=== PATIENT | male | born 1935 | race Caucasian/White ===

== ENCOUNTER → 2016-08-02 | Outpatient (CLI) | payer MEDICARE, OTHER | END | disposition home or self-care (01) | LOC: LABWHC1 06:41 | PROVIDERS: ATTEND Urology | DX: C61 Malignant neoplasm of prostate (principal) | CPT/HCPCS: 36415; 84153 ==

== ENCOUNTER 2017-04-29 09:00 | Inpatient (IN) | payer MEDICARE, OTHER ==
[2017-04-29] MEDS ORDERED: ASPIRIN 81 MG PO STA (09:03)
[2017-04-29 09:42] LABS: Basophils % (A) 0 %; Eosinophils % (A) 0 %; HCT 29.1 % (39.0-53.0); HGB 9.8 gm/dL (13.0-17.5); Lymphocytes # (A) 0.8 k/uL (1.0-4.8); Lymphocytes % (A) 7 %; MCH 30.4 pg (25.0-35.0); MCHC 33.8 g/dL (31.0-37.0); MCV 89.9 fL (80.0-100.0); Mean Platelet Volume 7.7; Monocytes # (A) 0.7 k/uL (0-1.0); Monocytes % (A) 6 %; Neutrophils # (A) 9.3 k/uL (1.3-7.7); Neutrophils % (A) 85 %; Platelet Count 274 k/uL (150-450); Poikilocytosis Slight; RBC 3.24 m/uL (4.30-5.90); RDW 14.9 % (11.5-15.5); WBC 10.9 k/uL (3.8-10.6)
[2017-04-29 09:49] LABS: INR 1.3 (<1.2); Partial Thromboplastin Time 28.2 sec (22.0-30.0)
[2017-04-29 10:01] LABS: Albumin 2.6 g/dL (3.5-5.0); Calcium 9.7 mg/dL (8.4-10.2); Magnesium 1.9 mg/dL (1.6-2.3); Potassium 3.5 mmol/L (3.5-5.1); Total Bilirubin 0.6 mg/dL (0.2-1.3); Total Protein 5.7 g/dL (6.3-8.2)
--- NOTE | 2017-04-29 10:01 | XR ---
EXAMINATION TYPE: XR chest 2V DATE OF EXAM: 04/29/2017 COMPARISON: 05/07/2010 HISTORY: 82-year-old male with chest pain TECHNIQUE: AP and lateral views FINDINGS: The extreme left base is excluded from view. Heart normal size. Median sternotomy wires with post-CAB G clips in the mediastinum. Hyperinflation with flattening of hemidiaphragms. There is new small righ t pleural effusion. Some interstitial densities peripheral right base. IMPRESSION: COPD. Small pleural effusions with adjacent atelectasis and/or consolidation. Correlate to exclude mi ld CHF.
[2017-04-29] MEDS ORDERED: ONDANSETRON 4 MG/2 ML VIAL IVP PRN (11:14)
[2017-04-29] MEDS ORDERED: NALOXONE 0.4 MG/ML 1 ML VIAL IV PRN (11:14)
--- NOTE | 2017-04-29 11:14 | ED ---
SOB HPI - General Chief Complaint: Shortness of Breath Stated Complaint: Diff Breathing Time Seen by Provider: 04/29/17 09:03 Source: patient, EMS Mode of arrival: EMS Limitations: no limitations - History of Present Illness Initial Comments: Patient complains of shortness of breath. It has been getting worse for many hours. Nothing makes it better or worse. He has taken no medications. He has no pain or swelling in the arms, but does complain of edema in the legs. He has no chest pain or tightness. He has no lightheadedness or dizziness. He has no nausea or vomiting. He denies any sick contacts. He has not traveled anywhere. He did not take any specific medication for the shortness of breath. He was not doing anything when this began. - Related Data Home Medications Medication Instructions Recorded Confirmed Aspirin EC [Ecotrin Low Dose] 162 mg PO DAILY 04/29/17 04/29/17 Atenolol [Tenormin] 50 mg PO DAILY 04/29/17 04/29/17 Atorvastatin [Lipitor] 40 mg PO HS 04/29/17 04/29/17 Docusate [Colace] 100 mg PO DAILY 04/29/17 04/29/17 Ezetimibe [Zetia] 10 mg PO HS 04/29/17 04/29/17 Fexofenadine HCl [Crystal Allergy] 180 mg PO DAILY 04/29/17 04/29/17 Furosemide [Lasix] 40 mg PO DAILY 04/29/17 04/29/17 Ibuprofen [Motrin] 800 mg PO TID PRN 04/29/17 04/29/17 Lisinopril [Prinivil] 10 mg PO BID 04/29/17 04/29/17 Multivitamins, Thera [Multivitamin 1 tab PO DAILY 04/29/17 04/29/17 (formulary)] Omeprazole Magnesium [PriLOSEC OTC] 20 mg PO DAILY 04/29/17 04/29/17 traMADol HCL [Ultram] 50 - 100 mg PO Q6H PRN 04/29/17 04/29/17 Allergies Allergy/AdvReac Type Severity Reaction Status Date / Time acetaminophen [From Tylenol] Allergy Rash/Hives Verified 04/29/17 09:36 bicalutamide [From Casodex] Allergy Rash/Hives Verified 04/29/17 09:36 meloxicam [From Mobic] Allergy Unknown Verified 04/29/17 09:36 Sulfa (Sulfonamide Allergy Itching Verified 04/29/17 09:36 Antibiotics) morphine AdvReac Nausea & Verified 04/29/17 09:36 Vomiting Review of Systems ROS Statement: Those systems with pertinent positive or pertinent negative responses have been documented in the HPI. ROS Other: All systems not noted in ROS Statement are negative. Past Medical History Past Medical History: Atrial Fibrillation, Hyperlipidemia, Hypertension, Myocardial Infarction ([place]), Prostate Disorder Additional Past Medical History / Comment(s): prostate ca History of Any Multi-Drug Resistant Organisms: None Reported Past Surgical History: Appendectomy, Coronary Bypass/CABG, Tonsillectomy Past Psychological History: No Psychological Hx Reported Smoking Status: Former smoker Past Alcohol Use History: Occasional Past Drug Use History: None Reported General Exam Limitations: no limitations General appearance: alert, in no apparent distress Head exam: Present: atraumatic, normocephalic, normal inspection Eye exam: Present: normal appearance, PERRL, EOMI. Absent: scleral icterus, conjunctival injection, periorbital swelling ENT exam: Present: normal exam, mucous membranes moist Neck exam: Present: normal inspection. Absent: tenderness, meningismus, lymphadenopathy Respiratory exam: Present: rales, rhonchi. Absent: respiratory distress, wheezes, stridor Cardiovascular Exam: Present: regular rate, normal rhythm, normal heart sounds. Absent: systolic murmur, diastolic murmur, rubs, gallop, clicks GI/Abdominal exam: Present: soft, normal bowel sounds. Absent: distended, tenderness, guarding, rebound, rigid Extremities exam: Present: normal inspection, full ROM, normal capillary refill , pedal edema. Absent: tenderness, joint swelling, calf tenderness Back exam: Present: normal inspection Neurological exam: Present: alert, oriented X3, CN II-XII intact Psychiatric exam: Present: normal affect, normal mood Skin exam: Present: warm, dry, intact, normal color. Absent: rash Course Vital Signs 04/29/17 04/29/17 04/29/17 09:06 09:18 09:39 Temperature 97.6 F Pulse Rate 83 Pulse Rate [ Analytical Statistician ] Respiratory 22 20 Rate Blood Pressure 140/58 O2 Sat by Pulse 89 L 95 Oximetry 04/29/17 04/29/17 04/29/17 09:40 10:16 11:06 Temperature Pulse Rate 83 85 Pulse Rate [ 84 Analytical Statistician ] Respiratory 20 18 Rate Blood Pressure 140/58 134/65 O2 Sat by Pulse 97 97 Oximetry Medical Decision Making - Medical Decision Making Patient presents with shortness of breath. He has rales and rhonchi bilaterally. Chest x-rays consistent with heart failure. Troponin is slightly elevated, and he has a very elevated BNP. Patient will be admitted to the hospital. I will place a consultation to cardiology. - Lab Data Result diagrams: 04/29/17 09:20 04/29/17 09:20 Lab Results 04/29/17 04/29/17 04/29/17 Range/Units 09:20 09:20 09:20 WBC 10.9 H (3.8-10.6) k/uL RBC 3.24 L (4.30-5.90) m/uL Hgb 9.8 L (13.0-17.5) gm/dL Hct 29.1 L (39.0-53.0) % MCV 89.9 (80.0-100.0) fL MCH 30.4 (25.0-35.0) pg MCHC 33.8 (31.0-37.0) g/dL RDW 14.9 (11.5-15.5) % Plt Count 274 (150-450) k/uL Neutrophils % 85 % Lymphocytes % 7 % Monocytes % 6 % Eosinophils % 0 % Basophils % 0 % Neutrophils # 9.3 H (1.3-7.7) k/uL Lymphocytes # 0.8 L (1.0-4.8) k/uL Monocytes # 0.7 (0-1.0) k/uL Eosinophils # 0.0 (0-0.7) k/uL Basophils # 0.0 (0-0.2) k/uL Poikilocytosis Slight PT (9.0-12.0) sec INR (<1.2) APTT (22.0-30.0) sec Sodium 137 (137-145) mmol/L Potassium 3.5 (3.5-5.1) mmol/L Chloride 106 (98-107) mmol/L Carbon Dioxide 21 L (22-30) mmol/L Anion Gap 10 mmol/L BUN 65 H (9-20) mg/dL Creatinine 1.50 H (0.66-1.25) mg/dL Est GFR (CKD-EPI)AfAm 50 (>60 ml/min/1.73 sqM) Est GFR (CKD-EPI)NonAf 43 (>60 ml/min/1.73 sqM) Glucose 124 H (74-99) mg/dL Calcium 9.7 (8.4-10.2) mg/dL Magnesium 1.9 (1.6-2.3) mg/dL Total Bilirubin 0.6 (0.2-1.3) mg/dL AST 15 L (17-59) U/L ALT 27 (21-72) U/L Alkaline Phosphatase 132 H (38-126) U/L Troponin I (0.000-0.034) ng/mL NT-Pro-B Natriuret Pep 2590 pg/mL Total Protein 5.7 L (6.3-8.2) g/dL Albumin 2.6 L (3.5-5.0) g/dL Lipase 63 (23-300) U/L 04/29/17 04/29/17 Range/Units 09:20 09:20 WBC (3.8-10.6) k/uL RBC (4.30-5.90) m/uL Hgb (13.0-17.5) gm/dL Hct (39.0-53.0) % MCV (80.0-100.0) fL MCH (25.0-35.0) pg MCHC (31.0-37.0) g/dL RDW (11.5-15.5) % Plt Count (150-450) k/uL Neutrophils % % Lymphocytes % % Monocytes % % Eosinophils % % Basophils % % Neutrophils # (1.3-7.7) k/uL Lymphocytes # (1.0-4.8) k/uL Monocytes # (0-1.0) k/uL Eosinophils # (0-0.7) k/uL Basophils # (0-0.2) k/uL Poikilocytosis PT 12.0 (9.0-12.0) sec INR 1.3 H (<1.2) APTT 28.2 (22.0-30.0) sec Sodium (137-145) mmol/L Potassium (3.5-5.1) mmol/L Chloride (98-107) mmol/L Carbon Dioxide (22-30) mmol/L Anion Gap mmol/L BUN (9-20) mg/dL Creatinine (0.66-1.25) mg/dL Est GFR (CKD-EPI)AfAm (>60 ml/min/1.73 sqM) Est GFR (CKD-EPI)NonAf (>60 ml/min/1.73 sqM) Glucose (74-99) mg/dL Calcium (8.4-10.2) mg/dL Magnesium (1.6-2.3) mg/dL Total Bilirubin (0.2-1.3) mg/dL AST (17-59) U/L ALT (21-72) U/L Alkaline Phosphatase (38-126) U/L Troponin I 0.099 H* (0.000-0.034) ng/mL NT-Pro-B Natriuret Pep pg/mL Total Protein (6.3-8.2) g/dL Albumin (3.5-5.0) g/dL Lipase (23-300) U/L 04/29/17 11:13 Twelve-lead EKG interpreted by me as showing ventricular rate 84 bpm, normal HI interval, QRS complexes demonstrate intraventricular block, no ST elevation or depression, interpreted by me as a sinus rhythm. Disposition Clinical Impression: Congestive heart failure Disposition: ADMITTED IP TO THIS HOSP Condition: Fair Referrals: Harshal Lane MD [Primary Care Provider] - 1-2 days Time of Disposition: 11:14
[2017-04-29] MEDS ORDERED: FUROSEMIDE 40 MG TAB PO SCH (11:30)
[2017-04-29] MEDS: traMADol 50 MG TAB PO PRN ×2 (12:55→20:56)
[2017-04-29] MEDS: ATENOLOL 50 MG TAB PO SCH (13:05)
[2017-04-29] MEDS: FAMOTIDINE 20 MG TAB PO SCH ×2 (13:05→20:47)
[2017-04-29] MEDS: ATORVASTATIN 40 MG TAB PO SCH (13:06)
[2017-04-29] MEDS: EZETIMIBE 10 MG TAB PO SCH ×2 (13:06→20:47)
[2017-04-29] MEDS: LISINOPRIL 10 MG TAB PO SCH ×2 (13:06→20:47)
[2017-04-29] MEDS ORDERED: ATENOLOL 25 MG TAB PO STA (18:35)
[2017-04-29] MEDS: HEPARIN SODIUM,PORCINE 5,000 UNIT/ML 1 ML VIAL SQ SCH (20:47)
[2017-04-29] MEDS: POTASSIUM CHLORIDE ER 20 MEQ TAB.ER PO SCH (20:48)
[2017-04-30] MEDS: POTASSIUM CHLORIDE ER 20 MEQ TAB.ER PO SCH (00:08)
[2017-04-30 06:58] LABS: HCT 27.1 % (39.0-53.0); MCHC 33.2 g/dL (31.0-37.0); MCV 90.2 fL (80.0-100.0); Mean Platelet Volume 8.2; Platelet Count 232 k/uL (150-450); Poikilocytosis Slight; RBC 3.01 m/uL (4.30-5.90); WBC 8.4 k/uL (3.8-10.6)
[2017-04-30 07:07] LABS: Calcium 10.1 mg/dL (8.4-10.2); Potassium 3.7 mmol/L (3.5-5.1)
[2017-04-30] MEDS ORDERED: SODIUM CHLORIDE 0.9% 1,000 ML IV SCH (08:15)
[2017-04-30] MEDS: ASPIRIN 81 MG PO SCH (08:57)
[2017-04-30] MEDS: HEPARIN SODIUM,PORCINE 5,000 UNIT/ML 1 ML VIAL SQ SCH ×2 (08:58→20:05)
[2017-04-30] MEDS: FAMOTIDINE 20 MG TAB PO SCH (08:58)
[2017-04-30] MEDS: ATENOLOL 50 MG TAB PO SCH (08:58)
[2017-04-30] MEDS: PANTOPRAZOLE 40 MG/10 ML VIAL IVP SCH (08:58)
[2017-04-30] MEDS: DOCUSATE 100 MG CAP PO SCH (08:58)
--- NOTE | 2017-04-30 10:54 | P.CRDCN ---
History of Present Illness History of present illness: Indication and examined. He complains of shortness of breath and recurrent weakness but denies any loss of consciousness presyncope or palpitations. At not Lane's office and even in the hospital supraventricular tachycardia with a balance he was noted with a stable cycle length of 360 ms, underlying right bundle branch block pattern. Currently on atenolol. Anemia noted that patient denies any black stools Impression Recurrent weakness and shortness of breath Supraventricular tachycardia with RVR cycle length 360 ms Right bundle branch block pattern on twelve-lead ECG SVT with a right bundle branch block pattern Anemia Suggest Continue atenolol 50 g by mouth daily and watch for recurrence of arrhythmia and if so then consider increasing to 75 mg by mouth daily If he continues to have these episodes and EP study will be recommended Anemia workup hemoglobin 9.0 per PCP TSH Past Medical History Past Medical History: Atrial Fibrillation, Coronary Artery Disease (CAD), Cancer , Chest Pain / Angina, GERD/Reflux, Hyperlipidemia, Hypertension, Myocardial Infarction ([place]), Osteoarthritis (OA), Prostate Disorder Additional Past Medical History / Comment(s): Prostate ca with hormone treatment , skin cancer with removals, back pain, arthritis bilateral knees and wrists, occasional numbness bilateral legs. Last Myocardial Infarction Date:: 1997 History of Any Multi-Drug Resistant Organisms: None Reported Past Surgical History: Appendectomy, Coronary Bypass/CABG, Heart Catheterization , Heart Catheterization With Stent, Tonsillectomy Additional Past Surgical History / Comment(s): 1997 CABG 3 vessel, PCI with stent 2010, colonoscopy, R wrist tendon surgery, R hand lipoma removed, sclerosing hemangioma excised from chest, skin cancer removals. Past Anesthesia/Blood Transfusion Reactions: No Reported Reaction Date of Last Stent Placement:: 2010 Smoking Status: Former smoker - Past Family History Father Family Medical History: No Reported History Additional Family Medical History / Comment(s): Father was healthy Mother Family Medical History: Coronary Artery Disease (CAD), Hyperlipidemia, Hypertension Medications and Allergies Home Medications Medication Instructions Recorded Confirmed Type Aspirin EC [Ecotrin Low Dose] 162 mg PO DAILY 04/29/17 04/29/17 History Atenolol [Tenormin] 50 mg PO DAILY 04/29/17 04/29/17 History Atorvastatin [Lipitor] 40 mg PO HS 04/29/17 04/29/17 History Docusate [Colace] 100 mg PO DAILY 04/29/17 04/29/17 History Ezetimibe [Zetia] 10 mg PO HS 04/29/17 04/29/17 History Fexofenadine HCl [Crystal Allergy] 180 mg PO DAILY 04/29/17 04/29/17 History Furosemide [Lasix] 40 mg PO DAILY 04/29/17 04/29/17 History Ibuprofen [Motrin] 800 mg PO TID PRN 04/29/17 04/29/17 History Lisinopril [Prinivil] 10 mg PO BID 04/29/17 04/29/17 History Multivitamins, Thera [Multivitamin 1 tab PO DAILY 04/29/17 04/29/17 History (formulary)] Omeprazole Magnesium [PriLOSEC OTC] 20 mg PO DAILY 04/29/17 04/29/17 History traMADol HCL [Ultram] 50 - 100 mg PO Q6H PRN 04/29/17 04/29/17 History Allergies Allergy/AdvReac Type Severity Reaction Status Date / Time acetaminophen [From Tylenol] Allergy Rash/Hives Verified 04/29/17 09:36 bicalutamide [From Casodex] Allergy Rash/Hives Verified 04/29/17 09:36 meloxicam [From Mobic] Allergy Unknown Verified 04/29/17 09:36 Sulfa (Sulfonamide Allergy Itching Verified 04/29/17 09:36 Antibiotics) morphine AdvReac Nausea & Verified 04/29/17 09:36 Vomiting Physical Exam Vitals: Vital Signs Temp Pulse Pulse Pulse Resp BP BP 04/30/17 04:00 84 67 16 110/62 04/30/17 00:00 84 67 16 113/56 04/29/17 20:00 84 80 18 110/59 04/29/17 16:00 97.4 F L 75 19 124/63 04/29/17 15:17 97.8 F 04/29/17 15:00 71 18 132/63 04/29/17 11:57 55 L 18 134/65 04/29/17 11:06 85 18 134/65 Pulse Ox 04/30/17 04:00 95 04/30/17 00:00 98 04/29/17 20:00 97 04/29/17 16:00 96 04/29/17 15:17 04/29/17 15:00 97 04/29/17 11:57 97 04/29/17 11:06 97 Intake and Output 04/29/17 04/30/17 04/30/17 22:59 06:59 14:59 Intake Total 180 Output Total 900 Balance -900 180 Intake: Oral 180 Output: Urine 900 Other: # Voids 1 # Bowel Movements 1 Weight 100.3 kg 103.5 kg Results 04/30/17 06:40 04/30/17 06:40 Cardiac Enzymes 04/29/17 04/29/17 Range/Units 15:03 20:43 Troponin I 0.102 H* 0.090 H* (0.000-0.034) ng/mL CBC 04/30/17 Range/Units 06:40 WBC 8.4 (3.8-10.6) k/uL RBC 3.01 L (4.30-5.90) m/uL Hgb 9.0 L (13.0-17.5) gm/dL Hct 27.1 L (39.0-53.0) % Plt Count 232 (150-450) k/uL Comprehensive Metabolic Panel 04/30/17 Range/Units 06:40 Sodium 138 (137-145) mmol/L Potassium 3.7 (3.5-5.1) mmol/L Chloride 106 (98-107) mmol/L Carbon Dioxide 22 (22-30) mmol/L BUN 70 H (9-20) mg/dL Creatinine 1.79 H (0.66-1.25) mg/dL Glucose 117 H (74-99) mg/dL Calcium 10.1 (8.4-10.2) mg/dL Current Medications Generic Name Dose Route Start Last Admin Trade Name Freq PRN Reason Stop Dose Admin Aspirin 162 mg 04/30/17 09:00 04/30/17 08:57 Aspirin PO 162 mg DAILY LARRY Administration Atenolol 50 mg 04/29/17 11:30 04/30/17 08:58 Tenormin PO 50 mg DAILY LARRY Administration Atorvastatin Calcium 40 mg 04/29/17 21:00 04/29/17 13:06 Lipitor PO 40 mg HS LARRY Administration Docusate Sodium 100 mg 04/30/17 09:00 04/30/17 08:58 Colace PO 100 mg DAILY LARRY Administration Ezetimibe 10 mg 04/29/17 21:00 04/29/17 20:47 Zetia PO 10 mg HS LARRY Administration Famotidine 20 mg 04/29/17 11:15 04/30/17 08:58 Pepcid PO 20 mg BID LARRY Administration Heparin Sodium (Porcine) 5,000 unit 04/29/17 21:00 04/30/17 08:58 Heparin SQ 5,000 unit Q12HR LARRY Administration Sodium Chloride 1,000 mls @ 50 mls/hr 04/30/17 08:15 04/30/17 08:45 Saline 0.9% IV 50 mls/hr .Q20H LARRY Administration Naloxone HCl 0.2 mg 04/29/17 11:14 Narcan IV Q2M PRN Opioid Reversal Ondansetron HCl 4 mg 04/29/17 11:14 Zofran IVP Q8HR PRN Nausea And Vomiting Pantoprazole Sodium 40 mg 04/30/17 09:00 04/30/17 08:58 Protonix IVP 40 mg DAILY LARRY Administration Tramadol HCl 50 mg 04/29/17 11:14 04/29/17 20:56 Ultram PO 50 mg Q6H PRN Administration Moderate Pain Intake and Output 04/29/17 04/30/17 04/30/17 22:59 06:59 14:59 Intake Total 180 Output Total 900 Balance -900 180 Intake: Oral 180 Output: Urine 900 Other: # Voids 1 # Bowel Movements 1 Weight 100.3 kg 103.5 kg 04/30/17 06:40 04/30/17 06:40
[2017-04-30] MEDS: traMADol 50 MG TAB PO PRN (12:42)
--- NOTE | 2017-04-30 14:33 | P.CRDCN ---
History of Present Illness Consult date: 04/30/17 Requesting physician: Harshal Lane Consult reason: shortness of breath Chief complaint: Shortness of breath History of present illness: This is an 82-year-old gentleman with history of atrial fibrillation, hypertension, hyperlipidemia, GERD, who presents to the hospital with symptoms of shortness of breath, patient also complains of intermittent chest burning and burning across his shoulder area. Upon review of his rhythm strips, patient was noted to have episodes of supraventricular tachycardia, underlying right bundle branch block pattern. He is currently on atenolol. It was also noted on review the patient's labs that his hemoglobin is down. Patient denies having any black stools. His blood pressure is 110/60 with a heart rate in the 60s, respirations 16, temperature 97.1, he's 95% on 3 L of oxygen. Chest x-ray shows COPD with small pleural effusions and adjacent atelectasis. Correlate to exclude mild congestive heart failure. Laboratory data, white blood cell count 10.9, hemoglobin 9.8, platelet count 274. Reticular count 3.0, sodium 138, potassium 3.7, BUN 70, creatinine 1.7. Patient had been given IV Lasix in the emergency room. Creatinine on admission 1.5. Magnesium level I.9. BNP 2590, troponins 0.09, 0.10, 0.09. TSH 1.69. Past Medical History Past Medical History: Atrial Fibrillation, Coronary Artery Disease (CAD), Cancer , Chest Pain / Angina, GERD/Reflux, Hyperlipidemia, Hypertension, Myocardial Infarction ([place]), Osteoarthritis (OA), Prostate Disorder Additional Past Medical History / Comment(s): Prostate ca with hormone treatment , skin cancer with removals, back pain, arthritis bilateral knees and wrists, occasional numbness bilateral legs. Last Myocardial Infarction Date:: 1997 History of Any Multi-Drug Resistant Organisms: None Reported Past Surgical History: Appendectomy, Coronary Bypass/CABG, Heart Catheterization , Heart Catheterization With Stent, Tonsillectomy Additional Past Surgical History / Comment(s): 1997 CABG 3 vessel, PCI with stent 2010, colonoscopy, R wrist tendon surgery, R hand lipoma removed, sclerosing hemangioma excised from chest, skin cancer removals. Past Anesthesia/Blood Transfusion Reactions: No Reported Reaction Date of Last Stent Placement:: 2010 Smoking Status: Former smoker - Past Family History Father Family Medical History: No Reported History Additional Family Medical History / Comment(s): Father was healthy Mother Family Medical History: Coronary Artery Disease (CAD), Hyperlipidemia, Hypertension Medications and Allergies Home Medications Medication Instructions Recorded Confirmed Type Aspirin EC [Ecotrin Low Dose] 162 mg PO DAILY 04/29/17 04/29/17 History Atenolol [Tenormin] 50 mg PO DAILY 04/29/17 04/29/17 History Atorvastatin [Lipitor] 40 mg PO HS 04/29/17 04/29/17 History Docusate [Colace] 100 mg PO DAILY 04/29/17 04/29/17 History Ezetimibe [Zetia] 10 mg PO HS 04/29/17 04/29/17 History Fexofenadine HCl [Crystal Allergy] 180 mg PO DAILY 04/29/17 04/29/17 History Furosemide [Lasix] 40 mg PO DAILY 04/29/17 04/29/17 History Ibuprofen [Motrin] 800 mg PO TID PRN 04/29/17 04/29/17 History Lisinopril [Prinivil] 10 mg PO BID 04/29/17 04/29/17 History Multivitamins, Thera [Multivitamin 1 tab PO DAILY 04/29/17 04/29/17 History (formulary)] Omeprazole Magnesium [PriLOSEC OTC] 20 mg PO DAILY 04/29/17 04/29/17 History traMADol HCL [Ultram] 50 - 100 mg PO Q6H PRN 04/29/17 04/29/17 History Allergies Allergy/AdvReac Type Severity Reaction Status Date / Time acetaminophen [From Tylenol] Allergy Rash/Hives Verified 04/29/17 09:36 bicalutamide [From Casodex] Allergy Rash/Hives Verified 04/29/17 09:36 meloxicam [From Mobic] Allergy Unknown Verified 04/29/17 09:36 Sulfa (Sulfonamide Allergy Itching Verified 04/29/17 09:36 Antibiotics) morphine AdvReac Nausea & Verified 04/29/17 09:36 Vomiting Physical Exam Vitals: Vital Signs Temp Pulse Pulse Pulse Resp BP BP 04/30/17 08:00 97.1 F L 79 20 186/87 04/30/17 04:00 84 67 16 110/62 03/07/18 00:00 84 67 16 113/56 04/29/17 20:00 84 80 18 110/59 04/29/17 16:00 97.4 F L 75 19 124/63 04/29/17 15:17 97.8 F 04/29/17 15:00 71 18 132/63 Pulse Ox 04/30/17 08:00 90 L 04/30/17 04:00 95 04/30/17 00:00 98 04/29/17 20:00 97 04/29/17 16:00 96 04/29/17 15:17 04/29/17 15:00 97 Intake and Output 04/29/17 04/30/17 04/30/17 22:59 06:59 14:59 Intake Total 380 Output Total 900 Balance -900 380 Intake: Oral 380 Output: Urine 900 Other: # Voids 1 # Bowel Movements 1 Weight 100.3 kg 103.5 kg PHYSICAL EXAMINATION: HEENT: Head is atraumatic, normocephalic. Pupils equal, round. Neck is supple. There is no elevated jugular venous pressure. HEART EXAMINATION: Heart S1 and S2 with systolic murmur is heard. CHEST EXAMINATION: His reveal fine crackles to bilateral bases ABDOMEN: Soft, nontender. Bowel sounds are heard. No organomegaly noted. EXTREMITIES: 2+ peripheral pulses with evidence of peripheral edema and no calf tenderness noted. NEUROLOGIC patient is awake, alert and oriented -3. . Results 04/30/17 06:40 04/30/17 06:40 Cardiac Enzymes 04/29/17 04/29/17 Range/Units 15:03 20:43 Troponin I 0.102 H* 0.090 H* (0.000-0.034) ng/mL CBC 04/30/17 Range/Units 06:40 WBC 8.4 (3.8-10.6) k/uL RBC 3.01 L (4.30-5.90) m/uL Hgb 9.0 L (13.0-17.5) gm/dL Hct 27.1 L (39.0-53.0) % Plt Count 232 (150-450) k/uL Comprehensive Metabolic Panel 04/30/17 Range/Units 06:40 Sodium 138 (137-145) mmol/L Potassium 3.7 (3.5-5.1) mmol/L Chloride 106 (98-107) mmol/L Carbon Dioxide 22 (22-30) mmol/L BUN 70 H (9-20) mg/dL Creatinine 1.79 H (0.66-1.25) mg/dL Glucose 117 H (74-99) mg/dL Calcium 10.1 (8.4-10.2) mg/dL Current Medications Generic Name Dose Route Start Last Admin Trade Name Freq PRN Reason Stop Dose Admin Aspirin 162 mg 04/30/17 09:00 04/30/17 08:57 Aspirin PO 162 mg DAILY LARRY Administration Atenolol 50 mg 04/29/17 11:30 04/30/17 08:58 Tenormin PO 50 mg DAILY LARRY Administration Atorvastatin Calcium 40 mg 04/29/17 21:00 04/29/17 13:06 Lipitor PO 40 mg HS LARRY Administration Docusate Sodium 100 mg 04/30/17 09:00 04/30/17 08:58 Colace PO 100 mg DAILY LARRY Administration Ezetimibe 10 mg 04/29/17 21:00 04/29/17 20:47 Zetia PO 10 mg HS LARRY Administration Famotidine 20 mg 04/29/17 11:15 04/30/17 08:58 Pepcid PO 20 mg BID LARRY Administration Heparin Sodium (Porcine) 5,000 unit 04/29/17 21:00 04/30/17 08:58 Heparin SQ 5,000 unit Q12HR LARRY Administration Sodium Chloride 1,000 mls @ 50 mls/hr 04/30/17 08:15 04/30/17 08:45 Saline 0.9% IV 50 mls/hr .Q20H LARRY Administration Naloxone HCl 0.2 mg 04/29/17 11:14 Narcan IV Q2M PRN Opioid Reversal Ondansetron HCl 4 mg 04/29/17 11:14 Zofran IVP Q8HR PRN Nausea And Vomiting Pantoprazole Sodium 40 mg 04/30/17 09:00 04/30/17 08:58 Protonix IVP 40 mg DAILY LARRY Administration Tramadol HCl 50 mg 04/29/17 11:14 04/30/17 12:42 Ultram PO 50 mg Q6H PRN Administration Moderate Pain Intake and Output 04/29/17 04/30/17 04/30/17 22:59 06:59 14:59 Intake Total 380 Output Total 900 Balance -900 380 Intake: Oral 380 Output: Urine 900 Other: # Voids 1 # Bowel Movements 1 Weight 100.3 kg 103.5 kg 04/30/17 06:40 04/30/17 06:40 EKG Interpretations (text) EKG shows a normal sinus rhythm with a right bundle branch block pattern. Assessment and Plan Plan: Assessment and plan #1 symptoms of progressively worsening shortness of breath, evidence of mild congestive heart failure. Patient was diuresed in the emergency room, Lasix currently on hold. Chest x-ray showed mild congestive heart failure, mild elevation in BNP. #2 anemia, which could be contributing as well to the patient's difficulty in breathing. He denies any black stools. #3 supraventricular tachycardia, patient has been experiencing intermittent symptoms of chest burning with associated shortness of breath which could be attributed to episodes of supraventricular tachycardia. Continue atenolol. #4 paroxysmal atrial fibrillation Number 5 hyperlipidemia #6 GERD #7 coronary artery disease with prior bypass surgery and stent placement Plan We will obtain an echocardiogram with Doppler study. We will also continue atenolol and watch for recurrent arrhythmias, if patient has recurrent arrhythmic we will consider increasing atenolol to 75 mg daily. Also consider EP study if patient has further episodes. Workup for anemia. Check TSH level. DNP note has been reviewed, I agree with a documented findings and plan of care. Patient was seen and examined.
--- NOTE | 2017-04-30 16:34 | ECHOF ---
Referral Reason:sob MEASUREMENTS -------- HEIGHT: 182.9 cm WEIGHT: 103.4 kg BP: 110/62 RVIDd: 3.8 cm (< 3.3) IVSd: 1.5 cm (0.6 - 1.1) LVIDd: 4.6 cm (3.9 - 5.3) LVPWd: 1.6 cm (0.6 - 1.1) IVSs: 2.0 cm LVIDs: 3.2 cm LVPWs: 1.7 cm LA Diam: 4.6 cm (2.7 - 3.8) Ao Diam: 3.3 cm (2.0 - 3.7) AV Cusp: 2.4 cm (1.5 - 2.6) MV EXCURSION: 17.701 mm (> 18.000) MV EF SLOPE: 62 mm/s (70 - 150) EPSS: 0.5 cm MV E West: 0.43 m/s MV DecT: 370 ms MV A West: 0.75 m/s MV E/A Ratio: 0.57 RAP: 5.00 mmHg RVSP: 33.43 mmHg FINDINGS -------- Sinus rhythm. This was a technically adequate study. The left ventricular size is normal. There is moderate concentric left ventricular hypertrophy. O verall left ventricular systolic function is low-normal with, an EF between 50 - 55 %. Basal inferi or LV wall motion is hypokinetic. The right ventricle is mild to moderately enlarged. The left atrium is mildly dilated. The right atrium is normal in size. There is mild aortic valve sclerosis. Mild mitral annular calcification present. Mild tricuspid regurgitation present. Right ventricular systolic pressure is normal at < 35 mmHg. Trace/mild (physiologic) pulmonic regurgitation. The aortic root size is normal. IVC Not well visulized. There is no pericardial effusion. CONCLUSIONS -------- 1. Sinus rhythm. 2. This was a technically adequate study. 3. The left ventricular size is normal. 4. There is moderate concentric left ventricular hypertrophy. 5. Overall left ventricular systolic function is low-normal with, an EF between 50 - 55 %. 6. Basal inferior LV wall motion is hypokinetic. 7. The right ventricle is mild to moderately enlarged. 8. The left atrium is mildly dilated. 9. The right atrium is normal in size. 10. There is mild aortic valve sclerosis. 11. Mild mitral annular calcification present. 12. Mild tricuspid regurgitation present. 13. Right ventricular systolic pressure is normal at < 35 mmHg. 14. Trace/mild (physiologic) pulmonic regurgitation. 15. The aortic root size is normal. 16. IVC Not well visulized. 17. There is no pericardial effusion. [employer] TECHNICIAN: Emilee De La Torre RDCS
[2017-04-30 16:44] LABS: Iron Saturation 10.47 (15.00-50.00)
[2017-04-30] MEDS: ATORVASTATIN 40 MG TAB PO SCH (20:05)
[2017-04-30] MEDS: EZETIMIBE 10 MG TAB PO SCH (20:05)
--- NOTE | 2017-04-30 22:55 | HP ---
HISTORY AND PHYSICAL CHIEF COMPLAINT: Shortness of breath and weakness. HISTORY OF PRESENT ILLNESS: This is an 82-year-old gentleman who was admitted to the hospital after presenting to the emergency room with inability to care for himself because he is generally weak and short of breath. The patient said his symptoms have been for about a month now; he has been progressively getting worse. He denied any anginal symptoms. He did have some atypical chest pain which he says starts from the left shoulder to the right upper abdominal area. It is like pain across the chest. The pain is off and on. No associated palpitations, dyspnea. The patient has no bleeding at any site. The patient denied any other symptoms of fever or chills but said in the beginning he had some flu-like symptoms. He also has had a cough with minimal sputum production. The patient said he presented to the emergency room because he thought he may have a hemothorax or pneumothorax. He had seen a lot of those type of patients in the war and thought he had similar symptoms. The patient denies any other associated symptoms of nausea, vomiting. He has decreased appetite. No diarrhea. No hematochezia or melena. symptoms denied. Denies pain or edema in the extremities. CONSTITUTIONAL: No fever or chills. PAST MEDICAL HISTORY: 1. History of spinal stenosis of the lumbar region at multiple levels. 2. Hypertension. 3. Coronary artery disease with a previous anteroinferior wall myocardial infarction. 4. Carcinoma of the prostate with no evidence of recurrence. 5. History of hyperlipidemia. SOCIAL HISTORY: Patient is single, lives alone. No children. Takes care of himself. He did exercise regularly until his sickness for the past month. The patient was never a smoker. Alcohol none. FAMILY MEDICAL HISTORY: Father at the age of 79 with a history of CVA, hypertension, coronary artery disease. Mother at the age of 91 with the same: CVA, hypertension, coronary artery disease. PAST SURGICAL HISTORY: 1. Tonsillectomy. 2. Adenoidectomy. 3. Appendectomy. 4. CABG. 5. Right wrist ganglion cyst surgery. REVIEW OF SYSTEMS: NEURO: Denies any headaches, dizziness. No double vision or blurred vision. No symptoms of TIA or syncope or seizures. Present complaint of weakness. PSYCH: No anxiety, depression. CARDIAC: No angina, palpitations. Does occasionally have this sharp pain. Complains of shortness of breath, even with minimal exertion. RESPIRATORY: Some cough. No hemoptysis. No pleuritic chest pain. GI: No nausea, vomiting. Appetite decreased. No abdominal pain, diarrhea. Some constipation. : No symptoms of dysuria, hematuria. EXTREMITIES: Denies pain. Does have generalized weakness. CONSTITUTIONAL: No fever, chills. SKIN: No rash. ALLERGIES: 1. CASODEX. 2. TYLENOL. 3. MORPHINE. 4. SULFA. MEDICATIONS: 1. Tramadol p.r.n. 2. Aspirin 81 mg daily. 3. Atorvastatin 40 mg daily. 4. Zetia 10 mg daily. 5. Uroxatral 10 mg daily. 6. Lisinopril 10 mg daily. 7. Atenolol 50 mg daily. 8. Zyrtec 10 mg daily. 9. Prilosec 20 mg daily. 10.Lasix 40 mg daily. 11.Potassium 20 mEq daily. PHYSICAL EXAMINATION: Pleasant gentleman who does appear sick and weak; looks like he has lost some weight since the last time I saw him. VITAL SIGNS: Temperature 97.6, pulse 83, respirations 22, blood pressure 140/58, pulse ox of 89% on room air. HEENT: Normocephalic. NECK: One plus JVD. Pupils are reactive. Nostrils clear. Oral cavity is dry. Ears reveal no drainage. Neck reveals no thyromegaly. No supraclavicular lymphadenopathy. CHEST EXAMINATION: Clear to percussion. A few dry crackles in the bases. CARDIAC: Normal S1, S2 with no gallops. Systolic murmur 2/6, left sternal border. ABDOMEN: Soft. No palpable masses. Bowel sounds normal. No organomegaly. No abdominal bruits. Extremities reveal trace edema at the ankles. Neurologically awake, alert, oriented with well-coordinated movements, both upper and lower extremities. Muscle generalized weakness. LABORATORY ASSESSMENT: CBC revealed hemoglobin 9.8, white count 10.9, platelets 276. INR 1.3, potassium 3.5, CO2 content 121, BUN 65, creatinine 1.5, glucose 124, alkaline phosphatase 132, troponin 0.099. BNP 2590. Albumin 2.6. ASSESSMENT: 1. Generalized weakness, malaise and shortness of breath, suspect related to anemia. 2. Acute on chronic renal failure with prerenal azotemia. 3. Decreased nutritional status. 4. Coronary artery disease, stable. 5. Troponin elevated, probably not related to acute coronary syndrome. 6. Remote history of carcinoma of the prostate. 7. Debility. PLAN: We will evaluate the patient to capture any continued bleeding. Check stools for occult blood. Check iron, TIBC, and ferritin levels. The patient will have echocardiogram done. Consult Cardiology. Will hydrate the patient cautiously. The patient's general condition was discussed with the patient. Prognosis remains guarded. BNP and troponins are probably more elevated because of the anemia, with no true clinical evidence of CHF. The patient's prognosis remains guarded. MMODL / IJN: [id number] /
--- NOTE | 2017-04-30 23:04 | PN ---
PROGRESS NOTE CHIEF COMPLAINT: Re-evaluation. HISTORY OF PRESENT ILLNESS: This 82-year-old gentleman was admitted to the hospital because of shortness of breath and weakness. The patient has underlying history of coronary artery disease. The patient following admission has been doing well. He did have a run of SVT without much symptoms. The patient has no evidence of myocardial infarction. The patient has no orthopnea. The patient has had no bowel movement. His hemoglobin today is 9.0. BUN is high at 78. REVIEW OF SYSTEMS: NEURO: Denies any headaches, dizziness. PSYCH: No anxiety. CARDIAC: No chest pain, angina, palpitation. RESPIRATORY: Some shortness of breath. Mild cough. No hemoptysis. GI: No nausea, vomiting, abdominal pain, diarrhea. No bowel movement. : No symptoms of dysuria, hematuria, urgency, frequency. EXTREMITIES: No edema. Does complain of weakness. CONSTITUTIONAL: No fever, chills. PHYSICAL EXAMINATION: Pleasant gentleman in no distress. VITAL SIGNS: Temperature 97.1, pulse 79, respirations 20, blood pressure 186/87, pulse ox 90% on 3 L. HEENT: Normocephalic. NECK: No JVD. CHEST: Clear to auscultation. CARDIAC: Normal S1, S2 with no gallop. Systolic murmur 2/6, left sternal border. ABDOMEN: Protuberant, soft. Bowel sounds active. Extremities reveal no edema. Neurologically awake, alert, oriented with well-coordinated movements. LABORATORY ASSESSMENT: White count 8.4, hemoglobin 9, platelets 232. Retic count is high at 3.0. Electrolytes normal. BUN 70, creatinine 1.79, magnesium 2.1. Thyroid functions normal. ASSESSMENT: 1. Generalized weakness. 2. Anemia. 3. Acute renal failure. PLAN: Continue present medical regimen. Rule out GI bleeding. Hydrate the patient. The patient is on Protonix. He has had a recent colonoscopy. Cardiology to see the patient. Patient's prognosis remains guarded. MMODL / IJN: [id number] /
[2017-05-01] MEDS ORDERED: FUROSEMIDE 10 MG/ML 4 ML VIAL IV STA (02:19)
--- NOTE | 2017-05-01 02:44 | XR ---
EXAMINATION TYPE: XR chest 1V portable DATE OF EXAM: 05/01/2017 COMPARISON: 04/29/2017 HISTORY: Difficulty breathing TECHNIQUE: Single frontal view of the chest is obtained. FINDINGS: Portable single view of the chest show some blunting of costophrenic angles. There is no g ross heart failure. There are chest leads. Heart size appears normal. Thoracic aorta is atheromatous. IMPRESSION: There is pleural fluid or pleural diaphragmatic reaction at the lung bases similar to la st exam. No gross heart failure.
[2017-05-01 03:17] LABS: Appearance,Urine Cloudy (Clear); Bacteria,Urine Occasional /hpf; Bilirubin,Urine Negative (Negative); Blood,Urine Moderate (Negative); Color,Urine Yellow; Glucose,Urine (UA) Negative (Negative); Ketones,Urine Negative (Negative); Leukocyte Esterase,Urine Large (Negative); Nitrite,Urine Negative (Negative); PH, Urine 5.5 (5.0-8.0); Protein,Urine 1+ (Negative); Specific Gravity,Urine 1.012 (1.001-1.035); Urobilinogen,Urine <2.0 mg/dL (<2.0); WBC,Urine 151 /hpf (0-5)
[2017-05-01 07:04] LABS: HCT 27.7 % (39.0-53.0); HGB 9.1 gm/dL (13.0-17.5); MCH 29.7 pg (25.0-35.0); MCHC 32.7 g/dL (31.0-37.0); MCV 90.7 fL (80.0-100.0); Mean Platelet Volume 7.6; Platelet Count 230 k/uL (150-450); Poikilocytosis Slight; RBC 3.05 m/uL (4.30-5.90); RDW 15.1 % (11.5-15.5); WBC 7.6 k/uL (3.8-10.6)
[2017-05-01 07:23] LABS: Calcium 9.5 mg/dL (8.4-10.2)
[2017-05-01] MEDS: HEPARIN SODIUM,PORCINE 5,000 UNIT/ML 1 ML VIAL SQ SCH ×2 (08:41→19:50)
[2017-05-01] MEDS: DOCUSATE 100 MG CAP PO SCH (08:41)
[2017-05-01] MEDS: ASPIRIN 81 MG PO SCH (08:41)
[2017-05-01] MEDS: IBUPROFEN 400 MG TAB PO SCH ×3 (08:41→19:54)
[2017-05-01] MEDS: ATENOLOL 50 MG TAB PO SCH (08:41)
[2017-05-01] MEDS: FAMOTIDINE 20 MG TAB PO SCH (08:41)
[2017-05-01] MEDS: PANTOPRAZOLE 40 MG/10 ML VIAL IVP SCH (08:42)
[2017-05-01] MEDS ORDERED: LEVOFLOXACIN 500MG-D5W PMX 500 MG in DEXTROSE/WATER 1 100ML.BAG IVPB SCH (09:00)
[2017-05-01] MEDS: traMADol 50 MG TAB PO PRN ×2 (14:26→21:37)
[2017-05-01] MEDS: ATORVASTATIN 40 MG TAB PO SCH (19:49)
[2017-05-01] MEDS: EZETIMIBE 10 MG TAB PO SCH (19:50)
--- NOTE | 2017-05-01 21:50 | PN ---
PROGRESS NOTE CHIEF COMPLAINT: Re-evaluation. The patient last night had increased shortness of breath and this morning has a significant temperature. The patient is somewhat lethargic and weak. Apparently a Kenny catheter was placed in the night by the nurses. The patient denies any dysuria. There is no hematuria. REVIEW OF SYSTEMS: NEURO: Denies any headaches, dizziness. PSYCH: Weak and lethargic. CARDIAC: Denies chest pain. RESPIRATORY: Denies shortness of breath with oxygen. Has minimal cough. GI: No nausea, vomiting. Decreased appetite. No abdominal pain or diarrhea. : No symptoms of dysuria, hematuria. Has a Kenny catheter. EXTREMITIES: Denies pain. No rash. CONSTITUTIONAL: Fever. No chills. PHYSICAL EXAMINATION: Pleasant gentleman. Temperature 101.5 oral, pulse 65, respirations 20, blood pressure 119/58, pulse ox 95% on 6 L. HEENT: Normocephalic. NECK: No JVD. CHEST: Clear to auscultation with mild decreased air flow at the right base. Few crackles. CARDIAC: Distant heart sounds S1, S2 with no gallop. Systolic murmur 2/6, left sternal border. ABDOMEN: Soft. Bowel sounds present. EXTREMITIES: Trace edema. NEUROLOGIC: Awake but lethargic. Moves both upper and lower extremities adequately with help. Does complain of generalized aches and pains. LABORATORY ASSESSMENT: White count was normal at 7.6, hemoglobin 9.1, platelets 230. Electrolytes are normal with a CO2 content of 19. BUN to 61 and creatinine 1.58. Glucose 164. Urinalysis had negative nitrite, 151 WBCs. ASSESSMENT: 1. Fever; etiology probably urinary tract infection. 2. Dyspnea. 3. Anemia. 4. History of cancer of the prostate. 5. Stable coronary artery disease. 6. Episode of supraventricular tachycardia. PLAN: The patient is stable; however, the patient has a new problem of fever. We will check patient for influenza. Can start the patient on Levaquin pending urine cultures. Prognosis remains guarded. MMODL / IJN: [id number] /
[2017-05-02] MEDS: traMADol 50 MG TAB PO PRN ×3 (04:46→18:57)
[2017-05-02 05:52] LABS: Calcium 9.6 mg/dL (8.4-10.2); Potassium 3.6 mmol/L (3.5-5.1)
[2017-05-02 06:00] LABS: HCT 23.1 % (39.0-53.0); MCHC 32.8 g/dL (31.0-37.0); MCV 91.3 fL (80.0-100.0); Mean Platelet Volume 7.7; Platelet Count 191 k/uL (150-450); Poikilocytosis Slight; RBC 2.53 m/uL (4.30-5.90); WBC 4.5 k/uL (3.8-10.6)
[2017-05-02 06:05] LABS: HGB 7.6 gm/dL (13.0-17.5)
[2017-05-02] MEDS: ATENOLOL 50 MG TAB PO SCH (08:46)
[2017-05-02] MEDS: DOCUSATE 100 MG CAP PO SCH (08:46)
[2017-05-02] MEDS: ASPIRIN 81 MG PO SCH (08:46)
[2017-05-02] MEDS: PANTOPRAZOLE 40 MG/10 ML VIAL IVP SCH (08:47)
[2017-05-02] MEDS: HEPARIN SODIUM,PORCINE 5,000 UNIT/ML 1 ML VIAL SQ SCH ×2 (08:47→18:58)
[2017-05-02] MEDS: FAMOTIDINE 20 MG TAB PO SCH (08:47)
[2017-05-02] MEDS: IBUPROFEN 400 MG TAB PO SCH ×3 (08:49→20:27)
[2017-05-02] MEDS ORDERED: LEVOFLOXACIN 250MG-D5W PMX 250 MG in DEXTROSE/WATER 1 50ML.BAG IVPB SCH (09:00)
--- NOTE | 2017-05-02 09:07 | P.PN ---
Subjective On atenolol 50 mg await the patient has not had any episodes of SVT. He still complains of dizziness. He is lying comfortably in bed. Vitals are stable. Afebrile 97.4F pulse rate in the 70s blood pressure 128/63 mmHg Heart sounds are normal Breath sounds are clear Abdomen soft Impression SVT Suppressed with atenolol 50 m by mouth daily No breakthrough episodes over the last 48 hours Normal TSH From a cardiac standpoint he should continue these medications and follow-up with Dr. VAISHNAVI Luis Objective - Vital Signs Vital signs: Vital Signs Temp 97.4 F L 05/02/17 04:00 Pulse 79 05/02/17 04:00 Resp 18 05/02/17 04:00 BP 128/63 05/02/17 04:00 Pulse Ox 94 L 05/02/17 04:00 Intake & Output 05/01/17 05/02/17 05/02/17 18:59 06:59 18:59 Intake Total 840 50 Output Total 1800 Balance 840 -1750 Weight 103 kg Intake: Intake, IV Titration 50 Amount Levofloxacin 250Mg-D5w 50 Pmx 250 mg In Dextrose/ Water 1 50ml.bag @ 50 mls /hr IVPB Q24HR LARRY Rx#: [id number] Oral 840 Output: Urine 1800 Uretheral (Kenny) 650 Other: Voiding Method Indwelling Catheter # Bowel Movements 1 - Labs CBC & Chem 7: 05/02/17 05:24 05/02/17 05:24 Labs: Abnormal Lab Results - Last 24 Hours (Table) 05/02/17 05/02/17 Range/Units 05:24 05:24 RBC 2.53 L (4.30-5.90) m/uL Hgb 7.6 L D (13.0-17.5) gm/dL Hct 23.1 L (39.0-53.0) % Chloride 112 H (98-107) mmol/L BUN 60 H (9-20) mg/dL Creatinine 1.50 H (0.66-1.25) mg/dL Glucose 117 H (74-99) mg/dL Microbiology - Last 24 Hours (Table) 05/01/17 10:45 Nasal Culture - Preliminary Nasal Swab 05/01/17 02:20 Urine Culture - Preliminary Urine,Catheterized
[2017-05-02] MEDS: SODIUM FERRIC GLUCONAT-SUCROSE 125 MG in SODIUM CHLORIDE 0.9% 100 ML IVPB SCH (10:15)
--- NOTE | 2017-05-02 12:44 | CDI ---
Last Revision, January 2017 Documentation Clarification Form Date: 05/02/2017 From: Joseline Perez Admit Date: 04/29/2017 11:14:00 AM Patient Name: Bjorn Christian Visit Number: [id number] Discharge Date: ATTENTION: The Clinical Documentation Specialists (CDI) and [facility] Coding Staff appreciate your assistance in clarifying documentation. Please respond to the clarification below the line at the bottom and electronically sign. The CDI & [facility] Coding staff will review the response and follow-up if needed. Please note: Queries are made part of the Legal Health Record. If you have any questions, please contact the author of this message via ITS. Dr. Harshal Lane: A diagnosis of anemia lacks specificity to accurately reflect your patients severity of condition and clarification is needed. History/Risk Factors: Hypertension, CAD w/previous [place], CA of prostate w/no recurrence, Hyperlipidemia. Clinical indicators: Presented with SOB & weakness, some atypical chest pain, cough, decreased appetite. Hemoglobin: 9.8, 9.0, 9.1, 7.6 Hematocrit: 29.1, 27.1, 27.7, 23.1 Treatment: Daily CBC, IV Zofran, Heparin sq, IV fluid rate 50, IV Protonix, IV Lasix, IV Levaquin started 05/02. In order to capture the severity of condition, please clarify the type of anemia and etiology if known: Acute blood loss anemia Acute on chronic blood loss anemia Chronic blood loss anemia Iron deficiency anemia Hemolytic anemia Drug induced anemia Nutritional anemia Anemia of chronic kidney disease Unable to determine Other, please specify Please continue to document in your progress notes and discharge summary in order to capture severity of illness and risk of mortality. Include clinical findings that support your diagnosis. MTDD
--- NOTE | 2017-05-02 12:53 | CDI ---
Last Revision, January 2017 Documentation Clarification Form Date: 05/02/2017 12:51 PM From: Joseline Perez Admit Date: 04/29/2017 11:14:00 AM Patient Name: Bjorn Christian Visit Number: [id number] Discharge Date: ATTENTION: The Clinical Documentation Specialists (CDI) and [facility] Coding Staff appreciate your assistance in clarifying documentation. Please respond to the clarification below the line at the bottom and electronically sign. The CDI & [facility] Coding staff will review the response and follow-up if needed. Please note: Queries are made part of the Legal Health Record. If you have any questions, please contact the author of this message via ITS. Dr. Harshal Lane: History/Risk Factors: CAD w/history of [place], History of Prostate CA w/no recurrence, Hypertension, Hyperlipidemia. Clinical Indicators: Presented with SOB & weakness. Current BUN/CR/GFR: 60 / 1.50 / 43 Patients Admitting BUN/CR/GFR: 65 / 1.50 / 43 Baseline BUN/CR/GFR unknown or not documented. Home meds: Ultram, Prinivil, Lasix, Zetia, Colace, Lipitor, Tenormin Treatment: IV Zofran, IV Narcan, Heparin sq, IV fluid rate 50, Telemetry. IV antibiotics started 05/01 for UTI. In order to capture the severity of condition, please clarify if the condition signifies: CKD Stage 1 (GFR > 90) CKD Stage 2 (GFR 60-89) CKD Stage 3 (GFR 30-59) CKD Stage 4 (GFR 15-29) CKD Stage 5 (GFR <15) ESRD Other, please specify Unable to determine Please continue to document in your progress notes and discharge summary in order to capture severity of illness and risk of mortality. Include clinical findings that support your diagnosis. MTDD
[2017-05-02] MEDS: EZETIMIBE 10 MG TAB PO SCH (18:58)
[2017-05-02] MEDS: ATORVASTATIN 40 MG TAB PO SCH (18:59)
--- NOTE | 2017-05-02 22:48 | PN ---
PROGRESS NOTE ATTENDING PHYSICIAN: Dr. Mi Lane. CHIEF COMPLAINT: Re-evaluation. HISTORY OF PRESENT ILLNESS: This is an 82-year-old gentleman admitted to the hospital with shortness of breath. The patient was noted to be anemic. His hemoglobin was stable; however, today has dropped down to 7.6 with no evidence of bleeding. His rectal examination reveals stool is grayish in color. No black stool. Denies any abdominal pain. REVIEW OF SYSTEMS: NEURO: No headaches dizziness. PSYCH: No anxiety. CARDIAC: No chest pain, angina, palpitations. RESPIRATORY: Shortness of breath with activity. GI: No nausea, vomiting, abdominal pain, diarrhea, constipation. The patient has had no bowel movement. : No symptoms of dysuria, hematuria. EXTREMITIES: No pain. CONSTITUTIONAL: No fever, chills, generalized weakness. PHYSICAL EXAMINATION: Pleasant gentleman in no distress, much more alert today. VITAL SIGNS: Temperature 97.9, pulse 75, respirations 18, blood pressure 118/49, pulse ox 96% on 5L. HEENT: Normocephalic. NECK: No JVD. CHEST: Clear to auscultation. The patient with some decreased air flow at the right base. CARDIAC: Distant heart sounds. S1, S2 with no gallop. Systolic murmur 2/6 left sternal border. ABDOMEN: Soft. Bowel sounds present. RECTAL: Normal sphincteric tone. Firm stool in the rectum, grayish brownish in color. Extremities reveal no edema. NEUROLOGICAL: Awake, alert, oriented with well-coordinated movements, though has generalized weakness. LABORATORY ASSESSMENT: CBC which revealed a hemoglobin of 7.6. Electrolytes are normal. BUN 60, creatinine 1.5. ASSESSMENT: 1. Anemia, suspected secondary to iron deficiency, possible recent blood loss. 2. Shortness of breath associated with anemia. 3. Known coronary artery disease. 4. Episode of supraventricular tachycardia, resolved. 5. Acute on chronic renal failure. 6. History of carcinoma of the prostate. 7. Fever, probably suspect urinary tract infection. PLAN: Continue present medical regimen. Patient's condition discussed with the patient. Prognosis guarded. Continue present regimen. Will recheck CBC tomorrow. The patient may require transfusion if his hemoglobin drops below 7 or if he develops hypotensive tachycardia. MMODL / IJN: [id number] /
[2017-05-03 07:05] LABS: HCT 22.2 % (39.0-53.0); HGB 7.1 gm/dL (13.0-17.5); Hypochromasia Slight; MCH 29.9 pg (25.0-35.0); MCV 93.2 fL (80.0-100.0); Mean Platelet Volume 7.7; Platelet Count 198 k/uL (150-450); Poikilocytosis Slight; RBC 2.39 m/uL (4.30-5.90); RDW 14.9 % (11.5-15.5); WBC 3.7 k/uL (3.8-10.6)
[2017-05-03] MEDS: DOCUSATE 100 MG CAP PO SCH (08:45)
[2017-05-03] MEDS: PANTOPRAZOLE 40 MG/10 ML VIAL IVP SCH (08:45)
[2017-05-03] MEDS: FAMOTIDINE 20 MG TAB PO SCH (08:45)
[2017-05-03] MEDS: IBUPROFEN 400 MG TAB PO SCH ×3 (08:45→20:44)
[2017-05-03] MEDS: ASPIRIN 81 MG PO SCH (08:45)
[2017-05-03] MEDS: ATENOLOL 50 MG TAB PO SCH (08:45)
[2017-05-03] MEDS: HEPARIN SODIUM,PORCINE 5,000 UNIT/ML 1 ML VIAL SQ SCH ×2 (08:45→20:40)
[2017-05-03] MEDS: LEVOFLOXACIN 250 MG TAB PO SCH (08:46)
[2017-05-03] MEDS: traMADol 50 MG TAB PO PRN ×3 (08:47→20:44)
[2017-05-03] MEDS: SODIUM FERRIC GLUCONAT-SUCROSE 125 MG in SODIUM CHLORIDE 0.9% 100 ML IVPB SCH (09:19)
[2017-05-03] MEDS ORDERED: MAGNESIUM HYDROXIDE 2,400 MG/10 ML CUP PO PRN (09:55)
--- NOTE | 2017-05-03 10:19 | PN ---
PROGRESS NOTE CHIEF COMPLAINT: Re-evaluation. HISTORY OF PRESENT ILLNESS: This 82-year-old gentleman was admitted to the hospital with shortness of breath. The patient appeared anemic. No evidence of bleeding is noted so far. Yesterday stool was grayish in color. He has not had a bowel movement yet. The patient is feeling better today, though his hemoglobin has even further dropped down to 7.1. REVIEW OF SYSTEMS: NEURO: Denies any headaches, dizziness. PSYCH: No anxiety. CARDIAC: Denies chest pain, angina, palpitation. RESPIRATORY: Denies shortness of breath, cough. GI: No nausea, vomiting, abdominal pain, diarrhea. : No symptoms of dysuria or hematuria. EXTREMITIES: No pain, edema. Does have weakness. CONSTITUTIONAL: No fever or chills. PHYSICAL EXAMINATION: Pleasant gentleman in no distress. VITAL SIGNS: Temperature 97.2, pulse 78, respirations 20, blood pressure 150/72, pulse ox 94% on 5 L. HEENT: Normocephalic. NECK: Supple. No JVD. CHEST EXAMINATION: Decreased air flow at the bases. CARDIAC: Normal S1, S2 with no gallops. ABDOMEN: Soft. Bowel sounds present. Extremities reveal no edema. NEUROLOGIC: Awake, alert, oriented, in a very good mood today. . LABORATORY ASSESSMENT: CBC reveals hemoglobin 7.1, white count 3.7, platelets 198. ASSESSMENT: 1. Anemia; suspect gastrointestinal blood loss, possibly upper GI. Still awaiting stool occult blood. 2. Generalized weakness with hypoxia. 3. History of carcinoma of the prostate. 4. Hypertension. 5. Possible urinary tract infection. Patient seems to have Staph aureus in his urine. The patient, however, has been afebrile with the Levaquin. Will continue same antibiotic. Discontinue Kenny catheter. PLAN: Continue present medical regimen. Patient's condition discussed with the patient. Kenny catheter to be discontinued. Transfuse one unit of packed red cells. Milk of magnesia today. MMODL / IJN: [id number] /
[2017-05-03] MEDS: ATORVASTATIN 40 MG TAB PO SCH (20:40)
[2017-05-03] MEDS: EZETIMIBE 10 MG TAB PO SCH (20:40)
[2017-05-04 06:34] LABS: Anisocytosis Slight; HCT 24.3 % (39.0-53.0); HGB 7.9 gm/dL (13.0-17.5); Hypochromasia Slight; MCH 29.4 pg (25.0-35.0); MCHC 32.7 g/dL (31.0-37.0); Mean Platelet Volume 7.9; Platelet Count 209 k/uL (150-450); Poikilocytosis Slight; RDW 16.4 % (11.5-15.5); WBC 4.2 k/uL (3.8-10.6)
[2017-05-04 07:13] LABS: Calcium 9.9 mg/dL (8.4-10.2); Potassium 4.3 mmol/L (3.5-5.1)
[2017-05-04] MEDS: HEPARIN SODIUM,PORCINE 5,000 UNIT/ML 1 ML VIAL SQ SCH ×2 (08:50→20:31)
[2017-05-04] MEDS: PANTOPRAZOLE 40 MG/10 ML VIAL IVP SCH (08:50)
[2017-05-04] MEDS: traMADol 50 MG TAB PO PRN ×3 (08:50→20:30)
[2017-05-04] MEDS: DOCUSATE 100 MG CAP PO SCH (08:51)
[2017-05-04] MEDS: ASPIRIN 81 MG PO SCH (08:51)
[2017-05-04] MEDS: IBUPROFEN 400 MG TAB PO SCH ×3 (08:51→20:30)
[2017-05-04] MEDS: ATENOLOL 50 MG TAB PO SCH (08:51)
[2017-05-04] MEDS: FAMOTIDINE 20 MG TAB PO SCH (08:51)
[2017-05-04] MEDS: LEVOFLOXACIN 250 MG TAB PO SCH (08:51)
[2017-05-04] MEDS: SODIUM FERRIC GLUCONAT-SUCROSE 125 MG in SODIUM CHLORIDE 0.9% 100 ML IVPB SCH (08:53)
--- NOTE | 2017-05-04 12:10 | P.PN ---
Subjective Progress Note Date: 05/04/17 Chief complaint: Reevaluation. History present illness: This 82-year-old presents for shortness of breath and generalized weakness in the emergency room. The patient was admitted to the hospital noted to be anemic also had an episode of SVT. The patient however continues to exhibit some weakness he did develop a fever. The urine cultures showed staph aureus sensitive to Levaquin. His been on Levaquin and has responded well in view of this is not being changed. The patient's renal function has improved had acute renal failure. He probably had worsening of his renal failure due to both a urinary tract infection and possibility of obstruction not ruled out. He has had a history of carcinoma of the prostate. Patient is feeling much better today. He did get 1 unit of blood loss yesterday for hemoglobin of 7.1. There is no clear evidence of any blood loss. He is receiving iron as well. Stool for occult blood is still pending. REVIEW OF SYSTEMS: Neuro: Denies any headaches dizziness. Psych: Denies anxiety depression feels oriented. Cardiac: Denies chest pain and angina palpitations. Respiratory: Denies shortness of breath cough. GI: Denies nausea vomiting or abdominal pain. No diarrhea or constipation, no bowel movement yet. : Denies dysuria hematuria. Extremities: Denies pain. No edema. Skin: Intact. Constitutional: No fever, chills. Objective - Vital Signs Vital signs: Vital Signs Temp 98.4 F 05/04/17 00:00 Pulse 82 05/04/17 08:51 Resp 18 05/04/17 08:51 BP 118/58 05/04/17 08:51 Pulse Ox 91 L 05/04/17 08:51 Intake & Output 05/03/17 05/04/17 05/04/17 17:59 06:59 18:59 Intake Total Output Total Balance Weight Intake: Intake, IV Titration Amount Sodium Ferric Gluconat- Sucrose 125 mg In Sodium Chloride 0.9% 100 ml @ 100 mls/hr IVPB DAILY [facility] Rx#:[id number] Oral Blood Product Rc As-1 Unit [id number] Output: Urine Uretheral (Kenny) Other: Voiding Method Toilet # Voids # Bowel Movements PHYSICAL EXAMINATION: Cooperative, at present in no acute distress. HEENT: Neck supple. No JVD. Chest: Clear to auscultation percussion. Cardiac: Normal S1-S2 no gallops no murmur . Abdomen: Soft bowel sounds present. Extremities: No edema no tenderness Neurologically: Awake, alert, oriented with well-coordinated movements.] - Labs CBC & Chem 7: 05/04/17 06:03 05/04/17 06:03 Labs: Abnormal Lab Results - Last 24 Hours (Table) 05/03/17 05/04/17 05/04/17 Range/Units 10:27 06:03 06:03 RBC 2.70 L (4.30-5.90) m/uL Hgb 7.9 L (13.0-17.5) gm/dL Hct 24.3 L (39.0-53.0) % RDW 16.4 H (11.5-15.5) % Chloride 114 H (98-107) mmol/L BUN 33 H (9-20) mg/dL Crossmatch See Detail Microbiology - Last 24 Hours (Table) 05/01/17 09:23 Blood Culture - Preliminary Blood No Growth after 72 hours 05/01/17 09:15 Blood Culture - Preliminary Blood No Growth after 72 hours 05/01/17 02:20 Urine Culture - Final Urine,Catheterized Staphylococcus aureus 05/01/17 10:45 Nasal Culture - Final Nasal Swab Staphylococcus aureus Assessment and Plan Assessment: ASSESSMENT: 1. Anemia secondary to chronic blood loss. 2. [Dyspnea on exertion due to anemia 3. Iron deficiency anemia secondary to chronic blood loss. 4. SVT resolved. 5. Urinary tract infection with sepsis. 6. Acute renal failure. 7. Carcinoma of the prostate. 8. Coronary artery disease. PLAN: Continue present medical regimen. Patient's hemoglobin 7.9 today BUN creatinine markedly improved. The patient is feeling better. Have discussed with patient for possible consideration of going into rehab since he lives by himself. We will have pulmonary physical therapist mobilizing.
[2017-05-04] MEDS: ATORVASTATIN 40 MG TAB PO SCH (20:31)
[2017-05-04] MEDS: EZETIMIBE 10 MG TAB PO SCH (20:31)
[2017-05-05] MEDS: traMADol 50 MG TAB PO PRN ×3 (05:58→19:20)
[2017-05-05 06:18] LABS: Anisocytosis Slight; HCT 25.8 % (39.0-53.0); HGB 8.4 gm/dL (13.0-17.5); Hypochromasia Slight; MCH 29.5 pg (25.0-35.0); MCHC 32.5 g/dL (31.0-37.0); MCV 90.8 fL (80.0-100.0); Mean Platelet Volume 7.5; Platelet Count 218 k/uL (150-450); Poikilocytosis Slight; RBC 2.85 m/uL (4.30-5.90); RDW 16.2 % (11.5-15.5); WBC 4.5 k/uL (3.8-10.6)
[2017-05-05] MEDS: ASPIRIN 81 MG PO SCH (09:02)
[2017-05-05] MEDS: FAMOTIDINE 20 MG TAB PO SCH (09:02)
[2017-05-05] MEDS: HEPARIN SODIUM,PORCINE 5,000 UNIT/ML 1 ML VIAL SQ SCH ×2 (09:02→20:37)
[2017-05-05] MEDS: DOCUSATE 100 MG CAP PO SCH (09:02)
[2017-05-05] MEDS: ATENOLOL 50 MG TAB PO SCH (09:03)
[2017-05-05] MEDS: PANTOPRAZOLE 40 MG/10 ML VIAL IVP SCH (09:03)
[2017-05-05] MEDS: LEVOFLOXACIN 250 MG TAB PO SCH (09:03)
[2017-05-05] MEDS: IBUPROFEN 400 MG TAB PO SCH ×3 (09:05→22:15)
[2017-05-05] MEDS: SODIUM FERRIC GLUCONAT-SUCROSE 125 MG in SODIUM CHLORIDE 0.9% 100 ML IVPB SCH (09:05)
--- NOTE | 2017-05-05 10:11 | CDI ---
Last Revision, January 2017 Documentation Clarification Form Date: 05/05/2017 From: Joseline Perez Admit Date: 04/29/2017 11:14:00 AM Patient Name: Bjorn Christian Visit Number: [id number] Discharge Date: ATTENTION: The Clinical Documentation Specialists (CDI) and [facility] Coding Staff appreciate your assistance in clarifying documentation. Please respond to the clarification below the line at the bottom and electronically sign. The CDI & [facility] Coding staff will review the response and follow-up if needed. Please note: Queries are made part of the Legal Health Record. If you have any questions, please contact the author of this message via ITS. Dr. Harshal Lane: History/Risk Factors: CAD w/history of NE, History of Prostate CA w/no recurrence, Hypertension, Hyperlipidemia. Clinical Indicators: Presented with SOB & weakness. Current BUN/CR/GFR: 60 / 1.50 / 43 Patients Admitting BUN/CR/GFR: 65 / 1.50 / 43 Baseline BUN/CR/GFR unknown or not documented. Home meds: Ultram, Prinivil, Lasix, Zetia, Colace, Lipitor, Tenormin Treatment: IV Zofran, IV Narcan, Heparin sq, IV fluid rate 50, Telemetry. IV antibiotics started 05/01 for UTI. In order to capture the severity of condition, please clarify if the condition signifies: CKD Stage 1 (GFR > 90) CKD Stage 2 (GFR 60-89) CKD Stage 3 (GFR 30-59) CKD Stage 4 (GFR 15-29) CKD Stage 5 (GFR <15) Other, please specify Unable to determine Ruled out Please continue to document in your progress notes and discharge summary in order to capture severity of illness and risk of mortality. Include clinical findings that support your diagnosis. MTDD
[2017-05-05] MEDS: EZETIMIBE 10 MG TAB PO SCH (20:37)
[2017-05-05] MEDS: ATORVASTATIN 40 MG TAB PO SCH (20:37)
--- NOTE | 2017-05-05 22:00 | PN ---
PROGRESS NOTE CHIEF COMPLAINT: Re-evaluation. HISTORY OF PRESENT ILLNESS: This 82-year-old gentleman was admitted to the hospital because of generalized weakness, shortness of breath. The patient was noted to have evidence of progressively dropping hemoglobin with elevated reticulocyte count, suggesting anemia secondary to blood loss. Stool specimen for occult blood has been ordered, without any results. The patient on rectal examination 3 days ago had grayish colored stool. REVIEW OF SYSTEMS: NEURO: Denies any headaches, dizziness. PSYCH: No anxiety. CARDIAC: Denies chest pain, angina, palpitations. RESPIRATORY: Denies shortness of breath, cough. GI: No nausea, vomiting, abdominal pain, diarrhea. : No symptoms of dysuria, hematuria. EXTREMITIES: No pain. CONSTITUTIONAL: No fever or chills. PHYSICAL EXAMINATION: Pleasant gentleman in no distress. Vital signs reveal temperature 97.7, pulse 91, respirations 18, blood pressure 132/61, pulse ox 96% on 5 L. HEENT: Normocephalic. NECK: Supple. No JVD. CHEST: Clear to auscultation. CARDIAC: Normal S1, S2 with no gallops, murmurs. ABDOMEN: Soft. Bowel sounds present. Extremities reveal trace edema. Neurologically awake, alert, oriented with well-coordinated movements. LABORATORY ASSESSMENT: Hemoglobin is up to 8.4. BUN and creatinine are improved with BUN at 33, creatinine of 1.0. ASSESSMENT: 1. Anemia secondary to chronic blood loss. 2. Possible recent gastrointestinal bleed. 3. Urinary tract infection with sepsis. 4. Coronary artery disease, stable. 5. Carcinoma of prostate with no evidence of recurrence. PLAN: Continue present medical regimen. Patient's condition was discussed with the patient. Prognosis is guarded. Potential discharge home tomorrow if the patient's condition is stable and he can ambulate at least 20 feet. Prognosis remains guarded. MMODL / IJN: [id number] /
[2017-05-06 08:27] LABS: Anisocytosis Slight; HGB 8.4 gm/dL (13.0-17.5); Hypochromasia Slight; MCH 29.2 pg (25.0-35.0); MCHC 32.1 g/dL (31.0-37.0); MCV 90.8 fL (80.0-100.0); Mean Platelet Volume 8.3; Platelet Count 232 k/uL (150-450); RBC 2.87 m/uL (4.30-5.90); RDW 16.4 % (11.5-15.5); WBC 5.8 k/uL (3.8-10.6)
[2017-05-06 08:50] VITALS: BMI 27.8
[2017-05-06 08:50] LABS: Anion Gap 5 mmol/L; Blood Urea Nitrogen 19 mg/dL (9-20); Calcium 10.3 mg/dL (8.4-10.2); Carbon Dioxide 25 mmol/L (22-30); Chloride 111 mmol/L (98-107); Glucose 99 mg/dL (74-99); Potassium 4.3 mmol/L (3.5-5.1); Sodium 141 mmol/L (137-145)
[2017-05-06] MEDS: LEVOFLOXACIN 500 MG TAB PO SCH (09:34)
[2017-05-06] MEDS: DOCUSATE 100 MG CAP PO SCH (09:35)
[2017-05-06] MEDS: HEPARIN SODIUM,PORCINE 5,000 UNIT/ML 1 ML VIAL SQ SCH ×2 (09:35→21:00)
[2017-05-06] MEDS: FAMOTIDINE 20 MG TAB PO SCH (09:35)
[2017-05-06] MEDS: PANTOPRAZOLE 40 MG/10 ML VIAL IVP SCH (09:35)
[2017-05-06] MEDS: ASPIRIN 81 MG PO SCH (09:35)
[2017-05-06] MEDS: ATENOLOL 50 MG TAB PO SCH (09:35)
[2017-05-06] MEDS: SODIUM FERRIC GLUCONAT-SUCROSE 125 MG in SODIUM CHLORIDE 0.9% 100 ML IVPB SCH (10:42)
[2017-05-06] MEDS: traMADol 50 MG TAB PO PRN ×3 (10:42→22:08)
--- NOTE | 2017-05-06 10:52 | P.CONS ---
History of Present Illness - Reason for Consult Consult date: 05/06/17 anemia positive hemoccult Requesting physician: Harshal Lane - History of Present Illness 82-year-old male admitted with generalized weakness shortness of breath staphylococcus UTI. Past medical history of prostate carcinoma, congestive heart failure, atrial fibrillation, CAD/CABG/PCI stent, hyperlipidemia, hypertension, IL, and GERD. Consult requested for anemia positive Hemoccult. Presently denies severe abdominal pain except very mild midepigastric discomfort , denies hematemesis hematochezia melena however nursing staff reported black- colored bowel movement yesterday evening. No history of GI bleed or peptic ulcer disease. No history of EGD. Patient states he had a colonoscopy [address] Land and to his memory was normal with a few polyps removed. Admission hemoglobin 9.8. MCV 93. Platelet 198. Current hemoglobin is 8.4 but as low as 7.1 3 days ago. Stool occult positive. BUN 33. Creatinine 1.0. Upon review of medical records hemoglobin hemoglobin was 12.8 in September 2013. Home medications include Prilosec as well as 2 tablets a baby aspirin daily and 100 mg of Motrin as needed. Earlier this morning patient had decreased oxygen saturation around 78% when ambulating to bathroom; placed on nasal cannula with improvement of oxygen saturation to 94%. Review of Systems Constitutional: Denies fever, chills, sweats, weight gain, or loss. HEENT: Negative for migraines, blurred vision or loss, earaches, drainage, tinnitus, oral mucosal lesions, dysphagia, or odynophagia. Cardiac: CAD. IL. CABG. PCI stent. Hypertension. Hyperlipidemia. Respiratory: Negative for shortness of breath, hemoptysis, cough, or sputum production. Gastrointestinal: See HPI for pertinent findings. Genitourinary: History of prostate carcinoma. Negative for hematuria, urgency, frequency, polyuria, dysuria, or penile discharge. Musculoskeletal: Negative for muscle aches, swelling, arthritis, and arthralgias. Neurologic: Negative for stroke or TIA. Endocrine: Negative for thyroid problems. Skin: Negative for rash or itching. Psychiatric: Negative history for depression and anxiety Past Medical History Past Medical History: Atrial Fibrillation, Coronary Artery Disease (CAD), Cancer , Chest Pain / Angina, GERD/Reflux, Hyperlipidemia, Hypertension, Myocardial Infarction (IL), Osteoarthritis (OA), Prostate Disorder Additional Past Medical History / Comment(s): Prostate ca with hormone treatment , skin cancer with removals, back pain, arthritis bilateral knees and wrists, occasional numbness bilateral legs. Last Myocardial Infarction Date:: 1997 History of Any Multi-Drug Resistant Organisms: None Reported Past Surgical History: Appendectomy, Coronary Bypass/CABG, Heart Catheterization , Heart Catheterization With Stent, Tonsillectomy Additional Past Surgical History / Comment(s): 1997 CABG 3 vessel, PCI with stent 2010, colonoscopy, R wrist tendon surgery, R hand lipoma removed, sclerosing hemangioma excised from chest, skin cancer removals. Past Anesthesia/Blood Transfusion Reactions: No Reported Reaction Date of Last Stent Placement:: 2010 Smoking Status: Former smoker - Past Family History Father Family Medical History: No Reported History Additional Family Medical History / Comment(s): Father was healthy Mother Family Medical History: Coronary Artery Disease (CAD), Hyperlipidemia, Hypertension Medications and Allergies Home Medications Medication Instructions Recorded Confirmed Type Aspirin EC [Ecotrin Low Dose] 162 mg PO DAILY 04/29/17 04/29/17 History Atenolol [Tenormin] 50 mg PO DAILY 04/29/17 04/29/17 History Atorvastatin [Lipitor] 40 mg PO HS 04/29/17 04/29/17 History Docusate [Colace] 100 mg PO DAILY 04/29/17 04/29/17 History Ezetimibe [Zetia] 10 mg PO HS 04/29/17 04/29/17 History Fexofenadine HCl [Crystal Allergy] 180 mg PO DAILY 04/29/17 04/29/17 History Furosemide [Lasix] 40 mg PO DAILY 04/29/17 04/29/17 History Ibuprofen [Motrin] 800 mg PO TID PRN 04/29/17 04/29/17 History Lisinopril [Prinivil] 10 mg PO BID 04/29/17 04/29/17 History Multivitamins, Thera [Multivitamin 1 tab PO DAILY 04/29/17 04/29/17 History (formulary)] Omeprazole Magnesium [PriLOSEC OTC] 20 mg PO DAILY 04/29/17 04/29/17 History traMADol HCL [Ultram] 50 - 100 mg PO Q6H PRN 04/29/17 04/29/17 History Allergies Allergy/AdvReac Type Severity Reaction Status Date / Time acetaminophen [From Tylenol] Allergy Rash/Hives Verified 04/29/17 09:36 bicalutamide [From Casodex] Allergy Rash/Hives Verified 04/29/17 09:36 meloxicam [From Mobic] Allergy Unknown Verified 04/29/17 09:36 Sulfa (Sulfonamide Allergy Itching Verified 04/29/17 09:36 Antibiotics) morphine AdvReac Nausea & Verified 04/29/17 09:36 Vomiting Physical Exam Vitals: Vital Signs Temp Pulse Pulse Pulse Pulse Resp BP 05/06/17 08:37 05/06/17 08:24 05/06/17 07:00 98 F 87 18 144/63 05/06/17 00:00 16 05/05/17 22:56 97.9 F 80 16 154/74 05/05/17 16:24 98.6 F 71 18 157/69 05/05/17 13:52 97 80 84 05/05/17 12:00 98.1 F 87 18 135/72 Pulse Ox Pulse Ox Pulse Ox Pulse Ox 05/06/17 08:37 93 L 05/06/17 08:24 92 L 05/06/17 07:00 92 L 05/06/17 00:00 05/05/17 22:56 91 L 05/05/17 16:24 96 05/05/17 13:52 91 L 90 L 93 L 05/05/17 12:00 91 L Intake and Output 05/05/17 05/06/17 05/06/17 22:59 06:59 14:59 Intake Total 200 450 Balance 200 450 Intake: Oral 200 450 Other: Voiding Method Toilet Toilet # Voids 2 4 Weight 93 kg 93 kg Patient Weight 05/07/17 06:59 Weight 93 kg General appearance: The patient is alert, oriented, in no acute distress. HET: Head is normocephalic and atraumatic. Pupils are equal and reactive. Oropharynx is clear without lesions. Neck: Supple without lymphadenopathy. Trachea midline. Heart: S1 S2. Regular rate and rhythm. Lungs: No crackles or wheezes are heard. Abdomen: Soft, nontender, nondistended with bowel sounds. No peritoneal signs. No palpable organomegaly or masses. Extremities: Normal skin color and turgor. No cyanosis, rash, ulceration, clubbing, or edema. Radial and pedal pulses are 2/4 bilaterally. Neurological: No focal deficits. Strength and sensation are grossly intact. Results CBC & Chem 7: 05/06/17 08:05 05/06/17 08:05 Labs: Abnormal Lab Results - Last 24 Hours (Table) 05/06/17 05/06/17 Range/Units 08:05 08:05 RBC 2.87 L (4.30-5.90) m/uL Hgb 8.4 L (13.0-17.5) gm/dL Hct 26.0 L (39.0-53.0) % RDW 16.4 H (11.5-15.5) % Chloride 111 H (98-107) mmol/L Calcium 10.3 H (8.4-10.2) mg/dL Microbiology - Last 24 Hours (Table) 05/01/17 09:23 Blood Culture - Preliminary Blood No Growth after 96 hours 05/01/17 09:15 Blood Culture - Preliminary Blood No Growth after 96 hours Assessment and Plan (1) GI bleed Narrative/Plan: 82-year-old male admitted with shortness of breath symptomatic acute blood loss anemia UTI with reports of melena and positive stool Hemoccult. Possible peptic ulcer disease possible small bowel pathology. Colonoscopy 6 months ago reported unremarkable. Current Visit: Yes Status: Acute Code(s): K92.2 - GASTROINTESTINAL HEMORRHAGE, UNSPECIFIED SNOMED Code(s): 63260610 (2) Stool guaiac positive Current Visit: Yes Status: Acute Code(s): R19.5 - OTHER FECAL ABNORMALITIES SNOMED Code(s): 58027694 (3) Melena Current Visit: Yes Status: Acute Code(s): K92.1 - MELENA SNOMED Code(s): 8361966 (4) UTI (urinary tract infection) Current Visit: Yes Status: Acute Code(s): N39.0 - URINARY TRACT INFECTION, SITE NOT SPECIFIED SNOMED Code(s): 83117447 (5) History of prostate cancer Current Visit: Yes Status: Chronic Code(s): Z85.46 - PERSONAL HISTORY OF MALIGNANT NEOPLASM OF PROSTATE SNOMED Code(s): 159392812 Plan: 1. Continue with Protonix 40 mg daily. 2. CBC monitoring. 3. EGD evaluation. 4. Clear liquids. Nothing by mouth after midnight. The hose sprayer has discussed the risks, benefits and alternative therapies for the above-mentioned procedure and for both sedation/analgesia as well as necessary blood product administration, if indicated, as they pertain to this patient. The patient has indicated understanding and acceptance of the risks and procedures discussed. Thank you for this kind referral and the opportunity to participate in the care of your patient. This consultation was discussed with Dr. Law. The impression and plan of care have been directed as dictated.
[2017-05-06] MEDS ORDERED: FUROSEMIDE 10 MG/ML 2 ML VIAL IV ONE (12:03)
--- NOTE | 2017-05-06 12:48 | XR ---
EXAMINATION TYPE: XR chest 2V DATE OF EXAM: 05/06/2017 COMPARISON: 05/13/2017 INDICATION: Declining respiratory status right-sided chest pain short of breath TECHNIQUE: Frontal and lateral views of the chest are obtained. FINDINGS: The heart size is normal. The pulmonary vasculature is normal. Some minimal infiltrate and/or effusion is present at the right costophrenic angle. There is elevatio n of the lateral right diaphragm. Some minimal infiltrate is at the left costophrenic angle. Findings are worsened from the comparison.. The posterior pleural effusion is better visualized on the later al projection is tracking along the posterior lung field. IMPRESSION: 1. Mild costophrenic angle infiltrates and small right pleural effusion. Follow-up exams are recommen ded.
--- NOTE | 2017-05-06 14:30 | US ---
EXAMINATION TYPE: US kidneys/renal and bladder DATE OF EXAM: 05/06/2017 COMPARISON: NONE CLINICAL HISTORY: right flank pain. EXAM MEASUREMENTS: Right Kidney: 10.2 x 5.5 x 5.0 cm Left Kidney: 11.4 x 4.9 x 4.8 cm Patient of large body habitus, unable to hold his breat with SOB, technically difficult study. Right Kidney: 2 probable cysts noted, largest measuring 1.8 x 1.4 x 2.1cm. This appears complex. Left Kidney: No hydronephrosis or masses seen Bladder: There appears to be a mass within the bladder, it is vascular and measures 4.6 x 4.8 x 3.5cm IMPRESSION: 1. 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 Additional workup is recommended . A Yellow level critical message alert has been initiated for Harshal Lane via the [employer] tical Results System on 05/06/2017 2:27 PM. This message alert has been sent to Harshal Lane via the pr eferences provided by the clinician for the receipt of Radiology Critical Findings. Message ID [id number].
--- NOTE | 2017-05-06 18:31 | P.PN ---
Subjective Progress Note Date: 05/06/17 Principal diagnosis: Anemia History present illness: This 82-year-old gentleman was doing fairly well yesterday however this morning he does not feel too well. No specific cause. He does have some right flank pain and mild shortness of breath. Patient's been noted to be anemic with hemoglobin stable at 8.4. His reticulocyte count was elevated. Refer to GI for possible EGD. Subsequent studies have been ordered including an ultrasound of the kidneys and a chest x-ray. Patient has no urinary tract infection symptoms. He is on antibiotic for a staph aureus methicillin sensitive urinary tract infection. The patient has been afebrile white count is normal. Hemoglobin stable at 8.4. Patient was reevaluated this evening. He is feeling some better but complains of weakness. Reviewed the findings of the ultrasound with abnormal vascular mass in the urinary bladder. He will have a PSA checked and a urology evaluation done. He does have a history of prostate cancer for which he is receiving treatment in the past we will consult urology REVIEW OF SYSTEMS: Neuro: Denies any headaches dizziness. Psych: Denies anxiety depression feels oriented. Cardiac: Denies chest pain and angina palpitations. Respiratory: Denies shortness of breath cough. GI: Denies nausea vomiting or abdominal pain. No diarrhea or constipation, no bowel movement yet. Right flank pain : Denies dysuria hematuria. Extremities: Denies pain. No edema. Skin: Intact. Constitutional: No fever, chills. Complains of weakness and malaise Objective - Vital Signs Vital signs: Vital Signs Temp 97.9 F 05/06/17 15:00 Pulse 70 05/06/17 15:00 Resp 18 05/06/17 15:00 BP 142/65 05/06/17 15:00 Pulse Ox 92 L 05/06/17 15:00 Intake & Output 05/05/17 05/06/17 05/06/17 18:59 06:59 18:59 Intake Total 480 650 Balance 480 650 Weight 93 kg 93 kg Intake: Oral 480 650 Other: Voiding Method Toilet Toilet Toilet # Voids 2 4 7 PHYSICAL EXAMINATION: Cooperative, at present in no acute distress. HEENT: Neck supple. No JVD. Chest: Clear to auscultation percussion. Cardiac: Normal S1-S2 no gallops systolic murmur 2/6 at apex . Abdomen: Soft bowel sounds present. Pinpoint tenderness Extremities: Trace edema no tenderness Neurologically: Awake, alert, oriented with well-coordinated movements. - Labs CBC & Chem 7: 05/06/17 08:05 05/06/17 08:05 Labs: Abnormal Lab Results - Last 24 Hours (Table) 05/06/17 05/06/17 Range/Units 08:05 08:05 RBC 2.87 L (4.30-5.90) m/uL Hgb 8.4 L (13.0-17.5) gm/dL Hct 26.0 L (39.0-53.0) % RDW 16.4 H (11.5-15.5) % Chloride 111 H (98-107) mmol/L Calcium 10.3 H (8.4-10.2) mg/dL Microbiology - Last 24 Hours (Table) 05/01/17 09:23 Blood Culture - Preliminary Blood No Growth after 120 hours 05/01/17 09:15 Blood Culture - Preliminary Blood No Growth after 120 hours Assessment and Plan Assessment: ASSESSMENT: 1. Anemia secondary to chronic blood loss. 2. [Dyspnea on exertion due to anemia 3. Iron deficiency anemia secondary to chronic blood loss. 4. SVT resolved. 5. Urinary tract infection with sepsis. 6. Acute renal failure resolved 7. Carcinoma of the prostate. 8. Coronary artery disease. 9. Vascular mass in the urinary bladder PLAN: Continue present medical regimen. Patient's hemoglobin 8.4 today BUN creatinine markedly improved to normal. Wonder if patient had some degree of urinary outlet obstruction along with a prerenal azotemia from dehydration Have discussed with patient for possible consideration of going into rehab since he lives by himself. We will have acute care physical therapist mobilizing. Urology evaluation recommended for abnormal urinary bladder findings
[2017-05-06] MEDS: ATORVASTATIN 40 MG TAB PO SCH (21:00)
[2017-05-06] MEDS: EZETIMIBE 10 MG TAB PO SCH (21:00)
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
--- NOTE | 2017-05-07 08:59 | CDI ---
Documentation Clarification Form Date: 05/07/2017 CDS: Joseline Perez, CCS, CCDS Admit Date: 04/29/2017 Patient Name: Bjorn Christian ATTENTION: The Clinical Documentation Specialists (CDI) and [facility] Coding Staff appreciate your assistance in clarifying documentation. Please respond to the clarification below the line at the bottom and electronically sign. The CDI & [facility] Coding staff will review the response and follow-up if needed. Please note: Queries are made part of the Legal Health Record. If you have any questions, please contact the author of this message via ITS. Dr. Lane: Per the History & Physical: "...does appear sick and weak; looks like has lost some weight...." Admit with generalized weakness, malaise & SOB, suspect related to anemia. Acute on chronic renal failure. 05/01 Progress Note: Increased SOB & significant temperature, lethargic & weak, Kenny placed. Fever; jim probably UTI (culture MRSA). History: Prostate CA, Hypertension Clinical Indicators: VS: T 97.6 - 97.1* - 101.5^; BP 124/63 - 186/8 - 93/47 LAB: WBC 10.9^, Neut 9.3^ Treatment: ASA, IV Narcan, IV Zofran, IV fl 50, IV Lasix (05/01), IV Levaquin (05/01 ). For each diagnosis, documentation must be lear to determine if the condition was present at the time of the patient's inpatient admission or developed during the hospital stay. Please clarify in your progress notes & discharge summary as to whether Sepsis ( cause & organism) was: Y = Yes, the condition was present at the time of the order for inpatient admission. N = No, the condition was not present at the time of the order for inpatient admission. W = Clinically undetermined if the condition was present at the time of the order for inpatient admission. Please continue to document in your progress notes and discharge summary in order to capture severity of illness and risk of mortality. Include clinical findings that support your diagnosis. MTDD
[2017-05-07] MEDS: traMADol 50 MG TAB PO PRN ×2 (09:09→16:38)
[2017-05-07 09:25] LABS: Anisocytosis Slight; Basophils % (A) 0 %; Eosinophils # (A) 0.1 k/uL (0-0.7); Eosinophils % (A) 2 %; HCT 26.8 % (39.0-53.0); HGB 8.2 gm/dL (13.0-17.5); Hypochromasia Slight; Lymphocytes # (A) 0.7 k/uL (1.0-4.8); Lymphocytes % (A) 13 %; MCH 27.9 pg (25.0-35.0); MCHC 30.6 g/dL (31.0-37.0); MCV 91.2 fL (80.0-100.0); Mean Platelet Volume 8.3; Monocytes # (A) 0.3 k/uL (0-1.0); Monocytes % (A) 6 %; Neutrophils # (A) 4.4 k/uL (1.3-7.7); Neutrophils % (A) 77 %; Platelet Count 230 k/uL (150-450); RBC 2.94 m/uL (4.30-5.90); RDW 16.4 % (11.5-15.5); WBC 5.7 k/uL (3.8-10.6)
[2017-05-07 09:41] LABS: INR 1.2 (<1.2); Prothrombin Time 11.4 sec (9.0-12.0)
[2017-05-07 09:44] LABS: Albumin 2.2 g/dL (3.5-5.0); Calcium 10.3 mg/dL (8.4-10.2); Total Bilirubin 0.3 mg/dL (0.2-1.3)
[2017-05-07 10:12] LABS: PSA Annual Screen 27.3 ng/mL (0.00-4.00)
[2017-05-07] MEDS: ATENOLOL 50 MG TAB PO SCH (10:36)
[2017-05-07] MEDS ORDERED: PROPOFOL 10 MG/ML 20 ML VIAL IV ONE (11:10)
--- NOTE | 2017-05-07 11:26 | P.PCN ---
Date of Procedure: 05/07/17 Procedure(s) Performed: BRIEF HISTORY: Patient is a 82-year-old, pleasant, white male, scheduled for an upper endoscopy as a part of evaluation of anemia with hemoglobin of 7.5 g/dL requiring 1 unit of blood transfusion. He denies any abdominal pain. Denies rectal bleeding or melena. He was noted to have elevated BUN and because of the clinical suspicion for upper GI source of bleeding is scheduled for an upper endoscopy to evaluate further. PROCEDURE PERFORMED: Esophagogastroduodenoscopy with biopsy. PREOPERATIVE DIAGNOSIS: Anemia rule out upper GI source of bleeding. IV sedation per anesthesia. PROCEDURE: After informed consent was obtained, the patient was brought into the endoscopy unit. IV sedation was administered by Anesthesia under continuous monitoring. Initially the Olympus GIF-140 video endoscope was inserted into the mouth. Esophagus intubated without any difficulty. It was gradually advanced into the stomach and duodenum and carefully examined. In the bulb of the duodenum there were 2 ulcerations measuring 2-3 cm in size with a clean base and no active bleeding. The scope at this time was withdrawn to the stomach, adequately insufflated with air, and upon careful examination, mucosa of the antrum, had mild gastritis and biopsies were done from this area. The body, cardia and the fundus appeared normal. The scope was then withdrawn into the esophagus. Small sliding Hiatal hernia noted. The GE junction was located at 42 cm from the incisors. There was long 7 or Jolly's esophagus extending 3 cm proximal to the GE junction and multiple biopsies were done from this area. The rest of theesophagus appeared normal. There were no erosions or ulcerations seen and the patient tolerated the procedure well. IMPRESSION: 1. 2 large duodenal bulbar ulcers age measuring 2-3 cm in size with a clean base but no active bleeding. 2. Long segment Jolly's esophagus. 3. Small hiatal hernia RECOMMENDATIONS: The findings of this examination were discussed with the patient and he was advised to follow with the biopsy results. He will be continued on Protonix 40 mg daily and was advised to avoid NSAIDs.
[2017-05-07] MEDS ORDERED: SODIUM CHLORIDE 0.9% 1,000 ML IV ONE (11:32)
[2017-05-07] MEDS: ASPIRIN 81 MG PO SCH (13:18)
[2017-05-07] MEDS: DOCUSATE 100 MG CAP PO SCH (13:19)
[2017-05-07] MEDS: PANTOPRAZOLE 40 MG/10 ML VIAL IVP SCH (13:19)
[2017-05-07] MEDS: LEVOFLOXACIN 500 MG TAB PO SCH (13:19)
[2017-05-07] MEDS: HEPARIN SODIUM,PORCINE 5,000 UNIT/ML 1 ML VIAL SQ SCH ×2 (13:19→23:01)
[2017-05-07] MEDS ORDERED: RX INFO: IV CONTRAST WAS GIVEN 1 EACH MISC MISCELLANE PRN (18:07)
--- NOTE | 2017-05-07 20:56 | CT ---
EXAMINATION TYPE: CT chest angio for PE DATE OF EXAM: 05/07/2017 COMPARISON: NONE HISTORY: Hypoxia. CT DLP: 532.10 mGycm Automated exposure control for dose reduction was used. CONTRAST: CT Chest for pulmonary embolism performed with with IV Contrast, patient injected with 86 mL of Omnip aque 350. FINDINGS: There is diffuse pulmonary emphysema. Thoracic aorta is atheromatous. There is coarse interstitial de nsity in both lungs with groundglass density. There is right pleural effusion. Heart appears enlarged. There is no pericardial effusion. I see no filling defects in the pulmonary arteries. Thoracic aorta is atheromatous. There is no evide nce of aneurysm or dissection. There is patchy infiltrate and atelectasis at the lung bases. There ar e a few mediastinal and bronchial lymph nodes that measure up to 1 cm. IMPRESSION: No evidence of pulmonary embolism. Emphysema and pulmonary fibrosis. There are changes consistent wit h congestive heart failure and right pleural effusion. Bilateral lower lobe pulmonary infiltrates and atelectasis.
--- NOTE | 2017-05-07 21:08 | PN ---
PROGRESS NOTE ATTENDING PHYSICIAN: Dr. Mi Lane. CHIEF COMPLAINT: Re-evaluation. HISTORY OF PRESENT ILLNESS: This 82-year-old was admitted to the hospital because of shortness of breath. Patient noted to have evidence of GI bleeding. He did have an endoscopy done today and reveals ulcers with no active bleeding at present. Suspect patient is having intermittent bleeding from that. The patient otherwise feels some better today compared to yesterday. He still complains of significant weakness. REVIEW OF SYSTEMS: NEURO: Denies any headaches, dizziness. PSYCH: No anxiety, depression. CARDIAC: No chest pain, angina, palpitations. RESPIRATORY: Some shortness of breath. No cough. No hemoptysis. GI: No nausea, vomiting, abdominal pain, diarrhea. : No symptoms of dysuria, hematuria. EXTREMITIES: No pain. CONSTITUTIONAL: No fever, chills. PHYSICAL EXAMINATION: Pleasant gentleman in no distress. Vital signs reveal temperature 98.9, pulse 74, respirations 18, blood pressure 166/71, pulse ox 93% on 2L. HEENT: Normocephalic. NECK: Supple. No JVD. CHEST: Clear to auscultation. CARDIAC: Normal S1, S2 with no gallops. Abdomen is soft. No palpable masses. Bowel sounds normal. No organomegaly. No abdominal bruits. Extremities reveal no edema. Good pulses, both upper and lower extremities. Neurologically, awake, alert, oriented with well-coordinated movements. SKIN: Pale. LABORATORY ASSESSMENT: Hemoglobin 8.2. Electrolytes normal. BUN 16, creatinine 1.0. ASSESSMENT: 1. Anemia with probable upper gastrointestinal recent bleed. 2. Dyspnea. 3. Acute renal failure, resolved. 4. Debility. 5. Urinary tract infection. 6. Possible mass in the bladder. 7. History of cancer of the prostate. PLAN: Continue present medical regimen. Patient's condition discussed with the patient. Prognosis guarded. The patient's nonsteroidals will be discontinued and the patient will be continued on proton pump inhibitors. I ordered a CT scan of the chest to further evaluate continued dyspnea. MMODL / IJN: [id number] /
[2017-05-07] MEDS: ATORVASTATIN 40 MG TAB PO SCH (23:01)
[2017-05-07] MEDS: EZETIMIBE 10 MG TAB PO SCH (23:01)
[2017-05-08] MEDS: LACTATED RINGERS 1,000 ML IV SCH ×3 (01:11→22:15)
[2017-05-08] MEDS ORDERED: IPRATROPIUM-ALBUTEROL 3 ML NEB INHALATION PRN (02:51)
[2017-05-08] MEDS: FUROSEMIDE 10 MG/ML 4 ML VIAL IV SCH ×2 (07:23→18:04)
[2017-05-08] MEDS: IPRATROPIUM-ALBUTEROL 3 ML NEB INHALATION SCH ×4 (07:24→19:18)
[2017-05-08] MEDS: traMADol 50 MG TAB PO PRN ×3 (07:56→20:11)
[2017-05-08] MEDS: ASPIRIN 81 MG PO SCH (08:00)
[2017-05-08] MEDS: HEPARIN SODIUM,PORCINE 5,000 UNIT/ML 1 ML VIAL SQ SCH ×2 (08:01→20:07)
[2017-05-08] MEDS: ATENOLOL 50 MG TAB PO SCH (08:01)
[2017-05-08] MEDS: PANTOPRAZOLE 40 MG/10 ML VIAL IVP SCH (08:01)
[2017-05-08] MEDS: DOCUSATE 100 MG CAP PO SCH (08:01)
[2017-05-08] MEDS: LEVOFLOXACIN 500 MG TAB PO SCH (08:01)
[2017-05-08 08:21] LABS: Potassium 4.4 mmol/L (3.5-5.1)
--- NOTE | 2017-05-08 09:14 | CDI ---
Last Revision, January 2017 Documentation Clarification Form Date: 05/08/2017 From: Joseline Perez Admit Date: 04/29/2017 11:14:00 AM Patient Name: Bjorn Christian Visit Number: [id number] Discharge Date: ATTENTION: The Clinical Documentation Specialists (CDI) and [facility] Coding Staff appreciate your assistance in clarifying documentation. Please respond to the clarification below the line at the bottom and electronically sign. The CDI & [facility] Coding staff will review the response and follow-up if needed. Please note: Queries are made part of the Legal Health Record. If you have any questions, please contact the author of this message via ITS. Dr. Harshal Lane: Per the History & Physical: "... does appear sick and weak; looks like he has lost some weight since the last time I saw him." Admit with generalized weakness, malaise and SOB, suspect related to anemia. Acute on chronic renal failure. 05/01 Progress note: Increased SOB & signifcant temperature, lethargic & weak. Kenny placed. Fever; jim probably UTI. (culture MRSA). History/Risk Factors: Prostate CA, Hypertension. Clinical Indicators: VS: T 97.6 - 97.1* - 101.5^. BP 124/63 - 186/87 - 93/47 LAB: WBC 10.9^, Neut 9.3^ Treatment: ASA, IV Narcan, IV Zofran, IV fl 50, IV Lasix (05/01), IV Levaquin (05/01 ). For each diagnosis, documentation must be clear to determine if the condition was present at the time of the patients inpatient admission or developed during the hospital stay. Please clarify in progress notes and discharge summary as to whether Sepsis ( cause & organism if known) was: Y = Yes, the condition was present at the time of the order for inpatient admission. N = No, the condition was not present at the time of the order for inpatient admission. W = Clinically undetermined if the condition was present at the time of the order for inpatient admission. Please continue to document in your progress notes and discharge summary in order to capture severity of illness and risk of mortality. Include clinical findings that support your diagnosis. MTDD
--- NOTE | 2017-05-08 09:18 | CDI ---
Last Revision, January 2017 Documentation Clarification Form Date: 05/08/2017 From: Joseline Perez Admit Date: 04/29/2017 11:14:00 AM Patient Name: Bjorn Christian Visit Number: [id number] Discharge Date: ATTENTION: The Clinical Documentation Specialists (CDI) and [facility] Coding Staff appreciate your assistance in clarifying documentation. Please respond to the clarification below the line at the bottom and electronically sign. The CDI & [facility] Coding staff will review the response and follow-up if needed. Please note: Queries are made part of the Legal Health Record. If you have any questions, please contact the author of this message via ITS. Dr. Harshal Lane: History/Risk Factors: CAD w/history of [place], History of Prostate CA w/no recurrence, Hypertension, Hyperlipidemia. Clinical Indicators: Presented with SOB & weakness. Current BUN/CR/GFR: 60 / 1.50 / 43 Patients Admitting BUN/CR/GFR: 65 / 1.50 / 43 Baseline BUN/CR/GFR unknown or not documented. Home meds: Ultram, Prinivil, Lasix, Zetia, Colace, Lipitor, Tenormin Treatment: IV Zofran, IV Narcan, Heparin sq, IV fluid rate 50, Telemetry. IV antibiotics started 05/01 for UTI. In order to capture the severity of condition, please clarify if the condition signifies: CKD Stage 1 (GFR > 90) CKD Stage 2 (GFR 60-89) CKD Stage 3 (GFR 30-59) CKD Stage 4 (GFR 15-29) CKD Stage 5 (GFR <15) ESRD Other, please specify Unable to determine Please continue to document in your progress notes and discharge summary in order to capture severity of illness and risk of mortality. Include clinical findings that support your diagnosis. MTDD
--- NOTE | 2017-05-08 13:51 | P.PN ---
Subjective Progress Note Date: 05/08/17 Principal diagnosis: anemia GIB s/p EGD findings of 2 large duodenal bulb ulcers 2-3 cm with long segment of Barretts. Denies hematochezia hematemesis or melena. Tolerating diet. Objective - Vital Signs Vital signs: Vital Signs Temp 97.9 F 05/08/17 07:00 Pulse 82 05/08/17 11:19 Resp 20 05/08/17 07:00 BP 107/67 05/08/17 07:00 Pulse Ox 92 L 05/08/17 07:26 Intake & Output 05/07/17 05/08/17 05/08/17 18:59 06:59 18:59 Intake Total 100 1340 Balance 100 1340 Weight 91 kg Intake: IV 100 Oral 1340 Other: Voiding Method Toilet Toilet Toilet # Voids 3 5 - Constitutional General appearance: Present: average body habitus - EENT Eyes: Present: normal appearance - Neck Neck: Present: normal ROM - Respiratory Respiratory: bilateral: CTA - Cardiovascular Rhythm: regular - Gastrointestinal General gastrointestinal: Present: soft - Neurologic Neurologic: Present: CNII-XII intact - Psychiatric Psychiatric: Present: A&O x's 3 - Labs CBC & Chem 7: 05/07/17 08:58 05/08/17 07:36 Labs: Abnormal Lab Results - Last 24 Hours (Table) 05/07/17 05/07/17 05/08/17 Range/Units 08:58 08:58 07:36 Chloride 108 H (98-107) mmol/L Total PSA 33.3 H (0.1 - 4.0) ng/mL Total Testosterone 16.00 L (86.98-780.10) ng/dL Microbiology - Last 24 Hours (Table) 05/01/17 09:23 Blood Culture - Final Blood No Growth after 144 hours 05/01/17 09:15 Blood Culture - Final Blood No Growth after 144 hours Assessment and Plan (1) GI bleed Narrative/Plan: 82-year-old male admitted with shortness of breath symptomatic acute blood loss anemia UTI with reports of melena and positive stool Hemoccult. Status post EGD with findings of 2 large nonbleeding duodenal bulb ulcers and segment of Barretts. Current Visit: Yes Status: Acute Code(s): K92.2 - GASTROINTESTINAL HEMORRHAGE, UNSPECIFIED SNOMED Code(s): 83582717 (2) Stool guaiac positive Current Visit: Yes Status: Acute Code(s): R19.5 - OTHER FECAL ABNORMALITIES SNOMED Code(s): 02963285 (3) Melena Current Visit: Yes Status: Acute Code(s): K92.1 - MELENA SNOMED Code(s): 7635033 (4) UTI (urinary tract infection) Current Visit: Yes Status: Acute Code(s): N39.0 - URINARY TRACT INFECTION, SITE NOT SPECIFIED SNOMED Code(s): 50316980 (5) History of prostate cancer Current Visit: Yes Status: Chronic Code(s): Z85.46 - PERSONAL HISTORY OF MALIGNANT NEOPLASM OF PROSTATE SNOMED Code(s): 270568629 (6) Lamb's esophagus determined by endoscopy Current Visit: Yes Status: Acute Code(s): K22.70 - LAMB'S ESOPHAGUS WITHOUT DYSPLASIA SNOMED Code(s): 730204237 (7) Duodenal bulb ulcer Current Visit: Yes Status: Acute Code(s): K26.9 - DUODENAL ULCER, UNSP ACUTE OR CHRONIC, W/O HEMOR OR PERF SNOMED Code(s): 66794309 Plan: 1. CBC monitoring. 2. Protonix 40 mg daily. 3. Diet as tolerated. Assessment and plan of care discussed with Dr. Law
[2017-05-08] MEDS: EZETIMIBE 10 MG TAB PO SCH (20:07)
[2017-05-08] MEDS: ATORVASTATIN 40 MG TAB PO SCH (20:07)
--- NOTE | 2017-05-08 23:33 | PN ---
PROGRESS NOTE DATE OF SERVICE: 05/08/2017. ATTENDING PHYSICIAN: Dr. Mi Lane. CHIEF COMPLAINT: Re-evaluation. HISTORY OF PRESENT ILLNESS: This 82-year-old gentleman was admitted to the hospital with a fever, weakness and SVT. The patient subsequently developed a fever and evidence of urinary tract infection with Staph aureus, methicillin sensitive. The patient has been on medical treatment for the same. The patient has exhibited anemia. He did have stool positive for occult blood. He had an EGD done, which did reveal evidence of ulcers. The patient otherwise also noted to have a bladder tumor. He has been seen by Urology and has been seen by GI. The patient is actually doing better today. REVIEW OF SYSTEMS: NEURO: Denies any headaches or dizziness. PSYCH: No anxiety. CARDIAC: No chest pain or angina or palpitations. RESPIRATORY: Does have shortness of breath. A CT scan of the chest did not reveal any pulmonary embolism. Does show emphysema and pulmonary fibrosis. GI: No nausea, vomiting, abdominal pain, diarrhea. : No symptoms of dysuria or hematuria. Does have frequency. EXTREMITIES: Denies pain. CONSTITUTIONAL: No fevers or chills. PHYSICAL EXAMINATION: Pleasant gentleman in no distress. Vital signs reveal temperature 97.9, pulse 93, respirations 20, blood pressure is 107/67, earlier was 154/89. HEENT: Normocephalic. NECK: No JVD. CHEST: Clear to auscultation. Some generalized mild decreased air flow. CARDIAC: Distant heart sounds. S1, S2 with no gallop. Systolic murmur 2/6 left sternal border. ABDOMEN: Soft. Bowel sounds present. EXTREMITIES: Reveal trace edema. NEUROLOGIC: Awake, alert, oriented x3 with well-coordinated movements. LABORATORY ASSESSMENT: CT scan of the chest as mentioned above, suggestive of COPD, pulmonary fibrosis, and CHF changes. The patient's hemoglobin is stable at 8.2. Electrolytes are normal. BUN and creatinine normal. Calcium is 10.0. ASSESSMENT: 1. Dyspnea, multifactorial, including pulmonary fibrosis, anemia, and congestive cardiac failure. 2. Anemia secondary to recent blood loss. 3. Peptic ulcer disease as noted on EGD yesterday. 4. History of cancer of the prostate. 5. Bladder mass. 6. Urinary tract infection. 7. Debility. PLAN: Continue present medical regimen. Again, I have recommended to the patient that he is better off going to an EFC until he gets his strength back. The patient's potential risk of inability to take care of himself is high as he lives alone. The patient is in agreement to this and will have the systems requirements planner have further discussion with him. MIO / JOSH: [id number] /
[2017-05-09] MEDS: traMADol 50 MG TAB PO PRN ×3 (02:24→15:26)
[2017-05-09] MEDS: IPRATROPIUM-ALBUTEROL 3 ML NEB INHALATION SCH ×3 (08:19→16:29)
[2017-05-09 08:22] VITALS: BP 123/69; TEMP 98
[2017-05-09] MEDS: ASPIRIN 81 MG PO SCH (08:53)
[2017-05-09] MEDS: LEVOFLOXACIN 500 MG TAB PO SCH (08:54)
[2017-05-09] MEDS: DOCUSATE 100 MG CAP PO SCH (08:54)
[2017-05-09] MEDS: ATENOLOL 50 MG TAB PO SCH (08:54)
[2017-05-09] MEDS: PANTOPRAZOLE 40 MG/10 ML VIAL IVP SCH (08:54)
[2017-05-09] MEDS: HEPARIN SODIUM,PORCINE 5,000 UNIT/ML 1 ML VIAL SQ SCH (08:54)
--- NOTE | 2017-05-09 09:04 | CDI ---
Last Revision, January 2017 Documentation Clarification Form Date: 05/09/2017 From: Joseline Perez Admit Date: 04/29/2017 11:14:00 AM Patient Name: Bjorn Christian Visit Number: [id number] Discharge Date: ATTENTION: The Clinical Documentation Specialists (CDI) and [facility] Coding Staff appreciate your assistance in clarifying documentation. Please respond to the clarification below the line at the bottom and electronically sign. The CDI & [facility] Coding staff will review the response and follow-up if needed. Please note: Queries are made part of the Legal Health Record. If you have any questions, please contact the author of this message via ITS. Dr. Harshal Lane: Per the History & Physical: "... does appear sick and weak; looks like he has lost some weight since the last time I saw him." Admit with generalized weakness, malaise and SOB, suspect related to anemia. Acute on chronic renal failure. 05/01 Progress note: Increased SOB & signifcant temperature, lethargic & weak. Kenny placed. Fever; jim probably UTI. (culture MRSA). History/Risk Factors: Prostate CA, Hypertension. Clinical Indicators: VS: T 97.6 - 97.1* - 101.5^. BP 124/63 - 186/87 - 93/47 LAB: WBC 10.9^, Neut 9.3^ Treatment: ASA, IV Narcan, IV Zofran, IV fl 50, IV Lasix (05/01), IV Levaquin (05/01 ). Definition of Present on Admission (POA): A diagnosis present at the time the order for admission to inpatient status was written. For each diagnosis, documentation must be clear to determine if the condition was present at the time of the patients inpatient admission or developed during the hospital stay. Please clarify in progress notes and discharge summary as to whether Sepsis ( cause & organism if known) was: Y = Yes, the condition was present at the time of the order for inpatient admission. N = No, the condition was not present at the time of the order for inpatient admission. W = Clinically undetermined if the condition was present at the time of the order for inpatient admission. Please continue to document in your progress notes and discharge summary in order to capture severity of illness and risk of mortality. Include clinical findings that support your diagnosis. MTDD
--- NOTE | 2017-05-09 16:10 | P.DS ---
Providers Date of admission: 04/29/17 11:14 Expected date of discharge: 05/09/17 Attending physician: Harshal Lane Consults: 04/29/17 11:15 Consult Physician Routine Consulting Provider: Ifeoma Luis Consult Reason/Comments: heart failure Do you want consulting provider notified?: Yes 05/06/17 16:03 Consult Physician Urgent Consulting Provider: Guanako Yang Consult Reason/Comments: bladder mass Do you want consulting provider notified?: Yes Primary care physician: Harshal Lane Hospital Course: this 82-year-old gentlemanwas sent into the emergency room wi of weakness and shortness of breath. Patient on clinical examination had clear lungs mildly hypoxic and noted to have an elevated BNP Patient was admitted to the hospital with a preliminary by the ER physician. However he shouldn't noted to have also anemia which progressively worsened. He had associated acuterenal failure. The patient had no bowel movement he declinedhaving had any melanotic stool. I on rectal examination the stool was grayish in color. It was 2 days before a stool occult obtained and unfortunately. The patient was doing well the first couple days then he had a fever and increased sob.. He was noted to have evidence of a urinary tract infection. The urine culture grew methicillin sensitive staph aureus. Patient had been in prior comple. The bacteria were sensitive to and since he had responded to that treatment it was not changed.chest x-rays reveal small pleural effusion. An echocardiogram revealed adequate left ventricular funwith mild inferior wall hypokinesia however not significant pulmonary hypertension. The patientwas transfused 1 unit of packed red cells as the patient was short of breath. He is also given IV infusions of iron. His reticulocyte count was elevated suggesting adequate bone marrow response.atient's stool finally was collected and revealed guaiac posit Patient in view of this underwent an EGD which revealed 2 duodenal ulcers. H. pylori status pending. Patient as been on Motrin which was discontinued. Patient on PIP. Patient is off aspirin 2. He does have a history of coronary artery disease with no angina.. He was given Lasix with little help. 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 Urology did see the patientand they are going to follow that up as an outpatient. Patient does have a history of carcinoma of prostate. His PSA was up to 24. Patient is fairly weak. Chronic hypoxia requiring oxygen. He will continue and oxygen 3 L of nasal cannula. Appearance is needed 4 times a day. Final diagnosis to include 1. Dyspnea, multifactorial due to anemia, pulmonary fibrosis, COPD,congestive cardiac failure 2. Anemia secondary to GI blood loss 3. Peptic ulcer disease 4. Bladder tumor 5. Carcinoma prostate 6. Urinary tract infection with sepsis 7. Coronary artery disease stable 8. acute on chronicCongestive cardiac failure probably secondary to diastolic dysfunctionand anemia 9. Debility 10. Decreased nutritional status Patient Condition at Discharge: Fair Plan - Discharge Summary Discharge Rx Participant: No New Discharge Prescriptions: New Ipratropium-Albuterol Nebulize [Duoneb 0.5 mg-3 mg/3 ml Soln] 3 ml INHALATION RT-QID ampul.neb Levofloxacin [Levaquin] 500 mg PO DAILY tab traMADol HCl [Ultram] 100 mg PO Q6H PRN tab PRN Reason: Moderate Pain Continue traMADol HCL [Ultram] 50 - 100 mg PO Q6H PRN PRN Reason: Pain No Action Multivitamins, Thera [Multivitamin (formulary)] 1 tab PO DAILY Ibuprofen [Motrin] 800 mg PO TID PRN PRN Reason: Pain Docusate [Colace] 100 mg PO DAILY Omeprazole Magnesium [PriLOSEC OTC] 20 mg PO DAILY Fexofenadine HCl [Crystal Allergy] 180 mg PO DAILY Aspirin EC [Ecotrin Low Dose] 162 mg PO DAILY Lisinopril [Prinivil] 10 mg PO BID Ezetimibe [Zetia] 10 mg PO HS Atorvastatin [Lipitor] 40 mg PO HS Atenolol [Tenormin] 50 mg PO DAILY Furosemide [Lasix] 40 mg PO DAILY Discharge Medication List Aspirin EC [Ecotrin Low Dose] 162 mg PO DAILY 04/29/17 [History] Atenolol [Tenormin] 50 mg PO DAILY 04/29/17 [History] Atorvastatin [Lipitor] 40 mg PO HS 04/29/17 [History] Docusate [Colace] 100 mg PO DAILY 04/29/17 [History] Ezetimibe [Zetia] 10 mg PO HS 04/29/17 [History] Fexofenadine HCl [Crystal Allergy] 180 mg PO DAILY 04/29/17 [History] Furosemide [Lasix] 40 mg PO DAILY 04/29/17 [History] Ibuprofen [Motrin] 800 mg PO TID PRN 04/29/17 [History] Lisinopril [Prinivil] 10 mg PO BID 04/29/17 [History] Multivitamins, Thera [Multivitamin (formulary)] 1 tab PO DAILY 04/29/17 [History ] Omeprazole Magnesium [PriLOSEC OTC] 20 mg PO DAILY 04/29/17 [History] traMADol HCL [Ultram] 50 - 100 mg PO Q6H PRN 04/29/17 [History] Ipratropium-Albuterol Nebulize [Duoneb 0.5 mg-3 mg/3 ml Soln] 3 ml INHALATION RT -QID ampul.neb 05/09/17 [Rx] Levofloxacin [Levaquin] 500 mg PO DAILY tab 05/09/17 [Rx] traMADol HCl [Ultram] 100 mg PO Q6H PRN tab 05/09/17 [Rx] Follow up Appointment(s)/Referral(s): Harshal Lane MD [Primary Care Provider] - 1-2 days Sarah Law MD [STAFF PHYSICIAN] - 3 Weeks [facility], [NON-STAFF] - 1 Week Guanako Yang MD [STAFF PHYSICIAN] - 2 Weeks Activity/Diet/Wound Care/Special Instructions: Patient to see Dr. Yang in 2 weeks for office cystoscopy.
[2017-05-09 16:58] VITALS: RESP 18
[2017-05-09 17:02] VITALS: PULSE 106
[2017-05-10] MEDS ORDERED: PANTOPRAZOLE 40 MG TABLET PO SCH (07:30)
== END 2017-05-09 18:00 | DRG 377 ==
LOC: EC 09:00 → 6SEL 11:14 → 5MS5E 05-05 15:23
PROVIDERS: ADMIT Internal Medicine; ATTEND Internal Medicine
PROC: 30233N1 Transfusion of Nonautologous Red Blood Cells into Peripheral Vein, Percutaneous Approach (ICD-10-PCS; 2017-05-03)
PROC: 0DB68ZX Excision of Stomach, Via Natural or Artificial Opening Endoscopic, Diagnostic (ICD-10-PCS; principal; 2017-05-07 13:30)
DX: K26.4 Chronic or unspecified duodenal ulcer with hemorrhage (principal); I50.33 Acute on chronic diastolic (congestive) heart failure; A41.01 Sepsis due to Methicillin susceptible Staphylococcus aureus; N17.9 Acute kidney failure, unspecified; I48.0 Paroxysmal atrial fibrillation; I47.1 Supraventricular tachycardia; Z99.81 Dependence on supplemental oxygen; B95.61 Methicillin susceptible Staphylococcus aureus infection as the cause of diseases classified elsewhere; D49.4 Neoplasm of unspecified behavior of bladder; D62 Acute posthemorrhagic anemia; I13.0 Hypertensive heart and chronic kidney disease with heart failure and stage 1 through stage 4 chronic kidney disease, or unspecified chronic kidney disease; N39.0 Urinary tract infection, site not specified; K29.71 Gastritis, unspecified, with bleeding; I25.10 Atherosclerotic heart disease of native coronary artery without angina pectoris; I45.10 Unspecified right bundle-branch block; E78.5 Hyperlipidemia, unspecified; R53.81 Other malaise; K44.9 Diaphragmatic hernia without obstruction or gangrene; K22.70 Barrett's esophagus without dysplasia; M17.0 Bilateral primary osteoarthritis of knee; M54.9 Dorsalgia, unspecified; R20.0 Anesthesia of skin; K21.9 Gastro-esophageal reflux disease without esophagitis; R09.02 Hypoxemia; I25.2 Old myocardial infarction; Z98.890 Other specified postprocedural states; Z95.1 Presence of aortocoronary bypass graft; Z82.49 Family history of ischemic heart disease and other diseases of the circulatory system; Z88.6 Allergy status to analgesic agent; Z88.5 Allergy status to narcotic agent; Z88.2 Allergy status to sulfonamides; Z88.8 Allergy status to other drugs, medicaments and biological substances; Z95.5 Presence of coronary angioplasty implant and graft; Z87.891 Personal history of nicotine dependence; Z79.82 Long term (current) use of aspirin; Z79.899 Other long term (current) drug therapy; Z85.828 Personal history of other malignant neoplasm of skin; Z82.3 Family history of stroke; Z85.46 Personal history of malignant neoplasm of prostate
CPT/HCPCS: 36415; 43239; 71045; 71046; 71275; 76770; 80048; 80053; 81001; 82272; 82728; 83540; 83550; 83690; 83735; 83880; 84153; 84403; 84443; 84484; 85025; 85027; 85045; 85610; 85730; 86850; 86900; 86901; 86920; 87040; 87070; 87077; 87086; 87186; 87502; 88305; 93005; 93306; 94640; 94760; 99285

== ENCOUNTER 2017-05-25 12:16 | Observation (INO) | payer MEDICARE, OTHER ==
[2017-05-25] MEDS ORDERED: FUROSEMIDE 10 MG/ML 4 ML VIAL IV STA (12:42)
[2017-05-25] MEDS ORDERED: ALBUTEROL NEBULIZED 2.5 MG/3 ML INHALATION STA (12:52)
[2017-05-25] MEDS ORDERED: methylPREDNISolone SOD SUCCI 125 MG/2 ML VIAL IV STA (12:52)
[2017-05-25 12:59] LABS: Anisocytosis Slight; Basophils % (A) 0 %; Eosinophils % (A) 0 %; HCT 28.9 % (39.0-53.0); HGB 9.1 gm/dL (13.0-17.5); Hypochromasia Slight; Lymphocytes % (A) 5 %; MCH 29.2 pg (25.0-35.0); MCHC 31.5 g/dL (31.0-37.0); MCV 92.6 fL (80.0-100.0); Monocytes % (A) 5 %; Neutrophils % (A) 88 %; Platelet Count 200 k/uL (150-450); RBC 3.12 m/uL (4.30-5.90); RDW 16.5 % (11.5-15.5); WBC 6.8 k/uL (3.8-10.6)
[2017-05-25 13:00] LABS: Lymphocytes # (A) 0.4 k/uL (1.0-4.8); Monocytes # (A) 0.4 k/uL (0-1.0); Neutrophils # (A) 6.1 k/uL (1.3-7.7)
[2017-05-25 13:06] LABS: INR 1.1 (<1.2); Partial Thromboplastin Time 23.5 sec (22.0-30.0); Prothrombin Time 10.7 sec (9.0-12.0)
[2017-05-25 13:07] LABS: Calcium 10.4 mg/dL (8.4-10.2); Total Bilirubin 0.7 mg/dL (0.2-1.3); Total Protein 5.9 g/dL (6.3-8.2); VBG PH 7.5 (7.31-7.41)
--- NOTE | 2017-05-25 13:18 | XR ---
EXAMINATION TYPE: XR chest 1V portable DATE OF EXAM: 05/25/2017 HISTORY: difficulty breathing. REFERENCE: Previous study dated 05/06/2017. FINDINGS: Lung volumes are prominent. Heart size is upper limits of normal. There is bibasilar infilt rates. I suspect small, bilateral effusions. There has been a previous midline sternotomy. IMPRESSION: 1. COPD. 2. BIBASILAR INFILTRATES. 3. SMALL, BILATERAL EFFUSIONS.
[2017-05-25] MEDS ORDERED: PIPERACILLIN-TAZOBACTAM 3.375 GM in DEXTROSE/WATER 1 50ML.BAG IVPB STA (13:24)
[2017-05-25 13:29] LABS: Creatine Kinase MB 0.6 ng/mL (0.0-2.4); Troponin I 0.026 ng/mL (0.000-0.034)
[2017-05-25] MEDS: SODIUM CHLORIDE 0.9% 1,000 ML IV SCH (13:39)
--- NOTE | 2017-05-25 13:49 | ED ---
Weakness HPI - General Chief complaint: Weakness Stated complaint: SOB, GENERALIZED WEAKNESS Time Seen by Provider: 05/25/17 12:18 Source: patient, EMS Mode of arrival: EMS Limitations: no limitations - History of Present Illness Initial comments: 83 years old gentleman with a history of anemia pulmonary fibrosis COPD congestive heart failure and GI bleed he slid down and he was unable to get up he feels quite weak he said he is complaining about shortness of breath and mild chest discomfort have a history of heart disease status post CABG and denies any pleuritic chest pain and it does not hurt when he takes a deep breath he denies any fever and chills but has been coughing up a lot of phlegm he also has a history of COPD review of system is unremarkable otherwise - Related Data Home Medications Medication Instructions Recorded Confirmed Aspirin EC [Ecotrin Low Dose] 162 mg PO DAILY 04/29/17 05/25/17 Atenolol [Tenormin] 50 mg PO DAILY 04/29/17 05/25/17 Atorvastatin [Lipitor] 40 mg PO HS 04/29/17 05/25/17 Docusate [Colace] 100 mg PO DAILY 04/29/17 05/25/17 Ezetimibe [Zetia] 10 mg PO HS 04/29/17 05/25/17 Fexofenadine HCl [Crystal Allergy] 180 mg PO DAILY 04/29/17 05/25/17 Furosemide [Lasix] 40 mg PO DAILY 04/29/17 05/25/17 Ibuprofen [Motrin] 800 mg PO TID PRN 04/29/17 05/25/17 Lisinopril [Prinivil] 10 mg PO BID 04/29/17 05/25/17 Multivitamins, Thera [Multivitamin 1 tab PO DAILY 04/29/17 05/25/17 (formulary)] Omeprazole Magnesium [PriLOSEC OTC] 20 mg PO DAILY 04/29/17 05/25/17 Previous Rx's Medication Instructions Recorded Ipratropium-Albuterol Nebulize 3 ml INHALATION RT-QID ampul.neb 05/09/17 [Duoneb 0.5 mg-3 mg/3 ml Soln] traMADol HCL [Ultram] 100 mg PO Q6H PRN #60 tablet 05/09/17 Allergies Allergy/AdvReac Type Severity Reaction Status Date / Time acetaminophen [From Tylenol] Allergy Rash/Hives Verified 05/25/17 13:16 bicalutamide [From Casodex] Allergy Rash/Hives Verified 05/25/17 13:16 meloxicam [From Mobic] Allergy Unknown Verified 05/25/17 13:16 Sulfa (Sulfonamide Allergy Itching Verified 05/25/17 13:16 Antibiotics) morphine AdvReac Nausea & Verified 05/25/17 13:16 Vomiting Review of Systems ROS Statement: Those systems with pertinent positive or pertinent negative responses have been documented in the HPI. ROS Other: All systems not noted in ROS Statement are negative. Past Medical History Past Medical History: Atrial Fibrillation, Coronary Artery Disease (CAD), Cancer , Chest Pain / Angina, GERD/Reflux, Hyperlipidemia, Hypertension, Myocardial Infarction (CT), Osteoarthritis (OA), Prostate Disorder Additional Past Medical History / Comment(s): Prostate ca with hormone treatment , skin cancer with removals, back pain, arthritis bilateral knees and wrists, occasional numbness bilateral legs. Last Myocardial Infarction Date:: 1997 History of Any Multi-Drug Resistant Organisms: None Reported Past Surgical History: Appendectomy, Coronary Bypass/CABG, Heart Catheterization , Heart Catheterization With Stent, Tonsillectomy Additional Past Surgical History / Comment(s): 1997 CABG 3 vessel, PCI with stent 2010, colonoscopy, R wrist tendon surgery, R hand lipoma removed, sclerosing hemangioma excised from chest, skin cancer removals. Past Anesthesia/Blood Transfusion Reactions: No Reported Reaction Date of Last Stent Placement:: 2010 Past Psychological History: No Psychological Hx Reported Smoking Status: Former smoker - Past Family History Father Family Medical History: No Reported History Additional Family Medical History / Comment(s): Father was healthy Mother Family Medical History: Coronary Artery Disease (CAD), Hyperlipidemia, Hypertension General Exam - General Exam Comments Initial Comments: General: The patient is awake,, he looks pale and weak and tired, GCS is 15 Skin: Skin is warm and dry and no rashes or lesions are noted. Eye: Pupils are equal, round and reactive to light, extra-ocular movements are intact; there is normal conjunctiva bilaterally. Ears, nose, mouth and throat: There are moist mucous membranes and no oral lesions. Neck: The neck is supple, there is no tenderness , no signs of any meningitis. Cardiovascular: There is a regular rate and rhythm. No murmur, rub or gallop is appreciated. Respiratory: To auscultation bilateral, exam is consistent with the severe COPD he noticed loss of crackles at the bases bilateral Gastrointestinal: Soft, non-distended, non-tender abdomen without masses or organomegaly noted. There is no rebound or guarding present. Bowel sounds are unremarkable. Back: There is no tenderness to palpation in the midline. There is no obvious deformity. Musculoskeletal: Normal ROM, no tenderness, There is no pedal edema. There is no calf tenderness or swelling. No cords were appreciated. Neurological: CN II-XII intact, Cranial nerves III through XII are intact. There are no obvious motor or sensory deficits. Coordination appears grossly intact. Speech is normal. Psychiatric: Cooperative, appropriate mood & affect, normal judgment. Limitations: no limitations Course Vital Signs 05/25/17 05/25/17 05/25/17 12:23 12:50 13:21 Temperature 97.0 F L Pulse Rate 80 75 78 Respiratory 16 16 16 Rate Blood Pressure 97/62 94/50 89/49 O2 Sat by Pulse 90 L 91 L 91 L Oximetry 05/25/17 05/25/17 13:35 13:48 Temperature Pulse Rate 71 77 Respiratory 24 Rate Blood Pressure O2 Sat by Pulse Oximetry Reassessment noticed some blood pressure was low, CBC is unremarkable hemoglobin hasn't dropped significantly PT and INR is normal venous blood gases are unremarkable creatinine has gone up from mom 0.9 to almost 2 troponin is negative EKG and no STEMI lactate is 2.2) 753 home noticed chest x-ray has some bilateral infiltrates with some pleural effusion which Goes along with history of CHF and no new findings or infiltrate EKG Findings - EKG Comments: EKG Findings:: EKG is normal sinus rhythm ventricular rate is 54 MO interval is 182 QRS duration is 160 QT/QTc is 450/528 review of this EKG reveals right bundle branch block no ST elevation or ST depression noticed in today's EKG was compared with EKG done on April 29 Medical Decision Making - Lab Data Result diagrams: 05/25/17 12:40 05/25/17 12:40 Lab Results 05/25/17 05/25/17 05/25/17 Range/Units 12:40 12:40 12:40 WBC 6.8 (3.8-10.6) k/uL RBC 3.12 L (4.30-5.90) m/uL Hgb 9.1 L (13.0-17.5) gm/dL Hct 28.9 L (39.0-53.0) % MCV 92.6 (80.0-100.0) fL MCH 29.2 (25.0-35.0) pg MCHC 31.5 (31.0-37.0) g/dL RDW 16.5 H (11.5-15.5) % Plt Count 200 (150-450) k/uL Neutrophils % 88 % Lymphocytes % 5 % Monocytes % 5 % Eosinophils % 0 % Basophils % 0 % Neutrophils # 6.1 (1.3-7.7) k/uL Lymphocytes # 0.4 L (1.0-4.8) k/uL Monocytes # 0.4 (0-1.0) k/uL Eosinophils # 0.0 (0-0.7) k/uL Basophils # 0.0 (0-0.2) k/uL Hypochromasia Slight Anisocytosis Slight PT (9.0-12.0) sec INR (<1.2) APTT (22.0-30.0) sec VBG pH 7.50 H (7.31-7.41) VBG pCO2 32 L (37-51) mmHg VBG HCO3 25 (24-28) mmol/L Sodium (137-145) mmol/L Potassium (3.5-5.1) mmol/L Chloride (98-107) mmol/L Carbon Dioxide (22-30) mmol/L Anion Gap mmol/L BUN (9-20) mg/dL Creatinine (0.66-1.25) mg/dL Est GFR (CKD-EPI)AfAm (>60 ml/min/1.73 sqM) Est GFR (CKD-EPI)NonAf (>60 ml/min/1.73 sqM) Glucose (74-99) mg/dL Plasma Lactic Acid Ottoniel (0.7-2.0) mmol/L Calcium (8.4-10.2) mg/dL Total Bilirubin (0.2-1.3) mg/dL AST (17-59) U/L ALT (21-72) U/L Alkaline Phosphatase (38-126) U/L Total Creatine Kinase 122 (55-170) U/L CK-MB (CK-2) 0.6 (0.0-2.4) ng/mL CK-MB (CK-2) Rel Index 0.5 Troponin I 0.026 (0.000-0.034) ng/mL NT-Pro-B Natriuret Pep pg/mL Total Protein (6.3-8.2) g/dL Albumin (3.5-5.0) g/dL 05/25/17 05/25/17 05/25/17 Range/Units 12:40 12:40 12:40 WBC (3.8-10.6) k/uL RBC (4.30-5.90) m/uL Hgb (13.0-17.5) gm/dL Hct (39.0-53.0) % MCV (80.0-100.0) fL MCH (25.0-35.0) pg MCHC (31.0-37.0) g/dL RDW (11.5-15.5) % Plt Count (150-450) k/uL Neutrophils % % Lymphocytes % % Monocytes % % Eosinophils % % Basophils % % Neutrophils # (1.3-7.7) k/uL Lymphocytes # (1.0-4.8) k/uL Monocytes # (0-1.0) k/uL Eosinophils # (0-0.7) k/uL Basophils # (0-0.2) k/uL Hypochromasia Anisocytosis PT 10.7 (9.0-12.0) sec INR 1.1 (<1.2) APTT 23.5 (22.0-30.0) sec VBG pH (7.31-7.41) VBG pCO2 (37-51) mmHg VBG HCO3 (24-28) mmol/L Sodium 138 (137-145) mmol/L Potassium 4.0 (3.5-5.1) mmol/L Chloride 100 (98-107) mmol/L Carbon Dioxide 26 (22-30) mmol/L Anion Gap 12 mmol/L BUN 32 H (9-20) mg/dL Creatinine 1.92 H (0.66-1.25) mg/dL Est GFR (CKD-EPI)AfAm 37 (>60 ml/min/1.73 sqM) Est GFR (CKD-EPI)NonAf 32 (>60 ml/min/1.73 sqM) Glucose 101 H (74-99) mg/dL Plasma Lactic Acid Ottoniel (0.7-2.0) mmol/L Calcium 10.4 H (8.4-10.2) mg/dL Total Bilirubin 0.7 (0.2-1.3) mg/dL AST 21 (17-59) U/L ALT 20 L (21-72) U/L Alkaline Phosphatase 97 (38-126) U/L Total Creatine Kinase (55-170) U/L CK-MB (CK-2) (0.0-2.4) ng/mL CK-MB (CK-2) Rel Index Troponin I (0.000-0.034) ng/mL NT-Pro-B Natriuret Pep 753 pg/mL Total Protein 5.9 L (6.3-8.2) g/dL Albumin 3.0 L (3.5-5.0) g/dL 05/25/17 Range/Units 12:40 WBC (3.8-10.6) k/uL RBC (4.30-5.90) m/uL Hgb (13.0-17.5) gm/dL Hct (39.0-53.0) % MCV (80.0-100.0) fL MCH (25.0-35.0) pg MCHC (31.0-37.0) g/dL RDW (11.5-15.5) % Plt Count (150-450) k/uL Neutrophils % % Lymphocytes % % Monocytes % % Eosinophils % % Basophils % % Neutrophils # (1.3-7.7) k/uL Lymphocytes # (1.0-4.8) k/uL Monocytes # (0-1.0) k/uL Eosinophils # (0-0.7) k/uL Basophils # (0-0.2) k/uL Hypochromasia Anisocytosis PT (9.0-12.0) sec INR (<1.2) APTT (22.0-30.0) sec VBG pH (7.31-7.41) VBG pCO2 (37-51) mmHg VBG HCO3 (24-28) mmol/L Sodium (137-145) mmol/L Potassium (3.5-5.1) mmol/L Chloride (98-107) mmol/L Carbon Dioxide (22-30) mmol/L Anion Gap mmol/L BUN (9-20) mg/dL Creatinine (0.66-1.25) mg/dL Est GFR (CKD-EPI)AfAm (>60 ml/min/1.73 sqM) Est GFR (CKD-EPI)NonAf (>60 ml/min/1.73 sqM) Glucose (74-99) mg/dL Plasma Lactic Acid Ottoniel 2.2 H* (0.7-2.0) mmol/L Calcium (8.4-10.2) mg/dL Total Bilirubin (0.2-1.3) mg/dL AST (17-59) U/L ALT (21-72) U/L Alkaline Phosphatase (38-126) U/L Total Creatine Kinase (55-170) U/L CK-MB (CK-2) (0.0-2.4) ng/mL CK-MB (CK-2) Rel Index Troponin I (0.000-0.034) ng/mL NT-Pro-B Natriuret Pep pg/mL Total Protein (6.3-8.2) g/dL Albumin (3.5-5.0) g/dL Critical Care Time Total Critical Care Time: 30 Critical Care Time: Considering his low blood pressure 89/49 and infiltrated bilateral although is afebrile and white count is normal which is not uncommon in the elderly population my differential diagnosis would be early sepsis along with a pneumonia patient was given Zosyn and I'm reluctant to give her large amount of fluids since he has a history of congestive heart failure and history of ischemic heart disease status post CABG HIM a small bolus along with the antibiotics and he also has a history of COPD bronchodilators nebs were done in the ER along with Solu-Medrol and now will speak with the Dr. Lane he would need admission Disposition Clinical Impression: Weakness, Hypotension, Pneumonia, Dehydration Disposition: ADMITTED IP TO THIS HOSP Condition: Good Referrals: Harshal Lane MD [Primary Care Provider] - 1-2 days
[2017-05-25 14:21] LABS: Appearance,Urine Cloudy (Clear); Bacteria,Urine Rare /hpf; Bilirubin,Urine Negative (Negative); Blood,Urine Large (Negative); Budding Yeast,Urine Few /hpf; Color,Urine Yellow; Glucose,Urine (UA) Negative (Negative); Ketones,Urine Negative (Negative); Leukocyte Esterase,Urine Negative (Negative); Mucus,Urine Rare /hpf; Nitrite,Urine Negative (Negative); Protein,Urine 1+ (Negative); RBC,Urine 35 /hpf (0-5); Specific Gravity,Urine 1.014 (1.001-1.035); Urobilinogen,Urine <2.0 mg/dL (<2.0)
[2017-05-25 14:30] LABS: Amphetamine Screen,Urine Not Detected (NotDetected); Barbiturate Screen,Urine Not Detected (NotDetected); Benzodiazepines Screen,Urine Not Detected (NotDetected); Cocaine Screen,Urine Not Detected (NotDetected); Methadone Screen, Urine Not Detected (NotDetected); Opiate Screen,Urine Not Detected (NotDetected); Oxycodone Screen, Urine Not Detected (NotDetected); Phencyclidine Screen,Urine Not Detected (NotDetected); Tricyclic Antidepressant,Urine Not Detected (NotDetected); Urn Cannabinoid Scrn Not Detected (NotDetected)
--- NOTE | 2017-05-25 14:43 | CT ---
EXAMINATION TYPE: CT brain wo con DATE OF EXAM: 05/25/2017 COMPARISON: NONE HISTORY: 82-year-old male SOB, Dizziness and weakness TECHNIQUE: Examination was done in axial plane without intravenous contrast. Coronal and sagittal r econstructions performed. CT DLP: 1053.7 mGycm Automated exposure control for dose reduction was used. FINDINGS: There is no evidence of acute intracranial hemorrhage, acute ischemic changes, mass, mass-effect, or extra-axial fluid collection. There is no effacement of cerebral sulci or basal subarachnoid cister ns. There is no hydrocephalus. There is no midline shift. Caripo-white matter distinction is preserv ed. Mild generalized supratentorial volume loss. Mild to moderate patchy subcortical and deep white matte r hypodensities. Moderate mucosal thickening ethmoid air cells. Some frothy opacification is present posteriorly in th e ethmoid air cells. Mastoid air cells are well pneumatized. Orbits and globes appear intact. IMPRESSION: 1. No acute intracranial abnormality seen. Mild generalized atrophy and changes of chronic small vess el ischemic disease. 2. Correlate for acute on chronic ethmoid sinusitis.
[2017-05-25] MEDS ORDERED: NALOXONE 0.4 MG/ML 1 ML VIAL IV PRN (15:48)
[2017-05-25] MEDS ORDERED: IBUPROFEN 800 MG TAB PO PRN (15:51)
[2017-05-25] MEDS: traMADol 50 MG TAB PO PRN ×2 (16:51→23:10)
[2017-05-25] MEDS: LISINOPRIL 10 MG TAB PO SCH (20:55)
[2017-05-25] MEDS ORDERED: EZETIMIBE 10 MG TAB PO SCH (21:00)
[2017-05-25] MEDS ORDERED: ATORVASTATIN 40 MG TAB PO SCH (21:00)
[2017-05-25] MEDS: IPRATROPIUM-ALBUTEROL 3 ML NEB INHALATION SCH (21:01)
--- NOTE | 2017-05-25 22:30 | HP ---
HISTORY AND PHYSICAL ATTENDING PHYSICIAN: Dr. Sae Lane. CHIEF COMPLAINT: Fall at home. HISTORY OF PRESENT ILLNESS: This 82-year-old gentleman was discharged from a nursing facility after recent hospitalization and rehabilitation at the nursing facility. The patient was doing very well. I had seen the patient on Friday. The patient was discharged on Friday back home. The patient at home has been able to manage by himself. However, today as he got out of the bathroom and he turned around and he was about to sit when his dog got tangled in his feet and he fell back against the wall. He his back in the wall and hit his head and then he slid to the floor. The patient did not pass out. Just as this happened, the visiting nurse happened to reach there. She looked through the window and found the patient on the floor, waving his arms. Did manage to get in. However, the patient had medications spilled over the floor and the nurse saw the patient was confused. Then they called EMS and the patient was taken to the emergency room. The patient lives alone. The patient says some neighbor helps him out. The nurse reported the patient had no running water in the bathroom. The patient, however, explained to me that since his toilet tank was leaking, he had turned the faucet off and he takes water from the bucket and pours it in to flush the toilet. The patient after my evaluation in the emergency room after the initial ER evaluation was perfectly appropriate, alert, oriented, and his usual self. The patient did sit up from the gurney and did stand up. He did feel somewhat dizzy. The patient's blood pressure was low in the emergency room. The patient when discharged from the nursing facility was supposed to be on updrafts at home. Apparently, he did not get the nebulizer. The patient also was missing some medication. It appears that the patient is going to need further assistance in setting up things before getting back home. The patient has no fever. He has some chronic cough, chronic obstructive pulmonary disease. A chest x- ray done by the ER physician labeled him as pneumonia. However, the patient is looking at back at his previous x-rays from 2 weeks ago his x-ray looks somewhat better. He has some chronic findings. He has no leukocytosis, no fever. The patient does not appear healed sick. The patient has some weakness and as mentioned above the blood pressure was low. The patient has been on Lasix and lisinopril. He does have history of hypertension, history of coronary artery disease. The patient also has a history of CA of the prostate with possibility of bladder tumor. The patient's plan for evaluation the same. The patient recently had a GI bleeding secondary to gastric ulcers. The patient has had no melena. PAST MEDICAL HISTORY: 1. Essential hypertension. 2. Coronary artery disease with previous inferior wall myocardial infarction. 3. 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 4. Hyperlipidemia. 5. History of spinal stenosis of lumbar region, multiple levels. 6. Peptic ulcer disease. 7. Chronic kidney disease, stage III. 8. Chronic obstructive pulmonary disease. 9. Recent urinary tract infection. PAST SURGICAL HISTORY: Significant for tonsillectomy and adenectomy, appendectomy, CABG, right wrist ganglion cyst surgery. SOCIAL HISTORY: Patient is single, lives alone. The patient was nonsmoker. Alcohol none. FAMILY MEDICAL HISTORY: Father at the age of 79, history of CVI, hypertension, coronary artery disease. Mother at age of 91, has history of CVI, hypertension, coronary artery disease. No siblings. REVIEW OF SYMPTOMS: Neuro: Denies any headaches, dizziness. No double vision, blurred vision. Feels mildly dizzy when he stands up. Psych: no anxiety or depression. Cardiac: Denies chest pain, angina or palpitations. Respiratory: Has chronic shortness of breath. Chronic cough. No hemoptysis. GI: No nausea, vomiting, abdominal pain, diarrhea. No melena. no symptoms of dysuria, hematuria, urgency, frequency. Extremities: Denies pain, edema. Constitutional: No fever chills. PHYSICAL EXAMINATION: Pleasant gentleman in no distress. Vital signs reveals blood pressure 90/70. Earlier in the ER, the patient was reported to have blood pressure as low as 84/52. The patient has been not tachycardic. HEENT: Normocephalic. NECK: Supple. Pupils reactive. Nostrils clear. Oral cavity is moist. Ears reveal no drainage. Neck was no JVD, carotid bruits, no thyromegaly. Chest examination: Scattered rhonchi especially at the bases. Cardiac examination: Normal S1, S2 with no gallop. Systolic murmur, left sternal border. Abdomen protuberant, soft. Bowel sounds active. Extremities: Reveal no edema. No tenderness. Neurological: Awake, alert, oriented x3 with well-coordinated movements. LABORATORY DATA: Otherwise, CBC which revealed a hemoglobin of 9.1, platelet count normal 200. PT/ PTT is normal. PH 7.50, pCO2 of 32, PO2 of 25 on venous. Electrolytes normal. BUN 32, creatinine 1.92. Lactic acid 2.2. Troponin 0.026. BNP 753. Urinalysis had 35 RBCs. No evidence of infection. Drug screen negative and CT scan of the brain did not reveal any significant changes and acute on chronic ethmoid sinusitis. ASSESSMENT AND PLAN: 1. Fall at home. 2. Chronic obstructive pulmonary disease. 3. Chronic anemia. 4. Chronic kidney disease stage 3. 5. Coronary artery disease. 6. Carcinoma of the prostate. 7. Possible bladder cancer. PLAN: The patient is admitted to the hospital. Will be hydrated. Blood pressure medicines will be held back. Diuretics will be held back. Hopefully the social work professor can sort things out regarding patient's needs at home. Potential discharge home by tomorrow. MMODL / IJN: [id number] /
[2017-05-26] MEDS: SODIUM CHLORIDE 0.9% 1,000 ML IV SCH ×2 (02:55→08:15)
[2017-05-26] MEDS ORDERED: PANTOPRAZOLE 40 MG TABLET PO SCH (07:30)
[2017-05-26] MEDS: IPRATROPIUM-ALBUTEROL 3 ML NEB INHALATION SCH ×3 (08:10→16:17)
[2017-05-26] MEDS: LISINOPRIL 10 MG TAB PO SCH (08:15)
[2017-05-26] MEDS: traMADol 50 MG TAB PO PRN ×2 (08:19→14:31)
[2017-05-26] MEDS ORDERED: ASPIRIN 81 MG PO SCH (09:00)
[2017-05-26] MEDS ORDERED: DOCUSATE 100 MG CAP PO SCH (09:00)
[2017-05-26] MEDS ORDERED: LORATADINE 10 MG TAB PO SCH (09:00)
[2017-05-26] MEDS ORDERED: FUROSEMIDE 40 MG TAB PO SCH (09:00)
[2017-05-26] MEDS ORDERED: ATENOLOL 50 MG TAB PO SCH (09:00)
[2017-05-26 11:40] VITALS: TEMP 97.2
[2017-05-26] MEDS ORDERED: MULTIVITAMINS, THERA 1 EACH TAB PO SCH (12:00)
[2017-05-26 14:16] VITALS: BMI 29.6
[2017-05-26 18:35] VITALS: BP 122/61; PULSE 66; RESP 16
--- NOTE | 2017-05-26 23:31 | DS ---
DISCHARGE SUMMARY PRINCIPAL DIAGNOSES: 1. Chronic obstructive pulmonary disease. 2. Coronary artery disease. 3. Carcinoma of the prostate. 4. Possible bladder tumor. 5. Hypertension. 6. Anemia. 7. History of peptic ulcer disease. 8. Chronic kidney disease, stage III. 9. Dehydration. HISTORY OF PRESENT ILLNESS: This 82-year-old gentleman was admitted to the hospital after being brought into the emergency room, referred by the home care nurse. The patient had slipped and fallen at home. His feet tangled with his dog. No injuries. The patient's nurse thought the patient was confused and referred him to the emergency room, as she said the patient had no running water in his toilet. The patient, however, disagrees with all that stuff. He had intentionally shut off the water because the tank was leaking. The patient slid against the wall and fell as he was tangled up with his dog. The patient says his pills fell off his hands and that is why they were on the floor; and not that he had taken any. His drug screen also did not reveal any narcotics on board. The patient has underlying COPD. He also has underlying history of hypertension and coronary artery disease. He is feeling much better. His blood pressure is on the lower side. Vital signs revealed blood pressure 122/61 prior to discharge home. The patient will resume his medications, which include: 1. Lisinopril 10 mg daily. 2. Multivitamin daily. 3. Colace 100 mg daily. 4. Omeprazole 20 mg daily. 5. Crystal 180 mg daily. 6. Zetia 10 mg daily. 7. Atorvastatin 40 mg daily. 8. Atenolol 50 mg daily. 9. Lasix 40 mg daily. 10.DuoNeb updrafts q.i.d. 11.Tramadol 100 mg p.r.n. q.6. Diet regular. Activity as tolerated. The patient will be followed by home care nurse. Repeat labs in one week. MMODL / IJN: [id number] /
== END 2017-05-26 18:42 | disposition home health service (06) ==
LOC: EC 12:16 → 6SEL 15:48
PROVIDERS: ADMIT Internal Medicine; ATTEND Internal Medicine
DX: J44.9 Chronic obstructive pulmonary disease, unspecified (principal); I25.10 Atherosclerotic heart disease of native coronary artery without angina pectoris; C61 Malignant neoplasm of prostate; D64.9 Anemia, unspecified; Z87.11 Personal history of peptic ulcer disease; I13.0 Hypertensive heart and chronic kidney disease with heart failure and stage 1 through stage 4 chronic kidney disease, or unspecified chronic kidney disease; N18.3 Chronic kidney disease, stage 3 (moderate); I50.9 Heart failure, unspecified; I25.2 Old myocardial infarction; E86.0 Dehydration; J84.10 Pulmonary fibrosis, unspecified; I48.91 Unspecified atrial fibrillation; M19.032 Primary osteoarthritis, left wrist; M19.031 Primary osteoarthritis, right wrist; M17.0 Bilateral primary osteoarthritis of knee; I95.9 Hypotension, unspecified; Z95.1 Presence of aortocoronary bypass graft; E78.5 Hyperlipidemia, unspecified; M48.061 Spinal stenosis, lumbar region without neurogenic claudication; N39.0 Urinary tract infection, site not specified; Z79.82 Long term (current) use of aspirin; Z79.899 Other long term (current) drug therapy; Z88.6 Allergy status to analgesic agent; Z88.5 Allergy status to narcotic agent; Z88.2 Allergy status to sulfonamides; Z88.8 Allergy status to other drugs, medicaments and biological substances; Z85.828 Personal history of other malignant neoplasm of skin; Z87.891 Personal history of nicotine dependence; Y92.002 Bathroom of unspecified non-institutional (private) residence as the place of occurrence of the external cause; Z82.3 Family history of stroke; W01.0XXA Fall on same level from slipping, tripping and stumbling without subsequent striking against object, initial encounter
CPT/HCPCS: 99291; 96375; 96365; 96366 ×2; 36415; 94640 ×4; 93005; 83880; 80053; 82550; 82553; 82803; 83605; 84484; 85025; 85610; 85730; 81001; 87040 ×2; 80306; 87086; 71045; 70450; G0378 ×2; J2930; J2543

== ENCOUNTER → 2017-06-10 | Outpatient (CLI) | payer MEDICARE, OTHER ==
--- NOTE | 2017-06-10 15:42 | NM ---
EXAMINATION TYPE: NM bone scan whole body DATE OF EXAM: 06/10/2017 COMPARISON: CT chest May 07, 2017. HISTORY: Prostate cancer. Delayed whole-body scanning was performed following the injection of 26.6 mCi Tc 99m MDP. Images acq uired 3.5 hours post injection. Whole body images as well as additional spot images of the thorax abd omen and pelvis are acquired. FINDINGS: There is oblique increased radiotracer uptake involving anterolateral right fourth through eighth rib s correlates with healing fractures on recent CT. There is additional area of increased radiotracer u ptake left anterior first rib appears to correspond to healing fracture near the sternoclavicular nathaniel ction seen best coronal image 89. There is no suspicious radiotracer uptake to suggest metastatic disease to the bone. Focus of increas ed uptake posterior lumbosacral junction is of uncertain etiology as is rounded in appearance. Some d egenerative change is seen throughout shoulders and bilateral knees. Underlying scoliosis is present. IMPRESSION: No convincing scintigraphic evidence of metastatic disease to bone.
== END | disposition home or self-care (01) ==
LOC: RADNMMAIN 10:31
PROVIDERS: ATTEND Urology
DX: C61 Malignant neoplasm of prostate (principal)
CPT/HCPCS: 78306; A9503

== ENCOUNTER 2017-10-15 14:12 | Emergency (ER) | payer MEDICARE, OTHER ==
[2017-10-15 14:15] VITALS: TEMP 98.6
--- NOTE | 2017-10-15 15:17 | ED ---
General Adult HPI - General Chief complaint: Urogenital Stated complaint: UTI Time Seen by Provider: 10/15/17 14:22 Source: patient, RN notes reviewed, old records reviewed Mode of arrival: wheelchair Limitations: no limitations - History of Present Illness Initial comments: An 82-year-old male to the ER for evaluation. This patient does say for evaluation regarding abdominal pain, suprapubic abdominal pain severe. Patient states he feels like he may have urinary tract infection. Difficulty with urination. Patient has medical history consistent for significant COPD. Patient also complaining of just feeling weak in general. Denies fever no nausea no vomiting no rectal pain. No problems with bowel movements. - Related Data Home Medications Medication Instructions Recorded Confirmed Aspirin EC [Ecotrin Low Dose] 162 mg PO DAILY 04/29/17 10/15/17 Atenolol [Tenormin] 50 mg PO DAILY 04/29/17 10/15/17 Atorvastatin [Lipitor] 40 mg PO HS 04/29/17 10/15/17 Docusate [Colace] 100 mg PO DAILY PRN 04/29/17 10/15/17 Ezetimibe [Zetia] 10 mg PO HS 04/29/17 10/15/17 Furosemide [Lasix] 40 mg PO DAILY 04/29/17 10/15/17 Multivitamins, Thera [Multivitamin 1 tab PO DAILY 04/29/17 10/15/17 (formulary)] Omeprazole Magnesium [PriLOSEC OTC] 20 mg PO DAILY 04/29/17 10/15/17 Albuterol Inhaler [Ventolin Hfa 1 - 2 puff INHALATION RT-Q6H PRN 10/15/17 Inhaler] Alfuzosin HCl [Uroxatral ER] 10 mg PO DAILY 10/15/17 10/15/17 Cetirizine HCl [Zyrtec] 10 mg PO DAILY 10/15/17 10/15/17 Flutamide 375 mg PO BID 10/15/17 10/15/17 Fluticasone/Salmeterol [Advair 1 puff INHALATION RT-BID 10/15/17 10/15/17 250-50 Diskus] predniSONE See Taper PO DAILY 10/15/17 10/15/17 traMADol HCL [Ultram] 50 - 100 mg PO Q6H PRN 10/15/17 10/15/17 Previous Rx's Medication Instructions Recorded Ipratropium-Albuterol Nebulize 3 ml INHALATION RT-QID ampul.neb 05/09/17 [Duoneb 0.5 mg-3 mg/3 ml Soln] Lisinopril [Zestril] 10 mg PO DAILY #30 tab 05/26/17 Ciprofloxacin HCl [Cipro] 500 mg PO Q12HR #20 tablet 10/15/17 Allergies Allergy/AdvReac Type Severity Reaction Status Date / Time acetaminophen [From Tylenol] Allergy Rash/Hives Verified 10/15/17 14:31 bicalutamide [From Casodex] Allergy Rash/Hives Verified 10/15/17 14:31 meloxicam [From Mobic] Allergy Unknown Verified 10/15/17 14:31 Sulfa (Sulfonamide Allergy Itching Verified 10/15/17 14:31 Antibiotics) morphine AdvReac Nausea & Verified 10/15/17 14:31 Vomiting Review of Systems ROS Statement: Those systems with pertinent positive or pertinent negative responses have been documented in the HPI. ROS Other: All systems not noted in ROS Statement are negative. Past Medical History Past Medical History: Atrial Fibrillation, Coronary Artery Disease (CAD), Cancer , Chest Pain / Angina, GERD/Reflux, Hyperlipidemia, Hypertension, Myocardial Infarction (HI), Osteoarthritis (OA), Prostate Disorder Additional Past Medical History / Comment(s): Prostate ca with hormone treatment , skin cancer with removals, back pain, arthritis bilateral knees and wrists, occasional numbness bilateral legs. Last Myocardial Infarction Date:: 1997 History of Any Multi-Drug Resistant Organisms: None Reported Past Surgical History: Appendectomy, Coronary Bypass/CABG, Heart Catheterization , Heart Catheterization With Stent, Tonsillectomy Additional Past Surgical History / Comment(s): 1997 CABG 3 vessel, PCI with stent 2010, colonoscopy, R wrist tendon surgery, R hand lipoma removed, sclerosing hemangioma excised from chest, skin cancer removals. Past Anesthesia/Blood Transfusion Reactions: No Reported Reaction Date of Last Stent Placement:: 2010 Past Psychological History: No Psychological Hx Reported Smoking Status: Former smoker Past Alcohol Use History: Occasional Past Drug Use History: None Reported - Past Family History Father Family Medical History: No Reported History Additional Family Medical History / Comment(s): Father was healthy Mother Family Medical History: Coronary Artery Disease (CAD), Hyperlipidemia, Hypertension General Exam Limitations: no limitations General appearance: alert, in no apparent distress Head exam: Present: atraumatic, normocephalic, normal inspection Eye exam: Present: normal appearance, PERRL, EOMI. Absent: scleral icterus, conjunctival injection, periorbital swelling ENT exam: Present: normal exam, mucous membranes moist Neck exam: Present: normal inspection. Absent: tenderness, meningismus, lymphadenopathy Respiratory exam: Present: normal lung sounds bilaterally. Absent: respiratory distress, wheezes, rales, rhonchi, stridor Cardiovascular Exam: Present: regular rate, normal rhythm, normal heart sounds. Absent: systolic murmur, diastolic murmur, rubs, gallop, clicks GI/Abdominal exam: Present: soft, normal bowel sounds. Absent: distended, tenderness, guarding, rebound, rigid Extremities exam: Present: normal inspection, full ROM, normal capillary refill. Absent: tenderness, pedal edema, joint swelling, calf tenderness Back exam: Present: normal inspection Neurological exam: Present: alert, oriented X3, CN II-XII intact Psychiatric exam: Present: normal affect, normal mood Skin exam: Present: warm, dry, intact, normal color. Absent: rash Course Vital Signs 10/15/17 10/15/17 14:13 15:40 Temperature 98.6 F Pulse Rate 70 75 Respiratory 20 20 Rate Blood Pressure 131/78 98/53 O2 Sat by Pulse 96 95 Oximetry - Reevaluation(s) Reevaluation #1: 10/15/17 15:17 The patient had bladder scan and Kenny placement showing greater than thousand milliliters output Reevaluation #2: 10/15/17 16:01 Patient is without distress Medical Decision Making - Medical Decision Making 82 male the ER for evaluation. Patient presents today for evaluation regarding abdominal pain. Patient is urinary retention with UTI. Patient be treated with antibiotics, patient can be discharged home with leg bag - Lab Data Lab Results 10/15/17 Range/Units 15:45 Urine Color Yellow Urine Appearance Clear (Clear) Urine pH 5.5 (5.0-8.0) Ur Specific [place] 1.010 (1.001-1.035) Urine Protein Trace H (Negative) Urine Glucose (UA) Negative (Negative) Urine Ketones Negative (Negative) Urine Blood Moderate H (Negative) Urine Nitrite Negative (Negative) Urine Bilirubin Negative (Negative) Urine Urobilinogen <2.0 (<2.0) mg/dL Ur Leukocyte Esterase Small H (Negative) Urine RBC 25 H (0-5) /hpf Urine WBC 7 H (0-5) /hpf Urine Bacteria Rare H (None) /hpf Disposition Clinical Impression: Urinary retention, UTI (urinary tract infection) Disposition: HOME SELF-CARE Condition: Good Instructions: Urinary Tract Infection in Men (ED), Urinary Retention in Men (ED ) Prescriptions: Ciprofloxacin HCl [Cipro] 500 mg PO Q12HR #20 tablet Is patient prescribed a controlled substance at d/c from ED?: No Referrals: Harshal Lane MD [Primary Care Provider] - 1-2 days Tomasz Mcguire MD [STAFF PHYSICIAN] - 1-2 days
[2017-10-15 15:56] LABS: Appearance,Urine Clear (Clear); Bacteria,Urine Rare /hpf; Bilirubin,Urine Negative (Negative); Blood,Urine Moderate (Negative); Color,Urine Yellow; Glucose,Urine (UA) Negative (Negative); Ketones,Urine Negative (Negative); Leukocyte Esterase,Urine Small (Negative); Nitrite,Urine Negative (Negative); PH, Urine 5.5 (5.0-8.0); Protein,Urine Trace (Negative); RBC,Urine 25 /hpf (0-5); Urobilinogen,Urine <2.0 mg/dL (<2.0); WBC,Urine 7 /hpf (0-5)
[2017-10-15] MEDS ORDERED: CIPROFLOXACIN HCL 500 MG TAB PO STA (15:59)
[2017-10-15 16:22] VITALS: BP 111/55; PULSE 76; RESP 18
[2017-10-15] MEDS ORDERED: ALBUTEROL INHALER 60 PUFF/8 GM INHALER INHALATION STA (16:26)
[2017-10-15] MEDS ORDERED: ALBUTEROL NEBULIZED 2.5 MG/3 ML INHALATION STA (16:32)
== END 2017-10-15 17:03 | disposition home or self-care (01) ==
LOC: EC 14:12
DX: N39.0 Urinary tract infection, site not specified (principal); R33.9 Retention of urine, unspecified; I48.91 Unspecified atrial fibrillation; I25.10 Atherosclerotic heart disease of native coronary artery without angina pectoris; K21.9 Gastro-esophageal reflux disease without esophagitis; I10 Essential (primary) hypertension; I25.2 Old myocardial infarction; M19.90 Unspecified osteoarthritis, unspecified site; N42.9 Disorder of prostate, unspecified; Z85.46 Personal history of malignant neoplasm of prostate; Z85.828 Personal history of other malignant neoplasm of skin; Z87.891 Personal history of nicotine dependence; Z79.82 Long term (current) use of aspirin; Z79.51 Long term (current) use of inhaled steroids; Z79.52 Long term (current) use of systemic steroids; Z79.899 Other long term (current) drug therapy; Z88.2 Allergy status to sulfonamides; Z88.5 Allergy status to narcotic agent; Z88.6 Allergy status to analgesic agent; Z88.8 Allergy status to other drugs, medicaments and biological substances; Z95.5 Presence of coronary angioplasty implant and graft; Z95.1 Presence of aortocoronary bypass graft; Z53.29 Procedure and treatment not carried out because of patient's decision for other reasons
CPT/HCPCS: 51702; 51798; 81001; 87086; 99284

== ENCOUNTER 2017-10-18 08:49 | Inpatient (IN) | payer MEDICARE, OTHER ==
[2017-10-18] MEDS ORDERED: IPRATROPIUM-ALBUTEROL 3 ML NEB INHALATION STA (09:06)
[2017-10-18] MEDS ORDERED: SODIUM CHLORIDE 0.9% 1,000 ML IV STA (09:07)
[2017-10-18] MEDS ORDERED: methylPREDNISolone SOD SUCCI 125 MG/2 ML VIAL IV STA (09:07)
--- NOTE | 2017-10-18 09:09 | ED ---
General Adult HPI - General Chief complaint: Shortness of Breath Stated complaint: Sob Time Seen by Provider: 10/18/17 09:04 Source: patient, RN notes reviewed Mode of arrival: wheelchair Limitations: no limitations - History of Present Illness Initial comments: Patient is a pleasant 82-year-old male presenting to the emergency department with dyspnea. Patient has chronic dyspnea, worse over the past few days. Symptoms are similar to previous COPD. Patient does have cough that is been nonproductive. No fevers. Patient and family states he'll appearance is normal for him. No leg pain or leg swelling. No chest pain - Related Data Home Medications Medication Instructions Recorded Confirmed Aspirin EC [Ecotrin Low Dose] 162 mg PO DAILY 04/29/17 10/15/17 Atenolol [Tenormin] 50 mg PO DAILY 04/29/17 10/15/17 Atorvastatin [Lipitor] 40 mg PO HS 04/29/17 10/15/17 Docusate [Colace] 100 mg PO DAILY PRN 04/29/17 10/15/17 Ezetimibe [Zetia] 10 mg PO HS 04/29/17 10/15/17 Furosemide [Lasix] 40 mg PO DAILY 04/29/17 10/15/17 Multivitamins, Thera [Multivitamin 1 tab PO DAILY 04/29/17 10/15/17 (formulary)] Omeprazole Magnesium [PriLOSEC OTC] 20 mg PO DAILY 04/29/17 10/15/17 Albuterol Inhaler [Ventolin Hfa 1 - 2 puff INHALATION RT-Q6H PRN 10/15/17 Inhaler] Alfuzosin HCl [Uroxatral ER] 10 mg PO DAILY 10/15/17 10/15/17 Cetirizine HCl [Zyrtec] 10 mg PO DAILY 10/15/17 10/15/17 Flutamide 375 mg PO BID 10/15/17 10/15/17 Fluticasone/Salmeterol [Advair 1 puff INHALATION RT-BID 10/15/17 10/15/17 250-50 Diskus] predniSONE See Taper PO DAILY 10/15/17 10/15/17 traMADol HCL [Ultram] 50 - 100 mg PO Q6H PRN 10/15/17 10/15/17 Previous Rx's Medication Instructions Recorded Ipratropium-Albuterol Nebulize 3 ml INHALATION RT-QID ampul.neb 05/09/17 [Duoneb 0.5 mg-3 mg/3 ml Soln] Lisinopril [Zestril] 10 mg PO DAILY #30 tab 05/26/17 Ciprofloxacin HCl [Cipro] 500 mg PO Q12HR #20 tablet 10/15/17 Allergies Allergy/AdvReac Type Severity Reaction Status Date / Time acetaminophen [From Tylenol] Allergy Rash/Hives Verified 10/18/17 08:53 bicalutamide [From Casodex] Allergy Rash/Hives Verified 10/18/17 08:53 meloxicam [From Mobic] Allergy Unknown Verified 10/18/17 08:53 Sulfa (Sulfonamide Allergy Itching Verified 10/18/17 08:53 Antibiotics) morphine AdvReac Nausea & Verified 10/18/17 08:53 Vomiting Review of Systems ROS Statement: Those systems with pertinent positive or pertinent negative responses have been documented in the HPI. ROS Other: All systems not noted in ROS Statement are negative. Constitutional: Denies: fever Eyes: Denies: eye pain ENT: Denies: ear pain Respiratory: Reports: cough, dyspnea Cardiovascular: Denies: chest pain Endocrine: Reports: fatigue Gastrointestinal: Denies: abdominal pain Genitourinary: Denies: dysuria Musculoskeletal: Denies: back pain Skin: Denies: rash Neurological: Denies: headache Past Medical History Past Medical History: Atrial Fibrillation, Coronary Artery Disease (CAD), Cancer , Chest Pain / Angina, GERD/Reflux, Hyperlipidemia, Hypertension, Myocardial Infarction (RI), Osteoarthritis (OA), Prostate Disorder Additional Past Medical History / Comment(s): Prostate ca with hormone treatment , skin cancer with removals, back pain, arthritis bilateral knees and wrists, occasional numbness bilateral legs. Last Myocardial Infarction Date:: 1997 History of Any Multi-Drug Resistant Organisms: None Reported Past Surgical History: Appendectomy, Coronary Bypass/CABG, Heart Catheterization , Heart Catheterization With Stent, Tonsillectomy Additional Past Surgical History / Comment(s): 1997 CABG 3 vessel, PCI with stent 2010, colonoscopy, R wrist tendon surgery, R hand lipoma removed, sclerosing hemangioma excised from chest, skin cancer removals. Past Anesthesia/Blood Transfusion Reactions: No Reported Reaction Date of Last Stent Placement:: 2010 Past Psychological History: No Psychological Hx Reported Smoking Status: Former smoker Past Alcohol Use History: Occasional Past Drug Use History: None Reported - Past Family History Father Family Medical History: No Reported History Additional Family Medical History / Comment(s): Father was healthy Mother Family Medical History: Coronary Artery Disease (CAD), Hyperlipidemia, Hypertension General Exam Limitations: no limitations General appearance: alert Head exam: Present: atraumatic Eye exam: Present: normal appearance, PERRL ENT exam: Present: normal oropharynx Neck exam: Present: normal inspection Respiratory exam: Present: respiratory distress, wheezes, decreased breath sounds Cardiovascular Exam: Present: tachycardia, irregular rhythm GI/Abdominal exam: Present: soft. Absent: tenderness Extremities exam: Present: normal inspection Neurological exam: Present: alert Psychiatric exam: Present: normal affect, normal mood Skin exam: Present: pallor Course Vital Signs 10/18/17 10/18/17 10/18/17 08:49 09:08 09:17 Temperature 98.2 F Pulse Rate 93 143 H 148 H Respiratory 28 H Rate Blood Pressure 102/35 O2 Sat by Pulse 87 L Oximetry 10/18/17 10/18/17 09:45 10:00 Temperature Pulse Rate 137 H 131 H Respiratory 20 20 Rate Blood Pressure 160/99 O2 Sat by Pulse 88 L 90 L Oximetry - Reevaluation(s) Reevaluation #1: 10/18/17 11:08 Patient does meet sepsis criteria diagnosed at 11:08 AM. Chest x-ray suspicious for pneumonia. Blood culture and lactic acid have been added. IV antibiotics will be added. EKG Findings - EKG Comments: EKG Findings:: A. fib with RVR, rate 152. QRS 148. QT 340. QTc 540. Normal axis. Right bundle branch block. Inferior Q waves. Lateral T wave inversion. Medical Decision Making - Medical Decision Making Patient reevaluated and somewhat improved. Patient and family updated on results and plan. Case was discussed with Dr. Lane, who will admit his patient. - Lab Data Result diagrams: 10/18/17 09:10 10/18/17 09:10 Lab Results 10/18/17 10/18/17 10/18/17 Range/Units 09:10 09:10 09:10 WBC 11.4 H (3.8-10.6) k/uL RBC 3.94 L (4.30-5.90) m/uL Hgb 12.3 L (13.0-17.5) gm/dL Hct 38.6 L (39.0-53.0) % MCV 98.0 (80.0-100.0) fL MCH 31.3 (25.0-35.0) pg MCHC 32.0 (31.0-37.0) g/dL RDW 12.8 (11.5-15.5) % Plt Count 187 (150-450) k/uL Neutrophils % 87 % Lymphocytes % 5 % Monocytes % 7 % Eosinophils % 0 % Basophils % 0 % Neutrophils # 9.9 H (1.3-7.7) k/uL Lymphocytes # 0.5 L (1.0-4.8) k/uL Monocytes # 0.8 (0-1.0) k/uL Eosinophils # 0.0 (0-0.7) k/uL Basophils # 0.0 (0-0.2) k/uL PT (9.0-12.0) sec INR (<1.2) APTT (22.0-30.0) sec Sample Site ABG pH (7.35-7.45) ABG pCO2 (35-45) mmHg ABG pO2 (83-108) mmHg ABG HCO3 (21-25) mmol/L ABG Total CO2 (19-24) mmol/L ABG O2 Saturation (94-97) % ABG Base Excess mmol/L Adeel Test FiO2 % Sodium 139 (137-145) mmol/L Potassium 4.4 (3.5-5.1) mmol/L Chloride 101 (98-107) mmol/L Carbon Dioxide 28 (22-30) mmol/L Anion Gap 10 mmol/L BUN 54 H (9-20) mg/dL Creatinine 1.98 H (0.66-1.25) mg/dL Est GFR (CKD-EPI)AfAm 35 (>60 ml/min/1.73 sqM) Est GFR (CKD-EPI)NonAf 31 (>60 ml/min/1.73 sqM) Glucose 161 H (74-99) mg/dL Calcium 12.6 H (8.4-10.2) mg/dL Total Bilirubin 0.6 (0.2-1.3) mg/dL AST 17 (17-59) U/L ALT 28 (21-72) U/L Alkaline Phosphatase 103 (38-126) U/L Total Creatine Kinase 25 L (55-170) U/L CK-MB (CK-2) 1.0 (0.0-2.4) ng/mL CK-MB (CK-2) Rel Index 4.0 Troponin I 0.021 (0.000-0.034) ng/mL NT-Pro-B Natriuret Pep pg/mL Total Protein 6.6 (6.3-8.2) g/dL Albumin 3.6 (3.5-5.0) g/dL 10/18/17 10/18/17 10/18/17 Range/Units 09:10 09:10 09:57 WBC (3.8-10.6) k/uL RBC (4.30-5.90) m/uL Hgb (13.0-17.5) gm/dL Hct (39.0-53.0) % MCV (80.0-100.0) fL MCH (25.0-35.0) pg MCHC (31.0-37.0) g/dL RDW (11.5-15.5) % Plt Count (150-450) k/uL Neutrophils % % Lymphocytes % % Monocytes % % Eosinophils % % Basophils % % Neutrophils # (1.3-7.7) k/uL Lymphocytes # (1.0-4.8) k/uL Monocytes # (0-1.0) k/uL Eosinophils # (0-0.7) k/uL Basophils # (0-0.2) k/uL PT 11.1 (9.0-12.0) sec INR 1.2 H (<1.2) APTT 20.7 L (22.0-30.0) sec Sample Site LRAD ABG pH 7.46 H (7.35-7.45) ABG pCO2 41 (35-45) mmHg ABG pO2 61 L (83-108) mmHg ABG HCO3 29 H (21-25) mmol/L ABG Total CO2 30 H (19-24) mmol/L ABG O2 Saturation 92.7 L (94-97) % ABG Base Excess 5.4 mmol/L Adeel Test Yes FiO2 36 % Sodium (137-145) mmol/L Potassium (3.5-5.1) mmol/L Chloride (98-107) mmol/L Carbon Dioxide (22-30) mmol/L Anion Gap mmol/L BUN (9-20) mg/dL Creatinine (0.66-1.25) mg/dL Est GFR (CKD-EPI)AfAm (>60 ml/min/1.73 sqM) Est GFR (CKD-EPI)NonAf (>60 ml/min/1.73 sqM) Glucose (74-99) mg/dL Calcium (8.4-10.2) mg/dL Total Bilirubin (0.2-1.3) mg/dL AST (17-59) U/L ALT (21-72) U/L Alkaline Phosphatase (38-126) U/L Total Creatine Kinase (55-170) U/L CK-MB (CK-2) (0.0-2.4) ng/mL CK-MB (CK-2) Rel Index Troponin I (0.000-0.034) ng/mL NT-Pro-B Natriuret Pep 338 pg/mL Total Protein (6.3-8.2) g/dL Albumin (3.5-5.0) g/dL - Radiology Data Radiology results: image reviewed (Chest x-ray shows left lower lobe infiltrate) Critical Care Time Critical Care Time: Yes Total Critical Care Time: 32 Disposition Clinical Impression: Atrial fibrillation with RVR, Acute exacerbation of chronic obstructive airways disease, Pneumonia Disposition: ADMITTED IP TO THIS [facility] Condition: Serious Referrals: Harshal Lane MD [Primary Care Provider] - 1-2 days Decision Time: 11:09
[2017-10-18] MEDS ORDERED: DILTIAZEM DRIP BOLUS FROM BAG 1 MG SOLN IV ONE (09:17)
[2017-10-18 09:23] LABS: Basophils % (A) 0 %; Eosinophils % (A) 0 %; HCT 38.6 % (39.0-53.0); HGB 12.3 gm/dL (13.0-17.5); Lymphocytes # (A) 0.5 k/uL (1.0-4.8); Lymphocytes % (A) 5 %; MCH 31.3 pg (25.0-35.0); Mean Platelet Volume 8.6; Monocytes # (A) 0.8 k/uL (0-1.0); Monocytes % (A) 7 %; Neutrophils # (A) 9.9 k/uL (1.3-7.7); Neutrophils % (A) 87 %; Platelet Count 187 k/uL (150-450); RBC 3.94 m/uL (4.30-5.90); RDW 12.8 % (11.5-15.5); WBC 11.4 k/uL (3.8-10.6)
[2017-10-18] MEDS ORDERED: DILTIAZEM 50 MG in SODIUM CHLORIDE 0.9% 40 ML IV SCH (09:30)
[2017-10-18 09:33] LABS: Albumin 3.6 g/dL (3.5-5.0); Potassium 4.4 mmol/L (3.5-5.1); Total Bilirubin 0.6 mg/dL (0.2-1.3); Total Protein 6.6 g/dL (6.3-8.2)
--- NOTE | 2017-10-18 09:43 | XR ---
EXAMINATION TYPE: XR chest 2V DATE OF EXAM: 10/18/2017 HISTORY: difficulty breathing. REFERENCE: Previous study dated 05/25/2017. FINDINGS: There has been a midline sternotomy. The lungs are overinflated. There is some chronic interstitial change. There is a left basilar infilt rate. The right lung is clear. No definite pleural fluid is seen. IMPRESSION: 1. COPD. 2. LEFT BASILAR INFILTRATE.
[2017-10-18 09:45] LABS: INR 1.2 (<1.2); Partial Thromboplastin Time 20.7 sec (22.0-30.0); Prothrombin Time 11.1 sec (9.0-12.0)
[2017-10-18 09:49] LABS: Calcium 12.6 mg/dL (8.4-10.2)
[2017-10-18 10:01] LABS: Troponin I 0.021 ng/mL (0.000-0.034)
[2017-10-18 10:07] LABS: ABG Base Excess 5.4 mmol/L; ABG HCO3 29 mmol/L (21-25); ABG Oxygen Saturation 92.7 % (94-97); ABG PCO2 41 mmHg (35-45); ABG PH 7.46 (7.35-7.45); ABG PO2 61 mmHg (83-108); ABG TCO2 30 mmol/L (19-24)
[2017-10-18] MEDS ORDERED: PNEUMONIA PROTOCOL UTILIZED 1 EACH MISC PO PRN (11:09)
[2017-10-18] MEDS ORDERED: cefTRIAXone IN SWFI 1,000 MG/10 ML SYRINGE IVP STA (11:12)
[2017-10-18] MEDS ORDERED: AZITHROMYCIN 500 MG in SODIUM CHLORIDE 0.9% 250 ML IVPB STA (11:12)
[2017-10-18] MEDS ORDERED: DOCUSATE 100 MG CAP PO PRN (11:38)
[2017-10-18] MEDS ORDERED: IPRATROPIUM-ALBUTEROL 3 ML NEB INHALATION SCH (12:00)
--- NOTE | 2017-10-18 12:33 | HP ---
HISTORY AND PHYSICAL DATE OF ADMISSION: 10/18/2017. CHIEF COMPLAINT: Weakness and shortness of breath. HISTORY OF PRESENT ILLNESS: This is an 82-year-old gentleman who was admitted to the hospital after presenting to emergency room with complaints of being weak and short of breath. The patient has no fever or chills. The patient does have a history of COPD and chronic respiratory failure on oxygen. Two days ago, the patient called and was somewhat short of breath with this changing weather. A week ago, I had seen the patient because of a routine followup. The patient, at that time, appeared pale, but his hemoglobin was stable and there was no evidence of CHF. The patient does have COPD and seems to be doing well except the complaint with the humidity, he does have some difficulty breathing as he does not have any air conditioning, etc. The patient again I had talked to him 3 days ago and he was feeling somewhat short of breath, so he was given a tapering steroids to be taken at 40 3 times a day, 30 mg 3 times a day, 20 mg 3 times a day, 10 mg 3 times a day and 5 mg 3 times a day. Yesterday, I talked to him to check on how he was doing and he said he was feeling much better and had no shortness of breath yesterday. His appetite was still down. He has not eaten much for the past 3-4 days. He has not drank much. A friend of his, Julio Cesar, who helps take care of him, says his house is so filthy, his toilet and shower, it is impossible to even walk on. He has feces all over, etc. The patient's house is very poorly kept. The patient presents to the hospital with shortness of breath. He does have some inspiratory stridor type sound, though he is not a true stridor. The patient denies much cough. The main thing he has not been eating much. He has had no fever, chills. The patient does have a history of paroxysmal atrial tachycardias in the past and coronary artery disease. He also has prostatic CA recurrence. The patient was seen in the ER 3 days ago with urinary retention and had a Kenny catheter placed. His urine output has been somewhat decreased according to his friend. PAST MEDICAL HISTORY: Significant for hypertension, coronary artery disease with previous inferior wall myocardial infarction, carcinoma of the prostate with evidence of recurrence. History of spinal stenosis of lumbar region. Peptic ulcer disease in the past. Chronic kidney disease stage 3. COPD. Urinary retention recently. History of hyperlipidemia. Chronic respiratory failure. PAST SURGICAL HISTORY: Significant T&A, appendectomy, CABG, right wrist ganglion removal, cyst surgery. SOCIAL HISTORY: Patient is single, lives alone. Nonsmoker at present. Alcohol none. FAMILY MEDICAL HISTORY: Father at age of 79, history of CVA, hypertension, coronary artery disease. Mother at the age of 91, history of CVA, hypertension, coronary artery disease. The patient had no siblings. No children. REVIEW OF SYSTEMS: Neuro: Denies any headaches, some dizziness. No double vision or blurred vision. No symptoms of TIA, syncope or seizures. Psych: No anxiety, depression. Cardiac: Denies chest pain, angina, palpitations. Respiratory: Complains of shortness of breath. Minimal cough. No hemoptysis. GI no nausea, vomiting, abdominal pain, no appetite, no diarrhea, no constipation. no symptoms of dysuria, hematuria. Has an IDC, was not able to void 2 days ago and had a Kenny catheter. EXTREMITIES: Denies pain. Does have some generalized weakness. Constitutional: No fever or chills. Hematological chronic anemia. No bleeding disorder. SKIN: No rashes. Musculoskeletal: Generalized weakness and mild arthritic pain. PHYSICAL EXAMINATION: Pleasant gentleman at present in no distress with the oxygen on. Vital signs revealed a heart rate of 148 when he came to the ER. Blood pressure 160/99, respirations 20, pulse ox of 88 on 4 L. Subsequently, patient has had a pulse rate down to 130 range. HEENT: Normocephalic. NECK: Supple. Pupils reactive. Nostrils clear. Oral cavity is dry and nostrils are clear. Ears reveal no drainage. Neck reveals no JVD or carotid bruits. Chest examination generalized significant decreased air flow. Mild inspiratory stridor. The bowel sounds were not true stridor. The patient lung gallego are clear to auscultation. No crackles, wheezing, or rhonchi is appreciated. CARDIAC: Distant heart sounds S1, S2 with no gallops. Irregular rhythm and tachycardic. ABDOMEN: Soft. Bowel sounds normal. No organomegaly. No abdominal bruits. Extremities reveal no edema. Good pulses both upper extremities and decreased pedal pulses. The patient is awake, alert, oriented. Moves both upper and lower extremities adequately, though weak. The patient's skin: No open sores, but very poor hygiene in the feet. He has got some dry feces on his feet. Neurologically: Otherwise alert, oriented. Upon discussion, the patient has had not taken any legal steps to have any POA power of finance attorney signed. Discussed with the patient the importance of it. His friend, Julio Cesar, who was at the bedside, the patient does indicate that he would want him to be the POA. We will ask the social work msw to work on this Friday. Meanwhile, continue present regimen. He says he would not like to be kept on ventilators. He would want to be on a ventilator if things were going to improve. Will clarify this with him in the next few days if his condition improves. Meanwhile, continue present regimen with IV hydration, IV antibiotics. LABORATORY DATA: White count 11.4, hemoglobin 12.3, INR to 1.2. Blood gases revealed pH 7.46, PO2 of 61, O2 saturation 92.7 on 36% FiO2. Electrolytes are normal. BUN 54, creatinine 1.98. Lactic acid was 3.2. CPK 25. Troponin 0.021. ASSESSMENT: 1. Acute respiratory failure. 2. Underlying possibility of left lower lobe pneumonia. 3. Dehydration. 4. Anemia, chronic. 5. History of cancer of the prostate. 6. Urinary retention. 7. Debility. 8. Poor hygienic environment. 9. Depression. PLAN: The patient will be hydrated. Antibiotics have been started. Cardizem drip to control the heart rate. The patient's medications to be resumed. Home medications include tramadol p.r.n. q.6, Prilosec 20 mg daily, multivitamin daily, Zestril 10 mg daily, updrafts DuoNeb q.i.d., Lasix 40 mg daily. Flutamide 375 mg b.i.d., Zetia 10 mg daily, Colace 100 mg daily, Zyrtec 10 mg daily, Lipitor 40 mg daily, atenolol 50 mg daily, aspirin 162 daily, Uroxatral 10 mg daily. Medications will be resumed. Patient's condition guarded. MMODL / IJN: [id number] /
[2017-10-18] MEDS: IPRATROPIUM-ALBUTEROL 3 ML NEB INHALATION SCH ×3 (12:47→21:10)
[2017-10-18] MEDS: SODIUM CHLORIDE 0.9% 1,000 ML IV SCH (14:28)
[2017-10-18] MEDS: ATENOLOL 50 MG TAB PO SCH (14:29)
[2017-10-18] MEDS: methylPREDNISolone SOD SUCCI 125 MG/2 ML VIAL IV SCH ×2 (14:29→18:17)
[2017-10-18] MEDS: traMADol 50 MG TAB PO PRN ×2 (14:30→21:11)
[2017-10-18] MEDS: FLUTAMIDE PO SCH (21:11)
[2017-10-18] MEDS: ATORVASTATIN 40 MG TAB PO SCH (21:11)
[2017-10-19] MEDS: methylPREDNISolone SOD SUCCI 125 MG/2 ML VIAL IV SCH ×4 (00:13→17:28)
[2017-10-19] MEDS: SODIUM CHLORIDE 0.9% 1,000 ML IV SCH ×3 (00:14→17:27)
[2017-10-19] MEDS: traMADol 50 MG TAB PO PRN (02:40)
[2017-10-19] MEDS: IPRATROPIUM-ALBUTEROL 3 ML NEB INHALATION PRN (05:02)
[2017-10-19 06:13] LABS: Glucose,Whole Blood 167 mg/dL (75-99)
--- NOTE | 2017-10-19 07:28 | XR ---
EXAMINATION TYPE: XR chest 1V portable DATE OF EXAM: 10/19/2017 HISTORY: shortness of breath. REFERENCE: Previous study dated 10/18/2017. FINDINGS: There has been a midline sternotomy. Lung lines are prominent. There is a left basilar infiltrate. There is a small left-sided effusion wh ich has increased slightly from previous. Heart size upper limits of normal. IMPRESSION: 1. COPD. 2. LEFT BASILAR INFILTRATE. 3. DEVELOPING LEFT-SIDED EFFUSION.
[2017-10-19] MEDS ORDERED: PANTOPRAZOLE 40 MG TABLET PO SCH (07:30)
[2017-10-19] MEDS: IPRATROPIUM-ALBUTEROL 3 ML NEB INHALATION SCH ×4 (08:00→19:03)
--- NOTE | 2017-10-19 08:53 | P.PN ---
Subjective Progress Note Date: 10/19/17 Principal diagnosis: Acute on chronic respiratory failure This 82-year-old gentleman was admitted to the hospital with increased shortness of breath, patient does have a history of COPD, coronary artery disease, chronic anemia. Patient chest x-ray suggests possible left lower lobe infiltrate. Very minimal with no associated symptoms of fever chills chest pain or significant cough. The patient main complaint is short of breath. Patient's been on oxygen at 3 L at home. The patient admitted to the hospital started on updrafts and oxygen steroids and antibiotics which include Rocephin and Zithromax. The patient still fairly short of breath this morning. He is on a Ventimask with oxygenation about 93% saturation. We will obtain a VQ scan since he does have azotemia. We'll place him on full dose Lovenox for now. Awaiting this morning's lab evaluation. Will have pulmonary to see the patient. Patient was in atrial fibrillation rapid rate yesterday, is in sinus rhythm today. We'll a geriatric social worker see the patient since he is in unhygienic home environment. Obtain a chest x-ray today. REVIEW OF SYSTEMS: Neuro: Denies any headaches dizziness. Psych: Denies anxiety depression feels oriented. Cardiac: Denies chest pain and angina palpitations. Respiratory: Shortness of breath, minimal cough. GI: Denies nausea vomiting or abdominal pain. No diarrhea or constipation, no bowel movement yet. Appetite still poor : Has a Kenny catheter Extremities: Denies pain. No edema. Skin: Intact. Constitutional: No fever, chills. Objective - Vital Signs Vital signs: Vital Signs Temp 98.2 F 10/19/17 04:10 Pulse 90 10/19/17 08:15 Resp 24 10/19/17 04:10 BP 139/65 10/19/17 04:10 Pulse Ox 93 L 10/19/17 08:00 Intake & Output 10/18/17 10/19/17 10/19/17 18:59 06:59 18:59 Intake Total 90 1140 Output Total 100 Balance -10 1140 Weight 89.5 kg 88.5 kg Intake: Intake, IV Titration 900 Amount Sodium Chloride 0.9% 1, 900 000 ml @ 100 mls/hr IV . Q10H [facility] Rx#:[id number] Oral 90 240 Output: Urine 100 Other: Voiding Method Indwelling Catheter Indwelling Catheter PHYSICAL EXAMINATION: Cooperative, at present in mild respiratory distress. HEENT: Neck supple. No JVD. Chest: [Right lung clear to auscultation with decreased airflow. Left lung some tubular breathing lower half. No rhonchi or wheezing are appreciated Cardiac: Normal S1-S2 no gallops systolic murmur 2/6 left sternal border. Abdomen: Soft bowel sounds present. Extremities: No edema no tenderness Neurologically: Awake, alert, oriented with well-coordinated movements. - Labs CBC & Chem 7: 10/18/17 09:10 10/18/17 09:10 Labs: Abnormal Lab Results - Last 24 Hours (Table) 10/18/17 10/18/17 10/18/17 Range/Units 09:10 09:10 09:10 WBC 11.4 H (3.8-10.6) k/uL RBC 3.94 L (4.30-5.90) m/uL Hgb 12.3 L (13.0-17.5) gm/dL Hct 38.6 L (39.0-53.0) % Neutrophils # 9.9 H (1.3-7.7) k/uL Lymphocytes # 0.5 L (1.0-4.8) k/uL INR (<1.2) APTT (22.0-30.0) sec ABG pH (7.35-7.45) ABG pO2 (83-108) mmHg ABG HCO3 (21-25) mmol/L ABG Total CO2 (19-24) mmol/L ABG O2 Saturation (94-97) % BUN 54 H (9-20) mg/dL Creatinine 1.98 H (0.66-1.25) mg/dL Glucose 161 H (74-99) mg/dL POC Glucose (mg/dL) (75-99) mg/dL Plasma Lactic Acid Ottoniel (0.7-2.0) mmol/L Calcium 12.6 H (8.4-10.2) mg/dL Total Creatine Kinase 25 L (55-170) U/L 10/18/17 10/18/17 10/18/17 Range/Units 09:10 09:10 09:57 WBC (3.8-10.6) k/uL RBC (4.30-5.90) m/uL Hgb (13.0-17.5) gm/dL Hct (39.0-53.0) % Neutrophils # (1.3-7.7) k/uL Lymphocytes # (1.0-4.8) k/uL INR 1.2 H (<1.2) APTT 20.7 L (22.0-30.0) sec ABG pH 7.46 H (7.35-7.45) ABG pO2 61 L (83-108) mmHg ABG HCO3 29 H (21-25) mmol/L ABG Total CO2 30 H (19-24) mmol/L ABG O2 Saturation 92.7 L (94-97) % BUN (9-20) mg/dL Creatinine (0.66-1.25) mg/dL Glucose (74-99) mg/dL POC Glucose (mg/dL) (75-99) mg/dL Plasma Lactic Acid Ottoniel 3.2 H* (0.7-2.0) mmol/L Calcium (8.4-10.2) mg/dL Total Creatine Kinase (55-170) U/L 10/19/17 Range/Units 06:12 WBC (3.8-10.6) k/uL RBC (4.30-5.90) m/uL Hgb (13.0-17.5) gm/dL Hct (39.0-53.0) % Neutrophils # (1.3-7.7) k/uL Lymphocytes # (1.0-4.8) k/uL INR (<1.2) APTT (22.0-30.0) sec ABG pH (7.35-7.45) ABG pO2 (83-108) mmHg ABG HCO3 (21-25) mmol/L ABG Total CO2 (19-24) mmol/L ABG O2 Saturation (94-97) % BUN (9-20) mg/dL Creatinine (0.66-1.25) mg/dL Glucose (74-99) mg/dL POC Glucose (mg/dL) 167 H (75-99) mg/dL Plasma Lactic Acid Ottoniel (0.7-2.0) mmol/L Calcium (8.4-10.2) mg/dL Total Creatine Kinase (55-170) U/L Assessment and Plan Assessment: ASSESSMENT: 1. Acute respiratory failure. 2. Chronic respiratory failure. 3. Exacerbation COPD. 4. Rule out left lower lobe pneumonia. 5. Paroxysmal atrial fibrillation. 6. Stable coronary artery disease. 7. Compensated chronic congestive cardiac failure secondary to systolic dysfunction. 8. Anemia of chronic disease and chronic blood loss 9. Carcinoma of the prostate with recurrence 10. Acute Urinary retention. 11. Acute on chronic renal failure 12. Dehydration PLAN: Continue present medical regimen. Plan as mentioned above in the HPI. Pulmonary consult VQ scan and a chest x-ray.. Continue present antibiotics updrafts and steroids and hydration
[2017-10-19] MEDS ORDERED: ENOXAPARIN 80 MG/0.8 ML SYRINGE SQ SCH (09:00)
[2017-10-19] MEDS ORDERED: AZITHROMYCIN 500 MG TAB PO SCH (09:00)
[2017-10-19 10:01] LABS: Calcium 11.7 mg/dL (8.4-10.2); Potassium 4.8 mmol/L (3.5-5.1)
[2017-10-19] MEDS ORDERED: HEPARIN SOD,PORK IN 0.45% NACL 25,000 UNIT in 0.45% NACL 1 500ML.BAG IV SCH (10:15)
[2017-10-19 10:23] LABS: Glucose,Whole Blood 149 mg/dL (75-99)
--- NOTE | 2017-10-19 10:56 | P.CNPUL ---
History of Present Illness Consult date: 10/19/17 Reason for consult: dyspnea, COPD History of present illness: 82-year-old male patient with previous history of advanced COPD, along with history of coronary artery disease and previous bypass surgery and previous history of prostate cancer, presented to the hospital because of worsening shortness of breath. I was asked even with this patient as the patient's oxygenation was getting worse. At a time of my arrival, the patient was a 50% Ventimask. He was having some questionable stridorous inspiratory efforts, his cough was weak and his speech was also altered. He was unable to bring up much of sputum. He denied having any angina or chest pain. He also had a run of atrial fibrillation yesterday and currently his rhythm is sinus. I reviewed the chest x-ray and there is concern tolerance lower lobe infiltrates/ atelectasis. The patient is already on a combination of Rocephin and Zithromax. He was also noted to have hypercalcemia and acute kidney injury with a creatinine of 1.9. The exact nature of the hypercalcemia is not clear. As mentioned, he has prostate cancer. A recent bone scan from a recent bone scan from May 2017 showed no evidence of any skeletal involvement. Review of Systems Constitutional: Reports fatigue, Reports weakness Eyes: denies blurred vision, denies bulging eye, denies decreased vision Ears: deny: decreased hearing, ear discharge, earache, tinnitus Ears, nose, mouth and throat: Reports dysphagia, Reports hoarseness, Reports sore throat, Reports voice changes Cardiovascular: Reports decreased exercise tolerance, Reports dyspnea on exertion, Reports shortness of breath Respiratory: Reports dyspnea, Reports wheezing Gastrointestinal: Denies abdominal pain, Denies diarrhea, Denies nausea, Denies vomiting Genitourinary: Reports as per HPI Musculoskeletal: Reports as per HPI Musculoskeletal: absent: ankle pain, ankle stiffness, ankle swelling Integumentary: Denies pruritus, Denies rash Neurological: Reports as per HPI Psychiatric: Reports as per HPI Endocrine: Reports as per HPI Hematologic/Lymphatic: Reports as per HPI Allergic/Immunologic: Reports as per HPI Past Medical History Past Medical History: Atrial Fibrillation, Coronary Artery Disease (CAD), Cancer , Chest Pain / Angina, GERD/Reflux, Hyperlipidemia, Hypertension, Myocardial Infarction (CT), Osteoarthritis (OA), Prostate Disorder Additional Past Medical History / Comment(s): Prostate ca with hormone treatment , skin cancer with removals, back pain, arthritis bilateral knees and wrists, occasional numbness bilateral legs. Last Myocardial Infarction Date:: 1997 History of Any Multi-Drug Resistant Organisms: None Reported Past Surgical History: Appendectomy, Coronary Bypass/CABG, Heart Catheterization , Heart Catheterization With Stent, Tonsillectomy Additional Past Surgical History / Comment(s): 1997 CABG 3 vessel, PCI with stent 2010, colonoscopy, R wrist tendon surgery, R hand lipoma removed, sclerosing hemangioma excised from chest, skin cancer removals. left cataract removed friday10/13/2017 Past Anesthesia/Blood Transfusion Reactions: No Reported Reaction Date of Last Stent Placement:: 2010 Smoking Status: Former smoker - Past Family History Father Family Medical History: No Reported History Additional Family Medical History / Comment(s): Father was healthy Mother Family Medical History: Coronary Artery Disease (CAD), Hyperlipidemia, Hypertension Medications and Allergies Home Medications Medication Instructions Recorded Confirmed Type Aspirin EC [Ecotrin Low Dose] 162 mg PO DAILY 04/29/17 10/18/17 History Atenolol [Tenormin] 50 mg PO DAILY 04/29/17 10/18/17 History Atorvastatin [Lipitor] 40 mg PO HS 04/29/17 10/18/17 History Docusate [Colace] 100 mg PO DAILY PRN 04/29/17 10/18/17 History Ezetimibe [Zetia] 10 mg PO HS 04/29/17 10/18/17 History Furosemide [Lasix] 40 mg PO DAILY 04/29/17 10/18/17 History Multivitamins, Thera [Multivitamin 1 tab PO DAILY 04/29/17 10/18/17 History (formulary)] Omeprazole Magnesium [PriLOSEC OTC] 20 mg PO DAILY 04/29/17 10/18/17 History Ipratropium-Albuterol Nebulize 3 ml INHALATION RT-QID ampul.neb 05/09/17 Rx [Duoneb 0.5 mg-3 mg/3 ml Soln] Lisinopril [Zestril] 10 mg PO DAILY #30 tab 05/26/17 10/18/17 Rx Alfuzosin HCl [Uroxatral ER] 10 mg PO DAILY 10/15/17 10/18/17 History Cetirizine HCl [Zyrtec] 10 mg PO DAILY 10/15/17 10/18/17 History Flutamide 375 mg PO BID 10/15/17 10/18/17 History traMADol HCL [Ultram] 50 - 100 mg PO Q6H PRN 10/15/17 10/18/17 History Allergies Allergy/AdvReac Type Severity Reaction Status Date / Time acetaminophen [From Tylenol] Allergy Rash/Hives Verified 10/18/17 11:17 bicalutamide [From Casodex] Allergy Rash/Hives Verified 10/18/17 11:17 meloxicam [From Mobic] Allergy Unknown Verified 10/18/17 11:17 Sulfa (Sulfonamide Allergy Itching Verified 10/18/17 11:17 Antibiotics) morphine AdvReac Nausea & Verified 10/18/17 11:17 Vomiting Physical Exam Vitals: Vital Signs Temp Pulse Pulse Pulse Resp BP BP 10/19/17 08:15 90 10/19/17 08:00 98.5 F 90 90 22 154/91 10/19/17 05:12 83 10/19/17 05:01 83 10/19/17 04:10 98.2 F 80 22 139/65 10/19/17 00:15 98.4 F 79 24 116/59 10/18/17 21:23 80 10/18/17 21:10 72 10/18/17 20:10 99.3 F 81 81 24 136/62 10/18/17 16:42 75 10/18/17 16:27 73 10/18/17 16:00 98.1 F 24 115/59 10/18/17 13:01 143 H 10/18/17 12:48 147 H 10/18/17 12:30 98.1 F 133 H 24 10/18/17 11:50 97.5 F L 147 H 20 128/56 10/18/17 11:00 151 H 20 148/82 Pulse Ox 10/19/17 08:15 10/19/17 08:00 92 L 10/19/17 05:12 10/19/17 05:01 10/19/17 04:10 92 L 10/19/17 00:15 96 10/18/17 21:23 10/18/17 21:10 10/18/17 20:10 94 L 10/18/17 16:42 08/25/18 16:27 10/18/17 16:00 93 L 10/18/17 13:01 10/18/17 12:48 96 10/18/17 12:30 95 10/18/17 11:50 96 10/18/17 11:00 95 Intake and Output 10/18/17 10/19/17 10/19/17 22:59 06:59 14:59 Intake Total 430 800 100 Balance 430 800 100 Intake: Intake, IV Titration 100 800 Amount Sodium Chloride 0.9% 1, 100 800 000 ml @ 100 mls/hr IV . Q10H [facility] Rx#:[id number] Oral 330 100 Other: Voiding Method Indwelling Catheter Indwelling Catheter Weight 89.5 kg 88.5 kg mild degree of respiratory distress currently on a 50% Ventimask, he is unable to give me a decent cough. His speech is weak and soft and there are occasional inspiratory stridors upon taking deep inspiratory efforts. Head exam was generally normal. There was no scleral icterus or corneal arcus. Mucous membranes were moist. Neck was supple and without jugular venous distension, thyromegaly, or carotid bruits. Carotids were easily palpable bilaterally. There was no adenopathy. There is questionable inspiratory stridor as mentioned Lungs sounds are markedly diminished bilaterally with diffuse diminished breath sounds especially in lung bases. Scattered expiratory wheezes can be also appreciated. Cardiac exam revealed the PMI to be normally situated and sized. The rhythm was regular and no extrasystoles were noted during several minutes of auscultation. The first and second heart sounds were normal and physiologic splitting of the second heart sound was noted. There were no murmurs, rubs, clicks, or gallops. Sternum stable clean and intact. Abdominal exam revealed normal bowel sounds. The abdomen was soft, non-tender, and without masses, organomegaly, or appreciable enlargement of the abdominal aorta. Examination of the extremities revealed easily palpable radial, femoral and pedal pulses. There was no cyanosis, clubbing or edema. Examination of the skin revealed no evidence of significant rashes, suspicious appearing nevi or other concerning lesions. Neurologically awake and alert and there is no focal neurological deficit. Results - Laboratory Findings CBC and BMP: 10/18/17 09:10 10/19/17 08:37 ABG ABG pH 7.46 (7.35-7.45) H 10/18/17 09:57 ABG pCO2 41 mmHg (35-45) 10/18/17 09:57 ABG pO2 61 mmHg (83-108) L 10/18/17 09:57 ABG O2 Saturation 92.7 % (94-97) L 10/18/17 09:57 PT/INR, D-dimer PT 11.1 sec (9.0-12.0) 10/18/17 09:10 INR 1.2 (<1.2) H 10/18/17 09:10 Abnormal lab findings: Abnormal Labs 10/18/17 10/18/17 10/18/17 09:10 09:10 09:10 WBC 11.4 H RBC 3.94 L Hgb 12.3 L Hct 38.6 L Neutrophils # 9.9 H Lymphocytes # 0.5 L INR APTT ABG pH ABG pO2 ABG HCO3 ABG Total CO2 ABG O2 Saturation BUN 54 H Creatinine 1.98 H Glucose 161 H POC Glucose (mg/dL) Plasma Lactic Acid Ottoniel Calcium 12.6 H Total Creatine Kinase 25 L 10/18/17 10/18/17 10/18/17 09:10 09:10 09:57 WBC RBC Hgb Hct Neutrophils # Lymphocytes # INR 1.2 H APTT 20.7 L ABG pH 7.46 H ABG pO2 61 L ABG HCO3 29 H ABG Total CO2 30 H ABG O2 Saturation 92.7 L BUN Creatinine Glucose POC Glucose (mg/dL) Plasma Lactic Acid Ottoniel 3.2 H* Calcium Total Creatine Kinase 10/19/17 10/19/17 10/19/17 06:12 08:37 10:21 WBC RBC Hgb Hct Neutrophils # Lymphocytes # INR APTT ABG pH ABG pO2 ABG HCO3 ABG Total CO2 ABG O2 Saturation BUN 56 H Creatinine 1.86 H Glucose 161 H POC Glucose (mg/dL) 167 H 149 H Plasma Lactic Acid Ottoniel Calcium 11.7 H Total Creatine Kinase - Diagnostic Findings Chest x-ray: image reviewed Assessment and Plan Plan: Assessment 1 acute hypoxic respiratory failure, multifactorial. First and foremost, the patient has advanced COPD and he has developed possibly some lower lobe pulmonary infiltration/effusion based on the admitting chest x-ray. This raises the possibility of lower lobe pneumonia right more than left. In addition, he is having some inspiratory stridor which raises concern about upper airway pathology including the possibility of laryngitis, epiglottitis and even vocal cord paralysis. His cough is weak. His speech is altered. As for pulmonary embolism, this is felt to be a less likely possibility, and I would hold off on ordering the VQ scan for now as the patient will not be able to complete this study at this point in time. 2 advanced COPD 3 coronary artery disease appears bypass surgery 4 acute kidney injury 5 hypercalcemia 6 prostate cancer 7 atrial fibrillation, paroxysmal, currently back into normal sinus rhythm 8 acute urinary retention and the patient has a Kenny catheter in place 9 hypertension Plan We'll this patient to the intensive care unit. Start him on normal seen today to 100 mL an hour and monitor the renal function and a calcium level. Hold on the VQ scan for the above-mentioned reasons and anticoagulate this patient with IV heparin and this will give him adequate coverage for any potential pulmonary embolism and coverage also 4 paroxysmal atrial fibrillation. Meanwhile,, the patient with accommodation bronchodilators steroids and antibiotics. We'll use BiPAP for respiratory support and follow-up on his blood gas. Keep him nothing by mouth for now. Will need a CAT scan of the neck and the chest, contrast is preferred was renal function stabilizes and improves. We'll need an ENT evaluation for a direct laryngoscopy at a later stage if his breathing improves. He will need intubation should his condition decompensated or he gets to point where he is unable to swallow or protect his airways. We'll continue to follow. His condition is critical. Would recommend transferring this patient to the intensive care unit.
[2017-10-19] MEDS: HEPARIN SOD,PORK IN 0.45% NACL 25,000 UNIT in 0.45% NACL 1 500ML.BAG IV SCH (10:58)
[2017-10-19] MEDS: cefTRIAXone IN SWFI 1,000 MG/10 ML SYRINGE IVP SCH (11:04)
[2017-10-19 11:35] LABS: ABG Base Excess 3.4 mmol/L; ABG HCO3 29 mmol/L (21-25); ABG Oxygen Saturation 98.7 % (94-97); ABG PCO2 52 mmHg (35-45); ABG PH 7.35 (7.35-7.45); ABG PO2 231 mmHg (83-108); ABG TCO2 31 mmol/L (19-24)
[2017-10-19] MEDS: PROPOFOL 1,000 MG in EMPTY BAG 1 BAG IV SCH ×3 (13:00→23:10)
--- NOTE | 2017-10-19 13:17 | P.PCN ---
Date of Procedure: 10/19/17 Preoperative Diagnosis: Acute respiratory failure Postoperative Diagnosis: Acute respiratory failure, laryngeal mass Procedure(s) Performed: Intubation utilizing glidodoscope Anesthesia: MAC Surgeon: Denise Woods Pathology: other Condition: stable Disposition: ICU Operative Findings: This procedure was done in the intensive care unit. The patient was sedated with a total of 140 mg of IV propofol. After achieving adequate sedation, the guide the scope was used to visualize the larynx and the epiglottis and the vocal cords. Laminectomy of the patient's upper airway was extremely distorted. 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 This mass has caused significant distortion and effacement of the arytenoids and is quite bulky and erythematous and friable causing significant narrowing of the supraglottic area. I did not see the arytenoids on the right nor on the left. The masses bulky and his mainly on the right supraglottic area and has some extension to left. I was not able to clearly visualize the mass however there is obvious mass effect and narrowing of the supraglottic area with anterior displacement of the cords. Under direct visualization, #8 orotracheal tube was inserted using the glidoscope and the position of the tube was confirmed by chest x-ray. At the end of the procedure breath sounds are equal bilaterally and the patient was oxygenating and ventilating well. No complications. Tube was secured at 22 cm lip line.
--- NOTE | 2017-10-19 13:18 | P.PN ---
Progress Note - Text Progress Note Date: 10/19/17 Patient moved to the intensive care unit. He was placed on BiPAP. Continued to have respiratory stridor. Intubation was done using the glidoscope and the supraglottic mass was identified causing effacement and distortion of the arytenoids and significant narrowing of the airway. The examination was limited as I was not able to maneuver the glidoscope for full visualization. The patient will need an ENT evaluation for better visualization and biopsies and possibly a tracheostomy tube insertion. ENT will be consulted.
--- NOTE | 2017-10-19 13:30 | XR ---
EXAMINATION TYPE: XR chest 1V confirm line plcky DATE OF EXAM: 10/19/2017 HISTORY: central line placement. REFERENCE: Previous study dated 10/19/2017. FINDINGS: There has been a midline sternotomy. The patient has been intubated. ET tube is in satisfac tory position approximately 5.6 cm from the darshan. An NG tube is been passed. Its tip is in the stom ach. The lungs are overinflated. The heart is enlarged. There is bibasilar airspace disease. There are duane ateral effusions, greater on the left than the right. IMPRESSION: 1. SATISFACTORY ET TUBE PLACEMENT. 2. COPD. 3. BIBASILAR INFILTRATES. 4. BILATERAL EFFUSIONS.
[2017-10-19 13:42] LABS: ABG Base Excess 0.9 mmol/L; ABG HCO3 26 mmol/L (21-25); ABG Oxygen Saturation 98.8 % (94-97); ABG PCO2 46 mmHg (35-45); ABG PH 7.37 (7.35-7.45); ABG PO2 244 mmHg (83-108); ABG TCO2 28 mmol/L (19-24)
--- NOTE | 2017-10-19 14:05 | PCN ---
PROCEDURE NOTE TRIPLE LUMEN CATHETER PLACEMENT: Indication Hemodynamic monitoring/Intravenous access. PREOP DIAGNOSIS: Acute respiratory failure. POSTOP DIAGNOSIS: Acute respiratory failure. A time-out was completed verifying correct patient, procedure, site, positioning, and implant(s) or special equipment if applicable. The patient was placed in a dependent position appropriate for triple lumen catheter placement based on the vein to be cannulated. The patient's left neck was prepped and draped in sterile fashion. 1% Lidocaine was used to anesthetize the surrounding skin area. A triple lumen 9F Cordis catheter was introduced into the internal jugular vein using Seldinger technique. The catheter was threaded smoothly over the guide wire and appropriate blood return was obtained. Each lumen of the catheter was evacuated of air and flushed with sterile saline. The catheter was then sutured in place to the skin and a sterile dressing applied. Perfusion to the extremity distal to the point of catheter insertion was checked and found to be adequate. No bedside complications or bleeding. This was done without any complications. Site of insertion of the left IJ. Chest x-ray is to follow up. MMODL / IJN: [id number] /
--- NOTE | 2017-10-19 14:08 | PCN ---
PROCEDURE NOTE ARTERIAL LINE PLACEMENT: Indications: Hemodynamic monitoring. PREOP DIAGNOSIS: Acute respiratory failure. POSTOP DIAGNOSIS: Acute respiratory failure. A time-out was completed verifying correct patient, procedure, site, positioning, and implant(s) or special equipment if applicable. Adeel's test was performed to ensure adequate perfusion. The patient's left wrist was prepped and draped in sterile fashion. 1% Lidocaine was used to anesthetize the area. An 18G Arrow arterial line was introduced into the radial artery. The catheter was threaded over the guide wire and the needle was removed with appropriate pulsatile blood return. Blood loss was minimal. The catheter was then sutured in place to the skin and a sterile dressing applied. Perfusion to the extremity distal to the point of catheter insertion was checked and found to be adequate. The patient tolerated the procedure well and there were no complications. Site of insertion in the left radial artery. No bedside complications or bleeding. MMODL / IJN: [id number] /
[2017-10-19] MEDS ORDERED: CISATRACURIUM 2 MG/ML 5 ML VIAL IV ONE (14:12)
[2017-10-19] MEDS: ATENOLOL 50 MG TAB PO SCH (14:14)
[2017-10-19] MEDS: TAMSULOSIN 0.4 MG CAP.ER.24H PO SCH (14:14)
[2017-10-19] MEDS: ASPIRIN 81 MG PO SCH (14:14)
[2017-10-19] MEDS: FLUTAMIDE PO SCH ×2 (14:14→20:37)
[2017-10-19] MEDS: MULTIVITAMINS, THERA 1 EACH TAB PO SCH (14:15)
[2017-10-19] MEDS ORDERED: NOREPINEPHRINE 16 MG in SODIUM CHLORIDE 0.9% 250 ML IV SCH (14:15)
[2017-10-19] MEDS: AZITHROMYCIN 500 MG in SODIUM CHLORIDE 0.9% 250 ML IVPB SCH (15:08)
[2017-10-19] MEDS: DILTIAZEM 50 MG in SODIUM CHLORIDE 0.9% 40 ML IV SCH ×2 (15:08→18:54)
[2017-10-19 17:27] LABS: Glucose,Whole Blood 138 mg/dL (75-99)
[2017-10-19] MEDS: INSULIN ASPART 100 UNIT/ML 1 ML 10 ML VIAL SQ SCH (17:28)
[2017-10-19] MEDS: ATORVASTATIN 40 MG TAB PO SCH (20:37)
[2017-10-19] MEDS: CHLORHEXIDINE GLUCONATE 15 ML CUP MUCOUS MEM SCH (20:37)
[2017-10-20 00:59] LABS: Glucose,Whole Blood 154 mg/dL (75-99)
[2017-10-20] MEDS: INSULIN ASPART 100 UNIT/ML 1 ML 10 ML VIAL SQ SCH ×4 (01:00→17:22)
[2017-10-20] MEDS: methylPREDNISolone SOD SUCCI 125 MG/2 ML VIAL IV SCH ×4 (01:00→17:25)
[2017-10-20] MEDS: DILTIAZEM 50 MG in SODIUM CHLORIDE 0.9% 40 ML IV SCH ×4 (03:47→20:43)
[2017-10-20] MEDS: SODIUM CHLORIDE 0.9% 1,000 ML IV SCH ×3 (03:48→23:15)
[2017-10-20 04:35] LABS: ABG Base Excess 2.3 mmol/L; ABG HCO3 26 mmol/L (21-25); ABG PCO2 37 mmHg (35-45); ABG PH 7.46 (7.35-7.45); ABG PO2 117 mmHg (83-108); ABG TCO2 27 mmol/L (19-24)
[2017-10-20] MEDS: PROPOFOL 1,000 MG in EMPTY BAG 1 BAG IV SCH ×4 (04:47→19:13)
[2017-10-20 05:06] LABS: Basophils % (A) 0 %; Eosinophils % (A) 0 %; HCT 33.3 % (39.0-53.0); HGB 10.4 gm/dL (13.0-17.5); Lymphocytes # (A) 0.4 k/uL (1.0-4.8); Lymphocytes % (A) 3 %; MCHC 31.3 g/dL (31.0-37.0); Mean Platelet Volume 8.2; Monocytes # (A) 0.7 k/uL (0-1.0); Monocytes % (A) 5 %; Neutrophils # (A) 12.5 k/uL (1.3-7.7); Neutrophils % (A) 91 %; Platelet Count 239 k/uL (150-450); RBC 3.37 m/uL (4.30-5.90); RDW 12.9 % (11.5-15.5); WBC 13.7 k/uL (3.8-10.6)
[2017-10-20 05:28] LABS: Calcium 11.1 mg/dL (8.4-10.2); Magnesium 2.2 mg/dL (1.6-2.3); Phosphorus 2.1 mg/dL (2.5-4.5)
[2017-10-20 05:57] LABS: Glucose,Whole Blood 150 mg/dL (75-99)
[2017-10-20] MEDS: IPRATROPIUM-ALBUTEROL 3 ML NEB INHALATION SCH ×4 (07:06→19:01)
--- NOTE | 2017-10-20 07:51 | XR ---
EXAMINATION TYPE: XR chest 1V portable DATE OF EXAM: 10/20/2017 COMPARISON: October 19 2 HISTORY: SOB, Follow Up FINDINGS: Indwelling tubes and catheters are unchanged. No change in bibasilar opacities. Stable appearance of the cardio-mediastinal structures at this time. Pleural effusion unchanged. IMPRESSION: 1. Stable portable chest. Clinical correlation and follow up until resolution is recommended.
[2017-10-20] MEDS: ATENOLOL 50 MG TAB PO SCH (08:20)
[2017-10-20] MEDS: ASPIRIN 81 MG PO SCH (08:22)
[2017-10-20] MEDS: PANTOPRAZOLE 40 MG/10 ML VIAL IVP SCH (08:22)
[2017-10-20] MEDS: CHLORHEXIDINE GLUCONATE 15 ML CUP MUCOUS MEM SCH ×2 (08:23→20:52)
[2017-10-20] MEDS: AZITHROMYCIN 500 MG in SODIUM CHLORIDE 0.9% 250 ML IVPB SCH (08:23)
[2017-10-20] MEDS: cefTRIAXone IN SWFI 1,000 MG/10 ML SYRINGE IVP SCH (08:23)
[2017-10-20] MEDS: TAMSULOSIN 0.4 MG CAP.ER.24H PO SCH (08:23)
[2017-10-20] MEDS: FLUTAMIDE PO SCH ×2 (08:23→20:52)
[2017-10-20] MEDS: HEPARIN SOD,PORK IN 0.45% NACL 25,000 UNIT in 0.45% NACL 1 500ML.BAG IV SCH (09:07)
[2017-10-20 11:07] LABS: Glucose,Whole Blood 152 mg/dL (75-99)
--- NOTE | 2017-10-20 11:56 | P.PN ---
Subjective Progress Note Date: 10/20/17 Principal diagnosis: Acute hypoxic respiratory failure secondary to COPD, possible left lower lobe pneumonia, and vocal cords mass. 82-year-old male patient with previous history of advanced COPD, along with history of coronary artery disease and previous bypass surgery and previous history of prostate cancer, presented to the hospital because of worsening shortness of breath. I was asked even with this patient as the patient's oxygenation was getting worse. At a time of my arrival, the patient was a 50% Ventimask. He was having some questionable stridorous inspiratory efforts, his cough was weak and his speech was also altered. He was unable to bring up much of sputum. He denied having any angina or chest pain. He also had a run of atrial fibrillation yesterday and currently his rhythm is sinus. I reviewed the chest x-ray and there is concern tolerance lower lobe infiltrates/ atelectasis. The patient is already on a combination of Rocephin and Zithromax. He was also noted to have hypercalcemia and acute kidney injury with a creatinine of 1.9. The exact nature of the hypercalcemia is not clear. As mentioned, he has prostate cancer. A recent bone scan from a recent bone scan from May 2017 showed no evidence of any skeletal involvement. Patient was reevaluated today on 10/20/2017, remains on mechanical ventilation. Patient was intubated yesterday by Dr. Woods, and urine intubation he was concerned about the vocal cords obstruction with what seems to be a mass involving the adenoid area, and displacing the vocal cords. Nonetheless, patient was intubated using a glidescope, and I have no plans to extubate the patient until he is evaluated by ENT, and the patient may require tracheostomy and biopsy of the lesion around the vocal cords. ENT consult was initiated, and he is yet to be seen by ENT on consultation. Ventilator settings were noted. Chest x-ray showed bibasilar opacities. And small bilateral pleural effusions. CBC showed slight leukocytosis. WBC count is 15.7 hemoglobin is 10.4 his PTT is 55.3, remains on heparin. ABG on 50% showed a pO2 of 117 pCO2 of 37 pH of 7.46. Basic metabolic profile is relatively normal BUN is 48 creatinine is 1.10. Patient is arousable, propofol was placed on hold, and we were able to examine the patient, seems to be very appropriate, and comprehending or what he was being controlled. Again I have no plans to extubate the patient until a tracheostomy is done, and ENT has seen the patient. Objective - Vital Signs Vital signs: Vital Signs Temp 98.2 F 10/20/17 08:00 Pulse 87 10/20/17 11:25 Resp 16 10/20/17 11:10 BP 108/66 10/20/17 10:00 Pulse Ox 99 10/20/17 10:00 Intake & Output 10/19/17 10/20/17 10/20/17 18:59 06:59 18:59 Intake Total 4189.554 1815.921 835.343 Output Total 660 1425 145 Balance 3529.554 390.921 690.343 Weight 88.5 kg 96.1 kg Intake: IV 1200 650 Azithromycin 500 mg In 250 Sodium Chloride 0.9% 250 ml @ 125 mls/hr IVPB DAILY [facility] Rx#:[id number] Sodium Chloride 0.9% 1, 1200 400 000 ml @ 100 mls/hr IV . Q10H [facility] Rx#:[id number] Intake, IV Titration 4089.554 615.921 185.343 Amount Azithromycin 500 mg In 250 Sodium Chloride 0.9% 250 ml @ 125 mls/hr IVPB DAILY [facility] Rx#:[id number] Diltiazem 50 mg In Sodium 25.417 50.000 50 Chloride 0.9% 40 ml @ Per Protocol IV .Q0M [facility] Rx#:[id number] Heparin Sod,Pork in 0.45% 140 300.767 59.233 NaCl 25,000 unit In 0.45 % NaCl 1 500ml.bag @ 11.3 UNITS/KG/HR 20 mls/hr IV .Q24H [facility] Rx#:[id number] Norepinephrine 16 mg In 1.124 80.022 Sodium Chloride 0.9% 250 ml @ Titrate IV .Q0M [facility] Rx#:[id number] Propofol 1,000 mg In 73.013 185.132 76.11 Empty Bag 1 bag @ Titrate IV .Q0M [facility] Rx#: [id number] Sodium Chloride 0.9% 1, 3600 000 ml @ 100 mls/hr IV . Q10H [facility] Rx#:[id number] Oral 100 Output: Gastric Drainage 300 Urine 660 1125 145 Other: Voiding Method Indwelling Catheter Indwelling Catheter Indwelling Catheter ABP, PAP, CO, CI - Last Documented Arterial Blood Pressure 155/60 - Exam Physical exam revealed an 82-year-old white male looks chronically ill, on mechanical ventilation, endotracheal tube is intact. Nasogastric tube is also intact. Head exam was generally normal. There was no scleral icterus or corneal arcus. Mucous membranes were moist. Neck was supple and without jugular venous distension, thyromegaly, or carotid bruits. Carotids were easily palpable bilaterally. There was no adenopathy. There is questionable inspiratory stridor as mentioned Lungs sounds are markedly diminished bilaterally with diffuse diminished breath sounds especially in lung bases. No evidence of rhonchi or wheezes today. Cardiac exam revealed the PMI to be normally situated and sized. Normal S1 and S2, no S3 gallop. No murmur. Abdominal exam revealed soft nontender no megaly no rebound, positive bowel sounds. Examination of the extremities revealed no clubbing, edema or cyanosis. Examination of the skin revealed no evidence of significant rashes, suspicious appearing nevi or other concerning lesions. Neurologically awake and alert and there is no focal neurological deficit. - Labs CBC & Chem 7: 10/20/17 04:45 10/20/17 04:22 Labs: Abnormal Lab Results - Last 24 Hours (Table) 10/19/17 10/19/17 10/19/17 Range/Units 13:37 17:24 17:26 WBC (3.8-10.6) k/uL RBC (4.30-5.90) m/uL Hgb (13.0-17.5) gm/dL Hct (39.0-53.0) % Neutrophils # (1.3-7.7) k/uL Lymphocytes # (1.0-4.8) k/uL APTT 36.1 H (22.0-30.0) sec ABG pH (7.35-7.45) ABG pCO2 46 H (35-45) mmHg ABG pO2 244 H (83-108) mmHg ABG HCO3 26 H (21-25) mmol/L ABG Total CO2 28 H (19-24) mmol/L ABG O2 Saturation 98.8 H (94-97) % Chloride (98-107) mmol/L BUN (9-20) mg/dL Glucose (74-99) mg/dL POC Glucose (mg/dL) 138 H (75-99) mg/dL Calcium (8.4-10.2) mg/dL Phosphorus (2.5-4.5) mg/dL 10/20/17 10/20/17 10/20/17 Range/Units 00:05 00:57 04:22 WBC (3.8-10.6) k/uL RBC (4.30-5.90) m/uL Hgb (13.0-17.5) gm/dL Hct (39.0-53.0) % Neutrophils # (1.3-7.7) k/uL Lymphocytes # (1.0-4.8) k/uL APTT 46.3 H (22.0-30.0) sec ABG pH (7.35-7.45) ABG pCO2 (35-45) mmHg ABG pO2 (83-108) mmHg ABG HCO3 (21-25) mmol/L ABG Total CO2 (19-24) mmol/L ABG O2 Saturation (94-97) % Chloride 115 H (98-107) mmol/L BUN 48 H (9-20) mg/dL Glucose 169 H (74-99) mg/dL POC Glucose (mg/dL) 154 H (75-99) mg/dL Calcium 11.1 H (8.4-10.2) mg/dL Phosphorus 2.1 L (2.5-4.5) mg/dL 10/20/17 10/20/17 10/20/17 Range/Units 04:22 04:28 04:45 WBC 13.7 H (3.8-10.6) k/uL RBC 3.37 L (4.30-5.90) m/uL Hgb 10.4 L (13.0-17.5) gm/dL Hct 33.3 L (39.0-53.0) % Neutrophils # 12.5 H (1.3-7.7) k/uL Lymphocytes # 0.4 L (1.0-4.8) k/uL APTT 44.6 H (22.0-30.0) sec ABG pH 7.46 H (7.35-7.45) ABG pCO2 (35-45) mmHg ABG pO2 117 H (83-108) mmHg ABG HCO3 26 H (21-25) mmol/L ABG Total CO2 27 H (19-24) mmol/L ABG O2 Saturation 98.0 H (94-97) % Chloride (98-107) mmol/L BUN (9-20) mg/dL Glucose (74-99) mg/dL POC Glucose (mg/dL) (75-99) mg/dL Calcium (8.4-10.2) mg/dL Phosphorus (2.5-4.5) mg/dL 10/20/17 10/20/17 10/20/17 Range/Units 05:56 11:02 11:04 WBC (3.8-10.6) k/uL RBC (4.30-5.90) m/uL Hgb (13.0-17.5) gm/dL Hct (39.0-53.0) % Neutrophils # (1.3-7.7) k/uL Lymphocytes # (1.0-4.8) k/uL APTT 55.3 H (22.0-30.0) sec ABG pH (7.35-7.45) ABG pCO2 (35-45) mmHg ABG pO2 (83-108) mmHg ABG HCO3 (21-25) mmol/L ABG Total CO2 (19-24) mmol/L ABG O2 Saturation (94-97) % Chloride (98-107) mmol/L BUN (9-20) mg/dL Glucose (74-99) mg/dL POC Glucose (mg/dL) 150 H 152 H (75-99) mg/dL Calcium (8.4-10.2) mg/dL Phosphorus (2.5-4.5) mg/dL Microbiology - Last 24 Hours (Table) 10/19/17 13:20 Gram Stain - Preliminary Sputum Sputum Culture - Preliminary 10/18/17 09:10 Blood Culture - Preliminary Blood No Growth after 24 hours Assessment and Plan Assessment: 1 acute hypoxic respiratory failure, multifactorial. First and foremost, the patient has advanced COPD and he has developed possibly some lower lobe pulmonary infiltration/effusion based on the admitting chest x-ray. This raises the possibility of lower lobe pneumonia right more than left. In addition, he had inspiratory stridor and a mass noted on the vocal cords as documented by Dr. Woods during intubation 2 advanced COPD 3 coronary artery disease appears bypass surgery 4 acute kidney injury 5 hypercalcemia 6 prostate cancer 7 atrial fibrillation, paroxysmal, currently back into normal sinus rhythm, patient is presently on heparin, and being followed by cardiology. 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 Recommendation: Continue ventilatory support, bronchodilators, heparin, antibiotics, initiate enteral feeding, await ENT consultation, patient will most likely require tracheostomy and biopsy of the vocal cords mass. Prognosis is definitely poor and guarded. Critical care time is 40 minutes. Time with Patient: Greater than 30
[2017-10-20 12:08] LABS: Glucose,Whole Blood 137 mg/dL (75-99)
[2017-10-20] MEDS: MULTIVITAMINS, THERA 1 EACH TAB PO SCH (12:22)
[2017-10-20 12:45] LABS: Hemoglobin A1C 5.1 % (4.0-6.0)
[2017-10-20 17:23] LABS: Glucose,Whole Blood 160 mg/dL (75-99)
[2017-10-20 18:02] LABS: Glucose,Whole Blood 156 mg/dL (75-99)
--- NOTE | 2017-10-20 19:05 | P.GSCN ---
History of Present Illness Consult date: 10/20/17 Reason for Consult: Stridor possible hypopharyngeal/laryngeal mass Requesting physician: Harshal Lane History of present illness: This is an 82-year-old white male who is currently intubated and I am unable to obtain any history from the patient. He is nonverbal. All the history that I' m obtaining is to the nursing staff in from the chart. This patient was recently intubated because of worsening stridor. The patient also had secondary pulmonary issues she's currently being treated for with antibiotic therapy. . During the intubation the patient was noted to have a mucosal irregularity and possible mass causing the stridor. Tumor is suspect. The patient does have a history of smoking in the past. There is some friability to this mucosal mass and malignancy is suspect. Dr. Woods feels that extubation with this obstructive lesion would not be cage and tracheotomy was discussed. Review of Systems ROS unobtainable: due to endotracheal tube Past Medical History Past Medical History: Atrial Fibrillation, Coronary Artery Disease (CAD), Cancer , Chest Pain / Angina, GERD/Reflux, Hyperlipidemia, Hypertension, Myocardial Infarction (MA), Osteoarthritis (OA), Prostate Disorder Additional Past Medical History / Comment(s): Prostate ca with hormone treatment , skin cancer with removals, back pain, arthritis bilateral knees and wrists, occasional numbness bilateral legs. Last Myocardial Infarction Date:: 1997 History of Any Multi-Drug Resistant Organisms: None Reported Past Surgical History: Appendectomy, Coronary Bypass/CABG, Heart Catheterization , Heart Catheterization With Stent, Tonsillectomy Additional Past Surgical History / Comment(s): 1997 CABG 3 vessel, PCI with stent 2010, colonoscopy, R wrist tendon surgery, R hand lipoma removed, sclerosing hemangioma excised from chest, skin cancer removals. left cataract removed friday10/13/2017 Past Anesthesia/Blood Transfusion Reactions: No Reported Reaction Date of Last Stent Placement:: 2010 Smoking Status: Former smoker - Past Family History Father Family Medical History: No Reported History Additional Family Medical History / Comment(s): Father was healthy Mother Family Medical History: Coronary Artery Disease (CAD), Hyperlipidemia, Hypertension Medications and Allergies Home Medications Medication Instructions Recorded Confirmed Type Aspirin EC [Ecotrin Low Dose] 162 mg PO DAILY 04/29/17 10/18/17 History Atenolol [Tenormin] 50 mg PO DAILY 04/29/17 10/18/17 History Atorvastatin [Lipitor] 40 mg PO HS 04/29/17 10/18/17 History Docusate [Colace] 100 mg PO DAILY PRN 04/29/17 10/18/17 History Ezetimibe [Zetia] 10 mg PO HS 04/29/17 10/18/17 History Furosemide [Lasix] 40 mg PO DAILY 04/29/17 10/18/17 History Multivitamins, Thera [Multivitamin 1 tab PO DAILY 04/29/17 10/18/17 History (formulary)] Omeprazole Magnesium [PriLOSEC OTC] 20 mg PO DAILY 04/29/17 10/18/17 History Ipratropium-Albuterol Nebulize 3 ml INHALATION RT-QID ampul.neb 05/09/17 Rx [Duoneb 0.5 mg-3 mg/3 ml Soln] Lisinopril [Zestril] 10 mg PO DAILY #30 tab 05/26/17 10/18/17 Rx Alfuzosin HCl [Uroxatral ER] 10 mg PO DAILY 10/15/17 10/18/17 History Cetirizine HCl [Zyrtec] 10 mg PO DAILY 10/15/17 10/18/17 History Flutamide 375 mg PO BID 10/15/17 10/18/17 History traMADol HCL [Ultram] 50 - 100 mg PO Q6H PRN 10/15/17 10/18/17 History Allergies Allergy/AdvReac Type Severity Reaction Status Date / Time acetaminophen [From Tylenol] Allergy Rash/Hives Verified 10/18/17 11:17 bicalutamide [From Casodex] Allergy Rash/Hives Verified 10/18/17 11:17 meloxicam [From Mobic] Allergy Unknown Verified 10/18/17 11:17 Sulfa (Sulfonamide Allergy Itching Verified 10/18/17 11:17 Antibiotics) morphine AdvReac Nausea & Verified 10/18/17 11:17 Vomiting Surgical - Exam Osteopathic Statement: *. No significant issues noted on an osteopathic structural exam other than those noted in the History and Physical/Consult. Vital Signs Temp Pulse Resp BP Pulse Ox 98.2 F 93 28 H 102/35 87 L 10/18/17 08:49 10/18/17 08:49 10/18/17 08:49 10/18/17 08:49 10/18/17 08:49 - General Patient's intubated well nourished, no distress, other - Eyes PERRL - ENT Head is in the cephalic the face is symmetric there's an indentation to the forehead. Nose is patent mouth and throat patient has an oral endotracheal tube in place along with a orogastric tube. Neck shows no tumors or masses normal pinna - Neck Head is normocephalic there is a dent no masses, no bruits, trachea midline, no lymphadectomy, no venous distension - Neurologic Unable to obtain due to the patient's intubated condition - Psychiatric Unable to obtain as the patient is intubated Results - Labs 10/20/17 04:45 10/20/17 04:22 Abnormal Lab Results - Last 24 Hours (Table) 10/20/17 10/20/17 10/20/17 Range/Units 00:05 00:57 04:22 WBC (3.8-10.6) k/uL RBC (4.30-5.90) m/uL Hgb (13.0-17.5) gm/dL Hct (39.0-53.0) % Neutrophils # (1.3-7.7) k/uL Lymphocytes # (1.0-4.8) k/uL APTT 46.3 H (22.0-30.0) sec ABG pH (7.35-7.45) ABG pO2 (83-108) mmHg ABG HCO3 (21-25) mmol/L ABG Total CO2 (19-24) mmol/L ABG O2 Saturation (94-97) % Chloride 115 H (98-107) mmol/L BUN 48 H (9-20) mg/dL Glucose 169 H (74-99) mg/dL POC Glucose (mg/dL) 154 H (75-99) mg/dL Calcium 11.1 H (8.4-10.2) mg/dL Phosphorus 2.1 L (2.5-4.5) mg/dL 10/20/17 10/20/17 10/20/17 Range/Units 04:22 04:28 04:45 WBC 13.7 H (3.8-10.6) k/uL RBC 3.37 L (4.30-5.90) m/uL Hgb 10.4 L (13.0-17.5) gm/dL Hct 33.3 L (39.0-53.0) % Neutrophils # 12.5 H (1.3-7.7) k/uL Lymphocytes # 0.4 L (1.0-4.8) k/uL APTT 44.6 H (22.0-30.0) sec ABG pH 7.46 H (7.35-7.45) ABG pO2 117 H (83-108) mmHg ABG HCO3 26 H (21-25) mmol/L ABG Total CO2 27 H (19-24) mmol/L ABG O2 Saturation 98.0 H (94-97) % Chloride (98-107) mmol/L BUN (9-20) mg/dL Glucose (74-99) mg/dL POC Glucose (mg/dL) (75-99) mg/dL Calcium (8.4-10.2) mg/dL Phosphorus (2.5-4.5) mg/dL 10/20/17 10/20/17 10/20/17 Range/Units 05:56 11:02 11:04 WBC (3.8-10.6) k/uL RBC (4.30-5.90) m/uL Hgb (13.0-17.5) gm/dL Hct (39.0-53.0) % Neutrophils # (1.3-7.7) k/uL Lymphocytes # (1.0-4.8) k/uL APTT 55.3 H (22.0-30.0) sec ABG pH (7.35-7.45) ABG pO2 (83-108) mmHg ABG HCO3 (21-25) mmol/L ABG Total CO2 (19-24) mmol/L ABG O2 Saturation (94-97) % Chloride (98-107) mmol/L BUN (9-20) mg/dL Glucose (74-99) mg/dL POC Glucose (mg/dL) 150 H 152 H (75-99) mg/dL Calcium (8.4-10.2) mg/dL Phosphorus (2.5-4.5) mg/dL 10/20/17 10/20/17 10/20/17 Range/Units 11:37 17:22 18:01 WBC (3.8-10.6) k/uL RBC (4.30-5.90) m/uL Hgb (13.0-17.5) gm/dL Hct (39.0-53.0) % Neutrophils # (1.3-7.7) k/uL Lymphocytes # (1.0-4.8) k/uL APTT (22.0-30.0) sec ABG pH (7.35-7.45) ABG pO2 (83-108) mmHg ABG HCO3 (21-25) mmol/L ABG Total CO2 (19-24) mmol/L ABG O2 Saturation (94-97) % Chloride (98-107) mmol/L BUN (9-20) mg/dL Glucose (74-99) mg/dL POC Glucose (mg/dL) 137 H 160 H 156 H (75-99) mg/dL Calcium (8.4-10.2) mg/dL Phosphorus (2.5-4.5) mg/dL Microbiology - Last 24 Hours (Table) 10/18/17 09:10 Blood Culture - Preliminary Blood No Growth after 48 hours 10/19/17 13:20 Gram Stain - Preliminary Sputum Sputum Culture - Preliminary Diabetes panel 10/20/17 10/20/17 Range/Units 04:22 04:45 Sodium 143 (137-145) mmol/L Potassium 4.0 (3.5-5.1) mmol/L Chloride 115 H (98-107) mmol/L Carbon Dioxide 24 (22-30) mmol/L BUN 48 H (9-20) mg/dL Creatinine 1.10 (0.66-1.25) mg/dL Glucose 169 H (74-99) mg/dL Hemoglobin A1c 5.1 (4.0-6.0) % Calcium 11.1 H (8.4-10.2) mg/dL Calcium panel 10/20/17 Range/Units 04:22 Calcium 11.1 H (8.4-10.2) mg/dL Phosphorus 2.1 L (2.5-4.5) mg/dL Pituitary panel 10/20/17 Range/Units 04:22 Sodium 143 (137-145) mmol/L Potassium 4.0 (3.5-5.1) mmol/L Chloride 115 H (98-107) mmol/L Carbon Dioxide 24 (22-30) mmol/L BUN 48 H (9-20) mg/dL Creatinine 1.10 (0.66-1.25) mg/dL Glucose 169 H (74-99) mg/dL Calcium 11.1 H (8.4-10.2) mg/dL Adrenal panel 10/20/17 Range/Units 04:22 Sodium 143 (137-145) mmol/L Potassium 4.0 (3.5-5.1) mmol/L Chloride 115 H (98-107) mmol/L Carbon Dioxide 24 (22-30) mmol/L BUN 48 H (9-20) mg/dL Creatinine 1.10 (0.66-1.25) mg/dL Glucose 169 H (74-99) mg/dL Calcium 11.1 H (8.4-10.2) mg/dL Assessment and Plan (1) Laryngeal stridor Current Visit: Yes Status: Acute Code(s): J38.5 - LARYNGEAL SPASM SNOMED Code(s): 90711722 Plan: Extubation in light of this laryngeal airway obstruction would not be cage. Therefore, we will be performing a tracheotomy on this patient followed by a direct microscopic laryngoscopy and biopsy of the suspected mass. We will be obtaining a temporary guardianship to allow us to proceed forward. Computed tomography scan of the neck will be performed after tracheotomy. Patient is to have his heparin stopped 2 hours before planned surgery. Time with Patient: Greater than 30
[2017-10-20] MEDS: ATORVASTATIN 40 MG TAB PO SCH (20:52)
[2017-10-20 23:39] LABS: Glucose,Whole Blood 150 mg/dL (75-99)
[2017-10-21] MEDS: methylPREDNISolone SOD SUCCI 125 MG/2 ML VIAL IV SCH ×4 (00:05→19:25)
[2017-10-21] MEDS: INSULIN ASPART 100 UNIT/ML 1 ML 10 ML VIAL SQ SCH ×4 (00:05→19:25)
--- NOTE | 2017-10-21 00:23 | PN ---
PROGRESS NOTE DATE OF SERVICE: 10/20/2017 CHIEF COMPLAINT: Re-evaluation. HISTORY OF PRESENT ILLNESS: This gentleman is 82 years of age. He is on a ventilator due to associated respiratory failure. The patient has COPD, chronic congestive cardiac failure. The patient also has suspicions of pneumonia and has bilateral pleural effusion. The patient is sedated and unresponsive. He is on a ventilator with a PEEP of 5, 50% FiO2. Urine output is adequate. The patient is on norepinephrine to help control blood pressure. He is also on Cardizem to maintain his heart rate. The patient is followed by phlebotomy tech. The patient has an ET tube in and oropharyngeal gastric tube. Vital signs reveals pulse 63, respirations 16, pulse ox of 96% off on 50% FiO2. Blood pressure 128/53. HEENT: Normocephalic. NECK: No JVD appreciated left side. The patient has an internal jugular line. Chest is clear with decreased air flow anteriorly. The patient air flow anteriorly. The patient also has decreased air flow in the bilateral basal area. ABDOMEN: Soft. Bowel sounds are present. Extremities reveal no edema. Neurological is very difficult to assess as the patient has been sedated. LAB ASSESSMENT: INR 44.6. Blood gases with pH 7.46, pCO2 37, pO2 of 117, 98% saturation. Electrolytes, sodium 143. . Sodium 153, potassium 4.0, chloride 115, CO2 24, BUN 48, creatinine 1.1, calcium down to 11.1. A1c is 5.1, magnesium 2.2. Phosphorus 2.1. Hemoglobin 10.4, white count 13.7, platelets 239. ASSESSMENT: 1. Acute respiratory failure. 2. History of chronic respiratory failure. 3. Chronic obstructive pulmonary disease. 4. History of chronic congestive cardiac failure secondary to systolic dysfunction. 5. Paroxysmal atrial fibrillation. 6. Carcinoma of the prostate with recurrence. 7. Hypercalcemia, improved. 8. Anemia chronic disease. PLAN: The patient at present is stable. Continue present medical regimen. The patient is being provided. Ventilator support on the vent. Prognosis remains guarded. The patient's renal functions improved. Monitor calcium. Pulmonary/phlebotomy tech following with the patient. MMODL / IJN: [id number] /
[2017-10-21] MEDS: DILTIAZEM 50 MG in SODIUM CHLORIDE 0.9% 40 ML IV SCH (00:57)
[2017-10-21] MEDS: PROPOFOL 1,000 MG in EMPTY BAG 1 BAG IV SCH ×2 (01:46→05:50)
[2017-10-21 04:14] LABS: Basophils % (A) 0 %; Eosinophils % (A) 0 %; HCT 31.6 % (39.0-53.0); HGB 10.3 gm/dL (13.0-17.5); Lymphocytes # (A) 0.3 k/uL (1.0-4.8); Lymphocytes % (A) 6 %; MCH 31.8 pg (25.0-35.0); MCHC 32.5 g/dL (31.0-37.0); MCV 97.9 fL (80.0-100.0); Mean Platelet Volume 8.5; Monocytes # (A) 0.3 k/uL (0-1.0); Monocytes % (A) 6 %; Neutrophils # (A) 4.5 k/uL (1.3-7.7); Neutrophils % (A) 87 %; Platelet Count 150 k/uL (150-450); RBC 3.23 m/uL (4.30-5.90); WBC 5.2 k/uL (3.8-10.6)
[2017-10-21 04:55] LABS: Magnesium 2.3 mg/dL (1.6-2.3); Phosphorus 1.9 mg/dL (2.5-4.5); Potassium 3.8 mmol/L (3.5-5.1)
[2017-10-21] MEDS ORDERED: Potassium Replacement Protocol 1 EACH MISC MISCELLANE PRN (05:12)
[2017-10-21 05:37] LABS: Glucose,Whole Blood 166 mg/dL (75-99)
[2017-10-21] MEDS ORDERED: POTASSIUM BICARBONATE/CIT AC 20 MEQ TABLET.EFF NG-TUBE SCH (06:00)
[2017-10-21] MEDS: IPRATROPIUM-ALBUTEROL 3 ML NEB INHALATION SCH ×4 (07:23→19:04)
--- NOTE | 2017-10-21 08:30 | XR ---
EXAMINATION TYPE: XR chest 1V portable DATE OF EXAM: 10/21/2017 Comparison: 10/20/2017 Clinical History: 82-year-old male Tube placement Findings: ET tube is satisfactory. NG tube courses below the diaphragm. The distal aspect is beyond the field o f view. Left IJ CVC tip at the mid SVC level. Median sternotomy wires are present with post-CABG clip s in the mediastinum. Continued small pleural effusions with bibasilar opacities. Impression: Stable small pleural effusion with adjacent atelectasis and/or consolidation.
[2017-10-21] MEDS: PANTOPRAZOLE 40 MG/10 ML VIAL IVP SCH (08:48)
[2017-10-21] MEDS: CHLORHEXIDINE GLUCONATE 15 ML CUP MUCOUS MEM SCH ×2 (08:48→20:50)
[2017-10-21] MEDS: FLUTAMIDE PO SCH ×2 (08:49→20:46)
[2017-10-21] MEDS: cefTRIAXone IN SWFI 1,000 MG/10 ML SYRINGE IVP SCH (08:49)
[2017-10-21] MEDS: ASPIRIN 81 MG PO SCH (08:49)
[2017-10-21] MEDS: SODIUM CHLORIDE 0.9% 1,000 ML IV SCH ×2 (08:50→20:45)
[2017-10-21] MEDS: TAMSULOSIN 0.4 MG CAP.ER.24H PO SCH (08:50)
[2017-10-21] MEDS: AZITHROMYCIN 500 MG in SODIUM CHLORIDE 0.9% 250 ML IVPB SCH (08:50)
[2017-10-21] MEDS: ATENOLOL 50 MG TAB PO SCH (08:59)
--- NOTE | 2017-10-21 10:52 | P.PN ---
Subjective Progress Note Date: 10/21/17 Principal diagnosis: Acute hypoxic respiratory failure secondary to COPD, possible left lower lobe pneumonia, and vocal cords mass, and stridor 82-year-old male patient with previous history of advanced COPD, along with history of coronary artery disease and previous bypass surgery and previous history of prostate cancer, presented to the hospital because of worsening shortness of breath. I was asked even with this patient as the patient's oxygenation was getting worse. At a time of my arrival, the patient was a 50% Ventimask. He was having some questionable stridorous inspiratory efforts, his cough was weak and his speech was also altered. He was unable to bring up much of sputum. He denied having any angina or chest pain. He also had a run of atrial fibrillation yesterday and currently his rhythm is sinus. I reviewed the chest x-ray and there is concern tolerance lower lobe infiltrates/ atelectasis. The patient is already on a combination of Rocephin and Zithromax. He was also noted to have hypercalcemia and acute kidney injury with a creatinine of 1.9. The exact nature of the hypercalcemia is not clear. As mentioned, he has prostate cancer. A recent bone scan from a recent bone scan from May 2017 showed no evidence of any skeletal involvement. Patient was reevaluated today on 10/20/2017, remains on mechanical ventilation. Patient was intubated yesterday by Dr. Woods, and urine intubation he was concerned about the vocal cords obstruction with what seems to be a mass involving the adenoid area, and displacing the vocal cords. Nonetheless, patient was intubated using a glidescope, and I have no plans to extubate the patient until he is evaluated by ENT, and the patient may require tracheostomy and biopsy of the lesion around the vocal cords. ENT consult was initiated, and he is yet to be seen by ENT on consultation. Ventilator settings were noted. Chest x-ray showed bibasilar opacities. And small bilateral pleural effusions. CBC showed slight leukocytosis. WBC count is 15.7 hemoglobin is 10.4 his PTT is 55.3, remains on heparin. ABG on 50% showed a pO2 of 117 pCO2 of 37 pH of 7.46. Basic metabolic profile is relatively normal BUN is 48 creatinine is 1.10. Patient is arousable, propofol was placed on hold, and we were able to examine the patient, seems to be very appropriate, and comprehending or what he was being controlled. Again I have no plans to extubate the patient until a tracheostomy is done, and ENT has seen the patient. Patient was reevaluated today on 10/21/2017, remains on mechanical ventilation, his ventilator settings are tidal volume of 500 assist control rate 16 FiO2 of 50% and PEEP of 5. He is not requiring any pressors, he remains on propofol which I plan to discontinue and give the patient is sedation holiday. And assess mental status again today. Patient is scheduled to undergo tracheostomy this afternoon, and biopsy of the vocal cords mass. This will be done likely later this afternoon by Dr. Foster. In the meantime the patient is hemodynamically stable, his labs were reviewed, and believes he count is 5.2 hemoglobin is 10.3 electrolytes are relatively normal BUN is 43 creatinine is 1.01. Mental status was appropriate yesterday off propofol, and we will assess his mental status again today off propofol. Chest x-ray showed mostly atelectasis and small pleural effusions. All meds were reviewed, patient remains empirically on antibiotics, he is also on updrafts, patient is on Cardizem drip at 5 mg per hour, and his atrial fibrillation seems to be fairly well controlled. He is on heparin which will plan to discontinue few hours before surgery. Objective - Vital Signs Vital signs: Vital Signs Temp 97.4 F L 10/21/17 08:00 Pulse 80 10/21/17 10:00 Resp 19 10/21/17 10:00 BP 119/59 10/21/17 10:00 Pulse Ox 100 10/21/17 10:00 Intake & Output 10/20/17 10/21/17 10/21/17 18:59 06:59 18:59 Intake Total 8010.693 0509.153 550 Output Total 655 885 170 Balance 6468.747 9877.153 380 Weight 96.1 kg 93.5 kg Intake: IV 1350 1300 550 Azithromycin 500 mg In 250 250 Sodium Chloride 0.9% 250 ml @ 125 mls/hr IVPB DAILY [facility] Rx#:[id number] Sodium Chloride 0.9% 1, 1100 1300 300 000 ml @ 100 mls/hr IV . Q10H [facility] Rx#:[id number] Intake, IV Titration 335.343 462.153 Amount Diltiazem 50 mg In Sodium 100 139.366 Chloride 0.9% 40 ml @ Per Protocol IV .Q0M [facility] Rx#:[id number] Heparin Sod,Pork in 0.45% 59.233 NaCl 25,000 unit In 0.45 % NaCl 1 500ml.bag @ 11.3 UNITS/KG/HR 20 mls/hr IV .Q24H [facility] Rx#:[id number] Norepinephrine 16 mg In 68.074 Sodium Chloride 0.9% 250 ml @ Titrate IV .Q0M [facility] Rx#:[id number] Propofol 1,000 mg In 176.11 254.713 Empty Bag 1 bag @ Titrate IV .Q0M [facility] Rx#: [id number] Tube Feeding 20 90 0 Other 60 Output: Urine 655 885 170 Other: Voiding Method Indwelling Catheter Indwelling Catheter Indwelling Catheter ABP, PAP, CO, CI - Last Documented Arterial Blood Pressure 154/60 - Exam Physical exam revealed an 82-year-old white male looks chronically ill, on mechanical ventilation, endotracheal tube is intact. Nasogastric tube is also intact. Head exam was generally normal. There was no scleral icterus or corneal arcus. Mucous membranes were moist. Neck was supple and without jugular venous distension, thyromegaly, or carotid bruits. Carotids were easily palpable bilaterally. There was no adenopathy. Lungs sounds are markedly diminished bilaterally with diffuse diminished breath sounds especially in lung bases. No evidence of rhonchi or wheezes today. Cardiac exam revealed the PMI to be normally situated and sized. Irregular irregular rhythm, Normal S1 and S2, no S3 gallop. No murmur. Abdominal exam revealed soft nontender no megaly no rebound, positive bowel sounds. Examination of the extremities revealed no clubbing, edema or cyanosis. Examination of the skin revealed no evidence of significant rashes, suspicious appearing nevi or other concerning lesions. Neurologically awake and alert and there is no focal neurological deficit. Off propofol. - Labs CBC & Chem 7: 10/21/17 03:55 10/21/17 03:55 Labs: Abnormal Lab Results - Last 24 Hours (Table) 10/20/17 10/20/17 10/20/17 Range/Units 11:02 11:04 11:37 RBC (4.30-5.90) m/uL Hgb (13.0-17.5) gm/dL Hct (39.0-53.0) % Lymphocytes # (1.0-4.8) k/uL APTT 55.3 H (22.0-30.0) sec Sodium (137-145) mmol/L Chloride (98-107) mmol/L BUN (9-20) mg/dL Glucose (74-99) mg/dL POC Glucose (mg/dL) 152 H 137 H (75-99) mg/dL Calcium (8.4-10.2) mg/dL Phosphorus (2.5-4.5) mg/dL 10/20/17 10/20/17 10/20/17 Range/Units 17:22 18:01 23:38 RBC (4.30-5.90) m/uL Hgb (13.0-17.5) gm/dL Hct (39.0-53.0) % Lymphocytes # (1.0-4.8) k/uL APTT (22.0-30.0) sec Sodium (137-145) mmol/L Chloride (98-107) mmol/L BUN (9-20) mg/dL Glucose (74-99) mg/dL POC Glucose (mg/dL) 160 H 156 H 150 H (75-99) mg/dL Calcium (8.4-10.2) mg/dL Phosphorus (2.5-4.5) mg/dL 10/21/17 10/21/17 10/21/17 Range/Units 03:55 03:55 05:20 RBC 3.23 L (4.30-5.90) m/uL Hgb 10.3 L (13.0-17.5) gm/dL Hct 31.6 L (39.0-53.0) % Lymphocytes # 0.3 L (1.0-4.8) k/uL APTT 72.6 H (22.0-30.0) sec Sodium 146 H (137-145) mmol/L Chloride 118 H (98-107) mmol/L BUN 43 H (9-20) mg/dL Glucose 158 H (74-99) mg/dL POC Glucose (mg/dL) (75-99) mg/dL Calcium 11.0 H (8.4-10.2) mg/dL Phosphorus 1.9 L (2.5-4.5) mg/dL 10/21/17 Range/Units 05:35 RBC (4.30-5.90) m/uL Hgb (13.0-17.5) gm/dL Hct (39.0-53.0) % Lymphocytes # (1.0-4.8) k/uL APTT (22.0-30.0) sec Sodium (137-145) mmol/L Chloride (98-107) mmol/L BUN (9-20) mg/dL Glucose (74-99) mg/dL POC Glucose (mg/dL) 166 H (75-99) mg/dL Calcium (8.4-10.2) mg/dL Phosphorus (2.5-4.5) mg/dL Microbiology - Last 24 Hours (Table) 10/19/17 13:20 Gram Stain - Final Sputum Sputum Culture - Final 10/18/17 09:10 Blood Culture - Preliminary Blood No Growth after 48 hours Assessment and Plan Assessment: 1 acute hypoxic respiratory failure, multifactorial, secondary to stridor with vocal cords mass, COPD exacerbation, and possible pneumonia involving lower lobe. 2 advanced COPD 3 coronary artery disease appears bypass surgery 4 acute kidney injury, improving 5 hypercalcemia, improving 6 prostate cancer 7 atrial fibrillation, paroxysmal, currently back into normal sinus rhythm, patient is presently on heparin, and being followed by cardiology. 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 Recommendation: Continue ventilatory support, bronchodilators, heparin, antibiotics, Cardizem, hold enteral feeding, patient is scheduled to undergo tracheostomy today. Once the patient undergoes tracheostomy, I would likely give the patient weaning trials, and may eventually place him on trach collar in the next 24 hours. Then we will await the results of the biopsy if it is down today from the vocal cords mass. Prognosis remains guarded, patient remains critically ill, we will continue to follow. Critical care time is 35 minutes. Time with Patient: Greater than 30
[2017-10-21 11:46] LABS: Glucose,Whole Blood 125 mg/dL (75-99)
[2017-10-21] MEDS: MULTIVITAMINS, THERA 1 EACH TAB PO SCH (11:46)
[2017-10-21] MEDS ORDERED: LIDOCAINE 1%-EPI 1:100,000 30 ML VIAL SQ ONE (16:38)
[2017-10-21] MEDS ORDERED: BUPIVACAINE-EPI 0.5%-1:200,000 10 ML VIAL SQ ONE (16:38)
[2017-10-21] MEDS ORDERED: PHENYLEPHRINE-0.9% NACL SYG 1 MG/10 ML SYRINGE ONE (16:38)
[2017-10-21] MEDS ORDERED: PROPOFOL 10 MG/ML 20 ML VIAL IV ONE (16:38)
[2017-10-21] MEDS ORDERED: ROCURONIUM BROMIDE 10 MG/ML 10 ML VIAL IV ONE (16:38)
[2017-10-21] MEDS ORDERED: SODIUM CHLORIDE 0.9% 1,000 ML IV ONE (16:38)
--- NOTE | 2017-10-21 18:20 | P.OP ---
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 I was asked to consult regarding this suspected tumor of the glottis. Tracheotomy was recommended to secure an airway. Due to the fact that the patient was intubated and we needed to perform a tracheotomy and a biopsy to facilitate treatment this was an urgent i.e. emergency surgery. 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 A general inhalation anesthetic was administered through the endotracheal tube that was already in place. The neck was sterilely prepped and draped in usual fashion. The anatomic sites were marked and the suprasternal notch region was injected with lidocaine 1% with bupivacaine. A vertical incision was made and dissection was carried through the strap muscles to the thyroid isthmus. A thyroid isthmusectomy was performed with use of the LigaSure which exposed the trachea. The tracheal rings were exposed and between the fourth and fifth tracheal cartilage and incision was made into the trachea with an inferiorly based tracheal flap anteriorly. We retracted the flap, the endotracheal tube was retracted. Any #8 nonfenestrated cuffed Shiley trach tube was placed. We connected this to the circuit and the cuff was inflated. Excellent ventilation and CO2 return was obtained. We closed the deep subcutaneous tissue with a 4-0 Monocryl and we closed the skin with use of a 40 rapid Vicryl in a running locking fashion. Excellent closure was obtained. 2- 0 silk was used as stay sutures for the tracheal faceplate to the skin to prevent accidental decannulation. A trach tie was placed around the neck. A tooth guard was then placed and a Jako laryngoscope was placed into the patient's mouth with care to avoid any trauma to the lips teeth gums and tongue ulcers open tongue was depressed. The entire oropharynx and hypopharynx was evaluated including the base of tongue epiglottis and larynx lateral pharynx post cricoid space etc. The epiglottis and vallecula was identified but the laryngeal introitus was obliterated with a large mass which was a inflammatory and friable. This mass was evaluated under endoscopic visualization and microscopic visualization and placed on suspension on a Lewy. This mass was biopsied. Again the anatomic landmarks were obliterated because of this mass. This appeared to be a transglottic-type mass. Computed tomography scan will be needed to better ascertain the anatomical confines of this mass. After this mass was biopsied all instrumentation was removed we reviewed we did control bleeding with adrenaline-soaked sponges. All sponges were removed and they were accounted for. A trach sponge was placed and the patient was taken back to the intensive care unit for recovery. Surgery went exceptionally well. Awaiting the results of the biopsy.
[2017-10-21 19:12] LABS: Glucose,Whole Blood 148 mg/dL (75-99)
[2017-10-21] MEDS: HEPARIN SOD,PORK IN 0.45% NACL 25,000 UNIT in 0.45% NACL 1 500ML.BAG IV SCH (19:18)
[2017-10-21] MEDS: ATORVASTATIN 40 MG TAB PO SCH (20:46)
--- NOTE | 2017-10-21 20:53 | PN ---
PROGRESS NOTE ATTENDING PHYSICIAN: Dr. Mi Lane. CHIEF COMPLAINT: Re-evaluation. HISTORY OF PRESENT ILLNESS: An 82-year-old gentleman who is on a ventilator. The patient had some respiratory distress on an inspiratory spirometer. In view of this, since he did not show any improvement with BiPAP, he was intubated. The patient had intubation. The station mechanic apprentice noticed the patient had a laryngeal mass. The patient has been asked to be seen by ENT. ENT has seen him and considers tracheostomy. 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 He has no palpable lymph nodes, though. The patient is scheduled for this procedure later today after a guardian has been appointed. The patient was aroused and communicated with me briefly. The patient unable to be very clear, but I did try to explain to the patient that he does have a growth in his throat and probably causing him the shortness of breath, some difficulty swallowing and he is going to require a tracheostomy. I am not sure if the patient understood all that. PAST MEDICAL HISTORY: Significant for carcinoma of the prostate, coronary artery disease, atrial fibrillation, paroxysmal. Also has some associated COPD and chronic congestive cardiac failure secondary to both systolic and diastolic dysfunction. REVIEW OF SYSTEMS: Not much obtainable from the patient. According to nursing staff, no reported fever, chills. Vital signs have been stable. Has not had to use Levophed. His heart rate varies, is intermittent atrial fibrillation. The patient has been on heparin. He is on oxygenation at 50% on the ventilator with 5 of PEEP. The patient has an orogastric tube. No bowel movements reported. Has a Kenny catheter with adequate urine output. PHYSICAL EXAMINATION: Temperature 97.4, pulse 88, patient on ventilator, respirations 14, blood pressure 139/56. HEENT: Normocephalic. Pupils are reactive. Nostrils clear. The patient has an ET tube and an orogastric tube. Neck reveals no JVD. No masses palpable. No nodes palpable. Chest is clear to auscultation. CARDIAC: Normal S1, S2 with no gallop. Systolic murmur 2/6 left sternal border. ABDOMEN: Soft. Bowel sounds active. Extremities reveal trace edema. Neurologically, sedated at present. When aroused, does move his arms. LABORATORY ASSESSMENT: Hemoglobin 10.3, white count 5.2. Sodium 146, potassium 3.8, chloride 118, CO2 content 22, BUN 43, creatinine 1.01. Calcium let down to 11.1. ASSESSMENT: 1. Acute respiratory failure. 2. Possible upper airway obstruction. 3. Rule out laryngeal malignancy. 4. Hypercalcemia. 5. Chronic obstructive pulmonary disease. 6. Acute on chronic respiratory failure. 7. Paroxysmal atrial fibrillation. 8. Stress hyperglycemia. 9. Anemia of chronic disease. PLAN: Continue present medical regimen. Patient's condition discussed with the nurse. Prognosis guarded. Prognosis remains guarded. Legal guardian is being appointed. The patient does have a friend by the name of Julio Cesar who has been providing the patient assistance for the past few months. The patient in the emergency room had told me that he would want Julio Cesar to be making decisions. However, he did not sign any papers for the same. MMODL / IJN: [id number] /
--- NOTE | 2017-10-21 21:01 | CT ---
EXAMINATION TYPE: CT soft tissue neck wo/w con DATE OF EXAM: 10/21/2017 COMPARISON: None HISTORY: 82-year-old male with transglottic mass, assess for airway obstruction, urgent. TECHNIQUE: Contiguous axial scanning of the soft tissues of the neck performed without and with IV Co ntrast, patient injected with 100 mL of Isovue 300. Coronal and sagittal reconstructions performed. CT DLP: 1550 mGycm Automated exposure control for dose reduction was used. FINDINGS: Mild generalized supratentorial volume loss. Trace mucosal thickening ethmoid air cells. There is opa cification of the left mastoid air cells. Orbits and globes appear intact. Nasopharynx appears clear There is circumferential soft tissue thickening involving the mucosal space of the oropharynx effacin g the airway. This abnormal thickening spans 3.3 cm craniocaudal. A small portion of the hypopharynx is seen to be clear just prior to the second level of circumferent ial soft tissue thickening involving the larynx again effacing the airway. This abnormal thickening s pans 2.4 cm craniocaudal. A tracheostomy cannula is present and appears properly positioned. Cutaneous air may be secondary to recent placement. Layering fluid is present just above the level of the tracheostomy within the upper trachea. There is an enlarged lymph node in the superficial left parotid space measuring 1.6 cm. Left level 2/ 3 cervical lymph node mildly enlarged measuring 1.7 cm short axis, sagittal image 69 and axial image 52. Left IJ CVC line partially visualized. Advanced degenerative changes throughout the cervical spine. IMPRESSION: 1. TRACHEOSTOMY CANNULA IN PLACE. 2. ABNORMAL CIRCUMFERENTIAL SOFT TISSUE THICKENING ALONG THE MUCOSAL SPACE OF THE OROPHARYNX SPANNING 2.4 CM CRANIOCAUDAL EFFACING THE AIRWAY. NEOPLASM HERE SHOULD BE EXCLUDED. 3. A SECOND LEVEL OF CIRCUMFERENTIAL SOFT TISSUE THICKENING OF THE MUCOSAL SPACE AT THE LEVEL OF THE LARYNX SPANNING 2.4 CM CRANIOCAUDAL CAUSING A SECOND LEVEL OF AIRWAY COMPROMISE. 3. ABNORMALLY ENLARGED 1.6 CM LYMPH NODE IN THE SUPERFICIAL LEFT PAROTID SPACE AND A MILDLY ENLARGED 1.7 CM LEFT STATION 2/3 LYMPH NODE.
[2017-10-21 23:53] LABS: Glucose,Whole Blood 123 mg/dL (75-99)
[2017-10-22] MEDS: PROPOFOL 1,000 MG in EMPTY BAG 1 BAG IV SCH ×2 (03:39→06:58)
[2017-10-22] MEDS: methylPREDNISolone SOD SUCCI 125 MG/2 ML VIAL IV SCH ×5 (03:40→23:53)
[2017-10-22] MEDS: INSULIN ASPART 100 UNIT/ML 1 ML 10 ML VIAL SQ SCH ×5 (03:41→23:52)
[2017-10-22 04:34] LABS: Basophils % (A) 0 %; Eosinophils % (A) 0 %; HGB 10.6 gm/dL (13.0-17.5); Lymphocytes # (A) 0.4 k/uL (1.0-4.8); Lymphocytes % (A) 5 %; MCH 31.9 pg (25.0-35.0); MCV 99.6 fL (80.0-100.0); Monocytes # (A) 0.3 k/uL (0-1.0); Monocytes % (A) 4 %; Neutrophils # (A) 6.3 k/uL (1.3-7.7); Neutrophils % (A) 90 %; Platelet Count 155 k/uL (150-450); RBC 3.31 m/uL (4.30-5.90); RDW 13.2 % (11.5-15.5); WBC 7.1 k/uL (3.8-10.6)
[2017-10-22 04:43] LABS: Magnesium 2.2 mg/dL (1.6-2.3); Phosphorus 2.2 mg/dL (2.5-4.5); Potassium 4.1 mmol/L (3.5-5.1)
[2017-10-22 05:28] LABS: Partial Thromboplastin Time 20.3 sec (22.0-30.0)
[2017-10-22 06:26] LABS: Glucose,Whole Blood 154 mg/dL (75-99)
[2017-10-22] MEDS: SODIUM CHLORIDE 0.9% 1,000 ML IV SCH ×2 (06:40→15:22)
[2017-10-22] MEDS: IPRATROPIUM-ALBUTEROL 3 ML NEB INHALATION SCH ×4 (07:18→20:09)
[2017-10-22 07:22] LABS: ABG HCO3 23 mmol/L (21-25); ABG Oxygen Saturation 98.3 % (94-97); ABG PCO2 30 mmHg (35-45); ABG PO2 140 mmHg (83-108); ABG TCO2 24 mmol/L (19-24)
[2017-10-22] MEDS ORDERED: HEPARIN SODIUM,PORCINE 5,000 UNIT/ML 1 ML VIAL IV PRN (08:20)
[2017-10-22 08:43] LABS: INR 1.1 (<1.2); Prothrombin Time 10.9 sec (9.0-12.0)
[2017-10-22] MEDS: AZITHROMYCIN 500 MG in SODIUM CHLORIDE 0.9% 250 ML IVPB SCH (08:43)
[2017-10-22] MEDS: HEPARIN SOD,PORK IN 0.45% NACL 25,000 UNIT in 0.45% NACL 1 500ML.BAG IV SCH (08:47)
--- NOTE | 2017-10-22 09:00 | XR ---
EXAMINATION TYPE: XR chest 1V portable DATE OF EXAM: 10/22/2017 COMPARISON: 10/21/2017 INDICATION: Tracheostomy tube placement TECHNIQUE: Single frontal view of the chest is obtained. FINDINGS: The heart size is normal. The pulmonary vasculature is normal. Small left pleural effusion may be present. Minimal right pleural effusion is present. Bibasilar infi ltrates are adjacent to the diaphragms. Left central venous catheter remains present with the tip in the superior vena cava region. Sternotom y wires are in the midline. There is interval placement of a tracheostomy tube, tip is above the darshan. IMPRESSION: 1. Bibasilar infiltrates and small pleural effusions. 2. Placement of tracheostomy tube.
[2017-10-22] MEDS: cefTRIAXone IN SWFI 1,000 MG/10 ML SYRINGE IVP SCH (09:01)
[2017-10-22] MEDS: CHLORHEXIDINE GLUCONATE 15 ML CUP MUCOUS MEM SCH (09:57)
[2017-10-22] MEDS: PANTOPRAZOLE 40 MG/10 ML VIAL IVP SCH (09:57)
--- NOTE | 2017-10-22 11:25 | P.PN ---
Subjective Progress Note Date: 10/22/17 Principal diagnosis: Acute hypoxic respiratory failure secondary to COPD, possible left lower lobe pneumonia, and vocal cords mass, and stridor 82-year-old male patient with previous history of advanced COPD, along with history of coronary artery disease and previous bypass surgery and previous history of prostate cancer, presented to the hospital because of worsening shortness of breath. I was asked even with this patient as the patient's oxygenation was getting worse. At a time of my arrival, the patient was a 50% Ventimask. He was having some questionable stridorous inspiratory efforts, his cough was weak and his speech was also altered. He was unable to bring up much of sputum. He denied having any angina or chest pain. He also had a run of atrial fibrillation yesterday and currently his rhythm is sinus. I reviewed the chest x-ray and there is concern tolerance lower lobe infiltrates/ atelectasis. The patient is already on a combination of Rocephin and Zithromax. He was also noted to have hypercalcemia and acute kidney injury with a creatinine of 1.9. The exact nature of the hypercalcemia is not clear. As mentioned, he has prostate cancer. A recent bone scan from a recent bone scan from May 2017 showed no evidence of any skeletal involvement. Patient was reevaluated today on 10/20/2017, remains on mechanical ventilation. Patient was intubated yesterday by Dr. Woods, and urine intubation he was concerned about the vocal cords obstruction with what seems to be a mass involving the adenoid area, and displacing the vocal cords. Nonetheless, patient was intubated using a glidescope, and I have no plans to extubate the patient until he is evaluated by ENT, and the patient may require tracheostomy and biopsy of the lesion around the vocal cords. ENT consult was initiated, and he is yet to be seen by ENT on consultation. Ventilator settings were noted. Chest x-ray showed bibasilar opacities. And small bilateral pleural effusions. CBC showed slight leukocytosis. WBC count is 15.7 hemoglobin is 10.4 his PTT is 55.3, remains on heparin. ABG on 50% showed a pO2 of 117 pCO2 of 37 pH of 7.46. Basic metabolic profile is relatively normal BUN is 48 creatinine is 1.10. Patient is arousable, propofol was placed on hold, and we were able to examine the patient, seems to be very appropriate, and comprehending or what he was being controlled. Again I have no plans to extubate the patient until a tracheostomy is done, and ENT has seen the patient. Patient was reevaluated today on 10/21/2017, remains on mechanical ventilation, his ventilator settings are tidal volume of 500 assist control rate 16 FiO2 of 50% and PEEP of 5. He is not requiring any pressors, he remains on propofol which I plan to discontinue and give the patient is sedation holiday. And assess mental status again today. Patient is scheduled to undergo tracheostomy this afternoon, and biopsy of the vocal cords mass. This will be done likely later this afternoon by Dr. Foster. In the meantime the patient is hemodynamically stable, his labs were reviewed, and believes he count is 5.2 hemoglobin is 10.3 electrolytes are relatively normal BUN is 43 creatinine is 1.01. Mental status was appropriate yesterday off propofol, and we will assess his mental status again today off propofol. Chest x-ray showed mostly atelectasis and small pleural effusions. All meds were reviewed, patient remains empirically on antibiotics, he is also on updrafts, patient is on Cardizem drip at 5 mg per hour, and his atrial fibrillation seems to be fairly well controlled. He is on heparin which will plan to discontinue few hours before surgery. Patient was reevaluated today on 10/22/2017, patient underwent tracheostomy and thyroid isthmusectomy, and direct microscopic laryngoscopy with biopsy of the glottic mass. Results of which are pending. Patient was reevaluated today, and he seems to be doing very well. I gave the patient a short trial of pressure support and CPAP, and he was doing great. Hence I discontinued mechanical ventilation, and I placed him on a trach collar at 40% FiO2. His propofol has been discontinued. Patient seems to be hemodynamically stable, mentally appropriate, in no distress, denies any pain. ABG this morning showed a pO2 of 140 pCO2 of 30 pH of 7.50. CBC showed a hemoglobin of 10.6 WBC count of 7.1. Electrolytes were reviewed bicarb is 22. Sodium is 145. Patient's nasogastric tube was removed, and we plan to ask speech pathology to evaluate, and the patient can swallow we will proceed with oral feeding and deflate the cuff on the trach as needed. Chest x-ray continues to show bibasilar atelectasis and small pleural effusions. Objective - Vital Signs Vital signs: Vital Signs Temp 98.6 F 10/22/17 08:00 Pulse 98 10/22/17 11:00 Resp 24 10/22/17 11:00 BP 143/73 10/22/17 11:00 Pulse Ox 94 L 10/22/17 11:00 Intake & Output 10/21/17 10/22/17 10/22/17 18:59 06:59 18:59 Intake Total 2150 1166.93 529.184 Output Total 650 1035 348 Balance 1500 131.93 181.184 Weight 96.6 kg Intake: IV 1550 1100 500 Azithromycin 500 mg In 250 Sodium Chloride 0.9% 250 ml @ 125 mls/hr IVPB DAILY [facility] Rx#:[id number] Sodium Chloride 0.9% 1, 900 1100 500 000 ml @ 100 mls/hr IV . Q10H [facility] Rx#:[id number] Intake, IV Titration 600 66.93 29.184 Amount Heparin Sod,Pork in 0.45% 500 NaCl 25,000 unit In 0.45 % NaCl 1 500ml.bag @ 11.3 UNITS/KG/HR 20 mls/hr IV .Q24H [facility] Rx#:[id number] Propofol 1,000 mg In 100 66.93 29.184 Empty Bag 1 bag @ Titrate IV .Q0M [facility] Rx#: [id number] Tube Feeding 0 Output: Urine 640 1035 348 Estimated Blood Loss 10 Other: Voiding Method Indwelling Catheter Indwelling Catheter Indwelling Catheter ABP, PAP, CO, CI - Last Documented Arterial Blood Pressure 145/67 - Exam Physical exam revealed an 82-year-old white male on mechanical ventilation, tracheostomy is intact. Head exam was generally normal. There was no scleral icterus or corneal arcus. Mucous membranes were moist. Neck was supple and without jugular venous distension, thyromegaly, or carotid bruits. Carotids were easily palpable bilaterally. There was no adenopathy. Lungs sounds are diminished at the bases, no rhonchi and no wheezes. Cardiac exam revealed the PMI to be normally situated and sized. Irregular irregular rhythm, Normal S1 and S2, no S3 gallop. No murmur. Abdominal exam revealed soft nontender no megaly no rebound, positive bowel sounds. Examination of the extremities revealed no clubbing, edema or cyanosis. Examination of the skin revealed no evidence of significant rashes, no erythema. Neurologically awake and alert and there is no focal neurological deficit. - Labs CBC & Chem 7: 10/22/17 04:27 10/22/17 04:27 Labs: Abnormal Lab Results - Last 24 Hours (Table) 10/21/17 10/21/17 10/21/17 Range/Units 11:44 19:10 23:52 RBC (4.30-5.90) m/uL Hgb (13.0-17.5) gm/dL Hct (39.0-53.0) % Lymphocytes # (1.0-4.8) k/uL APTT (22.0-30.0) sec ABG pH (7.35-7.45) ABG pCO2 (35-45) mmHg ABG pO2 (83-108) mmHg ABG O2 Saturation (94-97) % Chloride (98-107) mmol/L BUN (9-20) mg/dL Glucose (74-99) mg/dL POC Glucose (mg/dL) 125 H 148 H 123 H (75-99) mg/dL Calcium (8.4-10.2) mg/dL Phosphorus (2.5-4.5) mg/dL 10/22/17 10/22/17 10/22/17 Range/Units 04:27 04:27 04:27 RBC 3.31 L (4.30-5.90) m/uL Hgb 10.6 L (13.0-17.5) gm/dL Hct 33.0 L (39.0-53.0) % Lymphocytes # 0.4 L (1.0-4.8) k/uL APTT 20.3 L (22.0-30.0) sec ABG pH (7.35-7.45) ABG pCO2 (35-45) mmHg ABG pO2 (83-108) mmHg ABG O2 Saturation (94-97) % Chloride 120 H* (98-107) mmol/L BUN 41 H (9-20) mg/dL Glucose 142 H (74-99) mg/dL POC Glucose (mg/dL) (75-99) mg/dL Calcium 11.0 H (8.4-10.2) mg/dL Phosphorus 2.2 L (2.5-4.5) mg/dL 10/22/17 10/22/17 Range/Units 06:24 07:19 RBC (4.30-5.90) m/uL Hgb (13.0-17.5) gm/dL Hct (39.0-53.0) % Lymphocytes # (1.0-4.8) k/uL APTT (22.0-30.0) sec ABG pH 7.50 H (7.35-7.45) ABG pCO2 30 L (35-45) mmHg ABG pO2 140 H (83-108) mmHg ABG O2 Saturation 98.3 H (94-97) % Chloride (98-107) mmol/L BUN (9-20) mg/dL Glucose (74-99) mg/dL POC Glucose (mg/dL) 154 H (75-99) mg/dL Calcium (8.4-10.2) mg/dL Phosphorus (2.5-4.5) mg/dL Microbiology - Last 24 Hours (Table) 10/18/17 09:10 Blood Culture - Preliminary Blood No Growth after 72 hours 10/19/17 13:20 Gram Stain - Final Sputum Sputum Culture - Final Assessment and Plan Assessment: 1 acute hypoxic respiratory failure, multifactorial, secondary to stridor with large glottic mass and COPD exacerbation. Doubt pneumonia. 2 advanced COPD 3 coronary artery disease appears bypass surgery 4 acute kidney injury, improving 5 hypercalcemia, improving 6 prostate cancer 7 atrial fibrillation, paroxysmal, currently back into normal sinus rhythm, patient is presently on heparin, and being followed by cardiology. 8 acute urinary retention and the patient has a Kenny catheter in place 9 hypertension 10 status post biopsy of glottic mass, postoperative day #1 pathology is pending. 11 status post tracheostomy, postoperative day #1. Recommendation: Patient was given a trial of pressure support and CPAP, tolerated that well was at bedside, then proceeded to placing the patient on trach collar, and discontinued mechanical ventilation. Evaluated the patient off mechanical ventilation, and he was doing extremely well. Very comfortable, in no distress. Hence my plan is to await the results of the biopsy, and will eventually transfer the patient out of the ICU in the next 24 hours. May or may not require tertiary care referral for his glottic mass and that will be decided upon by ENT on the case. In the meantime we are waiting for the pathology report on that glottic biopsy. We will have a speech therapist evaluated the patient, and will decide on the nutritional support based on the recommendations of the speech therapist. Patient may require swallow evaluation today. Critical care time is 35 minutes. Time with Patient: Greater than 30
[2017-10-22 12:03] LABS: Glucose,Whole Blood 143 mg/dL (75-99)
--- NOTE | 2017-10-22 12:41 | P.GSCN ---
History of Present Illness Consult date: 10/22/17 History of present illness: The patient is an 82-year-old gentleman well known to me for prostate cancer. I met the patient several years ago when he presented with widely metastatic prostate cancer. She originally had a localized prostate cancer that he declined any treatment. The treatment eventually was instituted by me when he presented with a very elevated PSA metastases. He is on complete androgen blockade. He has developed significant COPD. His last PSA was low, the exact number I do not have. He has received appropriate LHRH in the last few months. He has been having some difficulty urination apparently is in urine retention. This is most likely due to the large cancerous prostate. Review of Systems ROS unobtainable: due to endotracheal tube Past Medical History Past Medical History: Atrial Fibrillation, Coronary Artery Disease (CAD), Cancer , Chest Pain / Angina, GERD/Reflux, Hyperlipidemia, Hypertension, Myocardial Infarction ([place]), Osteoarthritis (OA), Prostate Disorder Additional Past Medical History / Comment(s): Prostate ca with hormone treatment , skin cancer with removals, back pain, arthritis bilateral knees and wrists, occasional numbness bilateral legs. Last Myocardial Infarction Date:: 1997 History of Any Multi-Drug Resistant Organisms: None Reported Past Surgical History: Appendectomy, Coronary Bypass/CABG, Heart Catheterization , Heart Catheterization With Stent, Tonsillectomy Additional Past Surgical History / Comment(s): 1997 CABG 3 vessel, PCI with stent 2010, colonoscopy, R wrist tendon surgery, R hand lipoma removed, sclerosing hemangioma excised from chest, skin cancer removals. left cataract removed friday10/13/2017 Past Anesthesia/Blood Transfusion Reactions: No Reported Reaction Date of Last Stent Placement:: 2010 Smoking Status: Former smoker - Past Family History Father Family Medical History: No Reported History Additional Family Medical History / Comment(s): Father was healthy Mother Family Medical History: Coronary Artery Disease (CAD), Hyperlipidemia, Hypertension Medications and Allergies Home Medications Medication Instructions Recorded Confirmed Type Aspirin EC [Ecotrin Low Dose] 162 mg PO DAILY 04/29/17 10/18/17 History Atenolol [Tenormin] 50 mg PO DAILY 04/29/17 10/18/17 History Atorvastatin [Lipitor] 40 mg PO HS 04/29/17 10/18/17 History Docusate [Colace] 100 mg PO DAILY PRN 04/29/17 10/18/17 History Ezetimibe [Zetia] 10 mg PO HS 04/29/17 10/18/17 History Furosemide [Lasix] 40 mg PO DAILY 04/29/17 10/18/17 History Multivitamins, Thera [Multivitamin 1 tab PO DAILY 04/29/17 10/18/17 History (formulary)] Omeprazole Magnesium [PriLOSEC OTC] 20 mg PO DAILY 04/29/17 10/18/17 History Ipratropium-Albuterol Nebulize 3 ml INHALATION RT-QID ampul.neb 05/09/17 Rx [Duoneb 0.5 mg-3 mg/3 ml Soln] Lisinopril [Zestril] 10 mg PO DAILY #30 tab 05/26/17 10/18/17 Rx Alfuzosin HCl [Uroxatral ER] 10 mg PO DAILY 10/15/17 10/18/17 History Cetirizine HCl [Zyrtec] 10 mg PO DAILY 10/15/17 10/18/17 History Flutamide 375 mg PO BID 10/15/17 10/18/17 History traMADol HCL [Ultram] 50 - 100 mg PO Q6H PRN 10/15/17 10/18/17 History Allergies Allergy/AdvReac Type Severity Reaction Status Date / Time acetaminophen [From Tylenol] Allergy Rash/Hives Verified 10/18/17 11:17 bicalutamide [From Casodex] Allergy Rash/Hives Verified 10/18/17 11:17 meloxicam [From Mobic] Allergy Unknown Verified 10/18/17 11:17 Sulfa (Sulfonamide Allergy Itching Verified 10/18/17 11:17 Antibiotics) morphine AdvReac Nausea & Verified 10/18/17 11:17 Vomiting Surgical - Exam Vital Signs Temp Pulse Resp BP Pulse Ox 98.2 F 93 28 H 102/35 87 L 10/18/17 08:49 10/18/17 08:49 10/18/17 08:49 10/18/17 08:49 10/18/17 08:49 - General well developed, moderate distress, chronically ill, obese - Eyes PERRL - ENT no hearing loss - Neck Tracheostomy - Abdomen Abdomen: soft, non tender - Genitourinary Indwelling catheter Results - Labs 10/22/17 04:27 10/22/17 04:27 Abnormal Lab Results - Last 24 Hours (Table) 10/21/17 10/21/17 10/22/17 Range/Units 19:10 23:52 04:27 RBC 3.31 L (4.30-5.90) m/uL Hgb 10.6 L (13.0-17.5) gm/dL Hct 33.0 L (39.0-53.0) % Lymphocytes # 0.4 L (1.0-4.8) k/uL APTT (22.0-30.0) sec ABG pH (7.35-7.45) ABG pCO2 (35-45) mmHg ABG pO2 (83-108) mmHg ABG O2 Saturation (94-97) % Chloride (98-107) mmol/L BUN (9-20) mg/dL Glucose (74-99) mg/dL POC Glucose (mg/dL) 148 H 123 H (75-99) mg/dL Calcium (8.4-10.2) mg/dL Phosphorus (2.5-4.5) mg/dL 10/22/17 10/22/17 10/22/17 Range/Units 04:27 04:27 06:24 RBC (4.30-5.90) m/uL Hgb (13.0-17.5) gm/dL Hct (39.0-53.0) % Lymphocytes # (1.0-4.8) k/uL APTT 20.3 L (22.0-30.0) sec ABG pH (7.35-7.45) ABG pCO2 (35-45) mmHg ABG pO2 (83-108) mmHg ABG O2 Saturation (94-97) % Chloride 120 H* (98-107) mmol/L BUN 41 H (9-20) mg/dL Glucose 142 H (74-99) mg/dL POC Glucose (mg/dL) 154 H (75-99) mg/dL Calcium 11.0 H (8.4-10.2) mg/dL Phosphorus 2.2 L (2.5-4.5) mg/dL 10/22/17 10/22/17 Range/Units 07:19 12:01 RBC (4.30-5.90) m/uL Hgb (13.0-17.5) gm/dL Hct (39.0-53.0) % Lymphocytes # (1.0-4.8) k/uL APTT (22.0-30.0) sec ABG pH 7.50 H (7.35-7.45) ABG pCO2 30 L (35-45) mmHg ABG pO2 140 H (83-108) mmHg ABG O2 Saturation 98.3 H (94-97) % Chloride (98-107) mmol/L BUN (9-20) mg/dL Glucose (74-99) mg/dL POC Glucose (mg/dL) 143 H (75-99) mg/dL Calcium (8.4-10.2) mg/dL Phosphorus (2.5-4.5) mg/dL Microbiology - Last 24 Hours (Table) 10/18/17 09:10 Blood Culture - Preliminary Blood No Growth after 72 hours 10/19/17 13:20 Gram Stain - Final Sputum Sputum Culture - Final Diabetes panel 10/22/17 Range/Units 04:27 Sodium 145 (137-145) mmol/L Potassium 4.1 (3.5-5.1) mmol/L Chloride 120 H* (98-107) mmol/L Carbon Dioxide 22 (22-30) mmol/L BUN 41 H (9-20) mg/dL Creatinine 1.00 (0.66-1.25) mg/dL Glucose 142 H (74-99) mg/dL Calcium 11.0 H (8.4-10.2) mg/dL Calcium panel 10/22/17 Range/Units 04:27 Calcium 11.0 H (8.4-10.2) mg/dL Phosphorus 2.2 L (2.5-4.5) mg/dL Pituitary panel 10/22/17 Range/Units 04:27 Sodium 145 (137-145) mmol/L Potassium 4.1 (3.5-5.1) mmol/L Chloride 120 H* (98-107) mmol/L Carbon Dioxide 22 (22-30) mmol/L BUN 41 H (9-20) mg/dL Creatinine 1.00 (0.66-1.25) mg/dL Glucose 142 H (74-99) mg/dL Calcium 11.0 H (8.4-10.2) mg/dL Adrenal panel 08/29/18 Range/Units 04:27 Sodium 145 (137-145) mmol/L Potassium 4.1 (3.5-5.1) mmol/L Chloride 120 H* (98-107) mmol/L Carbon Dioxide 22 (22-30) mmol/L BUN 41 H (9-20) mg/dL Creatinine 1.00 (0.66-1.25) mg/dL Glucose 142 H (74-99) mg/dL Calcium 11.0 H (8.4-10.2) mg/dL Assessment and Plan Assessment: Impression: Respiratory distress, intubation now tracheostomy. Urine retention for which we are asked see the patient. On history of metastatic prostate carcinoma, hormone insensitive on complete androgen blockade Recommendations: He should continue with his flutamide. He should continue with indwelling catheter until he is ambulatory. At that point in time a voiding trial be instituted.
[2017-10-22] MEDS: TAMSULOSIN 0.4 MG CAP.ER.24H PO SCH (16:18)
[2017-10-22] MEDS: ATENOLOL 50 MG TAB PO SCH (16:18)
[2017-10-22] MEDS: FLUTAMIDE PO SCH ×2 (16:18→20:36)
[2017-10-22] MEDS: MULTIVITAMINS, THERA 1 EACH TAB PO SCH (16:18)
[2017-10-22] MEDS: ASPIRIN 81 MG PO SCH (16:18)
[2017-10-22 17:40] LABS: Glucose,Whole Blood 119 mg/dL (75-99)
--- NOTE | 2017-10-22 18:43 | P.PN ---
Subjective Progress Note Date: 10/22/17 Principal diagnosis: Acute on chronic respiratory failure This 82-year-old gentleman was admitted to the hospital with shortness of breath. Patient was noted to have some inspiratory stridor, mild. Patient was seen by pulmonary. Due to continued dyspnea the patient was intubated at intubation patient is noted to have a laryngeal mass. In view of this ENT did evaluate the patient and yesterday patient underwent a tracheostomy. Biopsy results are pending a CAT scan was done which does confirm a large laryngeal and pharyngeal mass was highly suspicious for malignancy a lymph node seen in the parotid area. The patient hasn't tracheostomy tube is respirations are even oxygenation is adequate. The patient is arousable and alert to able to communicate. Patient does have adequate urine output. He has a Kenny catheter. Does exhibit some edema. We'll give the patient some Lasix. He is a previous history of congestive cardiac failure COPD paroxysmal atrial fibrillation and patient is on a ventilator at present he is also going to be started back on heparin REVIEW OF SYSTEMS: Neuro: Denies any headaches dizziness. Psych: Appears to be fairly calm by the presence status Cardiac: Denies any chest pain Respiratory: Denies shortness of breath. GI: No nausea vomiting does complain of thirst : Has a Kenny catheter Extremities: Denies pain Constitutional: No fever, reported. Objective - Vital Signs Vital signs: Vital Signs Temp 98.7 F 10/22/17 16:00 Pulse 111 H 10/22/17 18:00 Resp 18 10/22/17 18:00 BP 155/82 10/22/17 18:00 Pulse Ox 93 L 10/22/17 18:00 Intake & Output 10/21/17 10/22/17 10/22/17 18:59 06:59 18:59 Intake Total 2150 1166.93 1360.452 Output Total 650 1035 730 Balance 1500 131.93 630.452 Weight 96.6 kg Intake: IV 1550 1100 1200 Azithromycin 500 mg In 250 Sodium Chloride 0.9% 250 ml @ 125 mls/hr IVPB DAILY [facility] Rx#:[id number] Sodium Chloride 0.9% 1, 900 1100 1200 000 ml @ 100 mls/hr IV . Q10H [facility] Rx#:[id number] Intake, IV Titration 600 66.93 160.452 Amount Heparin Sod,Pork in 0.45% 131.268 NaCl 25,000 unit In 0.45 % NaCl 1 500ml.bag @ 10. 35 UNITS/KG/HR 19.99 mls/ hr IV .Q24H [facility] Rx#: [id number] Heparin Sod,Pork in 0.45% 500 NaCl 25,000 unit In 0.45 % NaCl 1 500ml.bag @ 11.3 UNITS/KG/HR 20 mls/hr IV .Q24H [facility] Rx#:[id number] Propofol 1,000 mg In 100 66.93 29.184 Empty Bag 1 bag @ Titrate IV .Q0M [facility] Rx#: [id number] Tube Feeding 0 Output: Urine 640 1035 730 Estimated Blood Loss 10 Other: Voiding Method Indwelling Catheter Indwelling Catheter Indwelling Catheter ABP, PAP, CO, CI - Last Documented Arterial Blood Pressure 157/68 PHYSICAL EXAMINATION: Cooperative, at present in no acute distress. HEENT: Patient has a tracheostomy tube left internal jugular IV Chest: Lung gallego reveal improved air flow occasional rhonchi started for his generalized decreased Cardiac: Normal S1-S2 with no gallops systolic murmur 2/6 left sternal border Abdomen: Soft bowel sounds present. Extremities: No mild edema edema no tenderness Neurologically: Awake, alert, oriented with well-coordinated movements. Communication by writing - Labs CBC & Chem 7: 10/22/17 04:27 10/22/17 04:27 Labs: Abnormal Lab Results - Last 24 Hours (Table) 10/21/17 10/21/17 10/22/17 Range/Units 19:10 23:52 04:27 RBC 3.31 L (4.30-5.90) m/uL Hgb 10.6 L (13.0-17.5) gm/dL Hct 33.0 L (39.0-53.0) % Lymphocytes # 0.4 L (1.0-4.8) k/uL APTT (22.0-30.0) sec ABG pH (7.35-7.45) ABG pCO2 (35-45) mmHg ABG pO2 (83-108) mmHg ABG O2 Saturation (94-97) % Chloride (98-107) mmol/L BUN (9-20) mg/dL Glucose (74-99) mg/dL POC Glucose (mg/dL) 148 H 123 H (75-99) mg/dL Calcium (8.4-10.2) mg/dL Phosphorus (2.5-4.5) mg/dL 10/22/17 10/22/17 10/22/17 Range/Units 04:27 04:27 06:24 RBC (4.30-5.90) m/uL Hgb (13.0-17.5) gm/dL Hct (39.0-53.0) % Lymphocytes # (1.0-4.8) k/uL APTT 20.3 L (22.0-30.0) sec ABG pH (7.35-7.45) ABG pCO2 (35-45) mmHg ABG pO2 (83-108) mmHg ABG O2 Saturation (94-97) % Chloride 120 H* (98-107) mmol/L BUN 41 H (9-20) mg/dL Glucose 142 H (74-99) mg/dL POC Glucose (mg/dL) 154 H (75-99) mg/dL Calcium 11.0 H (8.4-10.2) mg/dL Phosphorus 2.2 L (2.5-4.5) mg/dL 10/22/17 10/22/17 10/22/17 Range/Units 07:19 12:01 17:38 RBC (4.30-5.90) m/uL Hgb (13.0-17.5) gm/dL Hct (39.0-53.0) % Lymphocytes # (1.0-4.8) k/uL APTT (22.0-30.0) sec ABG pH 7.50 H (7.35-7.45) ABG pCO2 30 L (35-45) mmHg ABG pO2 140 H (83-108) mmHg ABG O2 Saturation 98.3 H (94-97) % Chloride (98-107) mmol/L BUN (9-20) mg/dL Glucose (74-99) mg/dL POC Glucose (mg/dL) 143 H 119 H (75-99) mg/dL Calcium (8.4-10.2) mg/dL Phosphorus (2.5-4.5) mg/dL Microbiology - Last 24 Hours (Table) 10/18/17 09:10 Blood Culture - Preliminary Blood No Growth after 96 hours Assessment and Plan Assessment: ASSESSMENT: 1. Acute respiratory failure. 2. Chronic respiratory failure. 3. Exacerbation COPD. 4. Rule out left lower lobe pneumonia. 5. Paroxysmal atrial fibrillation. 6. Stable coronary artery disease. 7. Compensated chronic congestive cardiac failure secondary to systolic dysfunction. 8. Anemia of chronic disease and chronic blood loss 9. Carcinoma of the prostate with recurrence 10. Acute Urinary retention. 11. Acute on chronic renal failure 12. 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 Status post tracheostomy PLAN: Continue present medical regimen. Patient's followed by pulmonary and ENT. Patient was started back on heparin as well as started on feedings if okay with the surgeon. Prognosis remains guarded condition discussed with the patient he is requesting that his friend Shahzad come visit him as he wants Shahzad to help make the decisions
--- NOTE | 2017-10-22 19:47 | P.PN ---
Subjective Progress Note Date: 10/22/17 Principal diagnosis: Post op trach This pt is doing well after tracheostomy. Sitting up and writing notes. He is having a difficult time swallowing and a barium swallow has been ordered. The patient may need a feeding tube if he is unable to swallow. Currently he is comfortable with no difficulty breathing. Objective - Vital Signs Vital signs: Vital Signs Temp 98.7 F 10/22/17 16:00 Pulse 101 H 10/22/17 19:00 Resp 18 10/22/17 19:00 BP 155/82 10/22/17 19:00 Pulse Ox 92 L 10/22/17 19:00 Intake & Output 10/22/17 10/22/17 10/23/17 06:59 18:59 06:59 Intake Total 1166.93 1360.452 100 Output Total 1035 730 50 Balance 131.93 630.452 50 Weight 96.6 kg Intake: IV 1100 1200 100 Sodium Chloride 0.9% 1, 1100 1200 100 000 ml @ 100 mls/hr IV . Q10H [facility] Rx#:[id number] Intake, IV Titration 66.93 160.452 Amount Heparin Sod,Pork in 0.45% 131.268 NaCl 25,000 unit In 0.45 % NaCl 1 500ml.bag @ 10. 35 UNITS/KG/HR 19.99 mls/ hr IV .Q24H [facility] Rx#: [id number] Propofol 1,000 mg In 66.93 29.184 Empty Bag 1 bag @ Titrate IV .Q0M [facility] Rx#: [id number] Output: Urine 1035 730 50 Other: Voiding Method Indwelling Catheter Indwelling Catheter ABP, PAP, CO, CI - Last Documented Arterial Blood Pressure 163/72 - Constitutional General appearance: Present: average body habitus - EENT Eyes: Present: PERRLA ENT: Present: hearing grossly normal - Neck Neck: Present: lymphadenopathy, normal ROM - Cardiovascular Rhythm: regular - Musculoskeletal Musculoskeletal: Present: generalized weakness - Psychiatric Psychiatric: Present: A&O x's 3, appropriate affect, intact judgment & insight - Labs CBC & Chem 7: 10/22/17 04:27 10/22/17 04:27 Labs: Abnormal Lab Results - Last 24 Hours (Table) 10/21/17 10/22/17 10/22/17 Range/Units 23:52 04:27 04:27 RBC 3.31 L (4.30-5.90) m/uL Hgb 10.6 L (13.0-17.5) gm/dL Hct 33.0 L (39.0-53.0) % Lymphocytes # 0.4 L (1.0-4.8) k/uL APTT (22.0-30.0) sec ABG pH (7.35-7.45) ABG pCO2 (35-45) mmHg ABG pO2 (83-108) mmHg ABG O2 Saturation (94-97) % Chloride 120 H* (98-107) mmol/L BUN 41 H (9-20) mg/dL Glucose 142 H (74-99) mg/dL POC Glucose (mg/dL) 123 H (75-99) mg/dL Calcium 11.0 H (8.4-10.2) mg/dL Phosphorus 2.2 L (2.5-4.5) mg/dL 10/22/17 10/22/17 10/22/17 Range/Units 04:27 06:24 07:19 RBC (4.30-5.90) m/uL Hgb (13.0-17.5) gm/dL Hct (39.0-53.0) % Lymphocytes # (1.0-4.8) k/uL APTT 20.3 L (22.0-30.0) sec ABG pH 7.50 H (7.35-7.45) ABG pCO2 30 L (35-45) mmHg ABG pO2 140 H (83-108) mmHg ABG O2 Saturation 98.3 H (94-97) % Chloride (98-107) mmol/L BUN (9-20) mg/dL Glucose (74-99) mg/dL POC Glucose (mg/dL) 154 H (75-99) mg/dL Calcium (8.4-10.2) mg/dL Phosphorus (2.5-4.5) mg/dL 10/22/17 10/22/17 Range/Units 12:01 17:38 RBC (4.30-5.90) m/uL Hgb (13.0-17.5) gm/dL Hct (39.0-53.0) % Lymphocytes # (1.0-4.8) k/uL APTT (22.0-30.0) sec ABG pH (7.35-7.45) ABG pCO2 (35-45) mmHg ABG pO2 (83-108) mmHg ABG O2 Saturation (94-97) % Chloride (98-107) mmol/L BUN (9-20) mg/dL Glucose (74-99) mg/dL POC Glucose (mg/dL) 143 H 119 H (75-99) mg/dL Calcium (8.4-10.2) mg/dL Phosphorus (2.5-4.5) mg/dL Microbiology - Last 24 Hours (Table) 10/18/17 09:10 Blood Culture - Preliminary Blood No Growth after 96 hours Assessment and Plan (1) Laryngeal stridor Current Visit: Yes Status: Acute Code(s): J38.5 - LARYNGEAL SPASM SNOMED Code(s): 72145656 Plan: 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 CAT scan shows some lymphadenopathy and a fine-needle aspiration has been ordered. I've recommended that this patient be transferred to a facility that has a head and neck oncologic surgery team for evaluation and possible surgery. Patient may be a candidate for a laryngectomy and neck dissection. We will be making some phone calls to arrange for transfer. I discussed this with the patient and he is in agreement.
[2017-10-22] MEDS: ATORVASTATIN 40 MG TAB PO SCH (20:36)
[2017-10-22] MEDS: DILTIAZEM 50 MG in SODIUM CHLORIDE 0.9% 40 ML IV SCH (20:56)
[2017-10-22] MEDS: HYDROmorphone 1 MG/ML 1 ML SYRINGE IVP PRN (22:48)
[2017-10-22 23:51] LABS: Glucose,Whole Blood 131 mg/dL (75-99)
[2017-10-23] MEDS: SODIUM CHLORIDE 0.9% 1,000 ML IV SCH (00:40)
[2017-10-23] MEDS: HYDROmorphone 1 MG/ML 1 ML SYRINGE IVP PRN ×6 (02:15→22:45)
[2017-10-23 05:16] LABS: Basophils % (A) 0 %; Eosinophils % (A) 0 %; HCT 31.4 % (39.0-53.0); HGB 9.7 gm/dL (13.0-17.5); Lymphocytes # (A) 0.3 k/uL (1.0-4.8); Lymphocytes % (A) 5 %; MCH 31.3 pg (25.0-35.0); MCHC 31.1 g/dL (31.0-37.0); MCV 100.8 fL (80.0-100.0); Mean Platelet Volume 8.1; Monocytes # (A) 0.2 k/uL (0-1.0); Monocytes % (A) 4 %; Neutrophils # (A) 5.7 k/uL (1.3-7.7); Neutrophils % (A) 91 %; Platelet Count 135 k/uL (150-450); RBC 3.11 m/uL (4.30-5.90); RDW 13.4 % (11.5-15.5); WBC 6.3 k/uL (3.8-10.6)
[2017-10-23 05:41] LABS: Calcium 11.1 mg/dL (8.4-10.2); Magnesium 2.3 mg/dL (1.6-2.3); Phosphorus 2.4 mg/dL (2.5-4.5)
[2017-10-23] MEDS: methylPREDNISolone SOD SUCCI 125 MG/2 ML VIAL IV SCH (05:50)
[2017-10-23 06:02] LABS: Glucose,Whole Blood 160 mg/dL (75-99)
[2017-10-23] MEDS: INSULIN ASPART 100 UNIT/ML 1 ML 10 ML VIAL SQ SCH ×4 (06:04→23:58)
[2017-10-23] MEDS: DILTIAZEM 50 MG in SODIUM CHLORIDE 0.9% 40 ML IV SCH ×2 (06:05→22:14)
[2017-10-23] MEDS ORDERED: DEXTROSE 5% IN WATER 1,000 ML IV ONE (06:12)
[2017-10-23] MEDS: HEPARIN SOD,PORK IN 0.45% NACL 25,000 UNIT in 0.45% NACL 1 500ML.BAG IV SCH (06:23)
[2017-10-23] MEDS: IPRATROPIUM-ALBUTEROL 3 ML NEB INHALATION SCH ×4 (07:05→21:17)
--- NOTE | 2017-10-23 07:21 | XR ---
EXAMINATION TYPE: XR chest 1V portable DATE OF EXAM: 10/23/2017 HISTORY: Shortness of breath. COMPARISON: 10/22/2017 TECHNIQUE: Single view of the chest is submitted. FINDINGS: Demonstrated are scattered senescent parenchymal change. Basilar effusions and atelectasis and/or infiltrates remain unchanged. The heart is stable. Hilar and mediastinal structures are within normal limits. Degenerative changes are seen of the dorsal spine. IMPRESSION: 1. Basilar effusions and atelectasis and/or infiltrates remain unchanged.
[2017-10-23] MEDS: AZITHROMYCIN 500 MG in SODIUM CHLORIDE 0.9% 250 ML IVPB SCH (08:28)
[2017-10-23] MEDS: PANTOPRAZOLE 40 MG/10 ML VIAL IVP SCH (08:28)
[2017-10-23] MEDS ORDERED: FUROSEMIDE 10 MG/ML 2 ML VIAL IV SCH (09:00)
[2017-10-23] MEDS: TAMSULOSIN 0.4 MG CAP.ER.24H PO SCH (09:52)
[2017-10-23] MEDS: FLUTAMIDE PO SCH ×2 (09:52→20:06)
[2017-10-23] MEDS: ASPIRIN 81 MG PO SCH (09:52)
[2017-10-23] MEDS: ATENOLOL 50 MG TAB PO SCH (09:52)
--- NOTE | 2017-10-23 10:52 | US ---
EXAMINATION TYPE: US thyroid st tissue head/neck DATE OF EXAM: 10/23/2017 COMPARISON: CT 2018 CLINICAL HISTORY: soft tissue left neck. Left parotid soft tissue mass, exam done portable in ICU. Left parotid region: 2.0 x 1.3 x 1.6cm hypoechoic complex vascular mass IMPRESSION: Complex vascular mass left parotid gland. Tissue diagnosis recommended.
[2017-10-23] MEDS ORDERED: PSEUDOEPHEDRINE 30 MG TAB PO ONE (11:45)
--- NOTE | 2017-10-23 11:46 | FL ---
MODIFIED SWALLOW / DEGLUTITION STUDY DATE OF EXAM: 10/23/2017 CLINICAL HISTORY: 82-year-old male dysphagia, airway obstruction, trouble swallowing, mass. Recent tr acheostomy. TECHNIQUE: Deglutition study is performed utilizing thin liquid barium, honey and nectar thick liqui d barium, and barium thick applesauce. Total fluoroscopy time: 2 minutes 56 seconds. Total images: None. Real-time fluoroscopy support was provided to speech pathology. COMPARISON: None. FINDINGS: There is abnormal soft tissue in the hypopharynx narrowing the upper cervical esophagus. Deep penetra tion is noted with all tested consistencies. There is silent aspiration noted with thin liquids and h oney consistency that occurs after the swallow secondary to progressively accumulating residuals in t he piriform sinuses are aerated penetrated material also eventually is aspirated. There is a tracheos rhiannon present. Covering the stoma does not cause any improvement. Moderate vallecular and progressive piriform sinus residuals are noted. There is also reduced laryngeal closure. IMPRESSION: 1. Hypopharyngeal mass narrows the upper esophagus and contributes to progressive piriform sinus resi duals which leads to penetration and eventual silent aspiration. 2. Deep penetration is noted with all tested consistencies and this penetrated material also eventual ly becomes aspirated. 3. Moderate vallecular residuals are also noted. There is also reduced laryngeal closure. Please refer to speech therapist notes for further details if necessary.
[2017-10-23 11:48] LABS: Glucose,Whole Blood 204 mg/dL (75-99)
[2017-10-23] MEDS: MULTIVITAMINS, THERA 1 EACH TAB PO SCH (12:31)
--- NOTE | 2017-10-23 13:48 | P.PN ---
Subjective Progress Note Date: 10/23/17 Principal diagnosis: Acute hypoxic respiratory failure secondary to COPD, possible left lower lobe pneumonia, and vocal cords mass, and stridor 82-year-old male patient with previous history of advanced COPD, along with history of coronary artery disease and previous bypass surgery and previous history of prostate cancer, presented to the hospital because of worsening shortness of breath. I was asked even with this patient as the patient's oxygenation was getting worse. At a time of my arrival, the patient was a 50% Ventimask. He was having some questionable stridorous inspiratory efforts, his cough was weak and his speech was also altered. He was unable to bring up much of sputum. He denied having any angina or chest pain. He also had a run of atrial fibrillation yesterday and currently his rhythm is sinus. I reviewed the chest x-ray and there is concern tolerance lower lobe infiltrates/ atelectasis. The patient is already on a combination of Rocephin and Zithromax. He was also noted to have hypercalcemia and acute kidney injury with a creatinine of 1.9. The exact nature of the hypercalcemia is not clear. As mentioned, he has prostate cancer. A recent bone scan from a recent bone scan from May 2017 showed no evidence of any skeletal involvement. Patient was reevaluated today on 10/20/2017, remains on mechanical ventilation. Patient was intubated yesterday by Dr. Woods, and urine intubation he was concerned about the vocal cords obstruction with what seems to be a mass involving the adenoid area, and displacing the vocal cords. Nonetheless, patient was intubated using a glidescope, and I have no plans to extubate the patient until he is evaluated by ENT, and the patient may require tracheostomy and biopsy of the lesion around the vocal cords. ENT consult was initiated, and he is yet to be seen by ENT on consultation. Ventilator settings were noted. Chest x-ray showed bibasilar opacities. And small bilateral pleural effusions. CBC showed slight leukocytosis. WBC count is 15.7 hemoglobin is 10.4 his PTT is 55.3, remains on heparin. ABG on 50% showed a pO2 of 117 pCO2 of 37 pH of 7.46. Basic metabolic profile is relatively normal BUN is 48 creatinine is 1.10. Patient is arousable, propofol was placed on hold, and we were able to examine the patient, seems to be very appropriate, and comprehending or what he was being controlled. Again I have no plans to extubate the patient until a tracheostomy is done, and ENT has seen the patient. Patient was reevaluated today on 10/21/2017, remains on mechanical ventilation, his ventilator settings are tidal volume of 500 assist control rate 16 FiO2 of 50% and PEEP of 5. He is not requiring any pressors, he remains on propofol which I plan to discontinue and give the patient is sedation holiday. And assess mental status again today. Patient is scheduled to undergo tracheostomy this afternoon, and biopsy of the vocal cords mass. This will be done likely later this afternoon by Dr. Foster. In the meantime the patient is hemodynamically stable, his labs were reviewed, and believes he count is 5.2 hemoglobin is 10.3 electrolytes are relatively normal BUN is 43 creatinine is 1.01. Mental status was appropriate yesterday off propofol, and we will assess his mental status again today off propofol. Chest x-ray showed mostly atelectasis and small pleural effusions. All meds were reviewed, patient remains empirically on antibiotics, he is also on updrafts, patient is on Cardizem drip at 5 mg per hour, and his atrial fibrillation seems to be fairly well controlled. He is on heparin which will plan to discontinue few hours before surgery. Patient was reevaluated today on 10/22/2017, patient underwent tracheostomy and thyroid isthmusectomy, and direct microscopic laryngoscopy with biopsy of the glottic mass. Results of which are pending. Patient was reevaluated today, and he seems to be doing very well. I gave the patient a short trial of pressure support and CPAP, and he was doing great. Hence I discontinued mechanical ventilation, and I placed him on a trach collar at 40% FiO2. His propofol has been discontinued. Patient seems to be hemodynamically stable, mentally appropriate, in no distress, denies any pain. ABG this morning showed a pO2 of 140 pCO2 of 30 pH of 7.50. CBC showed a hemoglobin of 10.6 WBC count of 7.1. Electrolytes were reviewed bicarb is 22. Sodium is 145. Patient's nasogastric tube was removed, and we plan to ask speech pathology to evaluate, and the patient can swallow we will proceed with oral feeding and deflate the cuff on the trach as needed. Chest x-ray continues to show bibasilar atelectasis and small pleural effusions. Reevaluated today on 10/23/2017, patient was extubated from mechanical ventilation yesterday, remains on trach collar. Patient failed swallow evaluation and barium swallow, hence I plan to arrange for the patient to have a PEG tube placement. Pathology from his laryngeal biopsy is still pending. Patient may eventually require referral to a tertiary care center like [facility] , or another facility depending on the recommendation of ENT on the case. In the meantime the patient continues to have atrial fibrillation but fairly controlled rate, and we are noticing more bleeding around the trach site, hence I recommended holding heparin for now. I have also recommended GI evaluation for a PEG tube placement. Patient is doing well overall, he is tolerating the trach collar well, relatively asymptomatic. Labs from today showed hemoglobin of 9.7 his PTT was 69. His sodium is climbing up to 151, EOM is 38 creatinine is 1.04, hence I plan to increase the IV fluid to D5W to 150 mL per hour. Will discontinue Lasix. Chest x-ray continues to show by basilar atelectasis and/or infiltrates. Objective - Vital Signs Vital signs: Vital Signs Temp 99 F 10/23/17 13:00 Pulse 96 10/23/17 12:30 Resp 20 10/23/17 12:30 BP 136/61 10/23/17 07:00 Pulse Ox 92 L 10/23/17 13:00 Intake & Output 10/22/17 10/23/17 10/23/17 18:59 06:59 18:59 Intake Total 5153.561 1891.949 600 Output Total 730 670 785 Balance 759.975 2936.949 -185 Weight 101.8 kg Intake: IV 1200 1300 600 Dextrose 5% in Water 1, 100 600 000 ml @ 100 mls/hr IV . Q10H [facility] Rx#:[id number] Sodium Chloride 0.9% 1, 1200 1200 000 ml @ 100 mls/hr IV . Q10H [facility] Rx#:[id number] Intake, IV Titration 160.452 425.949 Amount Diltiazem 50 mg In Sodium 57.217 Chloride 0.9% 40 ml @ Per Protocol IV .Q0M [facility] Rx#:[id number] Heparin Sod,Pork in 0.45% 131.268 368.732 NaCl 25,000 unit In 0.45 % NaCl 1 500ml.bag @ 10. 35 UNITS/KG/HR 19.99 mls/ hr IV .Q24H [facility] Rx#: [id number] Propofol 1,000 mg In 29.184 Empty Bag 1 bag @ Titrate IV .Q0M [facility] Rx#: [id number] Output: Urine 730 670 785 Other: Voiding Method Indwelling Catheter Indwelling Catheter ABP, PAP, CO, CI - Last Documented Arterial Blood Pressure 130/52 - Exam Physical exam revealed an 82-year-old white male on trach collar, in no distress. Some blood noted around the trach site. And patient has been noted to cough up some blood for the tracheostomy tube. Head exam was generally normal. There was no scleral icterus or corneal arcus. Mucous membranes were moist. Neck was supple and without jugular venous distension, thyromegaly, or carotid bruits. Carotids were easily palpable bilaterally. There was no adenopathy. Lungs sounds are diminished at the bases, no rhonchi and no wheezes. Cardiac exam revealed the PMI to be normally situated and sized. Irregular irregular rhythm, Normal S1 and S2, no S3 gallop. No murmur. Abdominal exam revealed soft nontender no megaly no rebound, positive bowel sounds. Examination of the extremities revealed no clubbing, edema or cyanosis. Examination of the skin revealed no evidence of significant rashes, no erythema. Neurologically awake and alert and there is no focal neurological deficit. - Labs CBC & Chem 7: 10/23/17 05:00 10/23/17 05:00 Labs: Abnormal Lab Results - Last 24 Hours (Table) 10/22/17 10/22/17 10/22/17 Range/Units 17:38 22:00 23:49 RBC (4.30-5.90) m/uL Hgb (13.0-17.5) gm/dL Hct (39.0-53.0) % MCV (80.0-100.0) fL Plt Count (150-450) k/uL Lymphocytes # (1.0-4.8) k/uL APTT 66.5 H (22.0-30.0) sec Sodium (137-145) mmol/L Chloride (98-107) mmol/L BUN (9-20) mg/dL Glucose (74-99) mg/dL POC Glucose (mg/dL) 119 H 131 H (75-99) mg/dL Calcium (8.4-10.2) mg/dL Phosphorus (2.5-4.5) mg/dL 10/23/17 10/23/17 10/23/17 Range/Units 05:00 05:00 05:00 RBC 3.11 L (4.30-5.90) m/uL Hgb 9.7 L (13.0-17.5) gm/dL Hct 31.4 L (39.0-53.0) % MCV 100.8 H (80.0-100.0) fL Plt Count 135 L (150-450) k/uL Lymphocytes # 0.3 L (1.0-4.8) k/uL APTT 69.0 H (22.0-30.0) sec Sodium 151 H (137-145) mmol/L Chloride 125 H* (98-107) mmol/L BUN 38 H (9-20) mg/dL Glucose 163 H (74-99) mg/dL POC Glucose (mg/dL) (75-99) mg/dL Calcium 11.1 H (8.4-10.2) mg/dL Phosphorus 2.4 L (2.5-4.5) mg/dL 10/23/17 10/23/17 Range/Units 06:01 11:47 RBC (4.30-5.90) m/uL Hgb (13.0-17.5) gm/dL Hct (39.0-53.0) % MCV (80.0-100.0) fL Plt Count (150-450) k/uL Lymphocytes # (1.0-4.8) k/uL APTT (22.0-30.0) sec Sodium (137-145) mmol/L Chloride (98-107) mmol/L BUN (9-20) mg/dL Glucose (74-99) mg/dL POC Glucose (mg/dL) 160 H 204 H (75-99) mg/dL Calcium (8.4-10.2) mg/dL Phosphorus (2.5-4.5) mg/dL Microbiology - Last 24 Hours (Table) 10/18/17 09:10 Blood Culture - Preliminary Blood No Growth after 120 hours Assessment and Plan Assessment: 1 acute hypoxic respiratory failure, multifactorial, secondary to stridor with large glottic mass and COPD exacerbation. Doubt pneumonia. 2 advanced COPD 3 coronary artery disease appears bypass surgery 4 acute kidney injury, improving 5 hypercalcemia, improving 6 prostate cancer 7 atrial fibrillation, paroxysmal, currently back into normal sinus rhythm, patient is presently on heparin, and being followed by cardiology. 8 acute urinary retention and the patient has a Kenny catheter in place 9 hypertension 10 status post biopsy of glottic mass, postoperative day #2 pathology is pending. 11 status post tracheostomy, postoperative day #2 12 hypernatremia and free water deficit, hence the patient will be kept on D5W and he will be increased, once the PEG tube is placed, we will recommend free water flushes via PEG tube. 13 failed swallow evaluation/barium swallow, patient will definitely need a PEG tube placement, GI was consulted for PEG tube placement. Recommendation: Continue present supportive care measures, hold heparin because of the bleeding around the tracheostomy, awaiting final pathology from his glottic mass biopsy, may consider referral to a tertiary care center. In the meantime we will address his active issues including atrial fibrillation, nutritional aspect and may recommend a PEG tube placement, continue bronchodilators, empiric antibiotics, aspiration pneumonia is not entirely ruled out considering the patient's failed swallow evaluations. Hence we'll change antibiotics to Zosyn to cover empirically for possible aspiration pneumonia. Patient will be transferred out of the ICU to a monitor bed on selective. Time with Patient: Less than 30
--- NOTE | 2017-10-23 15:33 | P.PN ---
Subjective Progress Note Date: 10/23/17 Principal diagnosis: laryngeal mass and airway compromise patient has done well with this tracheotomy. We areawaiting the results of his biopsy. We also have ordered an ultrasound fine-needle aspirationof this left neck mass. This patient otherwise is doing well. We are assessing his swallowing. Objective - Vital Signs Vital signs: Vital Signs Temp 99 F 10/23/17 13:00 Pulse 109 H 10/23/17 15:14 Resp 16 10/23/17 15:14 BP 149/80 10/23/17 15:14 Pulse Ox 93 L 10/23/17 14:00 Intake & Output 10/22/17 10/23/17 10/23/17 18:59 06:59 18:59 Intake Total 5711.137 3638.949 734.7 Output Total 730 670 910 Balance 787.107 8349.949 -175.3 Weight 101.8 kg 101.8 kg Intake: IV 1200 1300 700 Dextrose 5% in Water 1, 100 700 000 ml @ 150 mls/hr IV . Q6H40M [facility] Rx#:[id number] Sodium Chloride 0.9% 1, 1200 1200 000 ml @ 100 mls/hr IV . Q10H [facility] Rx#:[id number] Intake, IV Titration 160.452 425.949 34.7 Amount Diltiazem 50 mg In Sodium 57.217 34.7 Chloride 0.9% 40 ml @ Per Protocol IV .Q0M [facility] Rx#:[id number] Heparin Sod,Pork in 0.45% 131.268 368.732 NaCl 25,000 unit In 0.45 % NaCl 1 500ml.bag @ 10. 35 UNITS/KG/HR 19.99 mls/ hr IV .Q24H [facility] Rx#: [id number] Propofol 1,000 mg In 29.184 Empty Bag 1 bag @ Titrate IV .Q0M [facility] Rx#: [id number] Output: Urine 730 670 910 Other: Voiding Method Indwelling Catheter Indwelling Catheter Indwelling Catheter ABP, PAP, CO, CI - Last Documented Arterial Blood Pressure 139/55 - Constitutional General appearance: Present: average body habitus - EENT Eyes: Present: PERRLA ENT: Present: hearing grossly normal - Neck Details: tracheotomy site looks good no bleeding noted Neck: Present: lymphadenopathy, normal ROM - Labs CBC & Chem 7: 10/23/17 05:00 10/23/17 05:00 Labs: Abnormal Lab Results - Last 24 Hours (Table) 10/22/17 10/22/17 10/22/17 Range/Units 17:38 22:00 23:49 RBC (4.30-5.90) m/uL Hgb (13.0-17.5) gm/dL Hct (39.0-53.0) % MCV (80.0-100.0) fL Plt Count (150-450) k/uL Lymphocytes # (1.0-4.8) k/uL APTT 66.5 H (22.0-30.0) sec Sodium (137-145) mmol/L Chloride (98-107) mmol/L BUN (9-20) mg/dL Glucose (74-99) mg/dL POC Glucose (mg/dL) 119 H 131 H (75-99) mg/dL Calcium (8.4-10.2) mg/dL Phosphorus (2.5-4.5) mg/dL 10/23/17 10/23/17 10/23/17 Range/Units 05:00 05:00 05:00 RBC 3.11 L (4.30-5.90) m/uL Hgb 9.7 L (13.0-17.5) gm/dL Hct 31.4 L (39.0-53.0) % MCV 100.8 H (80.0-100.0) fL Plt Count 135 L (150-450) k/uL Lymphocytes # 0.3 L (1.0-4.8) k/uL APTT 69.0 H (22.0-30.0) sec Sodium 151 H (137-145) mmol/L Chloride 125 H* (98-107) mmol/L BUN 38 H (9-20) mg/dL Glucose 163 H (74-99) mg/dL POC Glucose (mg/dL) (75-99) mg/dL Calcium 11.1 H (8.4-10.2) mg/dL Phosphorus 2.4 L (2.5-4.5) mg/dL 10/23/17 10/23/17 Range/Units 06:01 11:47 RBC (4.30-5.90) m/uL Hgb (13.0-17.5) gm/dL Hct (39.0-53.0) % MCV (80.0-100.0) fL Plt Count (150-450) k/uL Lymphocytes # (1.0-4.8) k/uL APTT (22.0-30.0) sec Sodium (137-145) mmol/L Chloride (98-107) mmol/L BUN (9-20) mg/dL Glucose (74-99) mg/dL POC Glucose (mg/dL) 160 H 204 H (75-99) mg/dL Calcium (8.4-10.2) mg/dL Phosphorus (2.5-4.5) mg/dL Microbiology - Last 24 Hours (Table) 10/18/17 09:10 Blood Culture - Preliminary Blood No Growth after 120 hours Assessment and Plan (1) Laryngeal stridor Current Visit: Yes Status: Acute Code(s): J38.5 - LARYNGEAL SPASM SNOMED Code(s): 30943623 Plan: we're awaiting the results of the pathology of the laryngoscopy and biopsy. 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 Oncology is to be consulted once the pathology report is available. Time with Patient: Greater than 30
[2017-10-23] MEDS: PIPERACILLIN-TAZOBACTAM 3.375 GM in DEXTROSE/WATER 1 50ML.BAG IVPB SCH (16:07)
--- NOTE | 2017-10-23 16:45 | P.GSCN ---
History of Present Illness Consult date: 10/23/17 Reason for Consult: Malnutrition, dysphagia History of present illness: 82-year-old male admitted with weakness and shortness of breath. Patient describes a 40 pound weight loss over the last several months. Patient was found to have a mass in the pharyngolaryngeal location. We were consulted for PEG tube placement. Patient failed a swallow evaluation. Patient is alert and able to communicate by writing after a tracheostomy was placed 2 days ago. Review of Systems ROS unobtainable: due to endotracheal tube Past Medical History Past Medical History: Atrial Fibrillation, Coronary Artery Disease (CAD), Cancer , Chest Pain / Angina, GERD/Reflux, Hyperlipidemia, Hypertension, Myocardial Infarction (SD), Osteoarthritis (OA), Prostate Disorder Additional Past Medical History / Comment(s): Prostate ca with hormone treatment , skin cancer with removals, back pain, arthritis bilateral knees and wrists, occasional numbness bilateral legs. Last Myocardial Infarction Date:: 1997 History of Any Multi-Drug Resistant Organisms: None Reported Past Surgical History: Appendectomy, Coronary Bypass/CABG, Heart Catheterization , Heart Catheterization With Stent, Tonsillectomy Additional Past Surgical History / Comment(s): 1997 CABG 3 vessel, PCI with stent 2010, colonoscopy, R wrist tendon surgery, R hand lipoma removed, sclerosing hemangioma excised from chest, skin cancer removals. left cataract removed friday10/13/2017 Past Anesthesia/Blood Transfusion Reactions: No Reported Reaction Date of Last Stent Placement:: 2010 Smoking Status: Former smoker - Past Family History Father Family Medical History: No Reported History Additional Family Medical History / Comment(s): Father was healthy Mother Family Medical History: Coronary Artery Disease (CAD), Hyperlipidemia, Hypertension Medications and Allergies Home Medications Medication Instructions Recorded Confirmed Type Aspirin EC [Ecotrin Low Dose] 162 mg PO DAILY 04/29/17 10/18/17 History Atenolol [Tenormin] 50 mg PO DAILY 04/29/17 10/18/17 History Atorvastatin [Lipitor] 40 mg PO HS 04/29/17 10/18/17 History Docusate [Colace] 100 mg PO DAILY PRN 04/29/17 10/18/17 History Ezetimibe [Zetia] 10 mg PO HS 04/29/17 10/18/17 History Furosemide [Lasix] 40 mg PO DAILY 04/29/17 10/18/17 History Multivitamins, Thera [Multivitamin 1 tab PO DAILY 04/29/17 10/18/17 History (formulary)] Omeprazole Magnesium [PriLOSEC OTC] 20 mg PO DAILY 04/29/17 10/18/17 History Ipratropium-Albuterol Nebulize 3 ml INHALATION RT-QID ampul.neb 05/09/17 Rx [Duoneb 0.5 mg-3 mg/3 ml Soln] Lisinopril [Zestril] 10 mg PO DAILY #30 tab 05/26/17 10/18/17 Rx Alfuzosin HCl [Uroxatral ER] 10 mg PO DAILY 10/15/17 10/18/17 History Cetirizine HCl [Zyrtec] 10 mg PO DAILY 10/15/17 10/18/17 History Flutamide 375 mg PO BID 10/15/17 10/18/17 History traMADol HCL [Ultram] 50 - 100 mg PO Q6H PRN 10/15/17 10/18/17 History Allergies Allergy/AdvReac Type Severity Reaction Status Date / Time acetaminophen [From Tylenol] Allergy Rash/Hives Verified 10/18/17 11:17 bicalutamide [From Casodex] Allergy Rash/Hives Verified 10/18/17 11:17 meloxicam [From Mobic] Allergy Unknown Verified 10/18/17 11:17 Sulfa (Sulfonamide Allergy Itching Verified 10/18/17 11:17 Antibiotics) morphine AdvReac Nausea & Verified 10/18/17 11:17 Vomiting Surgical - Exam Vital Signs Temp Pulse Resp BP Pulse Ox 98.2 F 93 28 H 102/35 87 L 10/18/17 08:49 10/18/17 08:49 10/18/17 08:49 10/18/17 08:49 10/18/17 08:49 Physical exam: General: Well-developed, thin-appearing HEENT: Normocephalic, sclerae nonicteric, tracheostomy and placed Abdomen: Nontender, nondistended Extremities: No edema Neuro: Alert and oriented Results - Labs 10/23/17 05:00 10/23/17 05:00 Abnormal Lab Results - Last 24 Hours (Table) 10/22/17 10/22/17 10/22/17 Range/Units 17:38 22:00 23:49 RBC (4.30-5.90) m/uL Hgb (13.0-17.5) gm/dL Hct (39.0-53.0) % MCV (80.0-100.0) fL Plt Count (150-450) k/uL Lymphocytes # (1.0-4.8) k/uL APTT 66.5 H (22.0-30.0) sec Sodium (137-145) mmol/L Chloride (98-107) mmol/L BUN (9-20) mg/dL Glucose (74-99) mg/dL POC Glucose (mg/dL) 119 H 131 H (75-99) mg/dL Calcium (8.4-10.2) mg/dL Phosphorus (2.5-4.5) mg/dL 10/23/17 10/23/17 10/23/17 Range/Units 05:00 05:00 05:00 RBC 3.11 L (4.30-5.90) m/uL Hgb 9.7 L (13.0-17.5) gm/dL Hct 31.4 L (39.0-53.0) % MCV 100.8 H (80.0-100.0) fL Plt Count 135 L (150-450) k/uL Lymphocytes # 0.3 L (1.0-4.8) k/uL APTT 69.0 H (22.0-30.0) sec Sodium 151 H (137-145) mmol/L Chloride 125 H* (98-107) mmol/L BUN 38 H (9-20) mg/dL Glucose 163 H (74-99) mg/dL POC Glucose (mg/dL) (75-99) mg/dL Calcium 11.1 H (8.4-10.2) mg/dL Phosphorus 2.4 L (2.5-4.5) mg/dL 10/23/17 10/23/17 Range/Units 06:01 11:47 RBC (4.30-5.90) m/uL Hgb (13.0-17.5) gm/dL Hct (39.0-53.0) % MCV (80.0-100.0) fL Plt Count (150-450) k/uL Lymphocytes # (1.0-4.8) k/uL APTT (22.0-30.0) sec Sodium (137-145) mmol/L Chloride (98-107) mmol/L BUN (9-20) mg/dL Glucose (74-99) mg/dL POC Glucose (mg/dL) 160 H 204 H (75-99) mg/dL Calcium (8.4-10.2) mg/dL Phosphorus (2.5-4.5) mg/dL Microbiology - Last 24 Hours (Table) 10/18/17 09:10 Blood Culture - Preliminary Blood No Growth after 120 hours Diabetes panel 10/23/17 Range/Units 05:00 Sodium 151 H (137-145) mmol/L Potassium 4.0 (3.5-5.1) mmol/L Chloride 125 H* (98-107) mmol/L Carbon Dioxide 23 (22-30) mmol/L BUN 38 H (9-20) mg/dL Creatinine 1.04 (0.66-1.25) mg/dL Glucose 163 H (74-99) mg/dL Calcium 11.1 H (8.4-10.2) mg/dL Calcium panel 10/23/17 Range/Units 05:00 Calcium 11.1 H (8.4-10.2) mg/dL Phosphorus 2.4 L (2.5-4.5) mg/dL Pituitary panel 10/23/17 Range/Units 05:00 Sodium 151 H (137-145) mmol/L Potassium 4.0 (3.5-5.1) mmol/L Chloride 125 H* (98-107) mmol/L Carbon Dioxide 23 (22-30) mmol/L BUN 38 H (9-20) mg/dL Creatinine 1.04 (0.66-1.25) mg/dL Glucose 163 H (74-99) mg/dL Calcium 11.1 H (8.4-10.2) mg/dL Adrenal panel 10/23/17 Range/Units 05:00 Sodium 151 H (137-145) mmol/L Potassium 4.0 (3.5-5.1) mmol/L Chloride 125 H* (98-107) mmol/L Carbon Dioxide 23 (22-30) mmol/L BUN 38 H (9-20) mg/dL Creatinine 1.04 (0.66-1.25) mg/dL Glucose 163 H (74-99) mg/dL Calcium 11.1 H (8.4-10.2) mg/dL Assessment and Plan (1) Malnutrition Narrative/Plan: Options discussed with the patient. He is agreeable to EGD with PEG tube placement. Risks of bleeding, infection, perforation, inability to place tube were placed. He understands and wishes to proceed. Current Visit: Yes Status: Acute Code(s): E46 - UNSPECIFIED PROTEIN-CALORIE MALNUTRITION SNOMED Code(s): 98987990
[2017-10-23 18:06] LABS: Glucose,Whole Blood 178 mg/dL (75-99)
[2017-10-23] MEDS: OFLOXACIN 0.3% OPHTH DROPS 5 ML BOTTLE LEFT EYE SCH ×2 (18:29→22:15)
[2017-10-23] MEDS: ATORVASTATIN 40 MG TAB PO SCH (20:06)
[2017-10-23] MEDS: Difluprednate [Durezol] 1 DROP LEFT EYE SCH (20:07)
--- NOTE | 2017-10-23 22:37 | PN ---
PROGRESS NOTE ATTENDING PHYSICIAN: Dr. Mi Lane. CHIEF COMPLAINT: Re-evaluation. HISTORY OF PRESENT ILLNESS: This 82-year-old gentleman was admitted to the hospital with some shortness of breath and stridor. The patient did undergo intubation initially with ventilator support. He had an upper airway obstruction due to AMS in his laryngeal pharyngeal area. In view of this, he did have a tracheostomy. The patient is alert, off the ventilator, on oxygen, feeling much better and feels his respirations have improved significantly. The patient is awake, alert, oriented. He is able to communicate well by writing. The patient has atrial fibrillation. He is on heparin. Rate is adequately controlled. His steroids were discontinued. His sodium is high at 156, and his IV fluids are adjusted. The patient's urine output is adequate. The patient is followed by an cloth examiner hand. REVIEW OF SYSTEMS: NEURO: Denies any headaches, dizziness. PSYCH: In adequate mood. CARDIAC: Denies chest pain, angina, palpitations. RESPIRATORY: Denies shortness of breath. Some cough, some irritation in the throat. GI: No nausea, vomiting. Patient was n.p.o. this morning to undergo swallow evaluation, which apparently at the discussion with the nurse this evening, I was told that he failed the test and is scheduled for a PEG tube. The patient has had no bowel movements. He has a Kenny catheter in place. EXTREMITIES: There is no pain except the right wrist, which is a chronic pain. CONSTITUTIONAL: No fever, chills. PHYSICAL EXAMINATION: Pleasant gentleman, at present in no distress. Vital signs reveal pulse of 103, respirations 18, blood pressure 136/61. Oxygenation 94% on 40% FiO2. HEENT: Normocephalic. NECK: Patient has a fresh tracheostomy. Then left internal jugular. CHEST: Clear to auscultation with generalized decreased air flow. CARDIAC: Distant heart sounds. S1, S2 with no gallops. Irregular rhythm. Systolic murmur 2/6 left sternal border. ABDOMEN: Soft. Bowel sounds present. Extremities reveal trace edema. Neurologically, awake, alert, oriented with well-coordinated movements. The patient does have pain with movement of the right wrist, which is again chronic. 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 2. Hypercalcemia. 3. Chronic obstructive pulmonary disease. 4. Atrial fibrillation. 5. Known coronary artery disease. 6. Carcinoma of the prostate. PLAN: The patient at present is stable. Continue present medical regimen. As mentioned above. The patient is scheduled to undergo a PEG tube. Obviously, the patient is going to require placement in a nursing facility for management of the tracheostomy and PEG tube. The patient is otherwise stable. Once the PEG tube is in, the patient can be switched over to oral medications, including Eliquis. Prognosis remains guarded. MMODL / IJN: [id number] /
[2017-10-23 23:44] LABS: Glucose,Whole Blood 189 mg/dL (75-99)
[2017-10-24] MEDS: PIPERACILLIN-TAZOBACTAM 3.375 GM in DEXTROSE/WATER 1 50ML.BAG IVPB SCH ×4 (00:02→23:53)
[2017-10-24] MEDS: HYDROmorphone 1 MG/ML 1 ML SYRINGE IVP PRN ×7 (01:06→22:51)
[2017-10-24] MEDS: DILTIAZEM 50 MG in SODIUM CHLORIDE 0.9% 40 ML IV SCH ×2 (04:04→21:41)
[2017-10-24 05:03] LABS: Basophils % (A) 0 %; Eosinophils % (A) 0 %; HCT 31.4 % (39.0-53.0); HGB 9.8 gm/dL (13.0-17.5); Lymphocytes # (A) 0.3 k/uL (1.0-4.8); Lymphocytes % (A) 4 %; MCH 31.8 pg (25.0-35.0); MCHC 31.3 g/dL (31.0-37.0); MCV 101.7 fL (80.0-100.0); Macrocytosis Slight; Mean Platelet Volume 9.3; Monocytes # (A) 0.4 k/uL (0-1.0); Monocytes % (A) 5 %; Neutrophils # (A) 7.4 k/uL (1.3-7.7); Neutrophils % (A) 90 %; Platelet Count 115 k/uL (150-450); RBC 3.09 m/uL (4.30-5.90); RDW 13.4 % (11.5-15.5); WBC 8.2 k/uL (3.8-10.6)
[2017-10-24 05:18] LABS: Anion Gap 3 mmol/L; Blood Urea Nitrogen 34 mg/dL (9-20); Carbon Dioxide 23 mmol/L (22-30); Chloride 119 mmol/L (98-107); Glucose 178 mg/dL (74-99); Magnesium 2.2 mg/dL (1.6-2.3); Phosphorus 2.1 mg/dL (2.5-4.5); Potassium 3.8 mmol/L (3.5-5.1); Sodium 145 mmol/L (137-145)
[2017-10-24] MEDS: POTASSIUM CHLORIDE 10 MEQ in WATER FOR INJECTION 1 100ML.BAG IVPB SCH ×2 (05:36→06:50)
[2017-10-24 05:54] LABS: Glucose,Whole Blood 167 mg/dL (75-99)
[2017-10-24] MEDS: INSULIN ASPART 100 UNIT/ML 1 ML 10 ML VIAL SQ SCH ×4 (05:55→23:57)
--- NOTE | 2017-10-24 07:11 | XR ---
EXAMINATION TYPE: XR chest 1V portable DATE OF EXAM: 10/24/2017 Comparison: 10/23/2017 Clinical History: 82-year-old male Tube placement Findings: Tracheostomy cannula remains in place. Median sternotomy wires with post-CABG clips in the mediastinu m. Left IJ CVC tip in the lower SVC. Heart upper limits of normal in size. Mild diffuse interstitial prominence unchanged. Continued small bilateral pleural effusions and bibasilar images and opacities. Impression: Continued bilateral pleural effusions with adjacent bibasilar atelectasis and/or consolidation.
[2017-10-24] MEDS: ASPIRIN 81 MG PO SCH (07:47)
[2017-10-24] MEDS: TAMSULOSIN 0.4 MG CAP.ER.24H PO SCH (07:47)
[2017-10-24] MEDS: ATENOLOL 50 MG TAB PO SCH (07:47)
[2017-10-24] MEDS: OFLOXACIN 0.3% OPHTH DROPS 5 ML BOTTLE LEFT EYE SCH ×4 (07:53→21:40)
[2017-10-24] MEDS: IPRATROPIUM-ALBUTEROL 3 ML NEB INHALATION SCH ×4 (07:59→19:46)
[2017-10-24] MEDS: PANTOPRAZOLE 40 MG/10 ML VIAL IVP SCH (07:59)
[2017-10-24] MEDS: Difluprednate [Durezol] 1 DROP LEFT EYE SCH ×2 (07:59→20:42)
[2017-10-24] MEDS: FLUTAMIDE PO SCH ×2 (09:52→20:35)
[2017-10-24] MEDS: NEPAFENAC LEFT EYE SCH (09:52)
--- NOTE | 2017-10-24 12:17 | US ---
ULTRASOUND GUIDED FNA LEFT NECK MASS BIOPSY: CLINICAL HISTORY: Left neck mass FINDINGS: The procedure was explained to the patient. The risks, complications, benefits and alternatives were discussed and any questions were answered. Informed consent was obtained. Patient was placed supin e on the ultrasound table and prepped and draped in the usual sterile fashion. Utilizing a 25 gauge needle, five passes were made into the left neck mass. Patient was stable throughout the procedure. Pathology is pending. All elements of maximal barrier technique were utilized. IMPRESSION: 1. Successful ultrasound guided FNA left neck mass biopsy.
[2017-10-24 12:19] LABS: Glucose,Whole Blood 136 mg/dL (75-99)
[2017-10-24] MEDS: MULTIVITAMINS, THERA 1 EACH TAB PO SCH (12:41)
[2017-10-24] MEDS ORDERED: PROPOFOL 10 MG/ML 20 ML VIAL IV ONE (13:20)
[2017-10-24] MEDS ORDERED: IV FLUID CONTINUATION 1,000 ML IV ONE (13:20)
--- NOTE | 2017-10-24 13:30 | P.PN ---
Subjective Progress Note Date: 10/24/17 Principal diagnosis: Acute hypoxic respiratory failure secondary to COPD, possible left lower lobe pneumonia, and vocal cords mass, and stridor 82-year-old male patient with previous history of advanced COPD, along with history of coronary artery disease and previous bypass surgery and previous history of prostate cancer, presented to the hospital because of worsening shortness of breath. I was asked even with this patient as the patient's oxygenation was getting worse. At a time of my arrival, the patient was a 50% Ventimask. He was having some questionable stridorous inspiratory efforts, his cough was weak and his speech was also altered. He was unable to bring up much of sputum. He denied having any angina or chest pain. He also had a run of atrial fibrillation yesterday and currently his rhythm is sinus. I reviewed the chest x-ray and there is concern tolerance lower lobe infiltrates/ atelectasis. The patient is already on a combination of Rocephin and Zithromax. He was also noted to have hypercalcemia and acute kidney injury with a creatinine of 1.9. The exact nature of the hypercalcemia is not clear. As mentioned, he has prostate cancer. A recent bone scan from a recent bone scan from May 2017 showed no evidence of any skeletal involvement. Patient was reevaluated today on 10/20/2017, remains on mechanical ventilation. Patient was intubated yesterday by Dr. Woods, and urine intubation he was concerned about the vocal cords obstruction with what seems to be a mass involving the adenoid area, and displacing the vocal cords. Nonetheless, patient was intubated using a glidescope, and I have no plans to extubate the patient until he is evaluated by ENT, and the patient may require tracheostomy and biopsy of the lesion around the vocal cords. ENT consult was initiated, and he is yet to be seen by ENT on consultation. Ventilator settings were noted. Chest x-ray showed bibasilar opacities. And small bilateral pleural effusions. CBC showed slight leukocytosis. WBC count is 15.7 hemoglobin is 10.4 his PTT is 55.3, remains on heparin. ABG on 50% showed a pO2 of 117 pCO2 of 37 pH of 7.46. Basic metabolic profile is relatively normal BUN is 48 creatinine is 1.10. Patient is arousable, propofol was placed on hold, and we were able to examine the patient, seems to be very appropriate, and comprehending or what he was being controlled. Again I have no plans to extubate the patient until a tracheostomy is done, and ENT has seen the patient. Patient was reevaluated today on 10/21/2017, remains on mechanical ventilation, his ventilator settings are tidal volume of 500 assist control rate 16 FiO2 of 50% and PEEP of 5. He is not requiring any pressors, he remains on propofol which I plan to discontinue and give the patient is sedation holiday. And assess mental status again today. Patient is scheduled to undergo tracheostomy this afternoon, and biopsy of the vocal cords mass. This will be done likely later this afternoon by Dr. Foster. In the meantime the patient is hemodynamically stable, his labs were reviewed, and believes he count is 5.2 hemoglobin is 10.3 electrolytes are relatively normal BUN is 43 creatinine is 1.01. Mental status was appropriate yesterday off propofol, and we will assess his mental status again today off propofol. Chest x-ray showed mostly atelectasis and small pleural effusions. All meds were reviewed, patient remains empirically on antibiotics, he is also on updrafts, patient is on Cardizem drip at 5 mg per hour, and his atrial fibrillation seems to be fairly well controlled. He is on heparin which will plan to discontinue few hours before surgery. Patient was reevaluated today on 10/22/2017, patient underwent tracheostomy and thyroid isthmusectomy, and direct microscopic laryngoscopy with biopsy of the glottic mass. Results of which are pending. Patient was reevaluated today, and he seems to be doing very well. I gave the patient a short trial of pressure support and CPAP, and he was doing great. Hence I discontinued mechanical ventilation, and I placed him on a trach collar at 40% FiO2. His propofol has been discontinued. Patient seems to be hemodynamically stable, mentally appropriate, in no distress, denies any pain. ABG this morning showed a pO2 of 140 pCO2 of 30 pH of 7.50. CBC showed a hemoglobin of 10.6 WBC count of 7.1. Electrolytes were reviewed bicarb is 22. Sodium is 145. Patient's nasogastric tube was removed, and we plan to ask speech pathology to evaluate, and the patient can swallow we will proceed with oral feeding and deflate the cuff on the trach as needed. Chest x-ray continues to show bibasilar atelectasis and small pleural effusions. Reevaluated today on 10/23/2017, patient was extubated from mechanical ventilation yesterday, remains on trach collar. Patient failed swallow evaluation and barium swallow, hence I plan to arrange for the patient to have a PEG tube placement. Pathology from his laryngeal biopsy is still pending. Patient may eventually require referral to a tertiary care center like [facility] , or another facility depending on the recommendation of ENT on the case. In the meantime the patient continues to have atrial fibrillation but fairly controlled rate, and we are noticing more bleeding around the trach site, hence I recommended holding heparin for now. I have also recommended GI evaluation for a PEG tube placement. Patient is doing well overall, he is tolerating the trach collar well, relatively asymptomatic. Labs from today showed hemoglobin of 9.7 his PTT was 69. His sodium is climbing up to 151, EOM is 38 creatinine is 1.04, hence I plan to increase the IV fluid to D5W to 150 mL per hour. Will discontinue Lasix. Chest x-ray continues to show by basilar atelectasis and/or infiltrates. Reevaluated today on 10/24/2017, patient remains on trach collar, off mechanical ventilation, failed his swallow evaluation, hence he is undergoing PEG tube placement today for nutritional support. His pathology came back positive for squamous cell carcinoma, and decisions will be made as to likely transfer the patient to [facility]. Transfer plans are in progress. ENT is recommending ultrasound-guided fine-needle aspiration of neck masses. He also recommended oncology evaluation which will be initiated. In the meantime the patient is sitting at a bedside chair, very comfortable, in no distress. CBC is relatively normal basic metabolic profile is normal. Chest x-ray is showing basically bibasilar atelectasis and small pleural effusions. Objective - Vital Signs Vital signs: Vital Signs Temp 97.4 F L 10/24/17 08:00 Pulse 106 H 10/24/17 12:00 Resp 20 10/24/17 09:00 BP 130/56 10/24/17 08:00 Pulse Ox 89 L 10/24/17 12:00 Intake & Output 10/23/17 10/24/17 10/24/17 18:59 06:59 18:59 Intake Total 1295.75 950 500 Output Total 1285 650 500 Balance 10.75 300 0 Weight 101.8 kg 99.8 kg 99.8 kg Intake: IV 1200 900 500 Dextrose 5% in Water 1, 1200 900 500 000 ml @ 150 mls/hr IV . Q6H40M ONE Rx#:[id number] Intake, IV Titration 95.75 50 Amount Diltiazem 50 mg In Sodium 45.75 50 Chloride 0.9% 40 ml @ Per Protocol IV .Q0M [facility] Rx#:[id number] Piperacillin-Tazobactam 3 50 .375 gm In Dextrose/Water 1 50ml.bag @ 12.5 mls/hr IVPB Q8HR [facility] Rx#: [id number] Output: Urine 1285 650 500 Other: Voiding Method Indwelling Catheter Indwelling Catheter Indwelling Catheter ABP, PAP, CO, CI - Last Documented Arterial Blood Pressure 131/56 - Exam Physical exam revealed an 82-year-old white male on trach collar, in no distress. Some blood noted around the trach site. And patient has been noted to cough up some blood for the tracheostomy tube. Head exam was generally normal. There was no scleral icterus or corneal arcus. Mucous membranes were moist. Neck was supple and without jugular venous distension, thyromegaly, or carotid bruits. Carotids were easily palpable bilaterally. Left neck mass is palpable, status post FNA with ultrasound guidance. Lungs sounds are diminished at the bases, no rhonchi and no wheezes. Cardiac exam revealed the PMI to be normally situated and sized. Irregular irregular rhythm, Normal S1 and S2, no S3 gallop. No murmur. Abdominal exam revealed soft nontender no megaly no rebound, positive bowel sounds. Examination of the extremities revealed no clubbing, edema or cyanosis. Examination of the skin revealed no evidence of significant rashes, no erythema. Neurologically awake and alert and there is no focal neurological deficit. - Labs CBC & Chem 7: 10/24/17 05:00 10/24/17 05:00 Labs: Abnormal Lab Results - Last 24 Hours (Table) 10/23/17 10/23/17 10/24/17 Range/Units 18:04 23:43 05:00 RBC 3.09 L (4.30-5.90) m/uL Hgb 9.8 L (13.0-17.5) gm/dL Hct 31.4 L (39.0-53.0) % MCV 101.7 H (80.0-100.0) fL Plt Count 115 L (150-450) k/uL Lymphocytes # 0.3 L (1.0-4.8) k/uL APTT (22.0-30.0) sec Chloride (98-107) mmol/L BUN (9-20) mg/dL Glucose (74-99) mg/dL POC Glucose (mg/dL) 178 H 189 H (75-99) mg/dL Calcium (8.4-10.2) mg/dL Phosphorus (2.5-4.5) mg/dL 10/24/17 10/24/17 10/24/17 Range/Units 05:00 05:00 05:52 RBC (4.30-5.90) m/uL Hgb (13.0-17.5) gm/dL Hct (39.0-53.0) % MCV (80.0-100.0) fL Plt Count (150-450) k/uL Lymphocytes # (1.0-4.8) k/uL APTT 21.8 L (22.0-30.0) sec Chloride 119 H (98-107) mmol/L BUN 34 H (9-20) mg/dL Glucose 178 H (74-99) mg/dL POC Glucose (mg/dL) 167 H (75-99) mg/dL Calcium 11.0 H (8.4-10.2) mg/dL Phosphorus 2.1 L (2.5-4.5) mg/dL 10/24/17 Range/Units 12:18 RBC (4.30-5.90) m/uL Hgb (13.0-17.5) gm/dL Hct (39.0-53.0) % MCV (80.0-100.0) fL Plt Count (150-450) k/uL Lymphocytes # (1.0-4.8) k/uL APTT (22.0-30.0) sec Chloride (98-107) mmol/L BUN (9-20) mg/dL Glucose (74-99) mg/dL POC Glucose (mg/dL) 136 H (75-99) mg/dL Calcium (8.4-10.2) mg/dL Phosphorus (2.5-4.5) mg/dL Microbiology - Last 24 Hours (Table) 10/18/17 09:10 Blood Culture - Final Blood No Growth after 144 hours Assessment and Plan Assessment: 1 acute hypoxic respiratory failure, multifactorial, secondary to stridor with large glottic mass and COPD exacerbation. Doubt pneumonia. 2 advanced COPD 3 coronary artery disease appears bypass surgery 4 acute kidney injury, improving 5 hypercalcemia, improving 6 prostate cancer 7 atrial fibrillation, paroxysmal, currently back into normal sinus rhythm, patient is presently on heparin, and being followed by cardiology. 8 acute urinary retention and the patient has a Kenny catheter in place 9 hypertension 10 status post biopsy of glottic mass, postoperative day #3 pathology is pending. 11 status post tracheostomy, postoperative day #3 12 hypernatremia and free water deficit, hence the patient will be kept on D5W and he will be increased, once the PEG tube is placed, we will recommend free water flushes via PEG tube. 13 failed swallow evaluation/barium swallow, patient will definitely need a PEG tube placement, GI was consulted for PEG tube placement. 14 status post ultrasound-guided FNA of left neck masses possibly saliva gland. 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 Time with Patient: Less than 30
--- NOTE | 2017-10-24 13:47 | P.OP ---
Date of Procedure: 10/24/17 Procedure(s) Performed: PREOPERATIVE DIAGNOSIS: Malnutrition POSTOPERATIVE DIAGNOSIS: Same PROCEDURE: EGD with PEG tube placement SURGEON: Jose EBL: Minimal ANESTHESIA: Sedation COMPLICATIONS: None OPERATIVE PROCEDURE: The patient was placed in the supine position on the endoscopy table. The patient was sedated per anesthesia that time. The Olympus gastroscope was inserted into the oropharynx and passed under direct visualization to the region of the duodenum. No obstruction was seen. The pylorus was widely patent. The stomach was carefully inspected. The stomach was fully insufflated with air. The abdominal wall was inspected. The light was seen shining through the abdominal wall in the left upper quadrant. This site was chosen for PEG tube placement. The area was prepped in the usual sterile fashion. This area was then localized with lidocaine. A small vertical incision was made using the scalpel. The Seldinger needle was advanced into the lumen of the stomach the wire was advanced. The wire was grasped with an endoscopic snare. The wire was pulled through the oropharynx. The catheter was then threaded over the guidewire and the guidewire and catheter were pulled anteriorly until the hub of the PEG tube catheter was seated against the anterior wall the stomach. The circular bolster was applied and tightened down. The endoscope was then readvanced into the stomach. There was no evidence of any bleeding and there was appropriate tightness on the bolster. The catheter was cut appropriately. The dual port feeding adapter was applied. DISPOSITION: Stable to recovery room
--- NOTE | 2017-10-24 16:14 | P.CONS ---
History of Present Illness - Reason for Consult Consult date: 10/24/17 mass in larynx Requesting physician: Jude Tse - Chief Complaint dyspnea - History of Present Illness The patient is an 82 year old male with a history of prostate cancer treated with androgen deprivation alone. He has a significant history of tobacco abuse , and reports gradual increased dyspnea over the past several months. He has had a 40 pound weight loss and difficulty swallowing. He was admitted to the ER at [facility] on 10/18 with significant dyspnea and stridor. He underwent evaluation by ENT with placement of a trach; microDL showed a large mass at the laryngeal introitus - appearing transglottic. 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 CT Neck on 10/21 showed a 2.4 cm density along the mucosa of the posterior oropharynx as well as a second density at the level of the larynx. There was a 1.6 cm left parotid lymph node and a 1.7 cm level II node. He failed a swallow study as well. Review of Systems ROS unobtainable: due to endotracheal tube Past Medical History Past Medical History: Atrial Fibrillation, Coronary Artery Disease (CAD), Cancer , Chest Pain / Angina, GERD/Reflux, Hyperlipidemia, Hypertension, Myocardial Infarction ([place]), Osteoarthritis (OA), Prostate Disorder Additional Past Medical History / Comment(s): Prostate ca with hormone treatment , skin cancer with removals, back pain, arthritis bilateral knees and wrists, occasional numbness bilateral legs. Last Myocardial Infarction Date:: 1997 History of Any Multi-Drug Resistant Organisms: None Reported Past Surgical History: Appendectomy, Coronary Bypass/CABG, Heart Catheterization , Heart Catheterization With Stent, Tonsillectomy Additional Past Surgical History / Comment(s): 1997 CABG 3 vessel, PCI with stent 2010, colonoscopy, R wrist tendon surgery, R hand lipoma removed, sclerosing hemangioma excised from chest, skin cancer removals. left cataract removed friday10/13/2017 Past Anesthesia/Blood Transfusion Reactions: No Reported Reaction Date of Last Stent Placement:: 2010 Smoking Status: Former smoker - Past Family History Father Family Medical History: No Reported History Additional Family Medical History / Comment(s): Father was healthy Mother Family Medical History: Coronary Artery Disease (CAD), Hyperlipidemia, Hypertension Medications and Allergies Home Medications Medication Instructions Recorded Confirmed Type Aspirin EC [Ecotrin Low Dose] 162 mg PO DAILY 04/29/17 10/18/17 History Atenolol [Tenormin] 50 mg PO DAILY 04/29/17 10/18/17 History Atorvastatin [Lipitor] 40 mg PO HS 04/29/17 10/18/17 History Docusate [Colace] 100 mg PO DAILY PRN 04/29/17 10/18/17 History Ezetimibe [Zetia] 10 mg PO HS 04/29/17 10/18/17 History Furosemide [Lasix] 40 mg PO DAILY 04/29/17 10/18/17 History Multivitamins, Thera [Multivitamin 1 tab PO DAILY 04/29/17 10/18/17 History (formulary)] Omeprazole Magnesium [PriLOSEC OTC] 20 mg PO DAILY 04/29/17 10/18/17 History Ipratropium-Albuterol Nebulize 3 ml INHALATION RT-QID ampul.neb 05/09/17 Rx [Duoneb 0.5 mg-3 mg/3 ml Soln] Lisinopril [Zestril] 10 mg PO DAILY #30 tab 05/26/17 10/18/17 Rx Alfuzosin HCl [Uroxatral ER] 10 mg PO DAILY 10/15/17 10/18/17 History Cetirizine HCl [Zyrtec] 10 mg PO DAILY 10/15/17 10/18/17 History Flutamide 375 mg PO BID 10/15/17 10/18/17 History traMADol HCL [Ultram] 50 - 100 mg PO Q6H PRN 10/15/17 10/18/17 History Besifloxacin HCl [Besivance] 1 drop LEFT EYE TID 10/23/17 10/23/17 History Bromfenac Sodium [Prolensa Ophth 1 drop LEFT EYE DAILY 10/23/17 10/23/17 History Soln] Difluprednate [Durezol] 1 drop LEFT EYE BID 10/23/17 10/23/17 History Allergies Allergy/AdvReac Type Severity Reaction Status Date / Time acetaminophen [From Tylenol] Allergy Rash/Hives Verified 10/18/17 11:17 bicalutamide [From Casodex] Allergy Rash/Hives Verified 10/18/17 11:17 meloxicam [From Mobic] Allergy Unknown Verified 10/18/17 11:17 Sulfa (Sulfonamide Allergy Itching Verified 10/18/17 11:17 Antibiotics) morphine AdvReac Nausea & Verified 10/18/17 11:17 Vomiting Physical Exam Vitals: Vital Signs Temp Pulse Resp BP Pulse Ox 10/24/17 15:00 124 H 95 10/24/17 14:04 88 154/87 93 L 10/24/17 13:00 93 L 10/24/17 12:00 106 H 89 L 10/24/17 11:53 92 10/24/17 11:40 95 10/24/17 11:00 94 L 10/24/17 10:00 98 96 10/24/17 09:00 82 20 94 L 10/24/17 08:27 90 10/24/17 08:00 97.4 F L 20 130/56 97 10/24/17 07:59 92 10/24/17 07:00 96 10/24/17 06:00 92 H 91 L 10/24/17 05:00 96 10/24/17 04:00 98.3 F 93 H 93 L 10/24/17 02:00 94 L 10/24/17 01:00 94 L 10/24/17 00:00 98.0 F 92 96 10/23/17 23:00 93 L 10/23/17 22:00 92 L 10/23/17 21:44 92 L 10/23/17 21:34 86 10/23/17 21:17 84 10/23/17 21:00 95 10/23/17 20:00 99.2 F 110 H 14 96 10/23/17 19:00 94 L 10/23/17 18:00 95 18 91 L 10/23/17 17:00 103 H 18 93 L 10/23/17 16:24 100 10/23/17 16:05 112 H Intake and Output 10/24/17 10/24/17 10/24/17 06:59 14:59 22:59 Intake Total 650 950 Output Total 425 775 Balance 225 175 Intake: IV 600 950 Dextrose 5% in Water 1, 600 900 000 ml @ 150 mls/hr IV . Q6H40M [facility] Rx#:[id number] Intake, IV Titration 50 Amount Diltiazem 50 mg In Sodium 50 Chloride 0.9% 40 ml @ Per Protocol IV .Q0M [facility] Rx#:[id number] Output: Urine 425 775 Other: Voiding Method Indwelling Catheter Indwelling Catheter Weight 99.8 kg 99.8 kg ABP, PAP, CO, CI - Last 8 Hours Arterial Blood Pressure 129/59 Arterial Blood Pressure 131/56 Arterial Blood Pressure 148/63 Arterial Blood Pressure 159/63 Arterial Blood Pressure 155/56 - Constitutional General appearance: no acute distress, obese - EENT Eyes: EOMI, PERRLA ENT: hearing grossly normal Ears: bilateral: normal - Neck Neck: lymphadenopathy (2 cm right level II node, firm.), no rigidity - Respiratory Respiratory: bilateral: CTA - Cardiovascular Rhythm: irregularly irregular - Gastrointestinal General gastrointestinal: no tenderness - Integumentary Integumentary: calor - Neurologic Neurologic: CNII-XII intact - Musculoskeletal Musculoskeletal: strength equal bilaterally - Psychiatric Psychiatric: A&O x's 3, appropriate affect, intact judgment & insight Results CBC & Chem 7: 10/24/17 05:00 10/24/17 05:00 Labs: Abnormal Lab Results - Last 24 Hours (Table) 10/23/17 10/23/17 10/24/17 Range/Units 18:04 23:43 05:00 RBC 3.09 L (4.30-5.90) m/uL Hgb 9.8 L (13.0-17.5) gm/dL Hct 31.4 L (39.0-53.0) % MCV 101.7 H (80.0-100.0) fL Plt Count 115 L (150-450) k/uL Lymphocytes # 0.3 L (1.0-4.8) k/uL APTT (22.0-30.0) sec Chloride (98-107) mmol/L BUN (9-20) mg/dL Glucose (74-99) mg/dL POC Glucose (mg/dL) 178 H 189 H (75-99) mg/dL Calcium (8.4-10.2) mg/dL Phosphorus (2.5-4.5) mg/dL 10/24/17 10/24/17 10/24/17 Range/Units 05:00 05:00 05:52 RBC (4.30-5.90) m/uL Hgb (13.0-17.5) gm/dL Hct (39.0-53.0) % MCV (80.0-100.0) fL Plt Count (150-450) k/uL Lymphocytes # (1.0-4.8) k/uL APTT 21.8 L (22.0-30.0) sec Chloride 119 H (98-107) mmol/L BUN 34 H (9-20) mg/dL Glucose 178 H (74-99) mg/dL POC Glucose (mg/dL) 167 H (75-99) mg/dL Calcium 11.0 H (8.4-10.2) mg/dL Phosphorus 2.1 L (2.5-4.5) mg/dL 10/24/17 Range/Units 12:18 RBC (4.30-5.90) m/uL Hgb (13.0-17.5) gm/dL Hct (39.0-53.0) % MCV (80.0-100.0) fL Plt Count (150-450) k/uL Lymphocytes # (1.0-4.8) k/uL APTT (22.0-30.0) sec Chloride (98-107) mmol/L BUN (9-20) mg/dL Glucose (74-99) mg/dL POC Glucose (mg/dL) 136 H (75-99) mg/dL Calcium (8.4-10.2) mg/dL Phosphorus (2.5-4.5) mg/dL Microbiology - Last 24 Hours (Table) 10/18/17 09:10 Blood Culture - Final Blood No Growth after [address] Scan - head: report reviewed, image reviewed Assessment and Plan Plan: 1. Squamous cell carcinoma of supraglottis: Respiratory status stable s/p trach placement. Will require further staging work-up. While in house would check CT-chest; PET can be done as outpatient. If no distant disease, typically this size tumor would be best managed with surgery followed by post- op RT. However, due to patients age and comorbid conditions, likely not an optimal surgical candidate. Will discuss case further with ENT/Oncology. Radiotherapy can be initiated on a palliative basis depending on the results of his staging studies early next week. No indication for emergent RT considering patient's pain is well controlled; respiratory status stable. There will be some challenges if the patient elects to receive treatment as he lives alone and has no family support. He lives in [place] in a mobile home. He has not been able to maintain his living quarters lately and would be best served at dispo to do NORMA/ECF. 2. Prostate cancer: Patient did not believe he has any metastatic disease; will discuss case with Dr. Yang. Seems like the patient was doing watchful waiting and had undergo ADT in the past. Time with Patient: Greater than 30
--- NOTE | 2017-10-24 18:36 | P.CONS ---
History of Present Illness - Reason for Consult Consult date: 10/24/17 Laryngeal Mass Requesting physician: Jude Tse - Chief Complaint Shortness of Breath - History of Present Illness Mr. Christian is a 82-year-old male patient with a known history of COPD, coronary artery disease with previous bypass surgery, and history of prostate cancer. He presented to [facility] with complaints of persistent shortness of breath. On arrival, presenting with acute on chronic respiratory failure, he was evaluated by pulmonary. He subsequently was intubated. During assessment found to have mass pharyngeal laryngeal region, therefore ENT was consulted and on 10/21/17 a Tracheostomy with thyroid isthmusectomy and Direct Microscopic Laryngoscopy with biopsy was completed. He was also evaluated by Dr. Garcia during this hospitalization for a feeding tube as he failed his swallow evaluation. Per medical records he has had approximately a 40lb weight loss in the past 6 months. He is seen and examined in the ICU today, on a 40% trach Collar. ALert and Oriented, writes to communicate. Review of Systems A 14 point review of systems assessed and completed and all negative except HPI. Past Medical History Past Medical History: Atrial Fibrillation, Coronary Artery Disease (CAD), Cancer , Chest Pain / Angina, GERD/Reflux, Hyperlipidemia, Hypertension, Myocardial Infarction ([place]), Osteoarthritis (OA), Prostate Disorder Additional Past Medical History / Comment(s): Prostate ca with hormone treatment , skin cancer with removals, back pain, arthritis bilateral knees and wrists, occasional numbness bilateral legs. Last Myocardial Infarction Date:: 1997 History of Any Multi-Drug Resistant Organisms: None Reported Past Surgical History: Appendectomy, Coronary Bypass/CABG, Heart Catheterization , Heart Catheterization With Stent, Tonsillectomy Additional Past Surgical History / Comment(s): 1997 CABG 3 vessel, PCI with stent 2010, colonoscopy, R wrist tendon surgery, R hand lipoma removed, sclerosing hemangioma excised from chest, skin cancer removals. left cataract removed friday10/13/2017 Past Anesthesia/Blood Transfusion Reactions: No Reported Reaction Date of Last Stent Placement:: 2010 Smoking Status: Former smoker - Past Family History Father Family Medical History: No Reported History Additional Family Medical History / Comment(s): Father was healthy Mother Family Medical History: Coronary Artery Disease (CAD), Hyperlipidemia, Hypertension Medications and Allergies Home Medications Medication Instructions Recorded Confirmed Type Aspirin EC [Ecotrin Low Dose] 162 mg PO DAILY 04/29/17 10/18/17 History Atenolol [Tenormin] 50 mg PO DAILY 04/29/17 10/18/17 History Atorvastatin [Lipitor] 40 mg PO HS 04/29/17 10/18/17 History Docusate [Colace] 100 mg PO DAILY PRN 04/29/17 10/18/17 History Ezetimibe [Zetia] 10 mg PO HS 04/29/17 10/18/17 History Furosemide [Lasix] 40 mg PO DAILY 04/29/17 10/18/17 History Multivitamins, Thera [Multivitamin 1 tab PO DAILY 04/29/17 10/18/17 History (formulary)] Omeprazole Magnesium [PriLOSEC OTC] 20 mg PO DAILY 04/29/17 10/18/17 History Ipratropium-Albuterol Nebulize 3 ml INHALATION RT-QID ampul.neb 05/09/17 Rx [Duoneb 0.5 mg-3 mg/3 ml Soln] Lisinopril [Zestril] 10 mg PO DAILY #30 tab 05/26/17 10/18/17 Rx Alfuzosin HCl [Uroxatral ER] 10 mg PO DAILY 10/15/17 10/18/17 History Cetirizine HCl [Zyrtec] 10 mg PO DAILY 10/15/17 10/18/17 History Flutamide 375 mg PO BID 10/15/17 10/18/17 History traMADol HCL [Ultram] 50 - 100 mg PO Q6H PRN 10/15/17 10/18/17 History Besifloxacin HCl [Besivance] 1 drop LEFT EYE TID 10/23/17 10/23/17 History Bromfenac Sodium [Prolensa Ophth 1 drop LEFT EYE DAILY 10/23/17 10/23/17 History Soln] Difluprednate [Durezol] 1 drop LEFT EYE BID 10/23/17 10/23/17 History Allergies Allergy/AdvReac Type Severity Reaction Status Date / Time acetaminophen [From Tylenol] Allergy Rash/Hives Verified 10/18/17 11:17 bicalutamide [From Casodex] Allergy Rash/Hives Verified 10/18/17 11:17 meloxicam [From Mobic] Allergy Unknown Verified 10/18/17 11:17 Sulfa (Sulfonamide Allergy Itching Verified 10/18/17 11:17 Antibiotics) morphine AdvReac Nausea & Verified 10/18/17 11:17 Vomiting Physical Exam Vitals: Vital Signs Temp Pulse Pulse Pulse Resp BP BP 10/24/17 11:00 10/24/17 10:00 98 10/24/17 09:00 82 20 10/24/17 08:27 90 10/24/17 08:00 97.4 F L 90 H 130/56 10/24/17 07:59 92 10/24/17 07:00 10/24/17 06:00 92 H 10/24/17 05:00 10/24/17 04:00 98.3 F 93 H 10/24/17 02:00 10/24/17 01:00 10/24/17 00:00 98.0 F 92 10/23/17 23:00 10/23/17 22:00 10/23/17 21:44 10/23/17 21:34 86 10/23/17 21:17 84 10/23/17 21:00 10/23/17 20:00 99.2 F 110 H 14 10/23/17 19:00 10/23/17 18:00 95 18 10/23/17 17:00 103 H 18 10/23/17 16:24 100 10/23/17 16:05 112 H 10/23/17 16:02 10/23/17 16:00 98.3 F 104 H 98 18 10/23/17 15:30 98 16 150/76 10/23/17 15:14 109 H 16 149/80 10/23/17 14:00 108 H 10/23/17 13:00 99 F 10/23/17 12:30 96 20 10/23/17 12:18 101 H 20 10/23/17 12:00 98.4 F 109 H 20 10/23/17 11:38 BP Pulse Ox 10/24/17 11:00 94 L 10/24/17 10:00 96 10/24/17 09:00 94 L 10/24/17 08:27 10/24/17 08:00 97 10/24/17 07:59 10/24/17 07:00 96 10/24/17 06:00 91 L 10/24/17 05:00 96 10/24/17 04:00 93 L 10/24/17 02:00 94 L 10/24/17 01:00 94 L 10/24/17 00:00 96 10/23/17 23:00 93 L 10/23/17 22:00 92 L 10/23/17 21:44 92 L 10/23/17 21:34 10/23/17 21:17 10/23/17 21:00 95 10/23/17 20:00 96 10/23/17 19:00 94 L 10/23/17 18:00 91 L 10/23/17 17:00 93 L 10/23/17 16:24 10/23/17 16:05 10/23/17 16:02 92 L 10/23/17 16:00 137/68 92 L 10/23/17 15:30 91 L 10/23/17 15:14 10/23/17 14:00 93 L 10/23/17 13:00 92 L 10/23/17 12:30 10/23/17 12:18 10/23/17 12:00 93 L 10/23/17 11:38 93 L Intake and Output 10/23/17 10/24/17 10/24/17 22:59 06:59 14:59 Intake Total 861.05 650 500 Output Total 600 425 500 Balance 261.05 225 0 Intake: IV 800 600 500 Dextrose 5% in Water 1, 800 600 500 000 ml @ 150 mls/hr IV . Q6H40M [facility] Rx#:[id number] Intake, IV Titration 61.05 50 Amount Diltiazem 50 mg In Sodium 11.05 50 Chloride 0.9% 40 ml @ Per Protocol IV .Q0M [facility] Rx#:[id number] Piperacillin-Tazobactam 3 50 .375 gm In Dextrose/Water 1 50ml.bag @ 12.5 mls/hr IVPB Q8HR [facility] Rx#: [id number] Output: Urine 600 425 500 Other: Voiding Method Indwelling Catheter Indwelling Catheter Weight 101.8 kg 99.8 kg ABP, PAP, CO, CI - Last 8 Hours Arterial Blood Pressure 148/63 Arterial Blood Pressure 159/63 Arterial Blood Pressure 155/56 Arterial Blood Pressure 133/56 Arterial Blood Pressure 157/59 Arterial Blood Pressure 141/59 Arterial Blood Pressure 152/65 Arterial Blood Pressure 139/55 General: Well-developed, thin-appearing HEENT: Normocephalic, Nontramatic, sclerae nonicteric, tracheostomy and placed 1-2cm right moveable palpable cervical lymph node LUNGS: Equal and no increased effort noted HEART: Tachy, Irregular Abdomen: Nontender, nondistended Extremities: No edema Neuro: Alert and oriented, Non Vocal secondary to Trach. Results CBC & Chem 7: 10/24/17 05:00 10/24/17 05:00 Labs: Abnormal Lab Results - Last 24 Hours (Table) 10/23/17 10/23/17 10/23/17 Range/Units 11:47 18:04 23:43 RBC (4.30-5.90) m/uL Hgb (13.0-17.5) gm/dL Hct (39.0-53.0) % MCV (80.0-100.0) fL Plt Count (150-450) k/uL Lymphocytes # (1.0-4.8) k/uL APTT (22.0-30.0) sec Chloride (98-107) mmol/L BUN (9-20) mg/dL Glucose (74-99) mg/dL POC Glucose (mg/dL) 204 H 178 H 189 H (75-99) mg/dL Calcium (8.4-10.2) mg/dL Phosphorus (2.5-4.5) mg/dL 10/24/17 10/24/17 10/24/17 Range/Units 05:00 05:00 05:00 RBC 3.09 L (4.30-5.90) m/uL Hgb 9.8 L (13.0-17.5) gm/dL Hct 31.4 L (39.0-53.0) % MCV 101.7 H (80.0-100.0) fL Plt Count 115 L (150-450) k/uL Lymphocytes # 0.3 L (1.0-4.8) k/uL APTT 21.8 L (22.0-30.0) sec Chloride 119 H (98-107) mmol/L BUN 34 H (9-20) mg/dL Glucose 178 H (74-99) mg/dL POC Glucose (mg/dL) (75-99) mg/dL Calcium 11.0 H (8.4-10.2) mg/dL Phosphorus 2.1 L (2.5-4.5) mg/dL 10/24/17 Range/Units 05:52 RBC (4.30-5.90) m/uL Hgb (13.0-17.5) gm/dL Hct (39.0-53.0) % MCV (80.0-100.0) fL Plt Count (150-450) k/uL Lymphocytes # (1.0-4.8) k/uL APTT (22.0-30.0) sec Chloride (98-107) mmol/L BUN (9-20) mg/dL Glucose (74-99) mg/dL POC Glucose (mg/dL) 167 H (75-99) mg/dL Calcium (8.4-10.2) mg/dL Phosphorus (2.5-4.5) mg/dL Microbiology - Last 24 Hours (Table) 10/18/17 09:10 Blood Culture - Preliminary Blood No Growth after 120 hours Assessment and Plan Plan: Assessment and Recommendations: 1. New Squamous Cell Carcinoma of Larynx: - Status Post Trachesotomy for obstructive mass - Staging CT scans and Bone Scan - Pending results of staging scans will send tissue for MSI, PDL-1, and P16 2. Hypercalcemia - - Dehydration versus Malignancy - IVF HYdration and Bone Scan 3. History of Prostate Cancer - FOllows with Urology - Receive LHRT - Recheck PSA Level 4. Macrocytic Anemia - - Check B12, FOlate, Iron Studies - Monitor CBC Physician Attestation: I have completed the full history and physical of this patient and agree with above dictation by Nabila Mayen NP dictated as a scribe
[2017-10-24 19:13] LABS: Glucose,Whole Blood 133 mg/dL (75-99)
--- NOTE | 2017-10-24 19:15 | CT ---
EXAMINATION TYPE: CT ChestAbdPelvis w con DATE OF EXAM: 10/24/2017 COMPARISON: None HISTORY: Initial CA staging CT DLP: 2091.7 mGycm Automated exposure control for dose reduction was used. CONTRAST: CT scan of the chest, abdomen and pelvis is performed without Oral Contrast and with IV Contrast, pat ient injected with 100 mL of Isovue 300. FINDINGS: There is tracheostomy tube noted. There are bilateral pleural effusions with basilar pulmonary infilt rates and atelectasis. Heart is enlarged. There are sternal wires. Thoracic aorta is atheromatous. Bile ducts are not dilated. Spleen appears normal. There is no evidence of pancreatic mass. The bladd er appears normal. Bile ducts are not dilated. There is 2 cm cyst in the anterior right lobe of the l iver. There is no adrenal mass. Kidneys show satisfactory contrast opacification. Exam is limited by artifa ct from the barium in the right colon. There is no hydronephrosis. There is no retroperitoneal adenop athy. Abdominal aorta is atheromatous. There is mild free fluid in the pelvis. There is no evidence o f a bowel obstruction. There is some fluid in the pararenal space bilaterally. The thoracic and lumba r spine appear intact. There is degenerative spur formation. There is prostatic calcification. Prosta te is enlarged and irregular. There is Kenny catheter in the urinary bladder. Prostate is lobulated c onsistent with tumor. IMPRESSION: Lobulated enlarged prostate consistent with tumor. Mild free fluid in the pelvis. Mild perinephric edema of uncertain significance. Atherosclerotic vasc ular disease. Cardiomegaly with basilar pulmonary infiltrates and atelectasis and pleural fluid. This could relate to congestive heart failure. Abdominal fluid could relate to heart failure. No definite sign of metastatic disease.
[2017-10-24] MEDS: ATORVASTATIN 40 MG TAB PO SCH (20:35)
--- NOTE | 2017-10-24 23:29 | PN ---
PROGRESS NOTE ATTENDING PHYSICIAN: Dr. Mi Lane. CHIEF COMPLAINT: Re-evaluation. HISTORY OF PRESENT ILLNESS: This is an 82-year-old gentleman who was admitted to the hospital because of shortness of breath and stridor. 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 The patient in view of this underwent a tracheostomy. The pathology report suggests some malignancy. The patient in view of this is planning to be seen by Oncology. The patient also has a ENT on board. 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 The patient is actually doing very well from his respiratory status point of view. He, since his tracheostomy, has required only oxygen. He is not struggling to breathe. His lungs reveal generalized decreased air flow, but no wheezing. He is off steroids. The patient does have atrial fibrillation. Rate is adequately controlled. He is on anticoagulation intravenously. The patient is not able to swallow. He had a swallow evaluation which he failed. In view of this, the patient is scheduled for a PEG tube today. The patient otherwise is awake, alert, and able to communicate via writing. REVIEW OF SYSTEMS: NEURO: Denies any headaches, dizziness. Does complain of some pain in the throat area and the right wrist area. PSYCH: Does get somewhat emotional, but pretty positive. CARDIAC: Denies chest pain, angina, palpitations. RESPIRATORY: Denies shortness of breath, cough. GI: No nausea, vomiting, abdominal pain, diarrhea. No bowel movement. : No symptoms of dysuria, hematuria, has IDC. EXTREMITIES: No pain. CONSTITUTIONAL: No fever, chills. PHYSICAL EXAMINATION: Pleasant gentleman in no distress. Vital signs reveal temperature 97.4, pulse 90, respirations 20, blood pressure 130/56. HEENT: Normocephalic. Neck is with a tracheostomy and left internal jugular line. Chest is clear to auscultation with generalized decreased air flow. CARDIAC: Distant sounds, S1, S2 with no gallops. Irregular rhythm. Systolic murmur 2/6 left sternal border. ABDOMEN: Soft. Bowel sounds are present. Extremities revealed trace edema. NEUROLOGIC: Awake, alert, oriented with well-coordinated movements both upper lower extremities. LABORATORY ASSESSMENT: White count of 8.2, hemoglobin 9.8, platelets 115,000. Electrolytes normal. BUN 34, creatinine 0.9. Calcium is down to 11. ASSESSMENT: 1. Laryngopharyngeal malignancy. 2. Tracheostomy status. 3. Hypercalcemia. 4. Chronic obstructive pulmonary disease with respiratory failure, improved. 5. Atrial fibrillation. PLAN: The patient at present is stable continue present medical regimen. Patient's condition is discussed with the patient. He understands very well what exactly is going on. The patient is awaiting for further oncology evaluation. He is scheduled for a PEG tube. Prognosis remains guarded. I am going to be away and Dr. Bartholomew is going to cover for me. MMODL / IJN: [id number] /
[2017-10-24 23:51] LABS: Glucose,Whole Blood 164 mg/dL (75-99)
[2017-10-25] MEDS: HYDROmorphone 1 MG/ML 1 ML SYRINGE IVP PRN ×6 (01:43→20:18)
[2017-10-25 04:58] LABS: Anion Gap 6 mmol/L; Blood Urea Nitrogen 26 mg/dL (9-20); Calcium 10.7 mg/dL (8.4-10.2); Carbon Dioxide 22 mmol/L (22-30); Chloride 114 mmol/L (98-107); Glucose 147 mg/dL (74-99); Phosphorus 2.3 mg/dL (2.5-4.5); Potassium 3.9 mmol/L (3.5-5.1); Sodium 142 mmol/L (137-145)
[2017-10-25 05:04] LABS: Basophils % (A) 0 %; Eosinophils # (A) 0.1 k/uL (0-0.7); Eosinophils % (A) 1 %; HCT 34.5 % (39.0-53.0); HGB 10.8 gm/dL (13.0-17.5); Hypochromasia Slight; Lymphocytes # (A) 0.6 k/uL (1.0-4.8); Lymphocytes % (A) 7 %; MCH 31.4 pg (25.0-35.0); MCHC 31.3 g/dL (31.0-37.0); MCV 100.1 fL (80.0-100.0); Mean Platelet Volume 8.4; Monocytes # (A) 0.4 k/uL (0-1.0); Monocytes % (A) 4 %; Neutrophils % (A) 88 %; RBC 3.45 m/uL (4.30-5.90); RDW 13.2 % (11.5-15.5); WBC 9.1 k/uL (3.8-10.6)
[2017-10-25 05:26] LABS: Platelet Count 96 k/uL (150-450)
[2017-10-25 05:56] LABS: Glucose,Whole Blood 141 mg/dL (75-99)
[2017-10-25] MEDS: INSULIN ASPART 100 UNIT/ML 1 ML 10 ML VIAL SQ SCH ×3 (06:14→18:25)
--- NOTE | 2017-10-25 07:37 | XR ---
EXAMINATION TYPE: XR chest 1V portable DATE OF EXAM: 10/25/2017 Comparison: 10/24/2017 Clinical History: 82-year-old male Tube placement Findings: Tracheostomy cannula is in place. Median sternotomy wires with postsurgical clips in the mediastinum. Continued moderate bilateral pleural effusions with bibasilar opacities. Mild interstitial prominenc e is similar as well. Left heart margin remains obscured by adjacent pleural parenchymal disease. The left CVC seems to have been removed in the interval. Impression: Continued moderate pleural effusions with adjacent bibasilar atelectasis and/or consolidation.
[2017-10-25] MEDS: DILTIAZEM 50 MG in SODIUM CHLORIDE 0.9% 40 ML IV SCH ×2 (08:08→19:41)
[2017-10-25] MEDS: FLUTAMIDE PO SCH ×2 (08:09→20:11)
[2017-10-25] MEDS: ATENOLOL 50 MG TAB PO SCH (08:09)
[2017-10-25] MEDS: Difluprednate [Durezol] 1 DROP LEFT EYE SCH ×2 (08:10→20:10)
[2017-10-25] MEDS: NEPAFENAC LEFT EYE SCH (08:10)
[2017-10-25] MEDS: OFLOXACIN 0.3% OPHTH DROPS 5 ML BOTTLE LEFT EYE SCH ×4 (08:11→20:12)
[2017-10-25] MEDS: ASPIRIN 81 MG PO SCH (08:17)
[2017-10-25] MEDS: MULTIVITAMINS, THERA 1 EACH TAB PO SCH (08:17)
[2017-10-25] MEDS: TAMSULOSIN 0.4 MG CAP.ER.24H PO SCH (08:17)
[2017-10-25] MEDS: IPRATROPIUM-ALBUTEROL 3 ML NEB INHALATION SCH ×4 (08:29→18:43)
[2017-10-25] MEDS: PIPERACILLIN-TAZOBACTAM 3.375 GM in DEXTROSE/WATER 1 50ML.BAG IVPB SCH ×3 (09:19→23:01)
[2017-10-25] MEDS: PANTOPRAZOLE 40 MG/10 ML VIAL IVP SCH (09:20)
--- NOTE | 2017-10-25 10:59 | P.PN ---
Subjective Progress Note Date: 10/25/17 Principal diagnosis: Acute hypoxic respiratory failure secondary to COPD, left lower lobe pneumonia, vocal cord mass, stridor 82-year-old male patient with previous history of advanced COPD, along with history of coronary artery disease and previous bypass surgery and previous history of prostate cancer, presented to the hospital because of worsening shortness of breath. I was asked even with this patient as the patient's oxygenation was getting worse. At a time of my arrival, the patient was a 50% Ventimask. He was having some questionable stridorous inspiratory efforts, his cough was weak and his speech was also altered. He was unable to bring up much of sputum. He denied having any angina or chest pain. He also had a run of atrial fibrillation yesterday and currently his rhythm is sinus. I reviewed the chest x-ray and there is concern tolerance lower lobe infiltrates/ atelectasis. The patient is already on a combination of Rocephin and Zithromax. He was also noted to have hypercalcemia and acute kidney injury with a creatinine of 1.9. The exact nature of the hypercalcemia is not clear. As mentioned, he has prostate cancer. A recent bone scan from a recent bone scan from May 2017 showed no evidence of any skeletal involvement. Patient was reevaluated today on 10/20/2017, remains on mechanical ventilation. Patient was intubated yesterday by Dr. Woods, and urine intubation he was concerned about the vocal cords obstruction with what seems to be a mass involving the adenoid area, and displacing the vocal cords. Nonetheless, patient was intubated using a glidescope, and I have no plans to extubate the patient until he is evaluated by ENT, and the patient may require tracheostomy and biopsy of the lesion around the vocal cords. ENT consult was initiated, and he is yet to be seen by ENT on consultation. Ventilator settings were noted. Chest x-ray showed bibasilar opacities. And small bilateral pleural effusions. CBC showed slight leukocytosis. WBC count is 15.7 hemoglobin is 10.4 his PTT is 55.3, remains on heparin. ABG on 50% showed a pO2 of 117 pCO2 of 37 pH of 7.46. Basic metabolic profile is relatively normal BUN is 48 creatinine is 1.10. Patient is arousable, propofol was placed on hold, and we were able to examine the patient, seems to be very appropriate, and comprehending or what he was being controlled. Again I have no plans to extubate the patient until a tracheostomy is done, and ENT has seen the patient. Patient was reevaluated today on 10/21/2017, remains on mechanical ventilation, his ventilator settings are tidal volume of 500 assist control rate 16 FiO2 of 50% and PEEP of 5. He is not requiring any pressors, he remains on propofol which I plan to discontinue and give the patient is sedation holiday. And assess mental status again today. Patient is scheduled to undergo tracheostomy this afternoon, and biopsy of the vocal cords mass. This will be done likely later this afternoon by Dr. Foster. In the meantime the patient is hemodynamically stable, his labs were reviewed, and believes he count is 5.2 hemoglobin is 10.3 electrolytes are relatively normal BUN is 43 creatinine is 1.01. Mental status was appropriate yesterday off propofol, and we will assess his mental status again today off propofol. Chest x-ray showed mostly atelectasis and small pleural effusions. All meds were reviewed, patient remains empirically on antibiotics, he is also on updrafts, patient is on Cardizem drip at 5 mg per hour, and his atrial fibrillation seems to be fairly well controlled. He is on heparin which will plan to discontinue few hours before surgery. Patient was reevaluated today on 10/22/2017, patient underwent tracheostomy and thyroid isthmusectomy, and direct microscopic laryngoscopy with biopsy of the glottic mass. Results of which are pending. Patient was reevaluated today, and he seems to be doing very well. I gave the patient a short trial of pressure support and CPAP, and he was doing great. Hence I discontinued mechanical ventilation, and I placed him on a trach collar at 40% FiO2. His propofol has been discontinued. Patient seems to be hemodynamically stable, mentally appropriate, in no distress, denies any pain. ABG this morning showed a pO2 of 140 pCO2 of 30 pH of 7.50. CBC showed a hemoglobin of 10.6 WBC count of 7.1. Electrolytes were reviewed bicarb is 22. Sodium is 145. Patient's nasogastric tube was removed, and we plan to ask speech pathology to evaluate, and the patient can swallow we will proceed with oral feeding and deflate the cuff on the trach as needed. Chest x-ray continues to show bibasilar atelectasis and small pleural effusions. Reevaluated today on 10/23/2017, patient was extubated from mechanical ventilation yesterday, remains on trach collar. Patient failed swallow evaluation and barium swallow, hence I plan to arrange for the patient to have a PEG tube placement. Pathology from his laryngeal biopsy is still pending. Patient may eventually require referral to a tertiary care center like [facility] , or another facility depending on the recommendation of ENT on the case. In the meantime the patient continues to have atrial fibrillation but fairly controlled rate, and we are noticing more bleeding around the trach site, hence I recommended holding heparin for now. I have also recommended GI evaluation for a PEG tube placement. Patient is doing well overall, he is tolerating the trach collar well, relatively asymptomatic. Labs from today showed hemoglobin of 9.7 his PTT was 69. His sodium is climbing up to 151, EOM is 38 creatinine is 1.04, hence I plan to increase the IV fluid to D5W to 150 mL per hour. Will discontinue Lasix. Chest x-ray continues to show by basilar atelectasis and/or infiltrates. Reevaluated today on 10/24/2017, patient remains on trach collar, off mechanical ventilation, failed his swallow evaluation, hence he is undergoing PEG tube placement today for nutritional support. 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 Transfer plans are in progress. ENT is recommending ultrasound-guided fine-needle aspiration of neck masses. He also recommended oncology evaluation which will be initiated. In the meantime the patient is sitting at a bedside chair, very comfortable, in no distress. CBC is relatively normal basic metabolic profile is normal. Chest x-ray is showing basically bibasilar atelectasis and small pleural effusions. The patient was seen again today in 10/25/2017 in follow-up on the selective care unit. He is awake and alert in no acute distress. He is maintaining good O2 saturations in the 90s on trach collar at 35%. He denies any worsening shortness of breath. His chest x-ray continues to show moderate pleural effusions with adjacent bibasilar atelectasis. Sputum and blood cultures reveal no growth. White count 9.1. Hemoglobin 10.8. Creatinine 0.70. The patient's biopsy of the laryngeal mass was positive for squamous cell carcinoma and the plan is to transfer to [facility]. Pathology of the salivary gland is pending. He remains in atrial fibrillation and is on Cardizem drip at 5 mg per hour. He did have a PEG tube placed per surgical services yesterday. Objective - Vital Signs Vital signs: Vital Signs Temp 97.5 F L 10/25/17 08:00 Pulse 81 10/25/17 08:00 Resp 18 10/25/17 08:00 BP 121/69 10/25/17 08:00 Pulse Ox 96 10/25/17 08:00 Intake & Output 10/24/17 10/25/17 10/25/17 18:59 06:59 18:59 Intake Total 1200 1250.167 349.833 Output Total 775 975 Balance 425 275.167 349.833 Weight 99.8 kg 100.4 kg Intake: IV 1150 1250 300 Dextrose 5% in Water 1, 1100 1200 300 000 ml @ 150 mls/hr IV . Q6H40M [facility] Rx#:[id number] Piperacillin-Tazobactam 3 50 .375 gm In Dextrose/Water 1 50ml.bag @ 12.5 mls/hr IVPB Q8HR [facility] Rx#: [id number] Intake, IV Titration 50 0.167 49.833 Amount Diltiazem 50 mg In Sodium 50 0.167 49.833 Chloride 0.9% 40 ml @ Per Protocol IV .Q0M [facility] Rx#:[id number] Output: Urine 775 975 Other: Voiding Method Indwelling Catheter Indwelling Catheter Indwelling Catheter ABP, PAP, CO, CI - Last Documented Arterial Blood Pressure 129/59 - Exam Physical exam revealed an 82-year-old white male on trach collar, in no distress. And patient has been noted to cough up some blood for the tracheostomy tube. Head exam was generally normal. There was no scleral icterus or corneal arcus. Mucous membranes were moist. Neck was supple and without jugular venous distension, thyromegaly, or carotid bruits. Carotids were easily palpable bilaterally. Left neck mass is palpable, status post FNA with ultrasound guidance. Lungs sounds are diminished at the bases, no rhonchi and no wheezes. Cardiac exam revealed the PMI to be normally situated and sized. Irregular irregular rhythm, Normal S1 and S2, no S3 gallop. No murmur. Abdominal exam revealed soft nontender no megaly no rebound, positive bowel sounds. PEG tube exit site is clean and dry. Examination of the extremities revealed no clubbing, edema or cyanosis. Examination of the skin revealed no evidence of significant rashes, no erythema. Neurologically awake and alert and there is no focal neurological deficit. - Labs CBC & Chem 7: 10/25/17 04:09 10/25/17 04:17 Labs: Abnormal Lab Results - Last 24 Hours (Table) 10/24/17 10/24/17 10/24/17 Range/Units 12:18 19:11 23:50 RBC (4.30-5.90) m/uL Hgb (13.0-17.5) gm/dL Hct (39.0-53.0) % MCV (80.0-100.0) fL Plt Count (150-450) k/uL Neutrophils # (1.3-7.7) k/uL Lymphocytes # (1.0-4.8) k/uL Chloride (98-107) mmol/L BUN (9-20) mg/dL Glucose (74-99) mg/dL POC Glucose (mg/dL) 136 H 133 H 164 H (75-99) mg/dL Calcium (8.4-10.2) mg/dL Phosphorus (2.5-4.5) mg/dL 10/25/17 10/25/17 10/25/17 Range/Units 04:09 04:17 05:54 RBC 3.45 L (4.30-5.90) m/uL Hgb 10.8 L (13.0-17.5) gm/dL Hct 34.5 L (39.0-53.0) % MCV 100.1 H (80.0-100.0) fL Plt Count 96 L (150-450) k/uL Neutrophils # 8.0 H (1.3-7.7) k/uL Lymphocytes # 0.6 L (1.0-4.8) k/uL Chloride 114 H (98-107) mmol/L BUN 26 H (9-20) mg/dL Glucose 147 H (74-99) mg/dL POC Glucose (mg/dL) 141 H (75-99) mg/dL Calcium 10.7 H (8.4-10.2) mg/dL Phosphorus 2.3 L (2.5-4.5) mg/dL Microbiology - Last 24 Hours (Table) 10/18/17 09:10 Blood Culture - Final Blood No Growth after 144 hours Assessment and Plan Assessment: Impression: 1 acute hypoxic respiratory failure, multifactorial, secondary to stridor with large glottic mass and COPD exacerbation. Status post biopsy of glottic mass, pathology positive for squamous cell carcinoma. status post tracheostomy, status post ultrasound-guided FNA of left neck masses of the saliva gland, pathology pending. 2 advanced COPD 3 coronary artery disease appears bypass surgery 4 acute kidney injury, improving 5 hypercalcemia, improving 6 prostate cancer 7 atrial fibrillation, paroxysmal, currently on a Cardizem drip at 5 mg per hour. 8 acute urinary retention and the patient has a Kenny catheter in place 9 hypertension 10 hypernatremia and free water deficit, hence the patient will be kept on D5W and he will be increased, once the PEG tube is placed, we will recommend free water flushes via PEG tube. 11 failed swallow evaluation/barium swallow, PEG tube placed 10/24/2017 Recommendation: The patient was seen and evaluated by Dr. Venegas. Chest x-ray and labs were reviewed. The patient is currently stable from the pulmonary standpoint. The plan is for transfer to a tertiary care center for continued treatment of his squamous cell carcinoma. He has been seen and evaluated by oncology, radiation oncology and ENT while here. Continue with his current treatment planning. We will continue to follow. I, the cosigning physician, performed a history & physical examination of the patient. Lungs sounds have few scattered rhonchi, crackles in the posterior bases more so on the left Maintaining good O2 saturations in the 90s on 35% trach collar. I discussed the assessment and plan of care with my nurse practitioner, Anabel Vyas. I attest to the above note as dictated by her.
--- NOTE | 2017-10-25 11:49 | NM ---
EXAMINATION TYPE: NM bone scan whole body DATE OF EXAM: 10/25/2017 COMPARISON: 06/10/2017 HISTORY: 82 year-old male history of prostate cancer. Patient reports fractures involving the left hu merus, right ribs, and right hand. Surgery in the right wrist. Technique: Delayed whole-body scanning was performed following the injection of 25.4 mCi Tc 99m MDP. Images acquired 3 hours post injection. Anterior and posterior projection whole body images were per formed. FINDINGS: A couple abnormal areas of intense radiotracer activity in along the right anterolateral mid right ri bs. Findings correlate to abnormal chest wall soft tissue with some associated rib destruction when c orrelating with the 10/24/2017 CT in retrospect. Focal intense activity at the sternal notch may relat e to the patient's tracheostomy. Focal intense uptake posterior midline lower lumbar spine. There is corresponding sclerosis of the spinous process on CT here. Scattered degenerative tracer activity throughout the thoracic spine and in the shoulders. IMPRESSION: 1. 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 These are seen on the yesterday's CT in retrospect. 2. Focal intense activity posterior midline lower lumbar spine. On CT, there is corresponding scleros is of the spinous process. 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 3. Intense activity at the sternal notch may relate to the patient's tracheostomy.
[2017-10-25 11:50] LABS: Glucose,Whole Blood 120 mg/dL (75-99)
--- NOTE | 2017-10-25 12:02 | P.PN ---
Subjective Progress Note Date: 10/25/17 Patient currently having nebulizer treatment. No reports of abdominal pain following PEG tube placement. Nurses at bedside. Objective - Vital Signs Vital signs: Vital Signs Temp 97.5 F L 10/25/17 08:00 Pulse 81 10/25/17 08:00 Resp 18 10/25/17 08:00 BP 121/69 10/25/17 08:00 Pulse Ox 96 10/25/17 08:00 Intake & Output 10/24/17 10/25/17 10/25/17 18:59 06:59 18:59 Intake Total 1200 1250.167 349.833 Output Total 775 975 Balance 425 275.167 349.833 Weight 99.8 kg 100.4 kg Intake: IV 1150 1250 300 Dextrose 5% in Water 1, 1100 1200 300 000 ml @ 150 mls/hr IV . Q6H40M [facility] Rx#:[id number] Piperacillin-Tazobactam 3 50 .375 gm In Dextrose/Water 1 50ml.bag @ 12.5 mls/hr IVPB Q8HR [facility] Rx#: [id number] Intake, IV Titration 50 0.167 49.833 Amount Diltiazem 50 mg In Sodium 50 0.167 49.833 Chloride 0.9% 40 ml @ Per Protocol IV .Q0M [facility] Rx#:[id number] Output: Urine 775 975 Other: Voiding Method Indwelling Catheter Indwelling Catheter Indwelling Catheter ABP, PAP, CO, CI - Last Documented Arterial Blood Pressure 129/59 - Exam GENERAL: Well developed and in no acute distress. Pleasant. HEENT: No sclera icterus. Extraocular movements grossly intact. Moist buccal mucosa. Head is atraumatic, normocephalic. Hears conversational speech. No nasal drainage. NECK: Trach site intact no cellulitis. CHEST: Non-labored respirations and equal bilateral excursions. CARDIOVASCULAR: Regular rate and rhythm. Palpable 2+ radial pulses. ABDOMEN: Soft, nontender. Nondistended. PEG site intact. No cellulitis. MUSCULOSKELETAL: No clubbing, cyanosis or edema. NEUROLOGIC: No focal or lateralizing signs. Cranial nerves II-12 grossly intact PSYCH: Appropriate affect. Alert and oriented to person, place and time. SKIN: Good skin turgor. Well perfused. - Labs CBC & Chem 7: 10/25/17 04:09 10/25/17 04:17 Labs: Abnormal Lab Results - Last 24 Hours (Table) 10/24/17 10/24/17 10/24/17 Range/Units 12:18 19:11 23:50 RBC (4.30-5.90) m/uL Hgb (13.0-17.5) gm/dL Hct (39.0-53.0) % MCV (80.0-100.0) fL Plt Count (150-450) k/uL Neutrophils # (1.3-7.7) k/uL Lymphocytes # (1.0-4.8) k/uL Chloride (98-107) mmol/L BUN (9-20) mg/dL Glucose (74-99) mg/dL POC Glucose (mg/dL) 136 H 133 H 164 H (75-99) mg/dL Calcium (8.4-10.2) mg/dL Phosphorus (2.5-4.5) mg/dL 10/25/17 10/25/17 10/25/17 Range/Units 04:09 04:17 05:54 RBC 3.45 L (4.30-5.90) m/uL Hgb 10.8 L (13.0-17.5) gm/dL Hct 34.5 L (39.0-53.0) % MCV 100.1 H (80.0-100.0) fL Plt Count 96 L (150-450) k/uL Neutrophils # 8.0 H (1.3-7.7) k/uL Lymphocytes # 0.6 L (1.0-4.8) k/uL Chloride 114 H (98-107) mmol/L BUN 26 H (9-20) mg/dL Glucose 147 H (74-99) mg/dL POC Glucose (mg/dL) 141 H (75-99) mg/dL Calcium 10.7 H (8.4-10.2) mg/dL Phosphorus 2.3 L (2.5-4.5) mg/dL 10/25/17 Range/Units 11:48 RBC (4.30-5.90) m/uL Hgb (13.0-17.5) gm/dL Hct (39.0-53.0) % MCV (80.0-100.0) fL Plt Count (150-450) k/uL Neutrophils # (1.3-7.7) k/uL Lymphocytes # (1.0-4.8) k/uL Chloride (98-107) mmol/L BUN (9-20) mg/dL Glucose (74-99) mg/dL POC Glucose (mg/dL) 120 H (75-99) mg/dL Calcium (8.4-10.2) mg/dL Phosphorus (2.5-4.5) mg/dL Microbiology - Last 24 Hours (Table) 10/18/17 09:10 Blood Culture - Final Blood No Growth after 144 hours Assessment and Plan (1) Inadequate dietary intake of protein Current Visit: Yes Status: Acute Code(s): R63.8 - OTHER SYMPTOMS AND SIGNS CONCERNING FOOD AND FLUID INTAKE SNOMED Code(s): 713929571 (2) Tracheostomy care Current Visit: Yes Status: Acute Code(s): Z43.0 - ENCOUNTER FOR ATTENTION TO TRACHEOSTOMY SNOMED Code(s): 909950914 Plan: 1. May start tube feeds 24 hour following PEG tube placement 2. Dietary orders per internal medicine/primary care team.
[2017-10-25] MEDS: traMADol 50 MG TAB PO PRN ×2 (13:23→22:19)
--- NOTE | 2017-10-25 16:40 | P.PN ---
Subjective Progress Note Date: 10/25/17 Principal diagnosis: Laryngeal Mass CT Scan was completed and failed to show any apparent evidence of metastatic disease. Identifying mass on prostate. Calcium mildly decreased. Awaiting PSA today He is doing well, only complaint is right wrist which he takes tramadol for from a remote trauma. Objective - Vital Signs Vital signs: Vital Signs Temp 97.8 F 10/25/17 04:00 Pulse 100 10/25/17 06:50 Resp 18 10/25/17 06:50 BP 139/90 10/25/17 06:50 Pulse Ox 94 L 10/25/17 06:50 Intake & Output 10/24/17 10/25/17 10/25/17 18:59 06:59 18:59 Intake Total 1200 1250.167 49.833 Output Total 775 975 Balance 425 275.167 49.833 Weight 99.8 kg 100.4 kg Intake: IV 1150 1250 Dextrose 5% in Water 1, 1100 1200 000 ml @ 150 mls/hr IV . Q6H40M [facility] Rx#:[id number] Piperacillin-Tazobactam 3 50 .375 gm In Dextrose/Water 1 50ml.bag @ 12.5 mls/hr IVPB Q8HR [facility] Rx#: [id number] Intake, IV Titration 50 0.167 49.833 Amount Diltiazem 50 mg In Sodium 50 0.167 49.833 Chloride 0.9% 40 ml @ Per Protocol IV .Q0M [facility] Rx#:[id number] Output: Urine 775 975 Other: Voiding Method Indwelling Catheter Indwelling Catheter ABP, PAP, CO, CI - Last Documented Arterial Blood Pressure 129/59 - Exam General: Well-developed, thin-appearing HEENT: Normocephalic, Nontramatic, sclerae nonicteric, tracheostomy and placed 1-2cm right moveable palpable cervical lymph node LUNGS: Equal and no increased effort noted HEART: Tachy, Irregular Abdomen: Nontender, nondistended Extremities: No edema Neuro: Alert and oriented, Non Vocal secondary to Trach. - Labs CBC & Chem 7: 10/25/17 04:09 10/25/17 04:17 Labs: Abnormal Lab Results - Last 24 Hours (Table) 10/24/17 10/24/17 10/24/17 Range/Units 12:18 19:11 23:50 RBC (4.30-5.90) m/uL Hgb (13.0-17.5) gm/dL Hct (39.0-53.0) % MCV (80.0-100.0) fL Plt Count (150-450) k/uL Neutrophils # (1.3-7.7) k/uL Lymphocytes # (1.0-4.8) k/uL Chloride (98-107) mmol/L BUN (9-20) mg/dL Glucose (74-99) mg/dL POC Glucose (mg/dL) 136 H 133 H 164 H (75-99) mg/dL Calcium (8.4-10.2) mg/dL Phosphorus (2.5-4.5) mg/dL 10/25/17 10/25/17 10/25/17 Range/Units 04:09 04:17 05:54 RBC 3.45 L (4.30-5.90) m/uL Hgb 10.8 L (13.0-17.5) gm/dL Hct 34.5 L (39.0-53.0) % MCV 100.1 H (80.0-100.0) fL Plt Count 96 L (150-450) k/uL Neutrophils # 8.0 H (1.3-7.7) k/uL Lymphocytes # 0.6 L (1.0-4.8) k/uL Chloride 114 H (98-107) mmol/L BUN 26 H (9-20) mg/dL Glucose 147 H (74-99) mg/dL POC Glucose (mg/dL) 141 H (75-99) mg/dL Calcium 10.7 H (8.4-10.2) mg/dL Phosphorus 2.3 L (2.5-4.5) mg/dL Microbiology - Last 24 Hours (Table) 10/18/17 09:10 Blood Culture - Final Blood No Growth after 144 hours Assessment and Plan Plan: Assessment and Recommendations: 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 Hypercalcemia - - Dehydration versus Malignancy - IVF HYdration and Bone Scan 3. History of Prostate Cancer - FOllows with Urology - Receives RT - Recheck PSA Level - CT scan revealed tumor of prostate, awaiting PSA to see if potential recurrence along side of new primary Laryngeal 4. Macrocytic Anemia - - Check B12, FOlate, Iron Studies - Monitor CBC
[2017-10-25 17:56] LABS: Glucose,Whole Blood 128 mg/dL (75-99)
--- NOTE | 2017-10-25 18:51 | PN ---
PROGRESS NOTE DATE OF SERVICE: 10/25/2017. ATTENDING PHYSICIAN: Dr. Lane. Dictating in the temporary absence of Dr. Lane by Dr. Bartholomew. The patient seen today on October 26, 2007 and to be followed and the patient was in the ICU to be transferred to the floor in 661 bed 1. The patient seen and evaluated. He had thoracostomy tube with the respirator and he had a Kenny catheter in place and as well as he has a PEG tube in place. He could not speak and he writes on the note bed. He was today requested eyedrops because of dryness of his eye. The patient name Bjorn Stahl and he is an 82 year old white male. The patient was underlying history that he had a new squamous cell carcinoma of the larynx. Status post tracheostomy for obstructive mass. Next staging CT scan and bone scan, which indicating the bone scan, there is activity or metastasis in the right side of the upper hip. He had a questionable history of the PSA as well. Also, he had hypercalcemia, dehydration versus malignancy. Patient with a history in the past of prostatic CA and he received LHRT and recheck on the PSA. His CT scan revealed tumor of the prostate and he had macrocytic anemia. This information was obtained from Bernardino Mayen, the nurse practitioner of Oncology. Today on exam, his vital signs indicating that temperature 97.2, pulse rate 68, and respiratory rate is 18 and his blood pressure 111/70 with a mean 83. His oxygen saturation is 95 through the tracheal collar. His FiO2 is 40%. LABORATORY: Indicating white count 9.1 with a hemoglobin 10.8 and hematocrit 34.5, MCV 100.1. His platelet count 96. His chemistry indicating sodium 142, potassium 3.9, his chloride 114, carbon dioxide 22, and anion gap is 6 and BUN of 26, creatinine 0.7 with estimated glomerular filtration rate for non- 88. Blood sugar was 147 and he has POC glucose was 141, 164, 120, stable. His calcium was 10.7, minimally elevated with a phosphorus 2.3 and magnesium is 2 on today evaluation. His sputum culture normal respiratory dieudonne. His blood culture no growth after 144 hours. He is seen by Dr. Angeli Bonds as well as Dr. Kayden Venegas and seen today by Bernardino Mayen the PA for the Oncology and he had the nuclear scan bone nuclear scan which indicating read by Dr. Sandoval and there is a couple abnormal area of racing activity along the right anterolateral mid ribs. 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 Reviewing of Dr. Lane note indicating that he had laryngeal malignancy and he had a tracheostomy and hypercalcemia and chronic COPD with respiratory failure and atrial fibrillation. The patient had a PEG tube as well for feeding and he is currently on medication and he is on Artificial Tears as well on insulin for diabetes and control blood sugar. He is on inhalation therapy as well as Zosyn IV piggyback with pneumonia protocol with the Tamsulosin Flomax for underlying prostate problem. Reviewing of the laboratory, he had good renal function at this time. I do not see any result of the PSA and he had still hypercalcemia and low phosphate and normal magnesium. Blood sugar is stable. PHYSICAL EXAM: Patient is conscious, alert with verbal response, and he is able to write and use his right hand. He is right-handed. He had the tracheostomy collar and with the underlying malignancy. His lung is irrigated and his heart was compensated. The abdomen with the abdomen soft, positive bowel sounds and obese. He had the PEG tube or feeding tube in place and a Kenny catheter in place. His extremities, leg was negative. No edema and positive pulses. ASSESSMENT: 1. Laryngeal tumor with the questionable metastasis in the right upper chest by the scan. 2. History of prostate cancer. However, the result is not available to see if recurrence. 3. Respiratory failure. 4. Diabetes mellitus. PLAN: We will continue the current treatment and will follow the recommendation of the specialist and the Pulmonary and Oncology. MMODL / IJN: [id number] /
[2017-10-25] MEDS: ARTIFICIAL TEARS-HYPROMELLOSE DROPS 15 ML BTL BOTH EYES PRN (20:16)
[2017-10-25] MEDS: ATORVASTATIN 40 MG TAB PO SCH (20:18)
[2017-10-26 00:09] LABS: Glucose,Whole Blood 160 mg/dL (75-99)
[2017-10-26] MEDS: INSULIN ASPART 100 UNIT/ML 1 ML 10 ML VIAL SQ SCH ×4 (00:11→17:50)
[2017-10-26] MEDS: HYDROmorphone 1 MG/ML 1 ML SYRINGE IVP PRN ×9 (00:25→22:09)
[2017-10-26] MEDS: DILTIAZEM 50 MG in SODIUM CHLORIDE 0.9% 40 ML IV SCH ×2 (05:35→14:36)
[2017-10-26 06:07] LABS: Glucose,Whole Blood 151 mg/dL (75-99)
[2017-10-26 06:24] LABS: Basophils % (A) 0 %; Eosinophils # (A) 0.3 k/uL (0-0.7); Eosinophils % (A) 3 %; HCT 31.1 % (39.0-53.0); Lymphocytes # (A) 0.7 k/uL (1.0-4.8); Lymphocytes % (A) 9 %; MCH 31.9 pg (25.0-35.0); MCHC 32.1 g/dL (31.0-37.0); MCV 99.5 fL (80.0-100.0); Mean Platelet Volume 7.8; Monocytes # (A) 0.3 k/uL (0-1.0); Monocytes % (A) 4 %; Neutrophils # (A) 7.1 k/uL (1.3-7.7); Neutrophils % (A) 84 %; RBC 3.12 m/uL (4.30-5.90); RDW 12.9 % (11.5-15.5); WBC 8.4 k/uL (3.8-10.6)
[2017-10-26 06:25] LABS: Platelet Count 86 k/uL (150-450)
[2017-10-26 06:31] LABS: Anion Gap 4 mmol/L; Blood Urea Nitrogen 19 mg/dL (9-20); Carbon Dioxide 25 mmol/L (22-30); Chloride 109 mmol/L (98-107); Glucose 140 mg/dL (74-99); Potassium 3.6 mmol/L (3.5-5.1); Sodium 138 mmol/L (137-145)
[2017-10-26 06:32] LABS: Calcium 9.9 mg/dL (8.4-10.2); Magnesium 1.8 mg/dL (1.6-2.3)
[2017-10-26] MEDS: IPRATROPIUM-ALBUTEROL 3 ML NEB INHALATION SCH ×4 (08:05→20:35)
[2017-10-26] MEDS: ARTIFICIAL TEARS-HYPROMELLOSE DROPS 15 ML BTL BOTH EYES PRN ×2 (08:34→20:59)
[2017-10-26] MEDS: OFLOXACIN 0.3% OPHTH DROPS 5 ML BOTTLE LEFT EYE SCH ×4 (08:34→20:59)
[2017-10-26] MEDS: NEPAFENAC LEFT EYE SCH (08:34)
[2017-10-26] MEDS: ASPIRIN 81 MG PO SCH (08:35)
[2017-10-26] MEDS: PANTOPRAZOLE 40 MG/10 ML VIAL IVP SCH (08:35)
[2017-10-26] MEDS: ATENOLOL 50 MG TAB PO SCH (08:35)
[2017-10-26] MEDS: TAMSULOSIN 0.4 MG CAP.ER.24H PO SCH (08:35)
[2017-10-26] MEDS: MULTIVITAMINS, THERA 1 EACH TAB PO SCH (08:36)
[2017-10-26] MEDS: FLUTAMIDE PO SCH ×2 (08:36→20:58)
[2017-10-26] MEDS: Difluprednate [Durezol] 1 DROP LEFT EYE SCH ×2 (08:36→21:00)
[2017-10-26] MEDS: PIPERACILLIN-TAZOBACTAM 3.375 GM in DEXTROSE/WATER 1 50ML.BAG IVPB SCH ×3 (10:39→23:34)
--- NOTE | 2017-10-26 11:39 | P.PN ---
Subjective Progress Note Date: 10/26/17 Principal diagnosis: Acute hypoxic respiratory failure secondary to COPD, possible left lower lobe pneumonia, and vocal cords mass, and stridor 82-year-old male patient with previous history of advanced COPD, along with history of coronary artery disease and previous bypass surgery and previous history of prostate cancer, presented to the hospital because of worsening shortness of breath. I was asked even with this patient as the patient's oxygenation was getting worse. At a time of my arrival, the patient was a 50% Ventimask. He was having some questionable stridorous inspiratory efforts, his cough was weak and his speech was also altered. He was unable to bring up much of sputum. He denied having any angina or chest pain. He also had a run of atrial fibrillation yesterday and currently his rhythm is sinus. I reviewed the chest x-ray and there is concern tolerance lower lobe infiltrates/ atelectasis. The patient is already on a combination of Rocephin and Zithromax. He was also noted to have hypercalcemia and acute kidney injury with a creatinine of 1.9. The exact nature of the hypercalcemia is not clear. As mentioned, he has prostate cancer. A recent bone scan from a recent bone scan from May 2017 showed no evidence of any skeletal involvement. Patient was reevaluated today on 10/20/2017, remains on mechanical ventilation. Patient was intubated yesterday by Dr. Woods, and urine intubation he was concerned about the vocal cords obstruction with what seems to be a mass involving the adenoid area, and displacing the vocal cords. Nonetheless, patient was intubated using a glidescope, and I have no plans to extubate the patient until he is evaluated by ENT, and the patient may require tracheostomy and biopsy of the lesion around the vocal cords. ENT consult was initiated, and he is yet to be seen by ENT on consultation. Ventilator settings were noted. Chest x-ray showed bibasilar opacities. And small bilateral pleural effusions. CBC showed slight leukocytosis. WBC count is 15.7 hemoglobin is 10.4 his PTT is 55.3, remains on heparin. ABG on 50% showed a pO2 of 117 pCO2 of 37 pH of 7.46. Basic metabolic profile is relatively normal BUN is 48 creatinine is 1.10. Patient is arousable, propofol was placed on hold, and we were able to examine the patient, seems to be very appropriate, and comprehending or what he was being controlled. Again I have no plans to extubate the patient until a tracheostomy is done, and ENT has seen the patient. Patient was reevaluated today on 10/21/2017, remains on mechanical ventilation, his ventilator settings are tidal volume of 500 assist control rate 16 FiO2 of 50% and PEEP of 5. He is not requiring any pressors, he remains on propofol which I plan to discontinue and give the patient is sedation holiday. And assess mental status again today. Patient is scheduled to undergo tracheostomy this afternoon, and biopsy of the vocal cords mass. This will be done likely later this afternoon by Dr. Foster. In the meantime the patient is hemodynamically stable, his labs were reviewed, and believes he count is 5.2 hemoglobin is 10.3 electrolytes are relatively normal BUN is 43 creatinine is 1.01. Mental status was appropriate yesterday off propofol, and we will assess his mental status again today off propofol. Chest x-ray showed mostly atelectasis and small pleural effusions. All meds were reviewed, patient remains empirically on antibiotics, he is also on updrafts, patient is on Cardizem drip at 5 mg per hour, and his atrial fibrillation seems to be fairly well controlled. He is on heparin which will plan to discontinue few hours before surgery. Patient was reevaluated today on 10/22/2017, patient underwent tracheostomy and thyroid isthmusectomy, and direct microscopic laryngoscopy with biopsy of the glottic mass. Results of which are pending. Patient was reevaluated today, and he seems to be doing very well. I gave the patient a short trial of pressure support and CPAP, and he was doing great. Hence I discontinued mechanical ventilation, and I placed him on a trach collar at 40% FiO2. His propofol has been discontinued. Patient seems to be hemodynamically stable, mentally appropriate, in no distress, denies any pain. ABG this morning showed a pO2 of 140 pCO2 of 30 pH of 7.50. CBC showed a hemoglobin of 10.6 WBC count of 7.1. Electrolytes were reviewed bicarb is 22. Sodium is 145. Patient's nasogastric tube was removed, and we plan to ask speech pathology to evaluate, and the patient can swallow we will proceed with oral feeding and deflate the cuff on the trach as needed. Chest x-ray continues to show bibasilar atelectasis and small pleural effusions. Reevaluated today on 10/23/2017, patient was extubated from mechanical ventilation yesterday, remains on trach collar. Patient failed swallow evaluation and barium swallow, hence I plan to arrange for the patient to have a PEG tube placement. Pathology from his laryngeal biopsy is still pending. Patient may eventually require referral to a tertiary care center like [facility] , or another facility depending on the recommendation of ENT on the case. In the meantime the patient continues to have atrial fibrillation but fairly controlled rate, and we are noticing more bleeding around the trach site, hence I recommended holding heparin for now. I have also recommended GI evaluation for a PEG tube placement. Patient is doing well overall, he is tolerating the trach collar well, relatively asymptomatic. Labs from today showed hemoglobin of 9.7 his PTT was 69. His sodium is climbing up to 151, EOM is 38 creatinine is 1.04, hence I plan to increase the IV fluid to D5W to 150 mL per hour. Will discontinue Lasix. Chest x-ray continues to show by basilar atelectasis and/or infiltrates. Reevaluated today on 10/24/2017, patient remains on trach collar, off mechanical ventilation, failed his swallow evaluation, hence he is undergoing PEG tube placement today for nutritional support. His pathology came back positive for squamous cell carcinoma, and decisions will be made as to likely transfer the patient to [facility]. Transfer plans are in progress. ENT is recommending ultrasound-guided fine-needle aspiration of neck masses. He also recommended oncology evaluation which will be initiated. In the meantime the patient is sitting at a bedside chair, very comfortable, in no distress. CBC is relatively normal basic metabolic profile is normal. Chest x-ray is showing basically bibasilar atelectasis and small pleural effusions. Reevaluated today on 10/26/2017, patient remains on trach collar, being fed via PEG tube, doing overall quite well, were still in the process of making arrangements for him to be eventually transferred to a tertiary care center/ [facility]. Patient is in no distress. All his labs were reviewed including his CBC, basic metabolic profile renal profile seems to be relatively normal. 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 There was also focal intense activity in the posterior midline and lower spine. Intense activity noted at the sternal notch this could very well be related to his tracheostomy. These issues are to be addressed by oncology before any further arrangements made, and whether the patient will be a candidate for any surgical intervention. Objective - Vital Signs Vital signs: Vital Signs Temp 98.0 F 10/26/17 08:00 Pulse 75 10/26/17 08:17 Resp 18 10/26/17 08:00 BP 112/56 10/26/17 08:00 Pulse Ox 93 L 10/26/17 08:00 Intake & Output 10/25/17 10/26/17 10/26/17 18:59 06:59 18:59 Intake Total 1129.833 199.5 80 Balance 1129.833 199.5 80 Weight 94 kg Intake: IV 900 Dextrose 5% in Water 1, 900 000 ml @ 150 mls/hr IV . Q6H40M [facility] Rx#:[id number] Intake, IV Titration 99.833 49.5 Amount Diltiazem 50 mg In Sodium 99.833 49.5 Chloride 0.9% 40 ml @ Per Protocol IV .Q0M [facility] Rx#:[id number] Tube Feeding 80 150 80 Lipid 50 Piperacillin-Tazobactam 3 50 .375 gm In Dextrose/Water 1 50ml.bag @ 12.5 mls/hr IVPB Q8HR [facility] Rx#: [id number] Other: Voiding Method Indwelling Catheter Indwelling Catheter Indwelling Catheter ABP, PAP, CO, CI - Last Documented Arterial Blood Pressure 129/59 - Exam Physical exam revealed an 82-year-old white male on trach collar, in no distress. Her Ostomy tube is intact.. Head exam was generally normal. There was no scleral icterus or corneal arcus. Mucous membranes were moist. Neck was supple and without jugular venous distension, thyromegaly, or carotid bruits. Carotids were easily palpable bilaterally. Left neck mass is palpable, status post FNA with ultrasound guidance. Lungs sounds are diminished at the bases, no rhonchi and no wheezes. Cardiac exam revealed the PMI to be normally situated and sized. Irregular irregular rhythm, Normal S1 and S2, no S3 gallop. No murmur. Abdominal exam revealed soft nontender no megaly no rebound, positive bowel sounds. Examination of the extremities revealed no clubbing, edema or cyanosis. Examination of the skin revealed no evidence of significant rashes, no erythema. Neurologically awake and alert and there is no focal neurological deficit. - Labs CBC & Chem 7: 10/26/17 05:42 10/26/17 05:42 Labs: Abnormal Lab Results - Last 24 Hours (Table) 10/25/17 10/25/17 10/26/17 Range/Units 11:48 17:54 00:05 RBC (4.30-5.90) m/uL Hgb (13.0-17.5) gm/dL Hct (39.0-53.0) % Plt Count (150-450) k/uL Lymphocytes # (1.0-4.8) k/uL Chloride (98-107) mmol/L Glucose (74-99) mg/dL POC Glucose (mg/dL) 120 H 128 H 160 H (75-99) mg/dL Phosphorus (2.5-4.5) mg/dL 10/26/17 10/26/17 10/26/17 Range/Units 05:42 05:42 06:03 RBC 3.12 L (4.30-5.90) m/uL Hgb 10.0 L (13.0-17.5) gm/dL Hct 31.1 L (39.0-53.0) % Plt Count 86 L (150-450) k/uL Lymphocytes # 0.7 L (1.0-4.8) k/uL Chloride 109 H (98-107) mmol/L Glucose 140 H (74-99) mg/dL POC Glucose (mg/dL) 151 H (75-99) mg/dL Phosphorus 2.0 L (2.5-4.5) mg/dL Assessment and Plan Assessment: 1 acute hypoxic respiratory failure, multifactorial, secondary to stridor with 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 2 advanced COPD 3 coronary artery disease appears bypass surgery 4 acute kidney injury, improving 5 hypercalcemia, resolved. 6 prostate cancer 7 atrial fibrillation, paroxysmal, currently back into normal sinus rhythm, patient is presently on heparin, and being followed by cardiology. 8 acute urinary retention and the patient has a Kenny catheter in place 9 hypertension 10 status post biopsy of glottic mass, postoperative day #3 pathology is pending. 11 status post tracheostomy, postoperative day #5 12 hypernatremia resolved. 13 failed swallow evaluation/barium swallow, patient will definitely need a PEG tube placement, GI was consulted for PEG tube placement. 14 status post ultrasound-guided FNA of left neck masses possibly saliva gland. Cytology is pending. Recommendation: Continue present supportive care measures, will await to hear from oncology about treatment suggestions, patient may not be an ideal candidate for any surgical intervention at this point. Time with Patient: Less than 30
[2017-10-26 11:53] LABS: Glucose,Whole Blood 124 mg/dL (75-99)
--- NOTE | 2017-10-26 13:59 | P.PN ---
Subjective Progress Note Date: 10/26/17 Patient is resting comfortably. He is tolerating tube feeds at 30 mL per hour. Objective - Vital Signs Vital signs: Vital Signs Temp 97.1 F L 10/26/17 12:00 Pulse 89 10/26/17 12:00 Resp 18 10/26/17 12:00 BP 117/67 10/26/17 12:00 Pulse Ox 92 L 10/26/17 12:00 Intake & Output 10/25/17 10/26/17 10/26/17 18:59 06:59 18:59 Intake Total 1129.833 199.5 160 Balance 1129.833 199.5 160 Weight 94 kg Intake: IV 900 Dextrose 5% in Water 1, 900 000 ml @ 150 mls/hr IV . Q6H40M [facility] Rx#:[id number] Intake, IV Titration 99.833 49.5 Amount Diltiazem 50 mg In Sodium 99.833 49.5 Chloride 0.9% 40 ml @ Per Protocol IV .Q0M [facility] Rx#:[id number] Tube Feeding 80 150 160 Lipid 50 Piperacillin-Tazobactam 3 50 .375 gm In Dextrose/Water 1 50ml.bag @ 12.5 mls/hr IVPB Q8HR [facility] Rx#: [id number] Other: Voiding Method Indwelling Catheter Indwelling Catheter Indwelling Catheter ABP, PAP, CO, CI - Last Documented Arterial Blood Pressure 129/59 - Exam GENERAL: Well developed and in no acute distress. Pleasant. HEENT: No sclera icterus. Extraocular movements grossly intact. Moist buccal mucosa. Head is atraumatic, normocephalic. Hears conversational speech. No nasal drainage. NECK: Trach site intact no cellulitis. CHEST: Non-labored respirations and equal bilateral excursions. CARDIOVASCULAR: Regular rate and rhythm. Palpable 2+ radial pulses. ABDOMEN: Soft, nontender. Nondistended. PEG site intact. MUSCULOSKELETAL: No clubbing, cyanosis or edema. NEUROLOGIC: No focal or lateralizing signs. Cranial nerves II-12 grossly intact PSYCH: Appropriate affect. Alert and oriented to person, place and time. SKIN: Good skin turgor. Well perfused. - Labs CBC & Chem 7: 10/26/17 05:42 10/26/17 05:42 Labs: Abnormal Lab Results - Last 24 Hours (Table) 10/25/17 10/26/17 10/26/17 Range/Units 17:54 00:05 05:42 RBC 3.12 L (4.30-5.90) m/uL Hgb 10.0 L (13.0-17.5) gm/dL Hct 31.1 L (39.0-53.0) % Plt Count 86 L (150-450) k/uL Lymphocytes # 0.7 L (1.0-4.8) k/uL Chloride (98-107) mmol/L Glucose (74-99) mg/dL POC Glucose (mg/dL) 128 H 160 H (75-99) mg/dL Phosphorus (2.5-4.5) mg/dL 10/26/17 10/26/17 10/26/17 Range/Units 05:42 06:03 11:51 RBC (4.30-5.90) m/uL Hgb (13.0-17.5) gm/dL Hct (39.0-53.0) % Plt Count (150-450) k/uL Lymphocytes # (1.0-4.8) k/uL Chloride 109 H (98-107) mmol/L Glucose 140 H (74-99) mg/dL POC Glucose (mg/dL) 151 H 124 H (75-99) mg/dL Phosphorus 2.0 L (2.5-4.5) mg/dL Assessment and Plan (1) Inadequate dietary intake of protein Current Visit: Yes Status: Acute Code(s): R63.8 - OTHER SYMPTOMS AND SIGNS CONCERNING FOOD AND FLUID INTAKE SNOMED Code(s): 235493732 (2) Tracheostomy care Current Visit: Yes Status: Acute Code(s): Z43.0 - ENCOUNTER FOR ATTENTION TO TRACHEOSTOMY SNOMED Code(s): 323444883 Plan: 1. Patient on tube feeds and tolerating. 2. Will sign off.
--- NOTE | 2017-10-26 16:16 | PN ---
PROGRESS NOTE DATE OF SERVICE: 10/26/2017. ATTENDING PHYSICIAN: Dr. Lane Medical followup progress note by Dr. Bartholomew in the temporary absence of Dr. Lane. Age [age] years old white male. DATA: 6 foot height, weight 94 kg, BSA 2.16 m2, BMI 28.1 kg/m2. ALLERGY: To ACETAMINOPHEN, rash and hives; CASODEX, rash and hives; MELOXICAM unknown; SULFA itching; MORPHINE, nausea and vomiting. The patient is seen today and the patient apparently has no children and he was and his POA was present in the room and he was expressing his wishes as the patient wishes as he was talking to the patient that he would like to go to [facility] in [place] for further treatment and evaluation and apparently depend on also the result of biopsy. He stated that the took the biopsy from his left ear today and of course that will not be available results until Friday or Friday. I did discuss with him the future planning for the treatment and the bone scan as well, that nuclear bone scan was done on October 25 and that showed to be area of intense tracer activity along the right anterolateral mid ribs compatible with the chest wall and destructive rib metastasis. This also was seen on the CT scan that was done 1 day prior to the bone scan and also there is intense activity in the sternal notch that may be related to the tracheostomy. The patient also has color but he is not on the ventilator and he has a tracheostomy collar and he could not speak, as well as could not swallow. Only seen by the PA of the Oncology on October 25, Nabila Mayen, and so far we do not have opinion of the oncologist. He also was seen by Dr. Tse, ENT on October 23 with his assessment at that time of laryngeal mass and he was waiting for the results which he suspects the malignancy. His microbiology, no evidence of growth and sputum culture was respiratory dieudonne and his laboratories and the pathology report is so far not available. Dr. Garcia did the EGD and PEG tube placement as he could not be able to swallow. The patient's general condition is improving and he was a awake, alert, and he could write on the pad. He communicating with the POA and his neighbor and friend visitors. His vital signs indicating that temperature 97.1, and his heart rate is regular sinus 89, respiratory rate 18, blood pressure 117/76 with a mean pressure 83. LABORATORY: Today indicating that anemia with the white count normal 8.4 and hemoglobin 10 and hematocrit 31.1. His MCV 99.5, platelet count 86. He has inflatable stocking compression for DVT prophylaxis. His chemistry indicating the sodium 138, potassium 3.6, chloride 109, carbon dioxide 25, and the creatinine is 0.76 with a estimated glomerular filtration rate 85. His fasting blood sugar 140 and the POC glucose was fairly well controlled diabetes. His phosphorus was slightly below the normal due to the eating problem with the only using for feeding the PEG tube and nutrition through the PICC line. His calcium is 9.9 and magnesium 1.8. PHYSICAL EXAMINATION: The patient was conscious, alert, oriented. He had tracheal collar and he could not speak. He writes on the pad. Chest is clear. No wheezes, no rhonchi. The heart was regular sinus rhythm. The abdomen was soft. Positive bowel sounds. Extremities, he had thrombotic compression stockings as he has generalized weakness associated with his illness. ASSESSMENT: 1. Laryngeal and oropharyngeal cancer and the pathology report is unavailable, and he had a biopsy of the left ear that is unavailable. 2. History of anemia, probably of chronic disease and illness with the laryngeal and pharyngeal cancer. 3. He has remote history of prostate cancer. 4. Diabetes mellitus type 2, currently controlled. 5. Tracheostomy tube with trach collar and he is on oxygen, but he is not on ventilator. Further discussion with the POA and I did also discuss with the POA and the patient that they need to discuss with the Pulmonary and Critical what is the next step for the future referral to [facility] and if they will be accepting him or not. This is after we have the pathology report and after the followup with the Oncology to see if any further treatment available. MMODL / IJN: [id number] /
[2017-10-26 17:33] LABS: Glucose,Whole Blood 177 mg/dL (75-99)
[2017-10-26] MEDS: ATORVASTATIN 40 MG TAB PO SCH (20:58)
[2017-10-26 23:45] LABS: Glucose,Whole Blood 135 mg/dL (75-99)
[2017-10-27] MEDS: INSULIN ASPART 100 UNIT/ML 1 ML 10 ML VIAL SQ SCH ×4 (00:02→17:42)
[2017-10-27] MEDS: HYDROmorphone 1 MG/ML 1 ML SYRINGE IVP PRN ×9 (00:09→21:47)
[2017-10-27 05:43] LABS: Glucose,Whole Blood 138 mg/dL (75-99)
[2017-10-27 06:32] LABS: Basophils % (A) 0 %; Eosinophils # (A) 0.3 k/uL (0-0.7); Eosinophils % (A) 4 %; HCT 30.4 % (39.0-53.0); HGB 9.8 gm/dL (13.0-17.5); Lymphocytes # (A) 0.8 k/uL (1.0-4.8); Lymphocytes % (A) 10 %; MCH 31.4 pg (25.0-35.0); MCHC 32.1 g/dL (31.0-37.0); MCV 97.8 fL (80.0-100.0); Mean Platelet Volume 8.4; Monocytes # (A) 0.4 k/uL (0-1.0); Monocytes % (A) 4 %; Neutrophils # (A) 6.6 k/uL (1.3-7.7); Neutrophils % (A) 81 %; Platelet Count 95 k/uL (150-450); RDW 13.2 % (11.5-15.5); WBC 8.1 k/uL (3.8-10.6)
[2017-10-27 06:52] LABS: Anion Gap 2 mmol/L; Blood Urea Nitrogen 16 mg/dL (9-20); Calcium 9.9 mg/dL (8.4-10.2); Carbon Dioxide 26 mmol/L (22-30); Chloride 109 mmol/L (98-107); Glucose 127 mg/dL (74-99); Magnesium 1.7 mg/dL (1.6-2.3); Phosphorus 2.1 mg/dL (2.5-4.5); Potassium 3.8 mmol/L (3.5-5.1); Sodium 137 mmol/L (137-145)
[2017-10-27] MEDS: IPRATROPIUM-ALBUTEROL 3 ML NEB INHALATION SCH ×4 (07:21→20:23)
[2017-10-27] MEDS: DILTIAZEM 50 MG in SODIUM CHLORIDE 0.9% 40 ML IV SCH (09:50)
[2017-10-27] MEDS: TAMSULOSIN 0.4 MG CAP.ER.24H PO SCH (09:51)
[2017-10-27] MEDS: MULTIVITAMINS, THERA 1 EACH TAB PO SCH (09:51)
[2017-10-27] MEDS: ASPIRIN 81 MG PO SCH (09:51)
[2017-10-27] MEDS: ATENOLOL 50 MG TAB PO SCH (09:51)
[2017-10-27] MEDS: ARTIFICIAL TEARS-HYPROMELLOSE DROPS 15 ML BTL BOTH EYES PRN (09:52)
[2017-10-27] MEDS: OFLOXACIN 0.3% OPHTH DROPS 5 ML BOTTLE LEFT EYE SCH ×4 (09:52→19:51)
[2017-10-27] MEDS: PANTOPRAZOLE 40 MG/10 ML VIAL IVP SCH (09:52)
[2017-10-27] MEDS: NEPAFENAC LEFT EYE SCH (09:52)
[2017-10-27] MEDS: FLUTAMIDE PO SCH ×2 (09:53→20:54)
[2017-10-27] MEDS: Difluprednate [Durezol] 1 DROP LEFT EYE SCH ×2 (09:53→19:50)
[2017-10-27] MEDS: PIPERACILLIN-TAZOBACTAM 3.375 GM in DEXTROSE/WATER 1 50ML.BAG IVPB SCH ×3 (10:11→23:07)
--- NOTE | 2017-10-27 10:36 | P.PN ---
Subjective Progress Note Date: 10/27/17 Principal diagnosis: Acute hypoxic respiratory failure secondary to COPD, possible left lower lobe pneumonia, and laryngeal carcinoma/squamous cell carcinoma 82-year-old male patient with previous history of advanced COPD, along with history of coronary artery disease and previous bypass surgery and previous history of prostate cancer, presented to the hospital because of worsening shortness of breath. I was asked even with this patient as the patient's oxygenation was getting worse. At a time of my arrival, the patient was a 50% Ventimask. He was having some questionable stridorous inspiratory efforts, his cough was weak and his speech was also altered. He was unable to bring up much of sputum. He denied having any angina or chest pain. He also had a run of atrial fibrillation yesterday and currently his rhythm is sinus. I reviewed the chest x-ray and there is concern tolerance lower lobe infiltrates/ atelectasis. The patient is already on a combination of Rocephin and Zithromax. He was also noted to have hypercalcemia and acute kidney injury with a creatinine of 1.9. The exact nature of the hypercalcemia is not clear. As mentioned, he has prostate cancer. A recent bone scan from a recent bone scan from May 2017 showed no evidence of any skeletal involvement. Patient was reevaluated today on 10/20/2017, remains on mechanical ventilation. Patient was intubated yesterday by Dr. Woods, and urine intubation he was concerned about the vocal cords obstruction with what seems to be a mass involving the adenoid area, and displacing the vocal cords. Nonetheless, patient was intubated using a glidescope, and I have no plans to extubate the patient until he is evaluated by ENT, and the patient may require tracheostomy and biopsy of the lesion around the vocal cords. ENT consult was initiated, and he is yet to be seen by ENT on consultation. Ventilator settings were noted. Chest x-ray showed bibasilar opacities. And small bilateral pleural effusions. CBC showed slight leukocytosis. WBC count is 15.7 hemoglobin is 10.4 his PTT is 55.3, remains on heparin. ABG on 50% showed a pO2 of 117 pCO2 of 37 pH of 7.46. Basic metabolic profile is relatively normal BUN is 48 creatinine is 1.10. Patient is arousable, propofol was placed on hold, and we were able to examine the patient, seems to be very appropriate, and comprehending or what he was being controlled. Again I have no plans to extubate the patient until a tracheostomy is done, and ENT has seen the patient. Patient was reevaluated today on 10/21/2017, remains on mechanical ventilation, his ventilator settings are tidal volume of 500 assist control rate 16 FiO2 of 50% and PEEP of 5. He is not requiring any pressors, he remains on propofol which I plan to discontinue and give the patient is sedation holiday. And assess mental status again today. Patient is scheduled to undergo tracheostomy this afternoon, and biopsy of the vocal cords mass. This will be done likely later this afternoon by Dr. Foster. In the meantime the patient is hemodynamically stable, his labs were reviewed, and believes he count is 5.2 hemoglobin is 10.3 electrolytes are relatively normal BUN is 43 creatinine is 1.01. Mental status was appropriate yesterday off propofol, and we will assess his mental status again today off propofol. Chest x-ray showed mostly atelectasis and small pleural effusions. All meds were reviewed, patient remains empirically on antibiotics, he is also on updrafts, patient is on Cardizem drip at 5 mg per hour, and his atrial fibrillation seems to be fairly well controlled. He is on heparin which will plan to discontinue few hours before surgery. Patient was reevaluated today on 10/22/2017, patient underwent tracheostomy and thyroid isthmusectomy, and direct microscopic laryngoscopy with biopsy of the glottic mass. Results of which are pending. Patient was reevaluated today, and he seems to be doing very well. I gave the patient a short trial of pressure support and CPAP, and he was doing great. Hence I discontinued mechanical ventilation, and I placed him on a trach collar at 40% FiO2. His propofol has been discontinued. Patient seems to be hemodynamically stable, mentally appropriate, in no distress, denies any pain. ABG this morning showed a pO2 of 140 pCO2 of 30 pH of 7.50. CBC showed a hemoglobin of 10.6 WBC count of 7.1. Electrolytes were reviewed bicarb is 22. Sodium is 145. Patient's nasogastric tube was removed, and we plan to ask speech pathology to evaluate, and the patient can swallow we will proceed with oral feeding and deflate the cuff on the trach as needed. Chest x-ray continues to show bibasilar atelectasis and small pleural effusions. Reevaluated today on 10/23/2017, patient was extubated from mechanical ventilation yesterday, remains on trach collar. Patient failed swallow evaluation and barium swallow, hence I plan to arrange for the patient to have a PEG tube placement. Pathology from his laryngeal biopsy is still pending. Patient may eventually require referral to a tertiary care center like [facility] , or another facility depending on the recommendation of ENT on the case. In the meantime the patient continues to have atrial fibrillation but fairly controlled rate, and we are noticing more bleeding around the trach site, hence I recommended holding heparin for now. I have also recommended GI evaluation for a PEG tube placement. Patient is doing well overall, he is tolerating the trach collar well, relatively asymptomatic. Labs from today showed hemoglobin of 9.7 his PTT was 69. His sodium is climbing up to 151, EOM is 38 creatinine is 1.04, hence I plan to increase the IV fluid to D5W to 150 mL per hour. Will discontinue Lasix. Chest x-ray continues to show by basilar atelectasis and/or infiltrates. Reevaluated today on 10/24/2017, patient remains on trach collar, off mechanical ventilation, failed his swallow evaluation, hence he is undergoing PEG tube placement today for nutritional support. His pathology came back positive for squamous cell carcinoma, and decisions will be made as to likely transfer the patient to [facility]. Transfer plans are in progress. ENT is recommending ultrasound-guided fine-needle aspiration of neck masses. He also recommended oncology evaluation which will be initiated. In the meantime the patient is sitting at a bedside chair, very comfortable, in no distress. CBC is relatively normal basic metabolic profile is normal. Chest x-ray is showing basically bibasilar atelectasis and small pleural effusions. Reevaluated today on 10/26/2017, patient remains on trach collar, being fed via PEG tube, doing overall quite well, were still in the process of making arrangements for him to be eventually transferred to a tertiary care center/ [facility]. Patient is in no distress. All his labs were reviewed including his CBC, basic metabolic profile renal profile seems to be relatively normal. 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 There was also focal intense activity in the posterior midline and lower spine. Intense activity noted at the sternal notch this could very well be related to his tracheostomy. These issues are to be addressed by oncology before any further arrangements made, and whether the patient will be a candidate for any surgical intervention. Reevaluated today on 10/27/2017, basically the patient is about the same. Patient had significantly abnormal bone scan, awaiting input from oncology as whether to proceed with any referral to a tertiary care center or treatment with chemotherapy. In the meantime the patient is basically about the same. All labs were reviewed including his CBC, basic metabolic profile and renal profile. Patient is relatively asymptomatic. Trach seems to be intact. Objective - Vital Signs Vital signs: Vital Signs Temp 97.7 F 10/27/17 08:00 Pulse 96 10/27/17 08:00 Resp 20 10/27/17 08:00 BP 110/56 10/27/17 08:00 Pulse Ox 90 L 10/27/17 08:00 Intake & Output 10/26/17 10/27/17 10/27/17 18:59 06:59 18:59 Intake Total 325.083 450 170 Output Total 1300 Balance 325.083 -850 170 Weight 98.5 kg Intake: IV 10 Invasive Line 6 10 Intake, IV Titration 45.083 50 Amount Diltiazem 50 mg In Sodium 45.083 50 Chloride 0.9% 40 ml @ Per Protocol IV .Q0M [facility] Rx#:[id number] Tube Feeding 280 400 160 Output: Urine 1300 Other: Voiding Method Indwelling Catheter Indwelling Catheter Indwelling Catheter ABP, PAP, CO, CI - Last Documented Arterial Blood Pressure 129/59 - Exam Physical exam revealed an 82-year-old white male on trach collar, in no distress. Tracheostomy tube is in proper position, intact Head exam was generally normal. There was no scleral icterus or corneal arcus. Mucous membranes were moist. Neck was supple and without jugular venous distension, thyromegaly, or carotid bruits. Carotids were easily palpable bilaterally. Left neck mass is palpable, status post FNA with ultrasound guidance. Lungs sounds are diminished at the bases, no rhonchi and no wheezes. Cardiac exam revealed the PMI to be normally situated and sized. Irregular irregular rhythm, Normal S1 and S2, no S3 gallop. No murmur. Abdominal exam revealed soft nontender no megaly no rebound, positive bowel sounds. Examination of the extremities revealed no clubbing, edema or cyanosis. Examination of the skin revealed no evidence of significant rashes, no erythema. Neurologically awake and alert and there is no focal neurological deficit. - Labs CBC & Chem 7: 10/27/17 05:38 10/27/17 05:38 Labs: Abnormal Lab Results - Last 24 Hours (Table) 10/26/17 10/26/17 10/26/17 Range/Units 11:51 17:29 23:44 RBC (4.30-5.90) m/uL Hgb (13.0-17.5) gm/dL Hct (39.0-53.0) % Plt Count (150-450) k/uL Lymphocytes # (1.0-4.8) k/uL Chloride (98-107) mmol/L Glucose (74-99) mg/dL POC Glucose (mg/dL) 124 H 177 H 135 H (75-99) mg/dL Phosphorus (2.5-4.5) mg/dL 10/27/17 10/27/17 10/27/17 Range/Units 05:38 05:38 05:43 RBC 3.10 L (4.30-5.90) m/uL Hgb 9.8 L (13.0-17.5) gm/dL Hct 30.4 L (39.0-53.0) % Plt Count 95 L (150-450) k/uL Lymphocytes # 0.8 L (1.0-4.8) k/uL Chloride 109 H (98-107) mmol/L Glucose 127 H (74-99) mg/dL POC Glucose (mg/dL) 138 H (75-99) mg/dL Phosphorus 2.1 L (2.5-4.5) mg/dL Assessment and Plan Assessment: 1 acute hypoxic respiratory failure, multifactorial, secondary to stridor with 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 2 advanced COPD 3 coronary artery disease appears bypass surgery 4 acute kidney injury, improving 5 hypercalcemia, resolved. 6 prostate cancer 7 atrial fibrillation, paroxysmal, currently back into normal sinus rhythm, patient is presently on heparin, and being followed by cardiology. 8 acute urinary retention and the patient has a Kenny catheter in place 9 hypertension 10 status post biopsy of glottic mass, postoperative day #3 pathology is pending. 11 status post tracheostomy, postoperative day #6 12 hypernatremia resolved. 13 failed swallow evaluation/barium swallow, patient will definitely need a PEG tube placement, GI was consulted for PEG tube placement. 14 status post ultrasound-guided FNA of left neck masses possibly saliva gland. Cytology is pending. Recommendation: Continue present supportive care measures, will await to hear from oncology about treatment suggestions, patient may not be an ideal candidate for any surgical intervention at this point. Time with Patient: Less than 30
[2017-10-27 12:21] LABS: Glucose,Whole Blood 127 mg/dL (75-99)
--- NOTE | 2017-10-27 15:23 | P.PN ---
Subjective Progress Note Date: 10/27/17 Principal diagnosis: Laryngeal Mass CT Scan was completed and failed to show any apparent evidence of metastatic disease. Although Bone Scan concerning for diffuse metastatic bone disease. Not much of a change today with patient, attempting to regain strength and stamina Objective - Vital Signs Vital signs: Vital Signs Temp 97.9 F 10/27/17 04:00 Pulse 100 10/27/17 04:00 Resp 20 10/27/17 04:00 BP 107/57 10/27/17 04:00 Pulse Ox 93 L 10/27/17 04:00 Intake & Output 10/26/17 10/26/17 10/27/17 06:59 18:59 06:59 Intake Total 199.5 325.083 400 Output Total 1300 Balance 199.5 325.083 -900 Weight 94 kg 98.5 kg Intake: Intake, IV Titration 49.5 45.083 Amount Diltiazem 50 mg In Sodium 49.5 45.083 Chloride 0.9% 40 ml @ Per Protocol IV .Q0M [facility] Rx#:[id number] Tube Feeding 150 280 400 Output: Urine 1300 Other: Voiding Method Indwelling Catheter Indwelling Catheter Indwelling Catheter ABP, PAP, CO, CI - Last Documented Arterial Blood Pressure 129/59 - Exam General: Well-developed, thin-appearing HEENT: Normocephalic, Nontramatic, sclerae nonicteric, tracheostomy and placed 1-2cm right moveable palpable cervical lymph node LUNGS: Equal and no increased effort noted HEART: Tachy, Irregular Abdomen: Nontender, nondistended Extremities: No edema Neuro: Alert and oriented, Non Vocal secondary to Trach. - Labs CBC & Chem 7: 10/27/17 05:38 10/27/17 05:38 Labs: Abnormal Lab Results - Last 24 Hours (Table) 10/26/17 10/26/17 10/26/17 Range/Units 11:51 17:29 23:44 RBC (4.30-5.90) m/uL Hgb (13.0-17.5) gm/dL Hct (39.0-53.0) % Plt Count (150-450) k/uL Lymphocytes # (1.0-4.8) k/uL POC Glucose (mg/dL) 124 H 177 H 135 H (75-99) mg/dL 10/27/17 10/27/17 Range/Units 05:38 05:43 RBC 3.10 L (4.30-5.90) m/uL Hgb 9.8 L (13.0-17.5) gm/dL Hct 30.4 L (39.0-53.0) % Plt Count 95 L (150-450) k/uL Lymphocytes # 0.8 L (1.0-4.8) k/uL POC Glucose (mg/dL) 138 H (75-99) mg/dL Assessment and Plan Plan: Assessment and Recommendations: 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 Hypercalcemia - - Dehydration versus Malignancy - IVF HYdration and Bone Scan - Likely metastatic Lesions to bone either prostate progression or Laryngeal diagnosis, PSA Re-check still Pending 3. History of Prostate Cancer - FOllows with Urology - Receives LHRT - Recheck PSA Level - CT scan revealed tumor of prostate, awaiting PSA to see if potential recurrence along side of new primary Laryngeal 4. Macrocytic Anemia - - Check B12, FOlate, Iron Studies - Monitor CBC - Ferritin increased greater than 700, If Hgb worsens STR maybe resonable to check for potential parental iron, at this time will hold off. PLan - - Definitive treatment with Chemotherapy and Radiation as outpatient will be likely approach - Awaiting for PSA to result as metastatic lesions to bone may be from prostate , either way treatment approach as outpatient utilizing a taxane and Biphosphonate is resonable. - If Patient is requiring rehabilitation center after hospitalization to regain strength, stamina and safety in home then he will be seen after he is discharged, otherwise we will set up coinciding appointments with Dr. Pederson from Radiation and Dr. [facility] within the next 1-2 weeks. I should have the date and times by tomorrow, with today being holiday.
[2017-10-27 17:30] LABS: Glucose,Whole Blood 161 mg/dL (75-99)
[2017-10-27] MEDS: ATORVASTATIN 40 MG TAB PO SCH (20:55)
--- NOTE | 2017-10-27 22:56 | PN ---
PROGRESS NOTE DATE OF SERVICE: 10/27/2017 The patient admitted initially on October 18, [address]. He is 82 years old. The patient had underlying history on admission, atrial fibrillation, sepsis, pneumonia, and found that he had a tumor on the throat and he had a tracheostomy and tracheal collar and he had some stitches as well and the taking care of as well by the Critical Care and Pulmonary, Dr. Venegas. He could not eat or swallow and he had a PEG tube placement. He had also a Kenny catheter. He can move his legs, but he is not able to ambulate. I spoke with his POA and he wishing that the patient to be transferred to [facility] in [place] and we will be waiting for further evaluation and from the pulmonary and Critical and discharge planning. EXAM: Today, the patient is conscious, alert, oriented. He can write his question on the pad, but he could not speak with the underlying the healing of the tracheostomy. It takes more of 6-[address] Tse and also he stated the stitches for the tracheostomy is dissolvable by itself and we do not need to remove the stitches. Tomorrow we will be discussion with the discharge planning as well as Dr. Venegas for the Pulmonary in regard of how to continue care extended care. The patient has also PEG tube and a Kenny catheter permanently. His vital signs today, temperature 97.7, his heart irregular irregularities, pulse is 80 and respiratory rate 18, blood pressure 108/53 with a mean 71. LABORATORY: Today indicating white count 8.1. He has mild anemia with the hemoglobin is 9.8, hematocrit 30.4, and his platelet count is 95. His chemistry, sodium 137, potassium 3.8, and he had carbon dioxide 26, anion gap is 2, BUN of 16, and creatinine 0.69 and estimated glomerular filtration rate for non- 89. His blood sugar was 127 this morning and his calcium is 9.9. His phosphorus was 2.1 and magnesium 1.7. PHYSICAL EXAMINATION: On the physical examination, the patient is conscious, alert, and the pupil is reactive and no icterus. Oropharynx natural teeth and he has tracheostomy collar with the oxygen perfusion. He had the stitches as mention we checked with Dr. Tse today and the chest radiated bilateral and no wheezes. No rhonchi. The heart is the PMI in the outside midclavicular line with currently controlled ventricular response. With the heart rate between 80-100. The abdomen was soft. Positive bowel sounds and extremities: He had a PEG tube in the abdomen and connected with the feeding and the Kenny catheter was connected as he has it in the penis for drainage. Neurological: He is moving both extremities, but he could not stand or walk. ASSESSMENT: 1. 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 2. Advanced chronic obstructive pulmonary disease. 3. Coronary artery disease with history of coronary artery bypass grafting. 4. History of acute renal injury and improved. 5. History of hypercalcemia, resolved. 6. History of prostate cancer. 7. History of atrial fibrillation paroxysmal. 8. Recently on heparin and being followed by Cardiology. 9. He had history of acute urinary retention and patient on Kenny catheter in place. 10.History of hypertension, controlled currently. 11.History of biopsy of glottic mass third day, pathology pending. 12.Status post tracheostomy and postoperative day 6. 13.Hypernatremia resolved. 14.Failing of a swallowing evaluation and barium swallow and patient already received PEG tube was placed by Dr. Garcia. PLAN: We are waiting for the Oncology and waiting for further treatment and extended treatment in the future as well as if there is any other chemo or radiation and meanwhile again the patient POA is requesting to go to the [facility]. These arrangements can be done by the oncology or the Pulmonary. Covering for Dr. Lane. MMREENAL / IJN: [id number] /
[2017-10-28 00:01] LABS: Glucose,Whole Blood 136 mg/dL (75-99)
[2017-10-28] MEDS: INSULIN ASPART 100 UNIT/ML 1 ML 10 ML VIAL SQ SCH ×5 (00:05→23:55)
[2017-10-28] MEDS: HYDROmorphone 1 MG/ML 1 ML SYRINGE IVP PRN ×7 (00:07→16:44)
[2017-10-28 06:20] LABS: Glucose,Whole Blood 140 mg/dL (75-99)
[2017-10-28 08:07] LABS: Basophils % (A) 0 %; Eosinophils # (A) 0.2 k/uL (0-0.7); Eosinophils % (A) 3 %; HCT 31.5 % (39.0-53.0); HGB 9.9 gm/dL (13.0-17.5); Lymphocytes # (A) 0.9 k/uL (1.0-4.8); Lymphocytes % (A) 11 %; MCH 31.4 pg (25.0-35.0); MCHC 31.4 g/dL (31.0-37.0); Mean Platelet Volume 8.1; Monocytes # (A) 0.3 k/uL (0-1.0); Monocytes % (A) 4 %; Neutrophils # (A) 6.8 k/uL (1.3-7.7); Neutrophils % (A) 81 %; Platelet Count 101 k/uL (150-450); RBC 3.15 m/uL (4.30-5.90); RDW 13.5 % (11.5-15.5); WBC 8.5 k/uL (3.8-10.6)
[2017-10-28] MEDS: IPRATROPIUM-ALBUTEROL 3 ML NEB INHALATION SCH ×4 (08:10→19:50)
[2017-10-28 08:23] LABS: ALT 30 U/L (21-72); AST 10 U/L (17-59); Albumin 2.1 g/dL (3.5-5.0); Alkaline Phosphatase 57 U/L (38-126); Anion Gap 4 mmol/L; Blood Urea Nitrogen 13 mg/dL (9-20); Calcium 10.2 mg/dL (8.4-10.2); Carbon Dioxide 25 mmol/L (22-30); Chloride 110 mmol/L (98-107); Glucose 144 mg/dL (74-99); Potassium 3.7 mmol/L (3.5-5.1); Sodium 139 mmol/L (137-145); Total Bilirubin 0.3 mg/dL (0.2-1.3); Total Protein 4.3 g/dL (6.3-8.2)
[2017-10-28 08:36] LABS: INR 1.5 (<1.2); Partial Thromboplastin Time 28.7 sec (22.0-30.0); Prothrombin Time 14.3 sec (9.0-12.0)
[2017-10-28] MEDS: PANTOPRAZOLE 40 MG/10 ML VIAL IVP SCH (09:14)
[2017-10-28] MEDS: FLUTAMIDE PO SCH ×2 (09:22→20:24)
[2017-10-28] MEDS: TAMSULOSIN 0.4 MG CAP.ER.24H PO SCH (09:22)
[2017-10-28] MEDS: ATENOLOL 50 MG TAB PO SCH (09:22)
[2017-10-28] MEDS: ASPIRIN 81 MG PO SCH (09:22)
[2017-10-28] MEDS: Difluprednate [Durezol] 1 DROP LEFT EYE SCH ×2 (09:22→20:24)
[2017-10-28] MEDS: OFLOXACIN 0.3% OPHTH DROPS 5 ML BOTTLE LEFT EYE SCH ×3 (09:22→17:56)
[2017-10-28] MEDS: NEPAFENAC LEFT EYE SCH (09:22)
[2017-10-28] MEDS: PIPERACILLIN-TAZOBACTAM 3.375 GM in DEXTROSE/WATER 1 50ML.BAG IVPB SCH ×3 (09:35→23:16)
[2017-10-28] MEDS: traMADol 50 MG TAB PO PRN ×2 (10:55→17:56)
[2017-10-28] MEDS: ARTIFICIAL TEARS-HYPROMELLOSE DROPS 15 ML BTL BOTH EYES PRN ×2 (11:00→18:02)
--- NOTE | 2017-10-28 11:54 | P.PN ---
Subjective Progress Note Date: 10/28/17 Principal diagnosis: Acute hypoxic respiratory failure secondary to COPD, left lower lobe pneumonia, vocal cord mass, stridor 82-year-old male patient with previous history of advanced COPD, along with history of coronary artery disease and previous bypass surgery and previous history of prostate cancer, presented to the hospital because of worsening shortness of breath. I was asked even with this patient as the patient's oxygenation was getting worse. At a time of my arrival, the patient was a 50% Ventimask. He was having some questionable stridorous inspiratory efforts, his cough was weak and his speech was also altered. He was unable to bring up much of sputum. He denied having any angina or chest pain. He also had a run of atrial fibrillation yesterday and currently his rhythm is sinus. I reviewed the chest x-ray and there is concern tolerance lower lobe infiltrates/ atelectasis. The patient is already on a combination of Rocephin and Zithromax. He was also noted to have hypercalcemia and acute kidney injury with a creatinine of 1.9. The exact nature of the hypercalcemia is not clear. As mentioned, he has prostate cancer. A recent bone scan from a recent bone scan from May 2017 showed no evidence of any skeletal involvement. Patient was reevaluated today on 10/20/2017, remains on mechanical ventilation. Patient was intubated yesterday by Dr. Woods, and urine intubation he was concerned about the vocal cords obstruction with what seems to be a mass involving the adenoid area, and displacing the vocal cords. Nonetheless, patient was intubated using a glidescope, and I have no plans to extubate the patient until he is evaluated by ENT, and the patient may require tracheostomy and biopsy of the lesion around the vocal cords. ENT consult was initiated, and he is yet to be seen by ENT on consultation. Ventilator settings were noted. Chest x-ray showed bibasilar opacities. And small bilateral pleural effusions. CBC showed slight leukocytosis. WBC count is 15.7 hemoglobin is 10.4 his PTT is 55.3, remains on heparin. ABG on 50% showed a pO2 of 117 pCO2 of 37 pH of 7.46. Basic metabolic profile is relatively normal BUN is 48 creatinine is 1.10. Patient is arousable, propofol was placed on hold, and we were able to examine the patient, seems to be very appropriate, and comprehending or what he was being controlled. Again I have no plans to extubate the patient until a tracheostomy is done, and ENT has seen the patient. Patient was reevaluated today on 10/21/2017, remains on mechanical ventilation, his ventilator settings are tidal volume of 500 assist control rate 16 FiO2 of 50% and PEEP of 5. He is not requiring any pressors, he remains on propofol which I plan to discontinue and give the patient is sedation holiday. And assess mental status again today. Patient is scheduled to undergo tracheostomy this afternoon, and biopsy of the vocal cords mass. This will be done likely later this afternoon by Dr. Foster. In the meantime the patient is hemodynamically stable, his labs were reviewed, and believes he count is 5.2 hemoglobin is 10.3 electrolytes are relatively normal BUN is 43 creatinine is 1.01. Mental status was appropriate yesterday off propofol, and we will assess his mental status again today off propofol. Chest x-ray showed mostly atelectasis and small pleural effusions. All meds were reviewed, patient remains empirically on antibiotics, he is also on updrafts, patient is on Cardizem drip at 5 mg per hour, and his atrial fibrillation seems to be fairly well controlled. He is on heparin which will plan to discontinue few hours before surgery. Patient was reevaluated today on 10/22/2017, patient underwent tracheostomy and thyroid isthmusectomy, and direct microscopic laryngoscopy with biopsy of the glottic mass. Results of which are pending. Patient was reevaluated today, and he seems to be doing very well. I gave the patient a short trial of pressure support and CPAP, and he was doing great. Hence I discontinued mechanical ventilation, and I placed him on a trach collar at 40% FiO2. His propofol has been discontinued. Patient seems to be hemodynamically stable, mentally appropriate, in no distress, denies any pain. ABG this morning showed a pO2 of 140 pCO2 of 30 pH of 7.50. CBC showed a hemoglobin of 10.6 WBC count of 7.1. Electrolytes were reviewed bicarb is 22. Sodium is 145. Patient's nasogastric tube was removed, and we plan to ask speech pathology to evaluate, and the patient can swallow we will proceed with oral feeding and deflate the cuff on the trach as needed. Chest x-ray continues to show bibasilar atelectasis and small pleural effusions. Reevaluated today on 10/23/2017, patient was extubated from mechanical ventilation yesterday, remains on trach collar. Patient failed swallow evaluation and barium swallow, hence I plan to arrange for the patient to have a PEG tube placement. Pathology from his laryngeal biopsy is still pending. Patient may eventually require referral to a tertiary care center like [facility] , or another facility depending on the recommendation of ENT on the case. In the meantime the patient continues to have atrial fibrillation but fairly controlled rate, and we are noticing more bleeding around the trach site, hence I recommended holding heparin for now. I have also recommended GI evaluation for a PEG tube placement. Patient is doing well overall, he is tolerating the trach collar well, relatively asymptomatic. Labs from today showed hemoglobin of 9.7 his PTT was 69. His sodium is climbing up to 151, EOM is 38 creatinine is 1.04, hence I plan to increase the IV fluid to D5W to 150 mL per hour. Will discontinue Lasix. Chest x-ray continues to show by basilar atelectasis and/or infiltrates. Reevaluated today on 10/24/2017, patient remains on trach collar, off mechanical ventilation, failed his swallow evaluation, hence he is undergoing PEG tube placement today for nutritional support. 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 Transfer plans are in progress. ENT is recommending ultrasound-guided fine-needle aspiration of neck masses. He also recommended oncology evaluation which will be initiated. In the meantime the patient is sitting at a bedside chair, very comfortable, in no distress. CBC is relatively normal basic metabolic profile is normal. Chest x-ray is showing basically bibasilar atelectasis and small pleural effusions. The patient was seen again today in 10/25/2017 in follow-up on the selective care unit. He is awake and alert in no acute distress. He is maintaining good O2 saturations in the 90s on trach collar at 35%. He denies any worsening shortness of breath. His chest x-ray continues to show moderate pleural effusions with adjacent bibasilar atelectasis. Sputum and blood cultures reveal no growth. White count 9.1. Hemoglobin 10.8. Creatinine 0.70. The patient's biopsy of the laryngeal mass was positive for squamous cell carcinoma and the plan is to transfer to [facility]. Pathology of the salivary gland is pending. He remains in atrial fibrillation and is on Cardizem drip at 5 mg per hour. He did have a PEG tube placed per surgical services yesterday. Reevaluated today on 10/26/2017, patient remains on trach collar, being fed via PEG tube, doing overall quite well, were still in the process of making arrangements for him to be eventually transferred to a tertiary care center/ [facility]. Patient is in no distress. All his labs were reviewed including his CBC, basic metabolic profile renal profile seems to be relatively normal. 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 There was also focal intense activity in the posterior midline and lower spine. Intense activity noted at the sternal notch this could very well be related to his tracheostomy. These issues are to be addressed by oncology before any further arrangements made, and whether the patient will be a candidate for any surgical intervention. Reevaluated today on 10/27/2017, basically the patient is about the same. Patient had significantly abnormal bone scan, awaiting input from oncology as whether to proceed with any referral to a tertiary care center or treatment with chemotherapy. In the meantime the patient is basically about the same. All labs were reviewed including his CBC, basic metabolic profile and renal profile. Patient is relatively asymptomatic. Trach seems to be intact. The patient is seen again today 10/28/2017 in follow-up on the selective care unit. He is currently resting comfortably in bed. He is awake and alert in no acute distress. He continues to maintain good O2 saturations in the 90s on 40% trach collar he is afebrile. Hemodynamically stable. Blood and sputum cultures reveal no growth. White count 8.5. Hemoglobin 9.1. Creatinine 0.67. Objective - Vital Signs Vital signs: Vital Signs Temp 96.9 F L 10/28/17 08:50 Pulse 83 10/28/17 08:50 Resp 20 10/28/17 08:50 BP 148/65 10/28/17 08:50 Pulse Ox 94 L 10/28/17 08:50 Intake & Output 10/27/17 10/28/17 10/28/17 18:59 06:59 18:59 Intake Total 490 640 240 Output Total 1300 2500 Balance -810 -1860 240 Weight 89 kg Intake: IV 10 Invasive Line 6 10 Tube Feeding 480 640 240 Output: Urine 1300 2500 Uretheral (Kenny) 1300 Other: Voiding Method Indwelling Catheter Indwelling Catheter Indwelling Catheter # Voids 1 # Bowel Movements 1 ABP, PAP, CO, CI - Last Documented Arterial Blood Pressure 129/59 - Exam Physical exam revealed an 82-year-old white male on trach collar, in no distress. Head exam was generally normal. There was no scleral icterus or corneal arcus. Mucous membranes were moist. Neck was supple and without jugular venous distension, thyromegaly, or carotid bruits. Carotids were easily palpable bilaterally. Left neck mass is palpable, status post FNA with ultrasound guidance. Lungs sounds are diminished at the bases, no rhonchi and no wheezes. Cardiac exam revealed the PMI to be normally situated and sized. Irregular irregular rhythm, Normal S1 and S2, no S3 gallop. No murmur. Abdominal exam revealed soft nontender no megaly no rebound, positive bowel sounds. PEG tube exit site is clean and dry. Examination of the extremities revealed no clubbing, edema or cyanosis. Examination of the skin revealed no evidence of significant rashes, no erythema. Neurologically awake and alert and there is no focal neurological deficit. - Labs CBC & Chem 7: 10/28/17 07:30 10/28/17 07:30 Labs: Abnormal Lab Results - Last 24 Hours (Table) 10/27/17 10/27/17 10/27/17 Range/Units 12:18 17:28 23:59 RBC (4.30-5.90) m/uL Hgb (13.0-17.5) gm/dL Hct (39.0-53.0) % Plt Count (150-450) k/uL Lymphocytes # (1.0-4.8) k/uL PT (9.0-12.0) sec INR (<1.2) Chloride (98-107) mmol/L Glucose (74-99) mg/dL POC Glucose (mg/dL) 127 H 161 H 136 H (75-99) mg/dL AST (17-59) U/L Total Protein (6.3-8.2) g/dL Albumin (3.5-5.0) g/dL 10/28/17 10/28/17 10/28/17 Range/Units 06:16 07:30 07:30 RBC 3.15 L (4.30-5.90) m/uL Hgb 9.9 L (13.0-17.5) gm/dL Hct 31.5 L (39.0-53.0) % Plt Count 101 L (150-450) k/uL Lymphocytes # 0.9 L (1.0-4.8) k/uL PT 14.3 H (9.0-12.0) sec INR 1.5 H (<1.2) Chloride (98-107) mmol/L Glucose (74-99) mg/dL POC Glucose (mg/dL) 140 H (75-99) mg/dL AST (17-59) U/L Total Protein (6.3-8.2) g/dL Albumin (3.5-5.0) g/dL 10/28/17 Range/Units 07:30 RBC (4.30-5.90) m/uL Hgb (13.0-17.5) gm/dL Hct (39.0-53.0) % Plt Count (150-450) k/uL Lymphocytes # (1.0-4.8) k/uL PT (9.0-12.0) sec INR (<1.2) Chloride 110 H (98-107) mmol/L Glucose 144 H (74-99) mg/dL POC Glucose (mg/dL) (75-99) mg/dL AST 10 L (17-59) U/L Total Protein 4.3 L (6.3-8.2) g/dL Albumin 2.1 L (3.5-5.0) g/dL Assessment and Plan Assessment: Impression: 1 acute hypoxic respiratory failure, multifactorial, secondary to stridor with large glottic mass and COPD exacerbation. Status post biopsy of glottic mass, pathology positive for squamous cell carcinoma. status post tracheostomy, status post ultrasound-guided FNA of left neck masses of the saliva gland, pathology pending. 2 advanced COPD 3 coronary artery disease previous bypass surgery 4 acute kidney injury, improving 5 hypercalcemia, improving 6 prostate cancer 7 atrial fibrillation, paroxysmal, currently on a Cardizem drip at 5 mg per hour. 8 acute urinary retention and the patient has a Kenny catheter in place 9 hypertension 10 hypernatremia and free water deficit, recovered 11 failed swallow evaluation/barium swallow, PEG tube placed 10/24/2017 Recommendation: The patient was seen and evaluated by Dr. Flowers. The patient is currently stable from the pulmonary standpoint. The plan [facility] and then outpatient treatment for his cancer. Continue with his current treatment plan. We will continue to follow. I, the cosigning physician, performed a history & physical examination of the patient. Lungs sounds have few scattered rhonchi, crackles in the posterior bases more so on the left Maintaining good O2 saturations in the 90s on 40% trach collar. I discussed the assessment and plan of care with my nurse practitioner, Anabel Vyas. I attest to the above note as dictated by her.
[2017-10-28 12:20] LABS: Glucose,Whole Blood 148 mg/dL (75-99)
--- NOTE | 2017-10-28 12:32 | P.PN ---
Subjective Principal diagnosis: Malnutrition Patient doing well today. Tolerating tube feeds at goal. No pain at tube site. Objective - Vital Signs Vital signs: Vital Signs Temp 96.9 F L 10/28/17 08:50 Pulse 84 10/28/17 12:24 Resp 20 10/28/17 08:50 BP 148/65 10/28/17 08:50 Pulse Ox 94 L 10/28/17 08:50 Intake & Output 10/27/17 10/28/17 10/28/17 18:59 06:59 18:59 Intake Total 490 640 240 Output Total 1300 2500 Balance -810 -1860 240 Weight 89 kg Intake: IV 10 Invasive Line 6 10 Tube Feeding 480 640 240 Output: Urine 1300 2500 Uretheral (Kenny) 1300 Other: Voiding Method Indwelling Catheter Indwelling Catheter Indwelling Catheter # Voids 1 # Bowel Movements 1 ABP, PAP, CO, CI - Last Documented Arterial Blood Pressure 129/59 - Exam Abdomen: Soft, nondistended, PEG site clean and dry, bolster loosened by approximately 1 cm - Labs CBC & Chem 7: 10/28/17 07:30 10/28/17 07:30 Labs: Abnormal Lab Results - Last 24 Hours (Table) 10/27/17 10/27/17 10/28/17 Range/Units 17:28 23:59 06:16 RBC (4.30-5.90) m/uL Hgb (13.0-17.5) gm/dL Hct (39.0-53.0) % Plt Count (150-450) k/uL Lymphocytes # (1.0-4.8) k/uL PT (9.0-12.0) sec INR (<1.2) Chloride (98-107) mmol/L Glucose (74-99) mg/dL POC Glucose (mg/dL) 161 H 136 H 140 H (75-99) mg/dL AST (17-59) U/L Total Protein (6.3-8.2) g/dL Albumin (3.5-5.0) g/dL 10/28/17 10/28/17 10/28/17 Range/Units 07:30 07:30 07:30 RBC 3.15 L (4.30-5.90) m/uL Hgb 9.9 L (13.0-17.5) gm/dL Hct 31.5 L (39.0-53.0) % Plt Count 101 L (150-450) k/uL Lymphocytes # 0.9 L (1.0-4.8) k/uL PT 14.3 H (9.0-12.0) sec INR 1.5 H (<1.2) Chloride 110 H (98-107) mmol/L Glucose 144 H (74-99) mg/dL POC Glucose (mg/dL) (75-99) mg/dL AST 10 L (17-59) U/L Total Protein 4.3 L (6.3-8.2) g/dL Albumin 2.1 L (3.5-5.0) g/dL 10/28/17 Range/Units 12:08 RBC (4.30-5.90) m/uL Hgb (13.0-17.5) gm/dL Hct (39.0-53.0) % Plt Count (150-450) k/uL Lymphocytes # (1.0-4.8) k/uL PT (9.0-12.0) sec INR (<1.2) Chloride (98-107) mmol/L Glucose (74-99) mg/dL POC Glucose (mg/dL) 148 H (75-99) mg/dL AST (17-59) U/L Total Protein (6.3-8.2) g/dL Albumin (3.5-5.0) g/dL Assessment and Plan (1) Malnutrition Narrative/Plan: Continue tube feeds at goal. We'll sign off. Please contact if needed. Current Visit: Yes Status: Acute Code(s): E46 - UNSPECIFIED PROTEIN-CALORIE MALNUTRITION SNOMED Code(s): 10589123
[2017-10-28] MEDS: DILTIAZEM 50 MG in SODIUM CHLORIDE 0.9% 40 ML IV SCH (14:35)
[2017-10-28] MEDS: MULTIVITAMINS, THERA 1 EACH TAB PO SCH (14:37)
--- NOTE | 2017-10-28 16:52 | P.PN ---
Subjective Progress Note Date: 10/28/17 Principal diagnosis: Laryngeal Mass CT Scan was completed and failed to show any apparent evidence of metastatic disease. Although Bone Scan concerning for diffuse metastatic bone disease. Not much of a change today with patient, attempting to regain strength and stamina Objective - Vital Signs Vital signs: Vital Signs Temp 97.5 F L 10/28/17 12:30 Pulse 92 10/28/17 16:33 Resp 20 10/28/17 12:30 BP 103/60 10/28/17 12:30 Pulse Ox 91 L 10/28/17 12:30 Intake & Output 10/27/17 10/28/17 10/28/17 18:59 06:59 18:59 Intake Total 490 690 480 Output Total 1300 2500 Balance -810 -1810 480 Weight 89 kg 89 kg Intake: IV 10 Invasive Line 6 10 Intake, IV Titration 50 Amount Diltiazem 50 mg In Sodium 50 Chloride 0.9% 40 ml @ Per Protocol IV .Q0M [facility] Rx#:[id number] Tube Feeding 480 640 480 Output: Urine 1300 2500 Uretheral (Kenny) 1300 Other: Voiding Method Indwelling Catheter Indwelling Catheter Indwelling Catheter # Voids 1 # Bowel Movements 1 ABP, PAP, CO, CI - Last Documented Arterial Blood Pressure 129/59 - Exam General: Well-developed, thin-appearing HEENT: Normocephalic, Nontramatic, sclerae nonicteric, tracheostomy and placed 1-2cm right moveable palpable cervical lymph node LUNGS: Equal and no increased effort noted HEART: Tachy, Irregular Abdomen: Nontender, nondistended Extremities: No edema Neuro: Alert and oriented, Non Vocal secondary to Trach. - Labs CBC & Chem 7: 10/28/17 07:30 10/28/17 07:30 Labs: Abnormal Lab Results - Last 24 Hours (Table) 10/25/17 10/27/17 10/27/17 Range/Units 04:17 17:28 23:59 RBC (4.30-5.90) m/uL Hgb (13.0-17.5) gm/dL Hct (39.0-53.0) % Plt Count (150-450) k/uL Lymphocytes # (1.0-4.8) k/uL PT (9.0-12.0) sec INR (<1.2) Chloride (98-107) mmol/L Glucose (74-99) mg/dL POC Glucose (mg/dL) 161 H 136 H (75-99) mg/dL AST (17-59) U/L Total Protein (6.3-8.2) g/dL Albumin (3.5-5.0) g/dL Total PSA 50.3 H (<=4.0) ng/mL 10/28/17 10/28/17 10/28/17 Range/Units 06:16 07:30 07:30 RBC 3.15 L (4.30-5.90) m/uL Hgb 9.9 L (13.0-17.5) gm/dL Hct 31.5 L (39.0-53.0) % Plt Count 101 L (150-450) k/uL Lymphocytes # 0.9 L (1.0-4.8) k/uL PT 14.3 H (9.0-12.0) sec INR 1.5 H (<1.2) Chloride (98-107) mmol/L Glucose (74-99) mg/dL POC Glucose (mg/dL) 140 H (75-99) mg/dL AST (17-59) U/L Total Protein (6.3-8.2) g/dL Albumin (3.5-5.0) g/dL Total PSA (<=4.0) ng/mL 10/28/17 10/28/17 Range/Units 07:30 12:08 RBC (4.30-5.90) m/uL Hgb (13.0-17.5) gm/dL Hct (39.0-53.0) % Plt Count (150-450) k/uL Lymphocytes # (1.0-4.8) k/uL PT (9.0-12.0) sec INR (<1.2) Chloride 110 H (98-107) mmol/L Glucose 144 H (74-99) mg/dL POC Glucose (mg/dL) 148 H (75-99) mg/dL AST 10 L (17-59) U/L Total Protein 4.3 L (6.3-8.2) g/dL Albumin 2.1 L (3.5-5.0) g/dL Total PSA (<=4.0) ng/mL Assessment and Plan Plan: Assessment and Recommendations: 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 Hypercalcemia - - Dehydration versus Malignancy - IVF HYdration and Bone Scan - Likely metastatic Lesions to bone either prostate progression or Laryngeal diagnosis, PSA Re-check still Pending 3. History of Prostate Cancer - FOllows with Urology - Receives LHRT - Recheck PSA Level - CT scan revealed tumor of prostate, PSA increased 4. Macrocytic Anemia - - monitoring cbc PLan - - Treatment with chemotherapy after completion of radiation as outpatient will be likely approach - PSA has increased 50 (33 in April) either way treatment approach as outpatient utilizing a taxane and Biphosphonate is resonable after discharged from Rehabilitation, chemotherapy once performance status improves - Discussed case in detail with radiation oncology
[2017-10-28 17:42] LABS: Glucose,Whole Blood 119 mg/dL (75-99)
--- NOTE | 2017-10-28 20:02 | P.PN ---
Subjective Progress Note Date: 10/28/17 This patient is known to me for prostate cancer He is on CAB His psa has risen to 50 He may be a candidate for a new oral treatment He alos has a new diagnosis of squamous cell ca of the larynx there is question of mets I will doscuss with oncology about future treatment Objective - Vital Signs Vital signs: Vital Signs Temp 98 F 10/28/17 16:35 Pulse 82 10/28/17 16:35 Resp 20 10/28/17 16:35 BP 107/60 10/28/17 16:35 Pulse Ox 91 L 10/28/17 16:35 Intake & Output 10/28/17 10/28/17 10/29/17 06:59 18:59 06:59 Intake Total 690 720 Output Total 2500 Balance -1810 720 Weight 89 kg 89 kg Intake: Intake, IV Titration 50 Amount Diltiazem 50 mg In Sodium 50 Chloride 0.9% 40 ml @ Per Protocol IV .Q0M [facility] Rx#:[id number] Tube Feeding 640 720 Output: Urine 2500 Other: Voiding Method Indwelling Catheter Indwelling Catheter # Voids 1 # Bowel Movements 1 ABP, PAP, CO, CI - Last Documented Arterial Blood Pressure 129/59 - Labs CBC & Chem 7: 10/28/17 07:30 10/28/17 07:30 Labs: Abnormal Lab Results - Last 24 Hours (Table) 10/25/17 10/27/17 10/28/17 Range/Units 04:17 23:59 06:16 RBC (4.30-5.90) m/uL Hgb (13.0-17.5) gm/dL Hct (39.0-53.0) % Plt Count (150-450) k/uL Lymphocytes # (1.0-4.8) k/uL PT (9.0-12.0) sec INR (<1.2) Chloride (98-107) mmol/L Glucose (74-99) mg/dL POC Glucose (mg/dL) 136 H 140 H (75-99) mg/dL AST (17-59) U/L Total Protein (6.3-8.2) g/dL Albumin (3.5-5.0) g/dL Total PSA 50.3 H (<=4.0) ng/mL 10/28/17 10/28/17 10/28/17 Range/Units 07:30 07:30 07:30 RBC 3.15 L (4.30-5.90) m/uL Hgb 9.9 L (13.0-17.5) gm/dL Hct 31.5 L (39.0-53.0) % Plt Count 101 L (150-450) k/uL Lymphocytes # 0.9 L (1.0-4.8) k/uL PT 14.3 H (9.0-12.0) sec INR 1.5 H (<1.2) Chloride 110 H (98-107) mmol/L Glucose 144 H (74-99) mg/dL POC Glucose (mg/dL) (75-99) mg/dL AST 10 L (17-59) U/L Total Protein 4.3 L (6.3-8.2) g/dL Albumin 2.1 L (3.5-5.0) g/dL Total PSA (<=4.0) ng/mL 10/28/17 10/28/17 Range/Units 12:08 17:39 RBC (4.30-5.90) m/uL Hgb (13.0-17.5) gm/dL Hct (39.0-53.0) % Plt Count (150-450) k/uL Lymphocytes # (1.0-4.8) k/uL PT (9.0-12.0) sec INR (<1.2) Chloride (98-107) mmol/L Glucose (74-99) mg/dL POC Glucose (mg/dL) 148 H 119 H (75-99) mg/dL AST (17-59) U/L Total Protein (6.3-8.2) g/dL Albumin (3.5-5.0) g/dL Total PSA (<=4.0) ng/mL
[2017-10-28] MEDS: APIXABAN 2.5 MG TABLET PO SCH (20:23)
[2017-10-28] MEDS: ATORVASTATIN 40 MG TAB PO SCH (20:23)
[2017-10-28] MEDS: BESIFLOXACIN HCL LEFT EYE SCH (20:24)
[2017-10-28 20:30] LABS: Iron Saturation 13.76 (15.00-50.00)
--- NOTE | 2017-10-28 20:57 | PN ---
PROGRESS NOTE DATE OF SERVICE: 10/28/2017 ALLERGIES: 1. ACETAMINOPHEN. 2. BICALUTAMIDE. 3. MELOXICAM. DATA: He is 6 feet in height, weight 89 kg, BSA 2.11 m2. BMI 26.6 kg/m2. Patient is seen today, evaluated. I discussed with him the future plan and adjusting his medication. Patient found that he was taking Dilaudid and he had a sore right wrist; however, it was not so sore as to use Dilaudid. Dilaudid will be discontinued and we will continue with the Ultra. His renal function is stable. I discussed with him that we are trying to clear up his list that has been progressively longer, and we will obtain an x-ray of his right wrist to evaluate if there is any fracture. He has been on tamsulosin for prostatic enlargement; however, the patient has a Kenny catheter and he has good urine output. We will discontinue the tamsulosin to see if he has any reduction of the urine as well as the future plan for taking the catheter out. The patient has generalized weakness. He could not stand up, and actually they clean him in the bed and he is incontinent of stool and urine. 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 He is status post tracheostomy for the obstructive mass and he had a CT scan and bone scan which were positive for metastasis. When he was admitted, he was hypercalcemic with dehydration and malignancy and has been hydrated already. The patient has also prostatic cancer. He was receiving LHRH by Urology. He had macrocytic anemia as well; etiology is unclear. He is also diabetic. LABS: Last laboratory was today. His white count is 8.5. Currently he is on IV piggyback Zosyn. We will request clarification from Pulmonary and Critical Care if that is needed at this point or if it needs to be discontinued. He has atrial fibrillation. We did the EKG and found that he has rapid ventricular response, fluctuating, and he was only on aspirin. We will start him on Eliquis 2.5 mg twice a day for the atrial fibrillation with anticoagulation. His chemistry is indicating sodium 139, potassium 3.7, and his estimated glomerular filtration rate for non- is 90. His blood sugar is 144 and has been stable. His calcium is currently 10.2, normal, with AST of 10, ALT of 30 and alkaline phosphatase 57, all within normal limits. He has total protein of 4.3 and albumin 2.1 with the underlying protein-calorie deficiency, mild, and that is due to patient being on PEG tube only due to inability to eat with the laryngeal obstruction. The patient also is unable to speak secondary to the surgery for the larynx. PHYSICAL EXAMINATION: Currently the patient has temperature 98, pulse 82, respiratory rate 20 and blood pressure 107/60 with a mean of 75. HEENT: The head was normocephalic, atraumatic. I did not see any infection of the right eye or the left eye. We will discontinue the eyedrops that were given to him in the past. NECK: He has tracheostomy collar with infusion of oxygen. His chest is clear to auscultation and percussion. HEART: Irregularly irregular with atrial fibrillation and rapid ventricular response. He was on diltiazem in the past. However, they placed him on atenolol 50 mg once a day, which was done prior to the diltiazem and continued with diltiazem. Currently diltiazem has been discontinued and the heart rate started to speed up; currently 104 by the EKG done today. PLAN: We will be discontinuing the atenolol and start Lopressor 50 mg b.i.d., and we will be monitoring the results for the heart rate. He had an echocardiogram done in April. At that time he was in sinus rhythm and his ejection fraction was 50% to 55% with basilar inferior wall motion hypokinetic. Also he had moderate concentric left ventricular hypertrophy. His left atrium was mildly dilated and the right ventricle was mildly to moderately enlarged. He had mild aortic valve sclerosis and he had also mild tricuspid regurgitation. His right ventricular systolic pressure was less than 35 as well. As read by Dr. Sigala, pulmonary regurgitation, physiologic. Today for the atrial fibrillation we discontinued the atenolol and will use Lopressor 50 mg twice a day, hopefully with better control of the heart rate. Abdomen was soft and nontender with PEG tube in place. EXTREMITIES: He had thrombotic stockings bilaterally. He was taking aspirin 162 mg p.o. daily. He is on insulin NovoLog to scale with good control of his blood sugar. Also he is on Zosyn; hopefully Critical Care and Pulmonary will discontinue the antibiotic, as there currently appears no need. However, we will check the chest x-ray to be sure about any infiltrate. The diltiazem has been discontinued, which was given to him during his presence on the ICU, but after that was not followed. We discontinue also the hydromorphone, Dilaudid, the eyedrops as well, and the atenolol. 1. [facility] did not accept the patient. 2. We have from Oncology not a clear plan, as they said that they need 6 weeks of radiation, and they did not have the consult for Radiation Oncology to evaluate and plan. After the radiation he will be having chemotherapy. However, the patient will be [facility] 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 We will be consulting Radiation Oncology to clarify our plan of action. 3. Continue the current medication. We will be obtaining tomorrow CBC as well as BMP as well as a chest x-ray, portable. More than 30 minutes complicated with the history of pneumonia and sepsis in the past. MMODL / IJN: [id number] /
--- NOTE | 2017-10-28 21:32 | XR ---
PROCEDURE: XR wrist complete RT 4V DATE AND TIME: 10/28/2017 7:14 PM CLINICAL INDICATION: Right wrist pain, lump on distal radius. No known injury. TECHNIQUE: 4 views were obtained. 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 IMPRESSION: NO ACUTE PROCESS.
[2017-10-28] MEDS: MAG HYDROX/AL HYDROX/SIMETH 30 ML CUP PO SCH (23:16)
[2017-10-28 23:39] LABS: Glucose,Whole Blood 128 mg/dL (75-99)
[2017-10-29] MEDS: traMADol 50 MG TAB PO PRN ×2 (02:01→12:23)
[2017-10-29 05:50] LABS: Glucose,Whole Blood 129 mg/dL (75-99)
[2017-10-29] MEDS: INSULIN ASPART 100 UNIT/ML 1 ML 10 ML VIAL SQ SCH ×3 (05:52→17:59)
--- NOTE | 2017-10-29 07:17 | XR ---
EXAMINATION TYPE: XR chest 1V portable DATE OF EXAM: 10/29/2017 Comparison: 10/25/2017 Clinical History: 82-year-old male cough, follow up pneumonia Findings: Tracheostomy cannula is in place. Median sternotomy wires. Heart upper limits of normal in size. Cont inued small to moderate effusions with prominent adjacent bibasilar opacities. Impression: Continued small to moderate pleural effusions with adjacent lower lung atelectasis and consolidation, slightly decreased on the left.
[2017-10-29 07:42] LABS: Basophils % (A) 0 %; Eosinophils # (A) 0.2 k/uL (0-0.7); Eosinophils % (A) 2 %; HCT 29.5 % (39.0-53.0); HGB 9.3 gm/dL (13.0-17.5); Lymphocytes # (A) 0.6 k/uL (1.0-4.8); Lymphocytes % (A) 6 %; MCH 31.5 pg (25.0-35.0); MCHC 31.7 g/dL (31.0-37.0); MCV 99.4 fL (80.0-100.0); Mean Platelet Volume 8.3; Monocytes # (A) 0.4 k/uL (0-1.0); Monocytes % (A) 4 %; Neutrophils # (A) 7.8 k/uL (1.3-7.7); Neutrophils % (A) 86 %; Platelet Count 112 k/uL (150-450); RBC 2.96 m/uL (4.30-5.90); RDW 13.9 % (11.5-15.5); WBC 9.1 k/uL (3.8-10.6)
[2017-10-29 07:47] LABS: Anion Gap 5 mmol/L; Blood Urea Nitrogen 13 mg/dL (9-20); Calcium 10.3 mg/dL (8.4-10.2); Carbon Dioxide 25 mmol/L (22-30); Chloride 112 mmol/L (98-107); Cholesterol 112 mg/dL (<200); Glucose 130 mg/dL (74-99); HDL Cholesterol 20 mg/dL (40-60); LDL Cholesterol,Calculated 69 mg/dL (0-99); Magnesium 1.8 mg/dL (1.6-2.3); Potassium 3.7 mmol/L (3.5-5.1); Sodium 142 mmol/L (137-145); Triglycerides 115 mg/dL (<150)
[2017-10-29] MEDS: IPRATROPIUM-ALBUTEROL 3 ML NEB INHALATION SCH ×4 (09:05→20:56)
[2017-10-29] MEDS: APIXABAN 2.5 MG TABLET PO SCH (09:57)
[2017-10-29] MEDS: ASPIRIN 81 MG PO SCH (09:57)
[2017-10-29] MEDS: PIPERACILLIN-TAZOBACTAM 3.375 GM in DEXTROSE/WATER 1 50ML.BAG IVPB SCH (10:03)
[2017-10-29] MEDS: MAG HYDROX/AL HYDROX/SIMETH 30 ML CUP PO SCH ×4 (10:04→20:58)
[2017-10-29] MEDS: NEPAFENAC LEFT EYE SCH (10:51)
[2017-10-29] MEDS: BESIFLOXACIN HCL LEFT EYE SCH ×3 (10:51→20:30)
[2017-10-29] MEDS: Difluprednate [Durezol] 1 DROP LEFT EYE SCH ×2 (10:51→20:57)
[2017-10-29 11:33] LABS: Glucose,Whole Blood 151 mg/dL (75-99)
--- NOTE | 2017-10-29 11:34 | P.PN ---
Subjective Progress Note Date: 10/29/17 Principal diagnosis: Acute hypoxic respiratory failure secondary to COPD, left lower lobe pneumonia, vocal cord mass, stridor 82-year-old male patient with previous history of advanced COPD, along with history of coronary artery disease and previous bypass surgery and previous history of prostate cancer, presented to the hospital because of worsening shortness of breath. I was asked even with this patient as the patient's oxygenation was getting worse. At a time of my arrival, the patient was a 50% Ventimask. He was having some questionable stridorous inspiratory efforts, his cough was weak and his speech was also altered. He was unable to bring up much of sputum. He denied having any angina or chest pain. He also had a run of atrial fibrillation yesterday and currently his rhythm is sinus. I reviewed the chest x-ray and there is concern tolerance lower lobe infiltrates/ atelectasis. The patient is already on a combination of Rocephin and Zithromax. He was also noted to have hypercalcemia and acute kidney injury with a creatinine of 1.9. The exact nature of the hypercalcemia is not clear. As mentioned, he has prostate cancer. A recent bone scan from a recent bone scan from May 2017 showed no evidence of any skeletal involvement. Patient was reevaluated today on 10/20/2017, remains on mechanical ventilation. Patient was intubated yesterday by Dr. Woods, and urine intubation he was concerned about the vocal cords obstruction with what seems to be a mass involving the adenoid area, and displacing the vocal cords. Nonetheless, patient was intubated using a glidescope, and I have no plans to extubate the patient until he is evaluated by ENT, and the patient may require tracheostomy and biopsy of the lesion around the vocal cords. ENT consult was initiated, and he is yet to be seen by ENT on consultation. Ventilator settings were noted. Chest x-ray showed bibasilar opacities. And small bilateral pleural effusions. CBC showed slight leukocytosis. WBC count is 15.7 hemoglobin is 10.4 his PTT is 55.3, remains on heparin. ABG on 50% showed a pO2 of 117 pCO2 of 37 pH of 7.46. Basic metabolic profile is relatively normal BUN is 48 creatinine is 1.10. Patient is arousable, propofol was placed on hold, and we were able to examine the patient, seems to be very appropriate, and comprehending or what he was being controlled. Again I have no plans to extubate the patient until a tracheostomy is done, and ENT has seen the patient. Patient was reevaluated today on 10/21/2017, remains on mechanical ventilation, his ventilator settings are tidal volume of 500 assist control rate 16 FiO2 of 50% and PEEP of 5. He is not requiring any pressors, he remains on propofol which I plan to discontinue and give the patient is sedation holiday. And assess mental status again today. Patient is scheduled to undergo tracheostomy this afternoon, and biopsy of the vocal cords mass. This will be done likely later this afternoon by Dr. Foster. In the meantime the patient is hemodynamically stable, his labs were reviewed, and believes he count is 5.2 hemoglobin is 10.3 electrolytes are relatively normal BUN is 43 creatinine is 1.01. Mental status was appropriate yesterday off propofol, and we will assess his mental status again today off propofol. Chest x-ray showed mostly atelectasis and small pleural effusions. All meds were reviewed, patient remains empirically on antibiotics, he is also on updrafts, patient is on Cardizem drip at 5 mg per hour, and his atrial fibrillation seems to be fairly well controlled. He is on heparin which will plan to discontinue few hours before surgery. Patient was reevaluated today on 10/22/2017, patient underwent tracheostomy and thyroid isthmusectomy, and direct microscopic laryngoscopy with biopsy of the glottic mass. Results of which are pending. Patient was reevaluated today, and he seems to be doing very well. I gave the patient a short trial of pressure support and CPAP, and he was doing great. Hence I discontinued mechanical ventilation, and I placed him on a trach collar at 40% FiO2. His propofol has been discontinued. Patient seems to be hemodynamically stable, mentally appropriate, in no distress, denies any pain. ABG this morning showed a pO2 of 140 pCO2 of 30 pH of 7.50. CBC showed a hemoglobin of 10.6 WBC count of 7.1. Electrolytes were reviewed bicarb is 22. Sodium is 145. Patient's nasogastric tube was removed, and we plan to ask speech pathology to evaluate, and the patient can swallow we will proceed with oral feeding and deflate the cuff on the trach as needed. Chest x-ray continues to show bibasilar atelectasis and small pleural effusions. Reevaluated today on 10/23/2017, patient was extubated from mechanical ventilation yesterday, remains on trach collar. Patient failed swallow evaluation and barium swallow, hence I plan to arrange for the patient to have a PEG tube placement. Pathology from his laryngeal biopsy is still pending. Patient may eventually require referral to a tertiary care center like [facility] , or another facility depending on the recommendation of ENT on the case. In the meantime the patient continues to have atrial fibrillation but fairly controlled rate, and we are noticing more bleeding around the trach site, hence I recommended holding heparin for now. I have also recommended GI evaluation for a PEG tube placement. Patient is doing well overall, he is tolerating the trach collar well, relatively asymptomatic. Labs from today showed hemoglobin of 9.7 his PTT was 69. His sodium is climbing up to 151, EOM is 38 creatinine is 1.04, hence I plan to increase the IV fluid to D5W to 150 mL per hour. Will discontinue Lasix. Chest x-ray continues to show by basilar atelectasis and/or infiltrates. Reevaluated today on 10/24/2017, patient remains on trach collar, off mechanical ventilation, failed his swallow evaluation, hence he is undergoing PEG tube placement today for nutritional support. His pathology came back positive for squamous cell carcinoma, and decisions will be made as to likely transfer the patient to [facility]. Transfer plans are in progress. ENT is recommending ultrasound-guided fine-needle aspiration of neck masses. He also recommended oncology evaluation which will be initiated. In the meantime the patient is sitting at a bedside chair, very comfortable, in no distress. CBC is relatively normal basic metabolic profile is normal. Chest x-ray is showing basically bibasilar atelectasis and small pleural effusions. The patient was seen again today in 10/25/2017 in follow-up on the selective care unit. He is awake and alert in no acute distress. He is maintaining good O2 saturations in the 90s on trach collar at 35%. He denies any worsening shortness of breath. His chest x-ray continues to show moderate pleural effusions with adjacent bibasilar atelectasis. Sputum and blood cultures reveal no growth. White count 9.1. Hemoglobin 10.8. Creatinine 0.70. The patient's biopsy of the laryngeal mass was positive for squamous cell carcinoma and the plan is to transfer to [facility]. Pathology of the salivary gland is pending. He remains in atrial fibrillation and is on Cardizem drip at 5 mg per hour. He did have a PEG tube placed per surgical services yesterday. Reevaluated today on 10/26/2017, patient remains on trach collar, being fed via PEG tube, doing overall quite well, were still in the process of making arrangements for him to be eventually transferred to a tertiary care center/ [facility]. Patient is in no distress. All his labs were reviewed including his CBC, basic metabolic profile renal profile seems to be relatively normal. 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 There was also focal intense activity in the posterior midline and lower spine. Intense activity noted at the sternal notch this could very well be related to his tracheostomy. These issues are to be addressed by oncology before any further arrangements made, and whether the patient will be a candidate for any surgical intervention. Reevaluated today on 10/27/2017, basically the patient is about the same. Patient had significantly abnormal bone scan, awaiting input from oncology as whether to proceed with any referral to a tertiary care center or treatment with chemotherapy. In the meantime the patient is basically about the same. All labs were reviewed including his CBC, basic metabolic profile and renal profile. Patient is relatively asymptomatic. Trach seems to be intact. The patient is seen again today 10/28/2017 in follow-up on the selective care unit. He is currently resting comfortably in bed. He is awake and alert in no acute distress. He continues to maintain good O2 saturations in the 90s on 40% trach collar he is afebrile. Hemodynamically stable. Blood and sputum cultures reveal no growth. White count 8.5. Hemoglobin 9.1. Creatinine 0.67. The patient is seen again today 10/29/2017 in follow-up on the selective care unit. He remains awake and alert in no acute distress. He continues to maintain good O2 saturations in the 90s on 40% FiO2 via trach collar. Chest x- ray shows small to moderate pleural effusions with adjacent lower lobe atelectasis. He is currently on Zosyn. White count 9.1. Hemoglobin 9.3. Creatinine 0.63. Objective - Vital Signs Vital signs: Vital Signs Temp 98.4 F 10/29/17 09:00 Pulse 65 10/29/17 09:00 Resp 18 10/29/17 09:00 BP 170/70 10/29/17 09:00 Pulse Ox 94 L 10/29/17 09:00 Intake & Output 10/28/17 10/29/17 10/29/17 18:59 06:59 18:59 Intake Total 720 960 Output Total 2000 Balance 720 -1041 Weight 89 kg 97 kg Intake: Tube Feeding 720 960 Output: Urine 1999 Stool 1 Other: Voiding Method Indwelling Catheter Indwelling Catheter Indwelling Catheter # Bowel Movements 1 ABP, PAP, CO, CI - Last Documented Arterial Blood Pressure 129/59 - Exam Physical exam revealed an 82-year-old white male on trach collar, in no distress. Head exam was generally normal. There was no scleral icterus or corneal arcus. Mucous membranes were moist. Neck was supple and without jugular venous distension, thyromegaly, or carotid bruits. Carotids were easily palpable bilaterally. Tracheotomy tube secured in place Lungs sounds are diminished at the bases, no rhonchi and no wheezes. Cardiac exam revealed the PMI to be normally situated and sized. Irregular irregular rhythm, Normal S1 and S2, no S3 gallop. No murmur. Abdominal exam revealed soft nontender no megaly no rebound, positive bowel sounds. PEG tube exit site is clean and dry. Examination of the extremities revealed no clubbing, edema or cyanosis. Examination of the skin revealed no evidence of significant rashes, no erythema. Neurologically awake and alert and there is no focal neurological deficit. - Labs CBC & Chem 7: 10/29/17 06:22 10/29/17 06:22 Labs: Abnormal Lab Results - Last 24 Hours (Table) 10/25/17 10/28/17 10/28/17 Range/Units 04:17 07:30 12:08 RBC (4.30-5.90) m/uL Hgb (13.0-17.5) gm/dL Hct (39.0-53.0) % Plt Count (150-450) k/uL Neutrophils # (1.3-7.7) k/uL Lymphocytes # (1.0-4.8) k/uL Chloride (98-107) mmol/L Creatinine (0.66-1.25) mg/dL Glucose (74-99) mg/dL POC Glucose (mg/dL) 148 H (75-99) mg/dL Calcium (8.4-10.2) mg/dL Iron 26 L (65-175) ug/dL TIBC 189 L (228-460) ug/dL Iron Saturation 13.76 L (15.00-50.00) Ferritin 903.0 H (22.0-322.0) ng/mL HDL Cholesterol (40-60) mg/dL Total PSA 50.3 H (<=4.0) ng/mL 10/28/17 10/28/17 10/29/17 Range/Units 17:39 23:38 05:48 RBC (4.30-5.90) m/uL Hgb (13.0-17.5) gm/dL Hct (39.0-53.0) % Plt Count (150-450) k/uL Neutrophils # (1.3-7.7) k/uL Lymphocytes # (1.0-4.8) k/uL Chloride (98-107) mmol/L Creatinine (0.66-1.25) mg/dL Glucose (74-99) mg/dL POC Glucose (mg/dL) 119 H 128 H 129 H (75-99) mg/dL Calcium (8.4-10.2) mg/dL Iron (65-175) ug/dL TIBC (228-460) ug/dL Iron Saturation (15.00-50.00) Ferritin (22.0-322.0) ng/mL HDL Cholesterol (40-60) mg/dL Total PSA (<=4.0) ng/mL 10/29/17 10/29/17 Range/Units 06:22 06:22 RBC 2.96 L (4.30-5.90) m/uL Hgb 9.3 L (13.0-17.5) gm/dL Hct 29.5 L (39.0-53.0) % Plt Count 112 L (150-450) k/uL Neutrophils # 7.8 H (1.3-7.7) k/uL Lymphocytes # 0.6 L (1.0-4.8) k/uL Chloride 112 H (98-107) mmol/L Creatinine 0.63 L (0.66-1.25) mg/dL Glucose 130 H (74-99) mg/dL POC Glucose (mg/dL) (75-99) mg/dL Calcium 10.3 H (8.4-10.2) mg/dL Iron (65-175) ug/dL TIBC (228-460) ug/dL Iron Saturation (15.00-50.00) Ferritin (22.0-322.0) ng/mL HDL Cholesterol 20 L (40-60) mg/dL Total PSA (<=4.0) ng/mL Assessment and Plan Assessment: Impression: 1 acute hypoxic respiratory failure, multifactorial, secondary to stridor with large glottic mass and COPD exacerbation. Status post biopsy of glottic mass, pathology positive for squamous cell carcinoma. status post tracheotomy tube placement, status post ultrasound-guided FNA of left neck masses of the saliva gland, pathology pending. 2 advanced COPD 3 coronary artery disease previous bypass surgery 4 acute kidney injury, improving 5 hypercalcemia, improving 6 prostate cancer 7 atrial fibrillation, paroxysmal. 8 acute urinary retention and the patient has a Kenny catheter in place 9 hypertension 10 hypernatremia and free water deficit, recovered 11 failed swallow evaluation/barium swallow, PEG tube placed 10/24/2017 Recommendation: The patient was seen and evaluated by Dr. Flowers. The patient is currently stable from the pulmonary standpoint. We will discontinue the Zosyn and add Augmentin to complete his course of antibiotics. The plan is to transfer to select specialty for continued rehabilitation and then outpatient treatment for his cancer. Continue with his current treatment plan. We will continue to follow. I, the cosigning physician, performed a history & physical examination of the patient. Lungs sounds have few scattered rhonchi, crackles in the posterior bases more so on the left Maintaining good O2 saturations in the 90s on 40% trach collar. I discussed the assessment and plan of care with my nurse practitioner, Anabel Vyas. I attest to the above note as dictated by her.
[2017-10-29] MEDS: FLUTAMIDE PO SCH ×2 (12:22→20:30)
[2017-10-29] MEDS: LISINOPRIL 2.5 MG TAB PO SCH ×2 (12:23→20:58)
[2017-10-29] MEDS: MULTIVITAMINS, THERA 1 EACH TAB PO SCH (12:23)
[2017-10-29] MEDS: METOPROLOL TARTRATE 25 MG TAB PO SCH ×2 (12:23→20:58)
[2017-10-29] MEDS: LOPERAMIDE 2 MG CAP PEJ/J-Tube PRN ×3 (12:24→20:58)
--- NOTE | 2017-10-29 12:54 | P.PN ---
Subjective Progress Note Date: 10/29/17 Principal diagnosis: Laryngeal Mass Patient complains of pain today, he is not moving much, and has become weaker overall. Discussion with Dr. Campa was that the bone metastasis origin will impact our overall treatment plan and approach. Whether his widespread bony metastasis is originating from prostate adenocarcinoma versus laryngeal squamous cell carcinoma. The treatment plan, overall goals of treatment and prgnosis will be affected. Therefore a biopsy of one of the bone lesions has been asked to be obtained from interventional radiology. He is currently on Eliquis and aspirin. The aspirin has been stopped today 10/29/17 in anticipation of bone biopsy. Eliquis will need to be stopped 48 hours prior per IR, when a time and date has been scheduled we will cordinate stopping eliquis for the needed timeframe prior. Objective - Vital Signs Vital signs: Vital Signs Temp 98.4 F 10/29/17 09:00 Pulse 88 10/29/17 11:35 Resp 18 10/29/17 09:00 BP 170/70 10/29/17 09:00 Pulse Ox 94 L 10/29/17 09:00 Intake & Output 10/28/17 10/29/17 10/29/17 18:59 06:59 18:59 Intake Total 720 960 Output Total 2000 Balance 720 -1041 Weight 89 kg 97 kg Intake: Tube Feeding 720 960 Output: Urine 2000 Stool 1 Other: Voiding Method Indwelling Catheter Indwelling Catheter Indwelling Catheter # Bowel Movements 1 ABP, PAP, CO, CI - Last Documented Arterial Blood Pressure 129/59 - Exam General: Well-developed, thin-appearing HEENT: Normocephalic, Nontramatic, sclerae nonicteric, tracheostomy and placed 1-2cm right moveable palpable cervical lymph node LUNGS: Equal and no increased effort noted HEART: Tachy, Irregular Abdomen: Nontender, nondistended Extremities: No edema Neuro: Alert and oriented, Non Vocal secondary to Trach. - Labs CBC & Chem 7: 10/29/17 06:22 10/29/17 06:22 Labs: Abnormal Lab Results - Last 24 Hours (Table) 10/25/17 10/28/17 10/28/17 Range/Units 04:17 07:30 17:39 RBC (4.30-5.90) m/uL Hgb (13.0-17.5) gm/dL Hct (39.0-53.0) % Plt Count (150-450) k/uL Neutrophils # (1.3-7.7) k/uL Lymphocytes # (1.0-4.8) k/uL Chloride (98-107) mmol/L Creatinine (0.66-1.25) mg/dL Glucose (74-99) mg/dL POC Glucose (mg/dL) 119 H (75-99) mg/dL Calcium (8.4-10.2) mg/dL Phosphorus (2.5-4.5) mg/dL Iron 26 L (65-175) ug/dL TIBC 189 L (228-460) ug/dL Iron Saturation 13.76 L (15.00-50.00) Ferritin 903.0 H (22.0-322.0) ng/mL HDL Cholesterol (40-60) mg/dL Total PSA 50.3 H (<=4.0) ng/mL 10/28/17 10/29/17 10/29/17 Range/Units 23:38 05:48 06:22 RBC (4.30-5.90) m/uL Hgb (13.0-17.5) gm/dL Hct (39.0-53.0) % Plt Count (150-450) k/uL Neutrophils # (1.3-7.7) k/uL Lymphocytes # (1.0-4.8) k/uL Chloride 112 H (98-107) mmol/L Creatinine 0.63 L (0.66-1.25) mg/dL Glucose 130 H (74-99) mg/dL POC Glucose (mg/dL) 128 H 129 H (75-99) mg/dL Calcium 10.3 H (8.4-10.2) mg/dL Phosphorus (2.5-4.5) mg/dL Iron (65-175) ug/dL TIBC (228-460) ug/dL Iron Saturation (15.00-50.00) Ferritin (22.0-322.0) ng/mL HDL Cholesterol 20 L (40-60) mg/dL Total PSA (<=4.0) ng/mL 10/29/17 10/29/17 10/29/17 Range/Units 06:22 06:22 11:28 RBC 2.96 L (4.30-5.90) m/uL Hgb 9.3 L (13.0-17.5) gm/dL Hct 29.5 L (39.0-53.0) % Plt Count 112 L (150-450) k/uL Neutrophils # 7.8 H (1.3-7.7) k/uL Lymphocytes # 0.6 L (1.0-4.8) k/uL Chloride (98-107) mmol/L Creatinine (0.66-1.25) mg/dL Glucose (74-99) mg/dL POC Glucose (mg/dL) 151 H (75-99) mg/dL Calcium (8.4-10.2) mg/dL Phosphorus 2.1 L (2.5-4.5) mg/dL Iron (65-175) ug/dL TIBC (228-460) ug/dL Iron Saturation (15.00-50.00) Ferritin (22.0-322.0) ng/mL HDL Cholesterol (40-60) mg/dL Total PSA (<=4.0) ng/mL Assessment and Plan Plan: Assessment and Recommendations: 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 Hypercalcemia - - Dehydration versus Malignancy - IVF HYdration and Bone Scan - Likely metastatic Lesions to bone either prostate progression or Laryngeal diagnosis, PSA Re-check still Pending 3. History of Prostate Cancer - Follows with Urology - Receives LHRT per Urology - - Recheck PSA Level - CT scan revealed tumor of prostate, PSA increased 4. Macrocytic Anemia - - monitoring cbc PLan - - Discussion with Dr. Cmapa was that the bone metastasis origin will impact our overall treatment plan and approach. Whether his widespread bony metastasis is originating from prostate adenocarcinoma versus laryngeal squamous cell carcinoma. The treatment plan, overall goals of treatment and prgnosis will be affected. Therefore a biopsy of one of the bone lesions has been asked to be obtained from interventional radiology. He is currently on Eliquis and aspirin. The aspirin has been stopped today 10/29/17 in anticipation of bone biopsy. Eliquis will need to be stopped 48 hours prior per IR, when a time and date has been scheduled we will cordinate stopping eliquis for the needed timeframe prior
--- NOTE | 2017-10-29 13:21 | P.CON ---
Consult Note - . Consult date: 10/29/17 Assessment/Plan:: This consultation form per the request of Dr. Lane elongated thick nails the patient's feet This is a 82-year-old gentleman who was admitted to the hospital after presenting to the emergency room with complaints of being weak and short of breath and the patient has has no fever or chills. The patient does have a history of chronic obstructive pulmonary disease and chronic respiratory failure the patient is on oxygen. 2 days ago the patient called and was somewhat short of breath with this changing weather. A week ago Dr. Lane had seen the patient because of her routine follow-up. The patient at that time appeared pale but his hemoglobin was stable and there is no evidence of congestive heart failure. The patient does have COPD and seems to be doing well except with a complaint of the humidity, he does have some difficulty breathing as he does not have any air-conditioning. Price again talked with Dr. Lane and was feeling somewhat short of breath given a tapering steroid to be taken milligrams 3 times a day 30 mg 3 times a day 20 mg 3 times a day 10 mg 3 times a day and 5 mg 3 times a day. They Dr. Lane talk to the patient stated that he been doing much better. The patient then presented to the hospital with shortness of breath the patient denied much cough. He did that he had not been eating much but he had no fever or chills. 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 History of spinal stenosis of lumbar region. Haptic ulcer disease in the past. Chronic kidney disease stage III area COPD. Urinary retentionrecently. Her lipidemia. Chronic respiratory failure Past surgical history: Significant for T&A appendectomy CABG right wrist ganglion removal cyst surgery. Social history: Patient is single, lives alone. Nonsmoker at present time. Alcohol none. Family medical history: The patient's father at 79 history of CVA hypertension coronary artery disease Mother at the age of 91 history of CVA hypertension coronary artery disease The patient has no siblings and no children Review of systems: Neuro: Denies headaches, some dizziness. No double vision or blurred vision no symptoms of TIA syncope or seizure Psychiatric: No anxiety or depression Cardiac: Denies chest pain and angina or palpitations Respiratory: Complaints of shortness of breath minimal cough no GI nausea or vomiting abdominal pain no appetite no diarrhea no constipation : No symptoms of dysuria or hematuria he has a ADC and was not able to void 2 days ago and had a Kenny catheter inserted Extremities: Denies pain does have utilized weakness. Stage II show: No fever or chills Turk[place] chronic anemia no bleeding disorders. Skin: No rashes musculoskeletal generalized weakness and mild arthritic pain Physical examination revealed elongated nails with the right hallux nail showed changes consistent with onychomycosis to a mild degree the patient had palpable pedal pulses rated at 1 over 4 with regard to the dorsalis pedis and the posterior tibial artery both feet capillary refill was less than 3 seconds to all digits. The patient's skin with regard to color moisture temperature and texture is essentially within normal limits. Babinski and clonus signs were negative Range of motion ankle subtalar midtarsal metatarsal phalangeal joints are free and unrestricted Assessment: 1. Acute respiratory failure 2. Underlying possible left lower lobe pneumonia 3. Dehydration 4. Anemia, chronic. 5. History of cancer of the prostate 6. Urinary retention 7. Stability 8. Poor hygienic environment 9. Depression 10. Onychomycosis right hallux nail plate This date I reduce patient's nails of both feet burring was performed and a septic was applied. Thank you for considering me in the care of your patients
[2017-10-29] MEDS: DICLOFENAC SODIUM GEL 100 GM TUBE TOPICAL SCH ×3 (16:58→20:58)
--- NOTE | 2017-10-29 17:26 | PN ---
PROGRESS NOTE He is 82 years old, white male, single. DATA: He is 6 feet height, weight 97 kg. BSA 2.19 m2. BMI 29 kg/m2. ALLERGY: 1. ACETAMINOPHEN. 2. CASODEX. 3. MOBIC. 4. SULFONAMIDE. 5. MORPHINE. The patient is seen today evaluated discussed with him and he is unable to communicate but he writes note more because of his surgery on the larynx. The patient initially presented to the emergency room to the ER physician, and Dr. Lane as he had admitted the patient and at that time the date of the admission was 10/18 and at that time seen by Dr. Lane and he has his note indicating that presenting with the weak, short of breath. No fever, no chills. History of COPD, chronic respiratory failure and he was on oxygen. As patient is seen by Dr. Lane stated that the COPD but there is the difficulty of breathing. He was taking steroid, tapering scale gradual decreasing and he has been fluctuating of comfort prior to the admission. At that time the patient brought to the emergency room with the respiratory stridor. Also patient was not eating, but no fever or chills. He had paroxysmal atrial fibrillation with tachycardia, coronary artery disease. He had history of CA of the prostate with recurrence, has been treated by Urology. He has a history of urinary retention and went to the emergency room and they placed him on Kenny catheter. With the past medical history, he had a T and A, appendectomy, CABG, and right wrist ganglion removal. No alcohol and he is single and he is a nonsmoker. He had underlying history of inferior wall CO, carcinoma of the prostate, spinal stenosis of the lumbar region, peptic ulcer disease in the past, chronic kidney disease stage 3, COPD, and urinary retention and history of hyperlipidemia. His family history: Father of age of 79 with the CVA, hypertension, coronary artery disease. His mother of age of 91 with CVA, hypertension, coronary artery disease. He had no siblings and no children. At the time of admission, Dr. Lane's impression was acute respiratory failure, left lower lobe pneumonia, dehydration, anemia, cancer of the prostate, urinary retention, debility, poor hygienic environment. The patient at that time started on Cardizem drip, antibiotic and hydrated. An medication was re-ordered. Through the hospital course found that stridor and admitted to the ICU, seen by Dr. Woods and subsequently by Dr. Venegas, pulmonary and Critical and had several testings including CT scan of the soft tissue, seen subsequently with Dr. Tse, the ENT, and at that time, indicating in his note that he performed with the transepiglottic mass with airway obstruction, he underwent tracheostomy with the thyroid and I direct microscopic laryngoscopy with biopsy. The pathology found to be glottic mass. Subsequently pathology report indicating that infiltrating moderately differentiated squamous cell carcinoma with extensive lymphovascular space infiltration. Subsequently the Oncology was consulted and as of now, the patient was stable general condition and we plan to discharge to [facility] in [place], however, that the Oncology did plan to have biopsy of the ribs because of the metastasis that shown in the bone scan. Unfortunately the PA of the Oncology did not inform us with this finding as the patient was planned to go to go to the [facility]. Meanwhile, as the discharge planning and the nurse discharged, they found out that they need IV antibiotic to be accepted in the [facility] and he is taking the IV antibiotic back instead of using a PICC for the IV antibiotic. Today, he had certain questions and we answered it and with the understanding that his atrial fibrillation as discontinuation of the diltiazem. We started him on the Lopressor twice a day and titrate according to the heart rate subscale. He is on medication through the PEG tube. He could not eat and with difficulty with swallowing and he had a PEG tube placed by Dr. Garcia. He had pain in the right wrist with a history of ganglion removed in the wrist and we started him on diclofenac sodium Voltaren gel 2 g 4 times a day. He is on insulin to scale and that has been doing very well and controlled blood sugar. He is on the hypertension and started on lisinopril 2.5 mg twice a day with the blood pressure still uncontrolled well. The next problem that he has, he has diarrhea associated with feeding with the PEG tube. We requested the dietitian to have added fiber and will see if that improves added to the C difficile was negative. We will start him on loperamide which is Imodium 2 mg 4 times a day with each bowel movement and currently as mentioned for his atrial fibrillation, 25 mg of metoprolol tartrate and gradual increase the beta fabby according to the response. He had a potassium per protocol if he is hypokalemic. He is on multivitamin and he is also on medication for the prostate cancer and today is on flutamide 375 mg p.o. twice a day. He stated that he wants to hold on it because of that was given because of the cancer of the prostate and the nursing staff called Dr. Mcguire who told him you can hold it for now until he improving. He is also on eyedrops and the eyedrop, both in the left eye and 1 of them is nepafenac 1 drop in the left eye daily. The other eyedrops name besifloxacin 1 drop in the left eye. He is on tramadol for pain on his left wrist. Currently he is not on any anticoagulant as it has been discontinued by Cardiology. On examination patient conscious, alert, oriented. He is able to write his question on a clipboard with notepad. His pupil is equal, reactive. Oropharynx was negative. He could not eat anything through the mouth. He has a neck tracheostomy with a collar with oxygen. The chest was clear to auscultation and percussion. Heart was irregular irregularities with atrial fibrillation. His last chest x-ray was done on today that showed that he had a small to moderate pleural effusion in the lower lung with atelectasis and consolidation slightly decreased on the left. The extremities: He could not walk with a history of spinal stenosis and he used to walk with cane and he could not, and we will be getting the physical therapy to evaluate. We will be with the assessment, multiple medical problem as has been with the squamous cell carcinoma of the larynx with metastasis to the ribs and chronic obstructive pulmonary disease and hypoxemia, history of pneumonia and atrial fibrillation with rapid ventricular response. The assessments by Dr. Flowers that he has: 1. Acute hypoxic respiratory failure, multifactorial, stridor, large epiglottic mass, COPD, biopsy squamous cell carcinoma. 2. He has status post tracheostomy and status post ultrasound guided FNA of the left neck mass and . 3. Advanced chronic obstructive pulmonary disease. 4. Coronary artery disease with bypass graft. 5. History of kidney injury, improved. 6. Hypercalcemia could be secondary to the squamous cell carcinoma but improved. 7. Prostate cancer. 8. Atrial fibrillation with rapid ventricular response, currently stable, acute, however today they stated that it is recurrent again. 9. Urinary retention with a Kenny catheter in place. 10.Hypertension. 11.Hypernatremia, water deficit, failed swallow evaluation and barium swallow placed on PEG tube. The recommendation of Dr. Flowers through the dictation of his PA or nurse practitioner, Dr. Anabel Vyas, and he will be sent to [facility]. However, they want the antibiotic IV continued. Currently the patient will be waiting for assessment of his blood pressure, the atrial fib and we are trying to understand why the anticoagulant has been discontinued as well and subsequently will be sent to the [facility] for further treatment and Dr. Campa arranged for the bone biopsy on Friday and subsequently the patient will be transferred if the bed is available as well as there is no further investigation to be done. This evaluation of the progress note more than 45 minutes. MMREENAL / STEFANN: [id number] /
[2017-10-29 17:39] LABS: Glucose,Whole Blood 144 mg/dL (75-99)
[2017-10-29] MEDS: AMOXIC-POT CLAV 600-42.9MG/5ML 75 ML BOTTLE PO SCH (20:57)
[2017-10-29] MEDS: ATORVASTATIN 40 MG TAB PO SCH (20:57)
[2017-10-30 00:05] LABS: Glucose,Whole Blood 128 mg/dL (75-99)
[2017-10-30] MEDS: INSULIN ASPART 100 UNIT/ML 1 ML 10 ML VIAL SQ SCH ×5 (00:28→23:21)
[2017-10-30 06:15] LABS: Glucose,Whole Blood 138 mg/dL (75-99)
[2017-10-30] MEDS: LOPERAMIDE 2 MG CAP PEJ/J-Tube PRN ×3 (06:34→20:24)
[2017-10-30] MEDS: IPRATROPIUM-ALBUTEROL 3 ML NEB INHALATION SCH ×4 (07:08→20:40)
[2017-10-30] MEDS: Difluprednate [Durezol] 1 DROP LEFT EYE SCH ×2 (09:02→20:23)
[2017-10-30] MEDS: NEPAFENAC LEFT EYE SCH (09:02)
[2017-10-30] MEDS: FLUTAMIDE PO SCH ×2 (09:04→20:21)
[2017-10-30] MEDS: BESIFLOXACIN HCL LEFT EYE SCH ×3 (09:06→20:22)
[2017-10-30] MEDS: DICLOFENAC SODIUM GEL 100 GM TUBE TOPICAL SCH ×4 (09:06→20:22)
[2017-10-30] MEDS: METOPROLOL TARTRATE 25 MG TAB PO SCH ×2 (09:09→20:23)
[2017-10-30] MEDS: LISINOPRIL 2.5 MG TAB PO SCH ×2 (09:10→20:23)
[2017-10-30] MEDS: MAG HYDROX/AL HYDROX/SIMETH 30 ML CUP PO SCH ×4 (09:16→23:18)
[2017-10-30] MEDS: AMOXIC-POT CLAV 600-42.9MG/5ML 75 ML BOTTLE PO SCH ×2 (09:18→20:23)
[2017-10-30] MEDS: traMADol 50 MG TAB PO PRN (12:05)
[2017-10-30] MEDS: MULTIVITAMINS, THERA 1 EACH TAB PO SCH (12:06)
[2017-10-30 12:32] LABS: Glucose,Whole Blood 163 mg/dL (75-99)
--- NOTE | 2017-10-30 12:34 | P.PN ---
Subjective Progress Note Date: 10/30/17 Principal diagnosis: Laryngeal Mass Patient complains of pain today, he is not moving much, and has become weaker overall.Plan is to obtain biopsy of bone for appropriate treatment plan Objective - Vital Signs Vital signs: Vital Signs Temp 98.4 F 10/30/17 08:00 Pulse 76 10/30/17 11:49 Resp 22 10/30/17 08:00 BP 145/63 10/30/17 08:00 Pulse Ox 91 L 10/30/17 08:00 Intake & Output 10/29/17 10/30/17 10/30/17 18:59 06:59 18:59 Intake Total 270 556 Output Total 2 Balance 268 556 Weight 0 g 97 kg Intake: Tube Feeding 270 556 Output: Stool 2 Other: Voiding Method Indwelling Catheter Indwelling Catheter Indwelling Catheter # Bowel Movements 4 ABP, PAP, CO, CI - Last Documented Arterial Blood Pressure 129/59 - Exam General: Well-developed, thin-appearing HEENT: Normocephalic, Nontramatic, sclerae nonicteric, tracheostomy and placed 1-2cm right moveable palpable cervical lymph node LUNGS: Equal and no increased effort noted HEART: Tachy, Irregular Abdomen: Nontender, nondistended Extremities: No edema Neuro: Alert and oriented, Non Vocal secondary to Trach. 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 Hypercalcemia - - Dehydration versus Malignancy - IVF HYdration and Bone Scan - Likely metastatic Lesions to bone either prostate progression or Laryngeal diagnosis, PSA Re-check still Pending 3. History of Prostate Cancer - Follows with Urology - Receives LHRT per Urology - - Recheck PSA Level - CT scan revealed tumor of prostate, PSA increased 4. Macrocytic Anemia - - monitoring cbc PLan - - Discussion with Dr. Campa was that the bone metastasis origin will impact our overall treatment plan and approach. Whether his widespread bony metastasis is originating from prostate adenocarcinoma versus laryngeal squamous cell carcinoma. The treatment plan, overall goals of treatment and prognosis will be affected. Therefore a biopsy of one of the bone lesions has been asked to be obtained from interventional radiology. He is currently on Eliquis and aspirin. The aspirin has been stopped 10/29/17 in anticipation of bone biopsy. Eliquis will need to be stopped 48 hours prior per IR, when a time and date has been scheduled we will cordinate stopping eliquis for the needed timeframe prior - Eliquis will need to restart after Biopsy and [facility] and Eliquis as originally planned. Patient aware and agrees with plan/
--- NOTE | 2017-10-30 12:51 | P.PN ---
Subjective Progress Note Date: 10/30/17 10/31/2007 and I'm seeing this patient for a follow-up. 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 Note that this was identified at the time of intubation for respiratory failure and further investigation and biopsy yielded the diagnosis. The patient currently has a nonfenestrated tracheostomy tube. He is having minimal amount of rest or secretions and he is on and off requiring suctioning through his tracheostomy tube. CAT scan of the chest abdomen and pelvis was done and showed some atelectatic changes small effusion the lung bases bilaterally. Bone scan was done and there is also evidence of suspicious skeletal metastatic lesions which are essentially also blastic. There is focal intense activity in the lumbar spine and there is also intense tracer activity in the right anterolateral mid ribs compatible with chest wall involvement. The patient will be having a IR guided biopsy of the lumbar spine. She diagnoses knowing that he also has history of prostate cancer. He is weak. Is able to stand up along with the help of physical therapy. Oncology is on the case. Prognosis will largely depend whether the squamous cell carcinoma of the larynx is metastatic or the bone findings are essentially metastases from his prostate cancer. He still has a Kenny catheter in place. No fever or chills. He is able to communicate. He is on enteral feeding for nutritional support. He is having some liquidy bowel movement along with his enteral nutrition. He is alert and awake and communicating and following commands and answering questions appropriately. Objective - Vital Signs Vital signs: Vital Signs Temp 98.4 F 10/30/17 08:00 Pulse 76 10/30/17 11:49 Resp 22 10/30/17 08:00 BP 145/63 10/30/17 08:00 Pulse Ox 91 L 10/30/17 08:00 Intake & Output 10/29/17 10/30/17 10/30/17 18:59 06:59 18:59 Intake Total 270 556 Output Total 2 Balance 268 556 Weight 0 g 97 kg Intake: Tube Feeding 270 556 Output: Stool 2 Other: Voiding Method Indwelling Catheter Indwelling Catheter Indwelling Catheter # Bowel Movements 4 ABP, PAP, CO, CI - Last Documented Arterial Blood Pressure 129/59 - Exam General: Well-developed, thin-appearing, nonacute distress Head exam was generally normal. There was no scleral icterus or corneal arcus. Mucous membranes were moist. HEENT: Normocephalic, Nontramatic, sclerae nonicteric, tracheostomy and placed, and the patient has a Shiley nonfenestrated tracheostomy tube in place. 1-2cm right moveable palpable cervical lymph node LUNGS: Equal and no increased effort noted, breath sounds equal and symmetrical diminished in lung bases bilaterally. No crackles. No wheezes. HEART: Tachy, Irregular,r and no extrasystoles were noted during several minutes of auscultation. The first and second heart sounds were normal and physiologic splitting of the second heart sound was noted. There were no murmurs , rubs, clicks, or gallops. Abdomen: Nontender, nondistended, no direct tenderness hemoptysis or guarding and the patient is a PEG tube which is in a good location and exit sites clean Extremities: Examination of the extremities revealed easily palpable radial, femoral and pedal pulses. There was no cyanosis, clubbing or edema.a Neuro: Awake and alert and is no focal neurological deficit at this point in time. Examination of the skin revealed no evidence of significant rashes, suspicious appearing nevi or other concerning lesions. 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 4 COPD, advanced and severe 5 acute ventilator-dependent respiratory failure secondary to above, recovered 6 bibasilar atelectatic changes small effusions 7 hypercalcemia 8 chronic microcystic anemia 9 atrial fibrillation, paroxysmal 10 acute urinary retention and the patient has a Kenny catheter in place 11 difficulty in swallowing and the patient has enteral feeding via PEG tube was inserted on 10/24/2018 12 debility and profound weakness and the patient is undergoing daily rehabilitation physical therapy. Plan Continue physical therapy. Continue enteral feeding for nutritional support. The tracheostomy tube is nonfenestrated and the patient will be switched to a fenestrated tracheostomy tube at a later stage and I would let the tracheostomy healed for at least 2 or 3 weeks prior to doing this change. 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 This may occur as long as he doesn't have any significant obstructive mass in his larynx. This will be further discussed with ENT. Meanwhile, the patient will undergo a fine- needle aspirate of the lumbar spine/biopsy to rule out metastatic involvement of the lumbar spine. Anti-coverage and has been stopped in preparation for the biopsy. Oncology on the case and the prognosis with large dependent whether metastases originating from prostate adenocarcinoma versus laryngeal cell carcinoma and the second is obviously worse. Continue enteral feeding for nutritional support. We'll continue to follow.
[2017-10-30 17:38] LABS: Glucose,Whole Blood 149 mg/dL (75-99)
[2017-10-30] MEDS: ATORVASTATIN 40 MG TAB PO SCH (20:23)
--- NOTE | 2017-10-30 21:06 | PN ---
PROGRESS NOTE DATE OF SERVICE: 10/30/2017 NEW DATA: He is 6 feet in height, weight 97 kg, BSA 1.19 m2, BMI 29.0 kg/m2. ALLERGIES: ACETAMINOPHEN and BICALUTAMIDE and MELOXICAM. The patient was seen and evaluated today face to face on 10/30/[address] Bartholomew. ATTENDING PHYSICIAN: Dr. Harshal Lane. Today I have seen the patient and discussed with him the current plan. He appeared to understand very well. He had a tracheostomy tube insertion after he had a biopsy and was found to have laryngeal squamous cell carcinoma. The bone scan indicated metastasis to the right upper ribs. Subsequently I did talk to Dr. Campa in person. He stated that he delayed any transfer at this time and he planned to find out after the biopsy if it is coming from the prostate with a PSA of 50 or if it is coming from the malignancy with the squamous cell carcinoma. At that time further decision will be made for the possible treatment, especially for the squamous cell carcinoma, which will need further radiation followed by chemo. However, if his biopsy indicates prostate, it will be metastatic, and at that time will need treatment as well as delay of the treatment for the squamous cell carcinoma, as the patient may not be able to handle both treatments. Also the patient was planned to go to [facility] in [place], and this question is not clarified clearly because if he had radiation, how is he going to be taking radiation from there, and which is the closest radiation. If he has chemo, where is he going to be taking the chemo or the injection if it is prostate cancer. This is up in the air at this point between the specialists to clarify that issue. Patient is diabetic. His vital signs today are temperature 98.4, pulse 76, respiratory rate 22, blood pressure 145/64, pulse ox 91. On examination, he is conscious, alert, oriented. He is able to note on the note pad. Evidence from the laboratory suggests that his diabetes mellitus has been fairly well controlled. His last white count was 9.1 with hemoglobin 9.3 with the underlying anemia. His electrolytes are indicating sodium 142 on October 29, yesterday, with the estimated glomerular filtration rate more than 90. His calcium was a touch above normal at 10.3 and phosphorus was 2.1. Cholesterol HDL was 20 with LDL of 96. All these were done on October 29. The impression of Dr. Woods as dictated by Dr. Woods is: 1) squamous cell carcinoma of the larynx with possible metastasis, for further workup. The patient has an obstructive mass causing airway compromised structure with respiratory failure; 2) prostate cancer; 3) skeletal metastasis involving the lumbar spine and rib cage; 4) COPD, advanced, severe; 5) acute ventilator-dependent respiratory failure that has been recovered. He has bibasilar atelectasis and small effusion, hypercalcemia, chronic macrocytic anemia, atrial fibrillation, paroxysmal, with acute urinary retention. The patient is on a Kenny catheter at this time. He did not take the flutamide given by Urology for the prostate cancer because it was causing him diarrhea. He had PEG tube placement due to his swallowing difficulty with the tumor mass. He had debility with profound weakness, but also he had in the past spinal stenosis. Patient tomorrow is planned to get biopsies to determine what kind of treatment will be assigned to him by the oncology and radiation therapy. Also, the oncology team has been seeing the patient with the impression of new squamous cell carcinoma of the larynx, status post tracheostomy for obstructive mass, and he had a staging CT and bone scan; result is available on the computer. Hypercalcemia, dehydration versus malignancy, IV hydration and bone scan and likely metastatic lesion on the bone could be prostate or laryngeal, unknown at this time. For his history of cancer of the prostate, Urology was following him. Recently because of the diarrhea, the patient requested a hold on the medication and they called Dr. Mcguire and Dr. Mcguire agreed to withhold the medication flutamide for a few days until patient recovers. Recheck of PSA with the presence of the tumor in the prostate and the PSA was 50. The patient is on anticoagulation with Eliquis and aspirin and will continue the current treatment. He is in bed with inability to stand or walk, and we ordered physical therapy. Further treatment will depend on the progression of the patient. MMODL / IJN: [id number] /
[2017-10-30 23:22] LABS: Glucose,Whole Blood 137 mg/dL (75-99)
[2017-10-31] MEDS: traMADol 50 MG TAB PO PRN ×4 (03:07→21:59)
[2017-10-31 06:06] LABS: Glucose,Whole Blood 150 mg/dL (75-99)
[2017-10-31] MEDS: INSULIN ASPART 100 UNIT/ML 1 ML 10 ML VIAL SQ SCH ×4 (06:19→23:52)
[2017-10-31 06:24] LABS: Anion Gap 1 mmol/L; Blood Urea Nitrogen 17 mg/dL (9-20); Calcium 11.2 mg/dL (8.4-10.2); Carbon Dioxide 27 mmol/L (22-30); Chloride 112 mmol/L (98-107); Glucose 122 mg/dL (74-99); Magnesium 2.1 mg/dL (1.6-2.3); Potassium 3.9 mmol/L (3.5-5.1); Sodium 140 mmol/L (137-145)
[2017-10-31 06:28] LABS: Basophils % (A) 0 %; Eosinophils # (A) 0.1 k/uL (0-0.7); Eosinophils % (A) 2 %; HCT 26.9 % (39.0-53.0); HGB 8.2 gm/dL (13.0-17.5); Hypochromasia Slight; Lymphocytes # (A) 0.7 k/uL (1.0-4.8); Lymphocytes % (A) 12 %; MCH 30.8 pg (25.0-35.0); MCHC 30.5 g/dL (31.0-37.0); MCV 101.1 fL (80.0-100.0); Macrocytosis Slight; Monocytes # (A) 0.3 k/uL (0-1.0); Monocytes % (A) 6 %; Neutrophils # (A) 4.6 k/uL (1.3-7.7); Neutrophils % (A) 79 %; Platelet Count 137 k/uL (150-450); RBC 2.66 m/uL (4.30-5.90); RDW 14.1 % (11.5-15.5); WBC 5.9 k/uL (3.8-10.6)
[2017-10-31 06:33] LABS: INR 1.2 (<1.2); Prothrombin Time 11.2 sec (9.0-12.0)
[2017-10-31] MEDS: IPRATROPIUM-ALBUTEROL 3 ML NEB INHALATION SCH ×4 (07:18→21:16)
[2017-10-31] MEDS: BESIFLOXACIN HCL LEFT EYE SCH ×3 (08:40→20:32)
[2017-10-31] MEDS: FLUTAMIDE PO SCH ×2 (08:40→21:56)
[2017-10-31] MEDS: NEPAFENAC LEFT EYE SCH (08:40)
[2017-10-31] MEDS: Difluprednate [Durezol] 1 DROP LEFT EYE SCH ×2 (08:59→20:19)
[2017-10-31] MEDS: DICLOFENAC SODIUM GEL 100 GM TUBE TOPICAL SCH ×4 (08:59→20:20)
[2017-10-31] MEDS: MAG HYDROX/AL HYDROX/SIMETH 30 ML CUP PO SCH ×4 (08:59→21:58)
[2017-10-31] MEDS: AMOXIC-POT CLAV 600-42.9MG/5ML 75 ML BOTTLE PO SCH ×2 (08:59→20:25)
[2017-10-31] MEDS: LISINOPRIL 2.5 MG TAB PO SCH ×2 (08:59→20:21)
[2017-10-31] MEDS: METOPROLOL TARTRATE 25 MG TAB PO SCH ×2 (08:59→20:21)
[2017-10-31 11:42] LABS: Glucose,Whole Blood 138 mg/dL (75-99)
--- NOTE | 2017-10-31 13:49 | P.PN ---
Subjective Progress Note Date: 10/31/17 Principal diagnosis: Laryngeal Mass Patient seen in follow-up, plan for bone biopsy, will need to restart his Anticoaulation therapy after biopsy. He continues to complain of the left wrist pain, although today complaining of lower back pain, not relieved with tramadol. Objective - Vital Signs Vital signs: Vital Signs Temp 98.2 F 10/31/17 08:00 Pulse 84 10/31/17 13:19 Resp 20 10/31/17 08:00 BP 140/69 10/31/17 13:19 Pulse Ox 91 L 10/31/17 13:19 Intake & Output 10/30/17 10/31/17 10/31/17 18:59 06:59 18:59 Intake Total 534 840 280 Output Total 1102 1200 Balance -568 840 -920 Weight 97 kg 100 kg Intake: Tube Feeding 534 840 280 Output: Urine 1100 1200 Stool 2 Other: Voiding Method Indwelling Catheter Indwelling Catheter Indwelling Catheter ABP, PAP, CO, CI - Last Documented Arterial Blood Pressure 129/59 - Exam General: Well-developed, thin-appearing HEENT: Normocephalic, Nontramatic, sclerae nonicteric, tracheostomy and placed 1-2cm right moveable palpable cervical lymph node LUNGS: Equal and no increased effort noted HEART: Tachy, Irregular Abdomen: Nontender, nondistended Extremities: No edema Neuro: Alert and oriented, Non Vocal secondary to Trach. - Labs CBC & Chem 7: 10/31/17 05:42 10/31/17 05:42 Labs: Abnormal Lab Results - Last 24 Hours (Table) 10/30/17 10/30/17 10/30/17 Range/Units 17:18 20:43 23:18 RBC (4.30-5.90) m/uL Hgb (13.0-17.5) gm/dL Hct (39.0-53.0) % MCV (80.0-100.0) fL MCHC (31.0-37.0) g/dL Plt Count (150-450) k/uL Lymphocytes # (1.0-4.8) k/uL INR (<1.2) Chloride (98-107) mmol/L Creatinine (0.66-1.25) mg/dL Glucose (74-99) mg/dL POC Glucose (mg/dL) 149 H 137 H (75-99) mg/dL Calcium (8.4-10.2) mg/dL Phosphorus 2.1 L (2.5-4.5) mg/dL 10/31/17 10/31/17 10/31/17 Range/Units 05:42 05:42 05:42 RBC 2.66 L (4.30-5.90) m/uL Hgb 8.2 L (13.0-17.5) gm/dL Hct 26.9 L (39.0-53.0) % MCV 101.1 H (80.0-100.0) fL MCHC 30.5 L (31.0-37.0) g/dL Plt Count 137 L (150-450) k/uL Lymphocytes # 0.7 L (1.0-4.8) k/uL INR 1.2 H (<1.2) Chloride 112 H (98-107) mmol/L Creatinine 0.54 L (0.66-1.25) mg/dL Glucose 122 H (74-99) mg/dL POC Glucose (mg/dL) (75-99) mg/dL Calcium 11.2 H (8.4-10.2) mg/dL Phosphorus (2.5-4.5) mg/dL 10/31/17 10/31/17 Range/Units 06:04 11:40 RBC (4.30-5.90) m/uL Hgb (13.0-17.5) gm/dL Hct (39.0-53.0) % MCV (80.0-100.0) fL MCHC (31.0-37.0) g/dL Plt Count (150-450) k/uL Lymphocytes # (1.0-4.8) k/uL INR (<1.2) Chloride (98-107) mmol/L Creatinine (0.66-1.25) mg/dL Glucose (74-99) mg/dL POC Glucose (mg/dL) 150 H 138 H (75-99) mg/dL Calcium (8.4-10.2) mg/dL Phosphorus (2.5-4.5) mg/dL Assessment and Plan Plan: Assessment and Recommendations: 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 Hypercalcemia - - Dehydration versus Malignancy - IVF HYdration and Bone Scan - Likely metastatic Lesions to bone either prostate progression or Laryngeal diagnosis, PSA Re-check still Pending 3. History of Prostate Cancer - Follows with Urology - Receives LHRT per Urology - - Recheck PSA Level - CT scan revealed tumor of prostate, PSA increased 4. Macrocytic Anemia - - monitoring cbc PLan - - Discussion with Dr. Campa was that the bone metastasis origin will impact our overall treatment plan and approach. Whether his widespread bony metastasis is originating from prostate adenocarcinoma versus laryngeal squamous cell carcinoma. The treatment plan, overall goals of treatment and prognosis will be affected. Therefore a biopsy of one of the bone lesions has been asked to be obtained from interventional radiology. He is currently on Eliquis and aspirin. The aspirin has been stopped 10/29/17 in anticipation of bone biopsy. Eliquis will need to be stopped 48 hours prior per IR, when a time and date has been scheduled we will cordinate stopping eliquis for the needed timeframe prior - Eliquis will need to restart after Biopsy and [facility] and Eliquis as originally planned. Patient aware and agrees with plan - Plan for bone Biopsy today with interventional radiology and then discharge [facility] per primary team - A hospital follow-up with medical Oncology will be planned around 3 weeks as he will need to complete radiation therapy and have results of bone biopsy for treatment plan to be initiated. - Follow-up with Dr. Pederson radiation Oncology as well. - Will add dexamethasone 4mg q12 for bony metastatic pain. will also add PPI, if discharged to [facility] can continue on same dose PO. - He is asking for a pain shot, I will give a one time po dilaudid. Thank You for allowing us to follow along with you on the care of this patient Nabila Mayen NP
--- NOTE | 2017-10-31 14:32 | US ---
EXAMINATION TYPE: US fine needle aspiration, US biopsy soft tissue/muscle DATE OF EXAM: 10/31/2017 HISTORY: Rib mass. FINDINGS: Maximal barrier technique was utilized. The skin overlying a suitable path to the patient' s mass involving the anterior right 6th rib was localized with ultrasound and the overlying skin prep ped and draped. Ultrasound was utilized with sterile technique. Lidocaine was used for local anesthe paty. 2 passes with a 25-gauge needle were made under ultrasound guidance and aspirated specimen submi tted to cytology. A skin jeremias was made with a scalpel. An 18-gauge needle was advanced under direct ultrasound guidance and core specimen obtained of the mass. Specimen submitted in formalin to Patho logy. Following the procedure, hemostasis achieved and the patient is discharged in stable condition without complication. IMPRESSION:STATUS POST ULTRASOUND GUIDED CORE BIOPSY OF right rib MASS, PATHOLOGY IS PENDING. THIS P ROCEDURE IS PERFORMED BY THE UNDERSIGNED.
[2017-10-31] MEDS: MULTIVITAMINS, THERA 1 EACH TAB PO SCH (15:06)
--- NOTE | 2017-10-31 15:23 | P.PN ---
Subjective Progress Note Date: 10/31/17 10/31/2007 and I'm seeing this patient for a follow-up. 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 Note that this was identified at the time of intubation for respiratory failure and further investigation and biopsy yielded the diagnosis. The patient currently has a nonfenestrated tracheostomy tube. He is having minimal amount of rest or secretions and he is on and off requiring suctioning through his tracheostomy tube. CAT scan of the chest abdomen and pelvis was done and showed some atelectatic changes small effusion the lung bases bilaterally. Bone scan was done and there is also evidence of suspicious skeletal metastatic lesions which are essentially also blastic. There is focal intense activity in the lumbar spine and there is also intense tracer activity in the right anterolateral mid ribs compatible with chest wall involvement. The patient will be having a IR guided biopsy of the lumbar spine. She diagnoses knowing that he also has history of prostate cancer. He is weak. Is able to stand up along with the help of physical therapy. Oncology is on the case. Prognosis will largely depend whether the squamous cell carcinoma of the larynx is metastatic or the bone findings are essentially metastases from his prostate cancer. He still has a Kenny catheter in place. No fever or chills. He is able to communicate. He is on enteral feeding for nutritional support. He is having some liquidy bowel movement along with his enteral nutrition. He is alert and awake and communicating and following commands and answering questions appropriately. 10/31/2017, patient is being seen for a follow-up. No new complaints. Patient has a #8 Shiley nonfenestrated tracheostomy tube. Unable to speak through this device. He is comfortable. No significant history secretions. He is going to undergo a core biopsy of the lumbar spine lesion for staging purposes. It is thought that this may be possibly metastatic from a prostate cancer. Otherwise , the patient is tolerating his enteral feeding for nutritional support is currently on Augmentin suspension twice a day. He is on DuoNeb neb last treatment [id number]. No respiratory difficulties. No pain. He is weak however he was able to stand up with assistance and he took a few steps. White cell count is not elevated. Hemoglobin stable at 8.2. Normal renal function. Objective - Vital Signs Vital signs: Vital Signs Temp 98.3 F 10/31/17 12:30 Pulse 84 10/31/17 13:19 Resp 20 10/31/17 12:30 BP 140/69 10/31/17 13:19 Pulse Ox 91 L 10/31/17 13:19 Intake & Output 10/30/17 10/31/17 10/31/17 18:59 06:59 18:59 Intake Total 534 840 490 Output Total 1102 1200 Balance -568 840 -710 Weight 97 kg 100 kg Intake: Tube Feeding 534 840 490 Output: Urine 1100 1200 Stool 2 Other: Voiding Method Indwelling Catheter Indwelling Catheter Indwelling Catheter ABP, PAP, CO, CI - Last Documented Arterial Blood Pressure 129/59 - Exam General: Well-developed, thin-appearing, nonacute distress Head exam was generally normal. There was no scleral icterus or corneal arcus. Mucous membranes were moist. HEENT: Normocephalic, Nontramatic, sclerae nonicteric, tracheostomy and placed, and the patient has a Shiley nonfenestrated tracheostomy tube in place. 1-2cm right moveable palpable cervical lymph node LUNGS: Equal and no increased effort noted, breath sounds equal and symmetrical diminished in lung bases bilaterally. No crackles. No wheezes. HEART: Tachy, Irregular,r and no extrasystoles were noted during several minutes of auscultation. The first and second heart sounds were normal and physiologic splitting of the second heart sound was noted. There were no murmurs , rubs, clicks, or gallops. Abdomen: Nontender, nondistended, no direct tenderness hemoptysis or guarding and the patient is a PEG tube which is in a good location and exit sites clean Extremities: Examination of the extremities revealed easily palpable radial, femoral and pedal pulses. There was no cyanosis, clubbing or edema.a Neuro: Awake and alert and is no focal neurological deficit at this point in time. Examination of the skin revealed no evidence of significant rashes, suspicious appearing nevi or other concerning lesions. - Labs CBC & Chem 7: 10/31/17 05:42 10/31/17 05:42 Labs: Abnormal Lab Results - Last 24 Hours (Table) 10/30/17 10/30/17 10/30/17 Range/Units 17:18 20:43 23:18 RBC (4.30-5.90) m/uL Hgb (13.0-17.5) gm/dL Hct (39.0-53.0) % MCV (80.0-100.0) fL MCHC (31.0-37.0) g/dL Plt Count (150-450) k/uL Lymphocytes # (1.0-4.8) k/uL INR (<1.2) Chloride (98-107) mmol/L Creatinine (0.66-1.25) mg/dL Glucose (74-99) mg/dL POC Glucose (mg/dL) 149 H 137 H (75-99) mg/dL Calcium (8.4-10.2) mg/dL Phosphorus 2.1 L (2.5-4.5) mg/dL 10/31/17 10/31/17 10/31/17 Range/Units 05:42 05:42 05:42 RBC 2.66 L (4.30-5.90) m/uL Hgb 8.2 L (13.0-17.5) gm/dL Hct 26.9 L (39.0-53.0) % MCV 101.1 H (80.0-100.0) fL MCHC 30.5 L (31.0-37.0) g/dL Plt Count 137 L (150-450) k/uL Lymphocytes # 0.7 L (1.0-4.8) k/uL INR 1.2 H (<1.2) Chloride 112 H (98-107) mmol/L Creatinine 0.54 L (0.66-1.25) mg/dL Glucose 122 H (74-99) mg/dL POC Glucose (mg/dL) (75-99) mg/dL Calcium 11.2 H (8.4-10.2) mg/dL Phosphorus (2.5-4.5) mg/dL 10/31/17 10/31/17 Range/Units 06:04 11:40 RBC (4.30-5.90) m/uL Hgb (13.0-17.5) gm/dL Hct (39.0-53.0) % MCV (80.0-100.0) fL MCHC (31.0-37.0) g/dL Plt Count (150-450) k/uL Lymphocytes # (1.0-4.8) k/uL INR (<1.2) Chloride (98-107) mmol/L Creatinine (0.66-1.25) mg/dL Glucose (74-99) mg/dL POC Glucose (mg/dL) 150 H 138 H (75-99) mg/dL Calcium (8.4-10.2) mg/dL Phosphorus (2.5-4.5) mg/dL Assessment and Plan Plan: Assessment 1 squamous cell carcinoma of the larynx, 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 The patient has an obstructive mass in his upper airway requiring a tracheostomy tube insertion and the patient has a Shiley tracheostomy tube nonfenestrated #8. Rest or secretions are minimal at this point in time. 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 4 COPD, advanced and severe 5 acute ventilator-dependent respiratory failure secondary to above, recovered 6 bibasilar atelectatic changes small effusions 7 hypercalcemia, calcium level is at 11.2. Rule out secondary to skeletal metastases. 8 chronic microcystic anemia 9 atrial fibrillation, paroxysmal 10 acute urinary retention and the patient has a Kenny catheter in place 11 difficulty in swallowing and the patient has enteral feeding via PEG tube was inserted on 10/24/2018 12 debility and profound weakness and the patient is undergoing daily rehabilitation physical therapy. Plan Continue physical therapy. Continue enteral feeding for nutritional support. The tracheostomy tube will be kept in place. Proceed with a fine-needle aspirate/core biopsy of a lumbar spine lesion for staging purposes. This will be done with ultrasound guidance. The mass will be also biopsied by interventional radiology under ultrasound guidance. Following the procedure, the antibiotic ventilation will be restarted as the patient has been maintained on Eliquis. The patient will need aggressive physical therapy. Oncology is on the case. We'll continue to follow. Long-term prognosis poor baseline above- mentioned comorbidities.
[2017-10-31] MEDS ORDERED: DEXAMETHASONE SOD PHOSPHATE 4 MG/ML 1 ML VIAL IV PRN (17:18)
[2017-10-31] MEDS ORDERED: HYDROmorphone 2 MG TAB PO STA (17:19)
--- NOTE | 2017-10-31 17:22 | PN ---
PROGRESS NOTE DATA: Height 6 feet, 100 kg. White. BSA 2.22 m2, BMI 29.9 kg/m2. ALLERGIES: 1. ACETAMINOPHEN. 2. TYLENOL. 3. CASODEX. 4. MELOXICAM. 5. SULFONAMIDE. 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 Also he has a past history of prostate cancer. It is unclear if this is recurrence of the prostate cancer with metastasis to the ribs. Bone scan has been done. The biopsy was planned for today at 1 p.m. Pathology report is pending. Subsequently the patient is going to be evaluated by Oncology. Patient subsequently had ultrasound- guided core biopsy of the right rib mass and the pathology is pending. The patient also was seen by Dr. 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 COPD advanced and severe. Acute ventilator dependence, which is resolved. The patient is on tracheostomy with a collar and on oxygen. He has bibasilar atelectasis with a small effusion, hypercalcemia and he had chronic macrocytic anemia with atrial fibrillation, paroxysmal. He has a history of urinary retention and still he has his Kenny catheter. He was on medication for prostate cancer, flutamide, and the patient had diarrhea and subsequently it has been stopped. He has also a history of recurrent urinary tract retention. Currently he is on the Kenny. With the laryngeal mass and difficulty with swallowing, he had PEG tube placement and currently is fed through the PEG tube. The patient during the night had liquid diarrhea. We did check for C difficile. It was negative. They called me during the night to insert a rectal tube because of the excoriation of his buttocks area. Today he has, as mentioned, the biopsy. On the current examination of the patient, he is conscious, alert, oriented. He has no specific complaint. His laboratory results today indicate white count 5.9, MCV 101.1, which is mildly elevated. His hemoglobin is 8.2 with hematocrit 26.9. Both are low but stable. His PT and INR were stable. Chemistry indicates sodium 140, potassium 3.9. His chloride is still elevated at 112 with carbon dioxide 27 and his BUN is 17, creatinine 0.54, and his estimated glomerular filtration rate for non-Africans more than 90. He had history of diabetes mellitus and the fasting blood sugar in the morning hours in the laboratory was 122. However, the POC glucose during the day before with the infusion of the PEG tube was ranging between 137 and 150. His calcium has picked up again to 11.2 and his phosphorus 2.1 and his magnesium is 2.1. With these findings, hypercalcemia is present; could be from the current problem with the tumor mass of the squamous cell carcinoma of the larynx. On examination, he is conscious, alert. He had the collar for oxygen infusion with a tracheostomy. He could not speak and he could not eat and he had a PEG tube in place. His chest is clear. The heart was irregular; however, paroxysmal and stable at this time. The abdomen is soft. Positive bowel sounds. The extremities show no edema. His vital signs indicate temperature 98 oral and heart rate of 83, respiratory rate 20 and blood pressure 143/64 with a mean of 90. ASSESSMENT: The patient is generally hemodynamically stable; however, he is going to have the bone biopsy from the ribs to indicate the further treatment with oncology participation for the treatment with the 2 malignancies present. His PSA was 50, which is highly elevated, and we are possibly dealing with one of them causing the metastasis and the plan for which one can be treated first by the oncologist or Radiation Oncology. MMREENAL / STEFANN: [id number] /
[2017-10-31 18:25] LABS: Glucose,Whole Blood 120 mg/dL (75-99)
[2017-10-31] MEDS: ATORVASTATIN 40 MG TAB PO SCH (20:21)
[2017-10-31 21:35] LABS: Glucose,Whole Blood 139 mg/dL (75-99)
[2017-10-31] MEDS: DEXAMETHASONE SOD PHOSPHATE 4 MG/ML 1 ML VIAL IV SCH (21:58)
[2017-10-31] MEDS ORDERED: DILTIAZEM DRIP BOLUS FROM BAG 1 MG SOLN IV ONE (22:43)
[2017-10-31] MEDS: DILTIAZEM 50 MG in SODIUM CHLORIDE 0.9% 40 ML IV SCH (23:49)
[2017-11-01 00:11] LABS: Glucose,Whole Blood 135 mg/dL (75-99)
[2017-11-01] MEDS: traMADol 50 MG TAB PO PRN ×2 (03:39→20:00)
[2017-11-01] MEDS: DILTIAZEM 50 MG in SODIUM CHLORIDE 0.9% 40 ML IV SCH ×2 (04:13→09:25)
[2017-11-01 06:25] LABS: Glucose,Whole Blood 197 mg/dL (75-99)
[2017-11-01] MEDS: INSULIN ASPART 100 UNIT/ML 1 ML 10 ML VIAL SQ SCH ×3 (06:27→17:55)
[2017-11-01 06:53] LABS: Basophils % (A) 0 %; Eosinophils % (A) 1 %; HCT 28.4 % (39.0-53.0); HGB 8.9 gm/dL (13.0-17.5); Hypochromasia Slight; Lymphocytes # (A) 0.3 k/uL (1.0-4.8); Lymphocytes % (A) 5 %; MCH 31.1 pg (25.0-35.0); MCHC 31.1 g/dL (31.0-37.0); MCV 99.8 fL (80.0-100.0); Macrocytosis Slight; Mean Platelet Volume 8.1; Monocytes # (A) 0.3 k/uL (0-1.0); Monocytes % (A) 4 %; Neutrophils # (A) 5.5 k/uL (1.3-7.7); Neutrophils % (A) 89 %; Platelet Count 144 k/uL (150-450); RBC 2.85 m/uL (4.30-5.90); RDW 13.9 % (11.5-15.5); WBC 6.2 k/uL (3.8-10.6)
[2017-11-01 07:09] LABS: Anion Gap 4 mmol/L; Blood Urea Nitrogen 21 mg/dL (9-20); Calcium 11.7 mg/dL (8.4-10.2); Carbon Dioxide 26 mmol/L (22-30); Chloride 112 mmol/L (98-107); Glucose 183 mg/dL (74-99); Potassium 4.8 mmol/L (3.5-5.1); Sodium 142 mmol/L (137-145)
[2017-11-01] MEDS: IPRATROPIUM-ALBUTEROL 3 ML NEB INHALATION SCH ×4 (09:17→20:29)
[2017-11-01] MEDS: NEPAFENAC LEFT EYE SCH (09:22)
[2017-11-01] MEDS: Difluprednate [Durezol] 1 DROP LEFT EYE SCH ×2 (09:22→19:54)
[2017-11-01] MEDS: DICLOFENAC SODIUM GEL 100 GM TUBE TOPICAL SCH ×4 (09:23→19:53)
[2017-11-01] MEDS: FLUTAMIDE PO SCH ×2 (09:25→19:48)
[2017-11-01] MEDS: BESIFLOXACIN HCL LEFT EYE SCH ×3 (09:27→19:56)
[2017-11-01] MEDS: AMOXIC-POT CLAV 600-42.9MG/5ML 75 ML BOTTLE PO SCH ×2 (09:38→20:00)
[2017-11-01] MEDS: METOPROLOL TARTRATE 25 MG TAB PO SCH (09:39)
[2017-11-01] MEDS: PANTOPRAZOLE 40 MG/10 ML VIAL IVP SCH (09:39)
[2017-11-01] MEDS: MAG HYDROX/AL HYDROX/SIMETH 30 ML CUP PO SCH ×4 (09:39→20:00)
[2017-11-01] MEDS: DEXAMETHASONE SOD PHOSPHATE 4 MG/ML 1 ML VIAL IV SCH ×2 (09:39→19:55)
[2017-11-01] MEDS: LISINOPRIL 2.5 MG TAB PO SCH (09:39)
[2017-11-01 12:14] LABS: Glucose,Whole Blood 179 mg/dL (75-99)
--- NOTE | 2017-11-01 12:38 | P.PN ---
Subjective Progress Note Date: 11/01/17 10/31/2007 and I'm seeing this patient for a follow-up. 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 Note that this was identified at the time of intubation for respiratory failure and further investigation and biopsy yielded the diagnosis. The patient currently has a nonfenestrated tracheostomy tube. He is having minimal amount of rest or secretions and he is on and off requiring suctioning through his tracheostomy tube. CAT scan of the chest abdomen and pelvis was done and showed some atelectatic changes small effusion the lung bases bilaterally. Bone scan was done and there is also evidence of suspicious skeletal metastatic lesions which are essentially also blastic. There is focal intense activity in the lumbar spine and there is also intense tracer activity in the right anterolateral mid ribs compatible with chest wall involvement. The patient will be having a IR guided biopsy of the lumbar spine. She diagnoses knowing that he also has history of prostate cancer. He is weak. Is able to stand up along with the help of physical therapy. Oncology is on the case. Prognosis will largely depend whether the squamous cell carcinoma of the larynx is metastatic or the bone findings are essentially metastases from his prostate cancer. He still has a Kenny catheter in place. No fever or chills. He is able to communicate. He is on enteral feeding for nutritional support. He is having some liquidy bowel movement along with his enteral nutrition. He is alert and awake and communicating and following commands and answering questions appropriately. 10/31/2017, patient is being seen for a follow-up. No new complaints. Patient has a #8 Shiley nonfenestrated tracheostomy tube. Unable to speak through this device. He is comfortable. No significant history secretions. He is going to undergo a core biopsy of the lumbar spine lesion for staging purposes. It is thought that this may be possibly metastatic from a prostate cancer. Otherwise , the patient is tolerating his enteral feeding for nutritional support is currently on Augmentin suspension twice a day. He is on DuoNeb neb last treatment [id number]. No respiratory difficulties. No pain. He is weak however he was able to stand up with assistance and he took a few steps. White cell count is not elevated. Hemoglobin stable at 8.2. Normal renal function. On 11/01/2017, patient is completed the right rib biopsy for staging purposes. Otherwise she is resting comfortably in bed. No respiratory difficulties. Unable to speak. Awaiting further guidance from oncology regarding possibility of radiation therapy to his squamous cell carcinoma of the larynx. He still has a Shiley tracheostomy tube in place. He is breathing comfortably. He has a Kenny catheter in place. Unable to swallow and receiving enteral nutrition. He has a PEG tube in place. No nausea. No vomiting. No fever or chills. Gradually getting stronger. No other significant events overnight. Hemoglobin stable at 8.9. Objective - Vital Signs Vital signs: Vital Signs Temp 97 F L 11/01/17 03:50 Pulse 84 11/01/17 12:30 Resp 20 11/01/17 04:00 BP 120/65 11/01/17 03:50 Pulse Ox 94 L 11/01/17 03:50 Intake & Output 10/31/17 11/01/17 11/01/17 18:59 06:59 18:59 Intake Total 490 814 50 Output Total 1200 3400 Balance -710 -5808 50 Weight 97.5 kg Intake: Intake, IV Titration 44 50 Amount Diltiazem 50 mg In Sodium 44 50 Chloride 0.9% 40 ml @ 10 MG/HR 10 mls/hr IV .Q5H [facility] Rx#:[id number] Tube Feeding 490 770 Output: Urine 1200 3000 Stool 400 Other: Voiding Method Indwelling Catheter Indwelling Catheter ABP, PAP, CO, CI - Last Documented Arterial Blood Pressure 129/59 - Exam General: Well-developed, thin-appearing, nonacute distress Head exam was generally normal. There was no scleral icterus or corneal arcus. Mucous membranes were moist. HEENT: Normocephalic, Nontramatic, sclerae nonicteric, tracheostomy and placed, and the patient has a Shiley nonfenestrated tracheostomy tube in place. 1-2cm right moveable palpable cervical lymph node LUNGS: Equal and no increased effort noted, breath sounds equal and symmetrical diminished in lung bases bilaterally. No crackles. No wheezes. HEART: Tachy, Irregular, and no extrasystoles were noted during several minutes of auscultation. The first and second heart sounds were normal and physiologic splitting of the second heart sound was noted. There were no murmurs, rubs, clicks, or gallops. Abdomen: Nontender, nondistended, no direct tenderness hemoptysis or guarding and the patient is a PEG tube which is in a good location and exit sites clean Extremities: Examination of the extremities revealed easily palpable radial, femoral and pedal pulses. There was no cyanosis, clubbing or edema.a Neuro: Awake and alert and is no focal neurological deficit at this point in time. Examination of the skin revealed no evidence of significant rashes, suspicious appearing nevi or other concerning lesions. - Labs CBC & Chem 7: 11/01/17 06:31 11/01/17 06:31 Labs: Abnormal Lab Results - Last 24 Hours (Table) 10/31/17 10/31/17 10/31/17 Range/Units 18:21 21:33 23:51 RBC (4.30-5.90) m/uL Hgb (13.0-17.5) gm/dL Hct (39.0-53.0) % Plt Count (150-450) k/uL Lymphocytes # (1.0-4.8) k/uL Chloride (98-107) mmol/L BUN (9-20) mg/dL Creatinine (0.66-1.25) mg/dL Glucose (74-99) mg/dL POC Glucose (mg/dL) 120 H 139 H 135 H (75-99) mg/dL Calcium (8.4-10.2) mg/dL 11/01/17 11/01/17 11/01/17 Range/Units 06:24 06:31 06:31 RBC 2.85 L (4.30-5.90) m/uL Hgb 8.9 L (13.0-17.5) gm/dL Hct 28.4 L (39.0-53.0) % Plt Count 144 L (150-450) k/uL Lymphocytes # 0.3 L (1.0-4.8) k/uL Chloride 112 H (98-107) mmol/L BUN 21 H (9-20) mg/dL Creatinine 0.63 L (0.66-1.25) mg/dL Glucose 183 H (74-99) mg/dL POC Glucose (mg/dL) 197 H (75-99) mg/dL Calcium 11.7 H (8.4-10.2) mg/dL 11/01/17 Range/Units 11:54 RBC (4.30-5.90) m/uL Hgb (13.0-17.5) gm/dL Hct (39.0-53.0) % Plt Count (150-450) k/uL Lymphocytes # (1.0-4.8) k/uL Chloride (98-107) mmol/L BUN (9-20) mg/dL Creatinine (0.66-1.25) mg/dL Glucose (74-99) mg/dL POC Glucose (mg/dL) 179 H (75-99) mg/dL Calcium (8.4-10.2) mg/dL Assessment and Plan Plan: Assessment 1 squamous cell carcinoma of the larynx, 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 The patient has an obstructive mass in his upper airway requiring a tracheostomy tube insertion and the patient has a Shiley tracheostomy tube nonfenestrated #8. secretions are minimal at this point in time. 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 4 COPD, advanced and severe 5 acute ventilator-dependent respiratory failure secondary to above, recovered 6 bibasilar atelectatic changes small effusions 7 hypercalcemia, calcium level is at 11.2. Rule out secondary to skeletal metastases. 8 chronic microcystic anemia 9 atrial fibrillation, paroxysmal 10 acute urinary retention and the patient has a Kenny catheter in place 11 difficulty in swallowing and the patient has enteral feeding via PEG tube was inserted on 10/24/2018 12 debility and profound weakness and the patient is undergoing daily rehabilitation physical therapy. Plan Patient's condition is stable. The patient is awaiting the biopsy of the ribs for staging purposes. Further recommendations to follow per oncology. Likely will need radiation to the throat and the neck area for the squamous cell carcinoma. Keep the tracheostomy tube in place. Discussed the case with ENT and recommendation was again is downsizing the Shiley tracheostomy tube.
[2017-11-01] MEDS: MULTIVITAMINS, THERA 1 EACH TAB PO SCH (12:45)
--- NOTE | 2017-11-01 12:48 | P.CRDCN ---
History of Present Illness Consult date: 11/01/17 Requesting physician: Jose Daniel Bartholomew Reason for Consult (text): Atrial fibrillation with RVR Chief complaint: dyspnea History of present illness: Physical pleasant 82-year-old gentleman who follows with Dr. VAISHNAVI Luis in the office. Initially presented to the hospital with complaints of shortness of breath. He's also been having some difficulty swallowing and has been found to have squamous cell carcinoma in the laryngeal area. Also has a history of prostate cancer. There is evidence of bone metastasis and biopsy has been performed. We are asked to the patient in consultation for atrial fibrillation with rapid ventricular response. Patient does have a history of paroxysmal atrial fibrillation and due to cancer treatments and needed biopsies patient's anticoagulation was discontinued in the office. Patient was placed on Cardizem drip at 10. He is since converted to sinus rhythm. Upon examination, patient denies any complaints of palpitations, dizziness or chest discomfort. He is anemic with a hemoglobin of 8.9. Past Medical History Past Medical History: Atrial Fibrillation, Coronary Artery Disease (CAD), Cancer , Chest Pain / Angina, GERD/Reflux, Hyperlipidemia, Hypertension, Myocardial Infarction ([place]), Osteoarthritis (OA), Prostate Disorder Additional Past Medical History / Comment(s): Prostate ca with hormone treatment , skin cancer with removals, back pain, arthritis bilateral knees and wrists, occasional numbness bilateral legs. Last Myocardial Infarction Date:: 1997 History of Any Multi-Drug Resistant Organisms: None Reported Past Surgical History: Appendectomy, Coronary Bypass/CABG, Heart Catheterization , Heart Catheterization With Stent, Tonsillectomy Additional Past Surgical History / Comment(s): 1997 CABG 3 vessel, PCI with stent 2010, colonoscopy, R wrist tendon surgery, R hand lipoma removed, sclerosing hemangioma excised from chest, skin cancer removals. left cataract removed friday10/13/2017 Past Anesthesia/Blood Transfusion Reactions: No Reported Reaction Date of Last Stent Placement:: 2010 Smoking Status: Former smoker - Past Family History Father Family Medical History: No Reported History Additional Family Medical History / Comment(s): Father was healthy Mother Family Medical History: Coronary Artery Disease (CAD), Hyperlipidemia, Hypertension Medications and Allergies Home Medications Medication Instructions Recorded Confirmed Type Aspirin EC [Ecotrin Low Dose] 162 mg PO DAILY 04/29/17 10/18/17 History Atenolol [Tenormin] 50 mg PO DAILY 04/29/17 10/18/17 History Atorvastatin [Lipitor] 40 mg PO HS 04/29/17 10/18/17 History Docusate [Colace] 100 mg PO DAILY PRN 04/29/17 10/18/17 History Ezetimibe [Zetia] 10 mg PO HS 04/29/17 10/18/17 History Furosemide [Lasix] 40 mg PO DAILY 04/29/17 10/18/17 History Multivitamins, Thera [Multivitamin 1 tab PO DAILY 04/29/17 10/18/17 History (formulary)] Omeprazole Magnesium [PriLOSEC OTC] 20 mg PO DAILY 04/29/17 10/18/17 History Ipratropium-Albuterol Nebulize 3 ml INHALATION RT-QID ampul.neb 05/09/17 Rx [Duoneb 0.5 mg-3 mg/3 ml Soln] Lisinopril [Zestril] 10 mg PO DAILY #30 tab 05/26/17 10/18/17 Rx Alfuzosin HCl [Uroxatral ER] 10 mg PO DAILY 10/15/17 10/18/17 History Cetirizine HCl [Zyrtec] 10 mg PO DAILY 10/15/17 10/18/17 History Flutamide 375 mg PO BID 10/15/17 10/18/17 History traMADol HCL [Ultram] 50 - 100 mg PO Q6H PRN 10/15/17 10/18/17 History Besifloxacin HCl [Besivance] 1 drop LEFT EYE TID 10/23/17 10/23/17 History Bromfenac Sodium [Prolensa Ophth 1 drop LEFT EYE DAILY 10/23/17 10/23/17 History Soln] Difluprednate [Durezol] 1 drop LEFT EYE BID 10/23/17 10/23/17 History Allergies Allergy/AdvReac Type Severity Reaction Status Date / Time acetaminophen [From Tylenol] Allergy Rash/Hives Verified 10/18/17 11:17 bicalutamide [From Casodex] Allergy Rash/Hives Verified 10/18/17 11:17 meloxicam [From Mobic] Allergy Unknown Verified 10/18/17 11:17 Sulfa (Sulfonamide Allergy Itching Verified 10/18/17 11:17 Antibiotics) morphine AdvReac Nausea & Verified 10/18/17 11:17 Vomiting Physical Exam Vitals: Vital Signs Temp Pulse Pulse Resp BP Pulse Ox 11/01/17 12:30 84 11/01/17 12:17 84 11/01/17 09:28 82 11/01/17 09:17 80 11/01/17 04:00 115 H 20 11/01/17 03:50 97 F L 115 H 20 120/65 94 L 11/01/17 00:00 98.5 F 136 H 20 107/59 92 L 10/31/17 21:39 80 10/31/17 21:17 82 10/31/17 20:00 98.2 F 125 H 20 118/62 92 L 10/31/17 16:34 80 10/31/17 16:20 78 96 10/31/17 15:05 98 F 83 20 143/64 93 L 10/31/17 14:20 20 139/57 94 L 10/31/17 14:00 84 20 144/63 92 L 10/31/17 13:19 84 140/69 91 L Intake and Output 10/31/17 11/01/17 11/01/17 22:59 06:59 14:59 Intake Total 0 814 50 Output Total 3400 Balance 0 -2586 50 Intake: Intake, IV Titration 44 50 Amount Diltiazem 50 mg In Sodium 44 50 Chloride 0.9% 40 ml @ 10 MG/HR 10 mls/hr IV .Q5H [facility] Rx#:[id number] Tube Feeding 0 770 Output: Urine 3000 Stool 400 Other: Voiding Method Indwelling Catheter Indwelling Catheter Weight 97.5 kg PHYSICAL EXAMINATION: HEENT: [Head is atraumatic, normocephalic. Pupils equal, round. There is a tracheostomy tube in place There is no elevated jugular venous pressure.] HEART EXAMINATION: [Heart sounds regular, S1 and S2 normal. No murmur or gallop heard.] CHEST EXAMINATION:[ Lungs reveal scattered rhonchi throughout. No chest wall tenderness is noted on palpation or with deep breathing.] ABDOMEN: [ Soft, nontender. Bowel sounds are heard. No organomegaly noted. PEG tube noted]. EXTREMITIES:[ 2+ peripheral pulses with no evidence of peripheral edema and no calf tenderness noted]. NEUROLOGIC [patient is awake, alert and oriented x3.] . Results 11/01/17 06:31 11/01/17 06:31 CBC 11/01/17 Range/Units 06:31 WBC 6.2 (3.8-10.6) k/uL RBC 2.85 L (4.30-5.90) m/uL Hgb 8.9 L (13.0-17.5) gm/dL Hct 28.4 L (39.0-53.0) % Plt Count 144 L (150-450) k/uL Comprehensive Metabolic Panel 11/01/17 Range/Units 06:31 Sodium 142 (137-145) mmol/L Potassium 4.8 (3.5-5.1) mmol/L Chloride 112 H (98-107) mmol/L Carbon Dioxide 26 (22-30) mmol/L BUN 21 H (9-20) mg/dL Creatinine 0.63 L (0.66-1.25) mg/dL Glucose 183 H (74-99) mg/dL Calcium 11.7 H (8.4-10.2) mg/dL Current Medications Generic Name Dose Route Start Last Admin Trade Name Freq PRN Reason Stop Dose Admin Al Hydroxide/Mg Hydroxide 30 ml 10/28/17 22:00 11/01/17 09:39 Maalox PO 30 ml QID LARRY Administration Albuterol/Ipratropium 3 ml 10/18/17 12:00 11/01/17 12:17 Duoneb 0.5 Mg-3 Mg/3 Ml Soln INHALATION 3 ml RT-QID LARRY Administration Albuterol/Ipratropium 3 ml 10/18/17 11:09 10/19/17 05:02 Duoneb 0.5 Mg-3 Mg/3 Ml Soln INHALATION 3 ml RT-Q4H PRN Administration shortness of breath Amoxicillin/Clavulanate Potassium 5 ml 10/29/17 21:00 11/01/17 09:38 Augmentin 600-42.9 Mg/5 Ml Susp PO 5 ml Q12HR LARRY Administration Artificial Tears 1 drops 10/25/17 16:57 10/28/17 18:02 Artificial Tear Drops BOTH EYES 1 drops TID PRN Administration Dry Eye(s) Atorvastatin Calcium 40 mg 10/18/17 21:00 10/31/17 20:21 Lipitor PO 40 mg HS LARRY Administration Dexamethasone Sodium Phosphate 4 mg 10/31/17 21:00 11/01/17 09:39 Decadron IV 4 mg Q12H LARRY Administration Diclofenac Sodium 2 gm 10/29/17 13:00 11/01/17 09:23 Voltaren Gel TOPICAL 2 gm QID LARRY Administration Insulin Aspart 0 unit 10/19/17 18:00 11/01/17 06:27 Novolog SQ 2 unit Q6HR LARRY Administration Protocol Lisinopril 2.5 mg 11/02/17 21:00 Zestril PO HS LARRY Loperamide HCl 2 mg 10/29/17 11:27 10/30/17 20:24 Imodium PEJ/J-Tube 2 mg QID PRN Administration Diarrhea Metoprolol Tartrate 50 mg 11/01/17 21:00 Lopressor PO BID [facility] Miscellaneous Information 1 each 10/18/17 11:09 Pneumonia Protocol Utilized PO ONCE PRN Per Protocol Miscellaneous Information 1 each 10/21/17 05:12 Potassium Per Protocol MISCELLANE DAILY PRN Per Protocol Protocol Multivitamins 1 each 10/19/17 12:00 10/31/17 15:06 Theragran PO 1 each DAILY@1200 [facility] Administration Non-Formulary Medication 375 mg 10/18/17 21:00 11/01/17 09:25 Flutamide [Flutamide] PO Not Given BID [facility] Nepafenac [Ilevro 1 drop 10/24/17 09:00 11/01/17 09:22 Ophth Soln] 1 Drop LEFT EYE 1 drop DAILY LARRY Administration Difluprednate [ 1 drop 10/23/17 21:00 11/01/17 09:22 Durezol] 1 Drop LEFT EYE 1 drop BID [facility] Administration Besifloxacin Hcl [ 1 drop 10/28/17 22:00 11/01/17 09:27 Besivance] 1 Drop LEFT EYE Not Given TID [facility] Pantoprazole Sodium 40 mg 11/01/17 09:00 11/01/17 09:39 Protonix IVP 40 mg DAILY LARRY Administration Tramadol HCl 50 mg 10/18/17 11:38 11/01/17 03:39 Ultram PO 50 mg Q6H PRN Administration Pain Intake and Output 10/31/17 11/01/17 11/01/17 22:59 06:59 14:59 Intake Total 0 814 50 Output Total 3400 Balance 0 -2586 50 Intake: Intake, IV Titration 44 50 Amount Diltiazem 50 mg In Sodium 44 50 Chloride 0.9% 40 ml @ 10 MG/HR 10 mls/hr IV .Q5H [facility] Rx#:[id number] Tube Feeding 0 770 Output: Urine 3000 Stool 400 Other: Voiding Method Indwelling Catheter Indwelling Catheter Weight 97.5 kg 11/01/17 06:31 11/01/17 06:31 Assessment and Plan Assessment: #1 squamous cell carcinoma #2 prostate cancer #3 evidence of bone metastasis of unknown origin, awaiting biopsy results #4 paroxysmal atrial fibrillation, not on anticoagulation due to anemia and need for multiple procedures and interventions for cancer treatment Plan: From cardiology perspective, we'll discontinue Cardizem drip. We will decrease lisinopril to 2.5 mg daily and increase metoprolol dose. We do not feel the patient is a candidate for anticoagulation at this time. We will continue to follow the patient provide further recommendations accordingly. FINISH CARPENTER note has been reviewed, I agree with a documented findings and plan of care. Patient was seen and examined.
[2017-11-01] MEDS ORDERED: METOPROLOL TARTRATE 25 MG TAB PO STA (14:28)
[2017-11-01 17:53] LABS: Glucose,Whole Blood 199 mg/dL (75-99)
--- NOTE | 2017-11-01 18:14 | PN ---
PROGRESS NOTE DATE OF SERVICE: 11/01/2017 The patient has multiple allergies. NEW DATA: That his height is 6 feet and weight is 97.5 kg and BSA 2.20 m2. BMI is 29.2 kg/m2. The patient is seen today evaluated and also discussed with the patient and the caregiver and he has a POA in the name of the POA is Julio Cesar Sneed and his phone #. We had extensive discussion in regard of the plan. The patient had a biopsy of the right rib yesterday from the mass with metastasis and they are awaiting the result, which is not available at this time and probably will be available by Friday. I discussed with both of them the next step is by the Oncology/Hematology to address what will be treated first, his the prostate versus the tumor mass of the larynx area, which I did showed the patient and the POA the picture of the scope when Dr. Woods did it and he I got this picture from Dr. Woods, which is very clear was blocking the whole entrance of theoropharynx with the extensive of the mass and subsequently patient had tracheostomy by Dr. Tse and he could not swallow with the underlying stridor and he is currently on PEG tube feeding, which also can have the loose bowel and diarrhea and at that time they call me during the night and for rectal tube because of his excoriation of his buttocks area. Patient otherwise today is gradual improvement in general condition. His pulse rate was 84. The patient during the night, he developed RVR with atrial fib with rapid ventricular response and they called Cardiology and subsequently Dr. Nani Luis did see him today and patient was started on a Cordarone drip and they will be addressing the other medication and the tablet through the PEG tube. If what is needed, they will be starting it subsequently. 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 115 and was irregular and his respiratory rate was 20 and his temperature was 97. His blood pressure was 120/65 with a mean of 84. His today laboratory showed that he has 6.2 white count and hemoglobin was 8.9 with hematocrit 28.4. His platelet count 144, on the low side, and his chemistry indicating sodium 142, potassium 4.8 and chloride 112 and carbon dioxide 26, anion gap is 4 and BUN of 21 and creatinine of 0.63 with the estimated glomerular filtration rate more than 90, and he has also blood sugar was this morning 183 and the POC glucose was lower than 200 and he is currently on insulin to scale. 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 The patient has past history of prostate cancer and he was treated by Urology and he was on flutamide and that has been stopped because the patient felt that causing diarrhea and watery stools. At that time, they called Urology, Dr. Mcguire, and he held the medicine for now. Meanwhile, the stool for C. difficile was negative. So we have also the impression of hypercalcemia was present and the Oncology/Hematology has been following the patient well and today on seeing the patient, he also was seen by Dr. 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 They started him on the Cardizem, but we will discontinue, will decrease the lisinopril to 2.5 and increase the metoprolol tartrate and we do not feel he said Dr. Nani Luis that he does not feel that anticoagulation will be appropriate at this time and will continue followup and recommendation in the future. The patient also seen by Pulmonary and Critical Care today, Dr. 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 Workup still continues and he had a prostate cancer, possible metastasis. 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 (2) COPD, advanced and severe. Acute ventilator dependence which he has been recovered of that and currently on tracheostomy. He had also bibasilar atelectasis and small effusion, has history of hypercalcemia today, is 11.2 and probably with secondary metastasis. He has a chronic macrocytic anemia and atrial fibrillation, paroxysmal, and urinary tract retention and as he has now a Kenny catheter. He has also inability to swallow with the throat mass and he on a PEG tube inserted on 10/24/2017. He has the debility and profound weakness with also history of spinal stenosis in the past. Today on the exam, patient is conscious, alert, oriented and discussed with the POA. His HEENT was negative. He had tracheostomy collar, was connected to the oxygen and the neck was supple. The chest was clear. He is able to suction of oropharynx with his suction probe. The chest was aerated bilaterally. The heart was compensated with the underlying atrial fibrillation. The abdomen is obese. Positive bowel sounds and he has rectal tube at this time which is draining and which is a fecal management order. He has also Kenny catheter. He could not stand up or walk, and he had a thrombotic stocking. Otherwise, the patient the diagnosis as above and is currently compensated, waiting for the results of the biopsy and further treatment to be done versus other disposition to any hospital and was planned to go to [facility] in [place]; however, until the Oncology did his evaluation and the plan we will continue the current treatment. Waiting for the decision. MMHANS / STEFANN: [id number] /
[2017-11-01] MEDS: METOPROLOL TARTRATE 50 MG TAB PO SCH (19:54)
[2017-11-01] MEDS: ATORVASTATIN 40 MG TAB PO SCH (19:56)
[2017-11-02 00:26] LABS: Glucose,Whole Blood 198 mg/dL (75-99)
[2017-11-02] MEDS: INSULIN ASPART 100 UNIT/ML 1 ML 10 ML VIAL SQ SCH ×4 (02:03→18:27)
[2017-11-02] MEDS: traMADol 50 MG TAB PO PRN ×3 (02:14→20:37)
[2017-11-02 07:04] LABS: Glucose,Whole Blood 168 mg/dL (75-99)
[2017-11-02] MEDS: NEPAFENAC LEFT EYE SCH (08:51)
[2017-11-02] MEDS: BESIFLOXACIN HCL LEFT EYE SCH ×3 (08:52→20:39)
[2017-11-02] MEDS: Difluprednate [Durezol] 1 DROP LEFT EYE SCH ×2 (08:52→20:37)
[2017-11-02] MEDS: MAG HYDROX/AL HYDROX/SIMETH 30 ML CUP PO SCH ×4 (08:53→20:37)
[2017-11-02] MEDS: DICLOFENAC SODIUM GEL 100 GM TUBE TOPICAL SCH ×4 (08:53→20:36)
[2017-11-02] MEDS: FLUTAMIDE PO SCH ×2 (08:55→20:38)
[2017-11-02] MEDS: METOPROLOL TARTRATE 50 MG TAB PO SCH ×2 (08:56→20:38)
[2017-11-02] MEDS: PANTOPRAZOLE 40 MG/10 ML VIAL IVP SCH (08:57)
[2017-11-02] MEDS: DEXAMETHASONE SOD PHOSPHATE 4 MG/ML 1 ML VIAL IV SCH ×2 (08:57→20:38)
[2017-11-02] MEDS: AMOXIC-POT CLAV 600-42.9MG/5ML 75 ML BOTTLE PO SCH ×2 (09:03→20:41)
[2017-11-02] MEDS: IPRATROPIUM-ALBUTEROL 3 ML NEB INHALATION SCH ×4 (09:27→20:01)
[2017-11-02 11:52] LABS: Glucose,Whole Blood 161 mg/dL (75-99)
[2017-11-02] MEDS: MULTIVITAMINS, THERA 1 EACH TAB PO SCH (12:34)
--- NOTE | 2017-11-02 12:55 | PN ---
PROGRESS NOTE ALLERGIES: He has multiple allergies including ACETAMINOPHEN as well as BICALUTAMIDE, MELOXICAM and more. The patient is seen today, evaluated and he is currently sinus rhythm. However, he had multiple IV and with the current problem with metastasis of the anterior chest wall secondary to laryngeal tumor as well as he had a prostate tumor. The patient on examination today, conscious, alert, oriented, and discussed with his nurse, christo and meanwhile she said that he was able to stand up and carry himself and sit on the chair which is a significant improvement with the history of spinal stenosis and was not able to move and to stand or to walk. . Current vital signs, 97.9 temperature oral, pulse 78 regular and sinus and I do think that Cardiology signed out at this time. His respiratory rate is 20. His blood pressure this morning 150/60 with a mean 90. However, patient was moving and we will wait for the second blood pressure to indicate increased blood pressure. At this time we will continue the same medication. He is on lisinopril 2.5 mg and we will wait if the blood pressure is persistent, then we will increase to 5 mg. Regarding the pathology report, it is not available and that is from the biopsy of the right chest wall mass and to see if the metastasis is from the laryngeal or the prostate with the 2 cancers present. Otherwise, he had no thrush. He had the tracheostomy in place and no complaint with the collar as well as he had the PEG tube for feeding and he has loose bowel and diarrhea. He had the fecal management tube, however, it was leaking around and they took it out and he preferred not to have it again. LABORATORY REPORT: Has been since yesterday. We did not do lab today and will be doing the lab tomorrow and his renal function was stable. His blood sugar was fairly well controlled and his hemoglobin is 8.9 with a hematocrit 28.4 with the underlying anemia and we will be checking his iron and serum ferritin as well and a CBC tomorrow; BMP as well in the presence of hypercalcemia and we will be checking also his PTH to rule out primary hyperparathyroidism. His last calcium was 11.7 on the and tomorrow will be obtaining calcium and ionized calcium as well. His magnesium was fine so far and we will be checking also the magnesium tomorrow, Friday on November 03. Otherwise in the examination, conscious, alert, oriented. He is able to move both arms and both legs and he has the DVT prophylaxis. The chest was clear and irrigated spontaneously without any ventilator. He had a collar on the tracheostomy tube and the heart was now regular sinus rhythm. The abdomen was soft, nontender, positive bowel sounds. Extremities, no edema and positive pulses. ASSESSMENT AND PLAN: 1. We are not going to transfer him today to [facility] until tomorrow. Will be checked by the Pulmonary and Critical and will be multiple medication and complicated case for the other [facility] surgical floor. Also to monitor his heart and to see if he has flip-flopped, means that he returned back to atrial fibrillation. 2. 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 3. Underlying large mass in the larynx status post laryngeal surgery and found to be squamous cell carcinoma and was initially scoped by Dr. Woods and subsequently consulted Dr. Tse, ENT and the Oncology Dr. Campa. 4. Elevated PSA with a history of previous cancer with possible metastasis of the prostate cancer with recurrence. 5. Electrolyte imbalance. 6. Atrial fibrillation with rapid ventricular response and a cardiology consultation was requested and he was on Cardizem drip and subsequently he is on beta fabby, which is adjusted. 7. Hypertension with hypertensive heart disease and and he is on DVT prophylaxis. He was not a candidate for anticoagulation per Cardiology and we will continue the current treatment. We will wait for tomorrow and see the results and further planning for treatment of cancer as well as future plan for discharge as well. MMODL / IJN: [id number] /
--- NOTE | 2017-11-02 13:56 | P.PN ---
Subjective Progress Note Date: 11/02/17 10/31/2007 and I'm seeing this patient for a follow-up. 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 Note that this was identified at the time of intubation for respiratory failure and further investigation and biopsy yielded the diagnosis. The patient currently has a nonfenestrated tracheostomy tube. He is having minimal amount of rest or secretions and he is on and off requiring suctioning through his tracheostomy tube. CAT scan of the chest abdomen and pelvis was done and showed some atelectatic changes small effusion the lung bases bilaterally. Bone scan was done and there is also evidence of suspicious skeletal metastatic lesions which are essentially also blastic. There is focal intense activity in the lumbar spine and there is also intense tracer activity in the right anterolateral mid ribs compatible with chest wall involvement. The patient will be having a IR guided biopsy of the lumbar spine. She diagnoses knowing that he also has history of prostate cancer. He is weak. Is able to stand up along with the help of physical therapy. Oncology is on the case. Prognosis will largely depend whether the squamous cell carcinoma of the larynx is metastatic or the bone findings are essentially metastases from his prostate cancer. He still has a Kenny catheter in place. No fever or chills. He is able to communicate. He is on enteral feeding for nutritional support. He is having some liquidy bowel movement along with his enteral nutrition. He is alert and awake and communicating and following commands and answering questions appropriately. 10/31/2017, patient is being seen for a follow-up. No new complaints. Patient has a #8 Shiley nonfenestrated tracheostomy tube. Unable to speak through this device. He is comfortable. No significant history secretions. He is going to undergo a core biopsy of the lumbar spine lesion for staging purposes. It is thought that this may be possibly metastatic from a prostate cancer. Otherwise , the patient is tolerating his enteral feeding for nutritional support is currently on Augmentin suspension twice a day. He is on DuoNeb neb last treatment [id number]. No respiratory difficulties. No pain. He is weak however he was able to stand up with assistance and he took a few steps. White cell count is not elevated. Hemoglobin stable at 8.2. Normal renal function. On 11/01/2017, patient is completed the right rib biopsy for staging purposes. Otherwise she is resting comfortably in bed. No respiratory difficulties. Unable to speak. Awaiting further guidance from oncology regarding possibility of radiation therapy to his squamous cell carcinoma of the larynx. He still has a Shiley tracheostomy tube in place. He is breathing comfortably. He has a Kenny catheter in place. Unable to swallow and receiving enteral nutrition. He has a PEG tube in place. No nausea. No vomiting. No fever or chills. Gradually getting stronger. No other significant events overnight. Hemoglobin stable at 8.9. 11/02/2017, this patient is resting comfortably in bed in no new complaints for now. Tracheostomy tube is in place been no respiratory difficulties. His doing some limited amount of activity. No chest pain. Tolerating his enteral feeding with nutritional support. Awaiting the biopsy of the rib cage to decide on further treatment regarding discharge and outpatient care. Objective - Vital Signs Vital signs: Vital Signs Temp 97.9 F 11/02/17 08:00 Pulse 72 11/02/17 12:42 Resp 20 11/02/17 08:00 BP 150/60 11/02/17 08:00 Pulse Ox 94 L 11/02/17 08:00 Intake & Output 11/01/17 11/02/17 11/02/17 18:59 06:59 18:59 Intake Total 530 600 Output Total 400 4100 1950 Balance 130 -3500 -1950 Weight 97.5 kg 95 kg Intake: Intake, IV Titration 50 Amount Diltiazem 50 mg In Sodium 50 Chloride 0.9% 40 ml @ 10 MG/HR 10 mls/hr IV .Q5H [facility] Rx#:[id number] Tube Feeding 480 600 Output: Drainage 500 Buttock 500 Urine 2900 950 Stool 400 1200 500 Other: Voiding Method Indwelling Catheter Indwelling Catheter Indwelling Catheter # Voids 0 ABP, PAP, CO, CI - Last Documented Arterial Blood Pressure 129/59 - Exam General: Well-developed, thin-appearing, nonacute distress Head exam was generally normal. There was no scleral icterus or corneal arcus. Mucous membranes were moist. HEENT: Normocephalic, Nontramatic, sclerae nonicteric, tracheostomy and placed, and the patient has a Shiley nonfenestrated tracheostomy tube in place. 1-2cm right moveable palpable cervical lymph node LUNGS: Equal and no increased effort noted, breath sounds equal and symmetrical diminished in lung bases bilaterally. No crackles. No wheezes. HEART: Tachy, Irregular, and no extrasystoles were noted during several minutes of auscultation. The first and second heart sounds were normal and physiologic splitting of the second heart sound was noted. There were no murmurs, rubs, clicks, or gallops. Abdomen: Nontender, nondistended, no direct tenderness hemoptysis or guarding and the patient is a PEG tube which is in a good location and exit sites clean Extremities: Examination of the extremities revealed easily palpable radial, femoral and pedal pulses. There was no cyanosis, clubbing or edema.a Neuro: Awake and alert and is no focal neurological deficit at this point in time. Examination of the skin revealed no evidence of significant rashes, suspicious appearing nevi or other concerning lesions. 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 The patient has an obstructive mass in his upper airway requiring a tracheostomy tube insertion and the patient has a Shiley tracheostomy tube nonfenestrated #8. No respiratory distress and the patient's primary status is stable for now. 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 4 COPD, advanced and severe 5 acute ventilator-dependent respiratory failure secondary to above, recovered 6 bibasilar atelectatic changes small effusions 7 hypercalcemia, calcium level is at 11.7. Rule out secondary to skeletal metastases. 8 chronic microcystic anemia 9 atrial fibrillation, paroxysmal 10 acute urinary retention and the patient has a Kenny catheter in place 11 difficulty in swallowing and the patient has enteral feeding via PEG tube was inserted on 10/24/2018 12 debility and profound weakness and the patient is undergoing daily rehabilitation physical therapy. Plan Condition is stable. Awaiting the results of the soft tissue fine-needle aspirate from the rib cage. Further recommendations to follow regarding outpatient treatment and discharge. We'll collaborate oncology.
--- NOTE | 2017-11-02 17:55 | PN ---
PROGRESS NOTE Mr. Christian remains in sinus rhythm today. He has converted back to sinus rhythm. However, given his multiple comorbid conditions including malignancy, I am recommending no anticoagulation for him. He is probably going to go to rehab today. Vital signs are stable. S1, S2 heard normally. There is a short systolic murmur noted. Lungs reveal diminished air entry. Rest of physical exam is unchanged. Prognosis remains poor. I will see him as needed. MMODL / IJN: [id number] /
[2017-11-02 18:07] LABS: Glucose,Whole Blood 203 mg/dL (75-99)
[2017-11-02] MEDS: LISINOPRIL 2.5 MG TAB PO SCH (20:38)
[2017-11-02] MEDS: ATORVASTATIN 40 MG TAB PO SCH (20:38)
[2017-11-02] MEDS: LOPERAMIDE 2 MG CAP PEJ/J-Tube PRN (23:21)
[2017-11-03] MEDS: INSULIN ASPART 100 UNIT/ML 1 ML 10 ML VIAL SQ SCH ×5 (01:07→23:07)
[2017-11-03 02:24] LABS: Glucose,Whole Blood 168 mg/dL (75-99)
[2017-11-03] MEDS: traMADol 50 MG TAB PO PRN ×3 (03:11→20:26)
[2017-11-03] MEDS: IPRATROPIUM-ALBUTEROL 3 ML NEB INHALATION SCH ×4 (07:03→19:28)
[2017-11-03 07:29] LABS: Basophils % (A) 0 %; Eosinophils % (A) 0 %; HCT 29.3 % (39.0-53.0); HGB 9.3 gm/dL (13.0-17.5); Hypochromasia Slight; Lymphocytes # (A) 0.3 k/uL (1.0-4.8); Lymphocytes % (A) 5 %; MCH 32.1 pg (25.0-35.0); MCHC 31.9 g/dL (31.0-37.0); MCV 100.6 fL (80.0-100.0); Macrocytosis Slight; Mean Platelet Volume 7.6; Monocytes # (A) 0.3 k/uL (0-1.0); Monocytes % (A) 5 %; Neutrophils # (A) 5.6 k/uL (1.3-7.7); Neutrophils % (A) 88 %; Platelet Count 142 k/uL (150-450); RBC 2.91 m/uL (4.30-5.90); RDW 14.4 % (11.5-15.5); WBC 6.4 k/uL (3.8-10.6)
[2017-11-03 07:31] LABS: Glucose,Whole Blood 181 mg/dL (75-99)
[2017-11-03] MEDS: DICLOFENAC SODIUM GEL 100 GM TUBE TOPICAL SCH ×4 (07:34→20:25)
[2017-11-03 07:38] LABS: Anion Gap 4 mmol/L; Blood Urea Nitrogen 33 mg/dL (9-20); Calcium 11.7 mg/dL (8.4-10.2); Carbon Dioxide 28 mmol/L (22-30); Chloride 113 mmol/L (98-107); Glucose 160 mg/dL (74-99); Potassium 4.2 mmol/L (3.5-5.1); Sodium 145 mmol/L (137-145)
[2017-11-03] MEDS: METOPROLOL TARTRATE 50 MG TAB PO SCH ×2 (08:24→20:25)
[2017-11-03] MEDS: Difluprednate [Durezol] 1 DROP LEFT EYE SCH ×2 (08:28→20:25)
[2017-11-03] MEDS: AMOXIC-POT CLAV 600-42.9MG/5ML 75 ML BOTTLE PO SCH ×2 (08:28→20:24)
[2017-11-03] MEDS: DEXAMETHASONE SOD PHOSPHATE 4 MG/ML 1 ML VIAL IV SCH ×2 (08:28→20:25)
[2017-11-03] MEDS: NEPAFENAC LEFT EYE SCH (08:28)
[2017-11-03] MEDS: FLUTAMIDE PO SCH ×2 (08:29→20:25)
[2017-11-03] MEDS: MAG HYDROX/AL HYDROX/SIMETH 30 ML CUP PO SCH ×4 (08:29→16:28)
[2017-11-03] MEDS: PANTOPRAZOLE 40 MG/10 ML VIAL IVP SCH (08:29)
[2017-11-03] MEDS: BESIFLOXACIN HCL LEFT EYE SCH ×3 (08:29→20:29)
[2017-11-03 12:25] LABS: Iron Saturation 39.25 (15.00-50.00)
[2017-11-03] MEDS: MULTIVITAMINS, THERA 1 EACH TAB PO SCH (12:34)
[2017-11-03 12:37] LABS: Glucose,Whole Blood 162 mg/dL (75-99)
--- NOTE | 2017-11-03 12:43 | P.PN ---
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 Prostate cancer, possibly metastatic. 10/31/2007 and I'm seeing this patient for a follow-up. 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 Note that this was identified at the time of intubation for respiratory failure and further investigation and biopsy yielded the diagnosis. The patient currently has a nonfenestrated tracheostomy tube. He is having minimal amount of rest or secretions and he is on and off requiring suctioning through his tracheostomy tube. CAT scan of the chest abdomen and pelvis was done and showed some atelectatic changes small effusion the lung bases bilaterally. Bone scan was done and there is also evidence of suspicious skeletal metastatic lesions which are essentially also blastic. There is focal intense activity in the lumbar spine and there is also intense tracer activity in the right anterolateral mid ribs compatible with chest wall involvement. The patient will be having a IR guided biopsy of the lumbar spine. She diagnoses knowing that he also has history of prostate cancer. He is weak. Is able to stand up along with the help of physical therapy. Oncology is on the case. Prognosis will largely depend whether the squamous cell carcinoma of the larynx is metastatic or the bone findings are essentially metastases from his prostate cancer. He still has a Kenny catheter in place. No fever or chills. He is able to communicate. He is on enteral feeding for nutritional support. He is having some liquidy bowel movement along with his enteral nutrition. He is alert and awake and communicating and following commands and answering questions appropriately. 10/31/2017, patient is being seen for a follow-up. No new complaints. Patient has a #8 Shiley nonfenestrated tracheostomy tube. Unable to speak through this device. He is comfortable. No significant history secretions. He is going to undergo a core biopsy of the lumbar spine lesion for staging purposes. It is thought that this may be possibly metastatic from a prostate cancer. Otherwise , the patient is tolerating his enteral feeding for nutritional support is currently on Augmentin suspension twice a day. He is on DuoNeb neb last treatment [id number]. No respiratory difficulties. No pain. He is weak however he was able to stand up with assistance and he took a few steps. White cell count is not elevated. Hemoglobin stable at 8.2. Normal renal function. On 11/01/2017, patient is completed the right rib biopsy for staging purposes. Otherwise she is resting comfortably in bed. No respiratory difficulties. Unable to speak. Awaiting further guidance from oncology regarding possibility of radiation therapy to his squamous cell carcinoma of the larynx. He still has a Shiley tracheostomy tube in place. He is breathing comfortably. He has a Kenny catheter in place. Unable to swallow and receiving enteral nutrition. He has a PEG tube in place. No nausea. No vomiting. No fever or chills. Gradually getting stronger. No other significant events overnight. Hemoglobin stable at 8.9. 11/02/2017, this patient is resting comfortably in bed in no new complaints for now. Tracheostomy tube is in place been no respiratory difficulties. His doing some limited amount of activity. No chest pain. Tolerating his enteral feeding with nutritional support. Awaiting the biopsy of the rib cage to decide on further treatment regarding discharge and outpatient care. On 2017 patient seen in follow-up on selective care unit. He remains stable, no acute complaints, no worsening shortness of breath, he is on 35% trach collar, denies any discomfort, denies any distress. Lung sounds are stable, patient is afebrile, heart rate at times a bit tachycardic, he is on oral Lopressor, for rate control. Cytology of the fine needle aspirate biopsy of the rib mass is still pending. Otherwise remains stable, no acute complaints. Lung Sounds are positive for a few rhonchi. Tinea current medical treatment, patient is tolerating tube feedings. Objective - Vital Signs Vital signs: Vital Signs Temp 96.2 F L 11/03/17 09:00 Pulse 70 11/03/17 11:41 Resp 20 11/03/17 09:00 BP 122/57 11/03/17 09:00 Pulse Ox 93 L 11/03/17 09:00 Intake & Output 11/02/17 11/03/17 11/03/17 18:59 06:59 18:59 Intake Total 400 600 200 Output Total 3900 4000 Balance -3500 -3400 200 Weight 95 kg 95 kg 95 kg Intake: Tube Feeding 400 600 200 Output: Drainage 500 Buttock 500 Urine 1900 2000 Stool 1500 2000 Other: Voiding Method Indwelling Catheter Indwelling Catheter Indwelling Catheter # Voids 0 0 ABP, PAP, CO, CI - Last Documented Arterial Blood Pressure 129/59 - Exam General: Well-developed, thin-appearing, nonacute distress Head exam was generally normal. There was no scleral icterus or corneal arcus. Mucous membranes were moist. HEENT: Normocephalic, Nontramatic, sclerae nonicteric, tracheostomy and placed, and the patient has a Shiley nonfenestrated tracheostomy tube in place. 1-2cm right moveable palpable cervical lymph node LUNGS: Equal and no increased effort noted, breath sounds equal and symmetrical diminished in lung bases bilaterally. Scattered rhonchi, no crackles, no wheezes. HEART: Tachy, Irregular, and no extrasystoles were noted during several minutes of auscultation. The first and second heart sounds were normal and physiologic splitting of the second heart sound was noted. There were no murmurs, rubs, clicks, or gallops. Abdomen: Nontender, nondistended, no direct tenderness hemoptysis or guarding and the patient is a PEG tube which is in a good location and exit sites clean Extremities: Examination of the extremities revealed easily palpable radial, femoral and pedal pulses. There was no cyanosis, clubbing or edema.a Neuro: Awake and alert and is no focal neurological deficit at this point in time. Examination of the skin revealed no evidence of significant rashes, suspicious appearing nevi or other concerning lesions. - Labs CBC & Chem 7: 11/03/17 07:05 11/03/17 07:05 Labs: Abnormal Lab Results - Last 24 Hours (Table) 11/02/17 11/03/17 11/03/17 Range/Units 18:00 02:13 07:05 RBC (4.30-5.90) m/uL Hgb (13.0-17.5) gm/dL Hct (39.0-53.0) % MCV (80.0-100.0) fL Plt Count (150-450) k/uL Lymphocytes # (1.0-4.8) k/uL Chloride (98-107) mmol/L BUN (9-20) mg/dL Glucose (74-99) mg/dL POC Glucose (mg/dL) 203 H 168 H (75-99) mg/dL Calcium (8.4-10.2) mg/dL Ionized Calcium Meseret (4.5-5.3) mg/dL TIBC 214 L (228-460) ug/dL Ferritin 597.7 H (22.0-322.0) ng/mL 11/03/17 11/03/17 11/03/17 Range/Units 07:05 07:05 07:30 RBC 2.91 L (4.30-5.90) m/uL Hgb 9.3 L (13.0-17.5) gm/dL Hct 29.3 L (39.0-53.0) % MCV 100.6 H (80.0-100.0) fL Plt Count 142 L (150-450) k/uL Lymphocytes # 0.3 L (1.0-4.8) k/uL Chloride 113 H (98-107) mmol/L BUN 33 H (9-20) mg/dL Glucose 160 H (74-99) mg/dL POC Glucose (mg/dL) 181 H (75-99) mg/dL Calcium 11.7 H (8.4-10.2) mg/dL Ionized Calcium Meseret 7.0 H* (4.5-5.3) mg/dL TIBC (228-460) ug/dL Ferritin (22.0-322.0) ng/mL Assessment and Plan Plan: Assessment: 1 squamous cell carcinoma of the larynx, 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 The patient has an obstructive mass in his upper airway requiring a tracheostomy tube insertion and the patient has a Shiley tracheostomy tube nonfenestrated #8. No respiratory distress and the patient's primary status is stable for now. 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 4 COPD, advanced and severe 5 acute ventilator-dependent respiratory failure secondary to above, recovered 6 bibasilar atelectatic changes small effusions 7 hypercalcemia, calcium level is at 11.7. Rule out secondary to skeletal metastases. 8 chronic microcystic anemia 9 atrial fibrillation, paroxysmal 10 acute urinary retention and the patient has a Kenny catheter in place 11 difficulty in swallowing and the patient has enteral feeding via PEG tube was inserted on 10/24/2018 12 debility and profound weakness and the patient is undergoing daily rehabilitation physical therapy. Plan Still awaiting results of the biopsy of the fine-needle aspirate of the rib mass , otherwise patient is stable, continue current medical treatment. I performed a history & physical examination of the patient and discussed their management with my nurse practitioner, Sera Berg. I reviewed the nurse practitioner's note and agree with the documented findings and plan of care. Lung sounds are positive for few scattered rhonchi. The findings and the impression was discussed with the patient. I attest to the documentation by the nurse practitioner. Time with Patient: Less than 30
--- NOTE | 2017-11-03 14:13 | P.PN ---
Subjective Progress Note Date: 11/03/17 Principal diagnosis: metastatic bone pain Patient seen today in follow-up. He states much better pain control, he has had his bone marrow biopsy Denies fevers, nausea, shortness of breath, no concerns for constipation, he is not ambulatory. Objective - Vital Signs Vital signs: Vital Signs Temp 96.2 F L 11/03/17 09:00 Pulse 70 11/03/17 11:41 Resp 20 11/03/17 09:00 BP 122/57 11/03/17 09:00 Pulse Ox 93 L 11/03/17 09:00 Intake & Output 11/02/17 11/03/17 11/03/17 18:59 06:59 18:59 Intake Total 400 600 200 Output Total 3900 4000 Balance -3500 -3400 200 Weight 95 kg 95 kg 95 kg Intake: Tube Feeding 400 600 200 Output: Drainage 500 Buttock 500 Urine 1900 2000 Stool 1500 2000 Other: Voiding Method Indwelling Catheter Indwelling Catheter Indwelling Catheter # Voids 0 0 ABP, PAP, CO, CI - Last Documented Arterial Blood Pressure 129/59 - Constitutional General appearance: Present: cooperative, no acute distress, obese - EENT Eyes: Present: anicteric sclerae - Respiratory Details: respirations even and unlabored, tracheostomy site is clean, oxygen can be heard moving via trach collar - Cardiovascular Rhythm: regular - Gastrointestinal Gastrointestinal Comment(s): PEG insertion site free of sign/symptoms of infection, no drainage General gastrointestinal: Present: distended, soft - Musculoskeletal Musculoskeletal: Present: generalized weakness - Psychiatric Psychiatric: Present: A&O x's 3, appropriate affect, intact judgment & insight - Labs CBC & Chem 7: 11/03/17 07:05 11/03/17 07:05 Labs: Abnormal Lab Results - Last 24 Hours (Table) 11/02/17 11/03/17 11/03/17 Range/Units 18:00 02:13 07:05 RBC (4.30-5.90) m/uL Hgb (13.0-17.5) gm/dL Hct (39.0-53.0) % MCV (80.0-100.0) fL Plt Count (150-450) k/uL Lymphocytes # (1.0-4.8) k/uL Chloride (98-107) mmol/L BUN (9-20) mg/dL Glucose (74-99) mg/dL POC Glucose (mg/dL) 203 H 168 H (75-99) mg/dL Calcium (8.4-10.2) mg/dL Ionized Calcium Meseret (4.5-5.3) mg/dL TIBC 214 L (228-460) ug/dL Ferritin 597.7 H (22.0-322.0) ng/mL 11/03/17 11/03/17 11/03/17 Range/Units 07:05 07:05 07:30 RBC 2.91 L (4.30-5.90) m/uL Hgb 9.3 L (13.0-17.5) gm/dL Hct 29.3 L (39.0-53.0) % MCV 100.6 H (80.0-100.0) fL Plt Count 142 L (150-450) k/uL Lymphocytes # 0.3 L (1.0-4.8) k/uL Chloride 113 H (98-107) mmol/L BUN 33 H (9-20) mg/dL Glucose 160 H (74-99) mg/dL POC Glucose (mg/dL) 181 H (75-99) mg/dL Calcium 11.7 H (8.4-10.2) mg/dL Ionized Calcium Meseret 7.0 H* (4.5-5.3) mg/dL TIBC (228-460) ug/dL Ferritin (22.0-322.0) ng/mL 11/03/17 Range/Units 12:06 RBC (4.30-5.90) m/uL Hgb (13.0-17.5) gm/dL Hct (39.0-53.0) % MCV (80.0-100.0) fL Plt Count (150-450) k/uL Lymphocytes # (1.0-4.8) k/uL Chloride (98-107) mmol/L BUN (9-20) mg/dL Glucose (74-99) mg/dL POC Glucose (mg/dL) 162 H (75-99) mg/dL Calcium (8.4-10.2) mg/dL Ionized Calcium Meseret (4.5-5.3) mg/dL TIBC (228-460) ug/dL Ferritin (22.0-322.0) ng/mL Assessment and Plan (1) Squamous cell carcinoma of larynx Narrative/Plan: Newly diagnosed 10/23/2017. Patient is status post tracheostomy for obstruction. Patient has a PEG tube for feeding. Pathology was attended, the specimen was negative for HPV. Biopsy of a right rib pending. Need to determine metastasis primary for treatment indications, patient has 2 primary malignancies. Current Visit: Yes Status: Acute Priority: High Code(s): C32.9 - MALIGNANT NEOPLASM OF LARYNX, UNSPECIFIED SNOMED Code(s): 512647831 (2) Hypercalcemia of malignancy Narrative/Plan: Kidney function reviewed, creatinine within normal limits. Zoledronic acid has been ordered 1. Continue to monitor calcium, gentle hydration. Current Visit: Yes Status: Acute Priority: High Code(s): E83.52 - HYPERCALCEMIA SNOMED Code(s): 78518740 (3) Acute neoplasm-related pain Narrative/Plan: Patient confirmed satisfaction with current pain regimen. Patient is on dexamethasone 4 mg every 12 hours, a PPI, and tramadol. Current Visit: Yes Status: Acute Priority: High Code(s): G89.3 - NEOPLASM RELATED PAIN (ACUTE) (CHRONIC) SNOMED Code(s): 299720618 (4) History of prostate cancer Current Visit: No Status: Chronic Priority: High Code(s): Z85.46 - PERSONAL HISTORY OF MALIGNANT NEOPLASM OF PROSTATE SNOMED Code(s): 799431583 Plan: Patient is status post bone biopsy. Would anticipate resumption of anticoagulation and antiplatelet per cardiology.
[2017-11-03] MEDS ORDERED: ZOLEDRONIC ACID 4 MG in SODIUM CHLORIDE 0.9% 100 ML IV ONE (15:00)
[2017-11-03] MEDS: SIMETHICONE 40 MG/0.6 ML DROPS 2,000 MG/30 ML BOTTLE PO PRN ×2 (16:25→22:24)
[2017-11-03] MEDS: DILTIAZEM ORAL 30 MG TAB PO SCH ×2 (16:38→20:26)
[2017-11-03 18:27] LABS: Glucose,Whole Blood 173 mg/dL (75-99)
[2017-11-03] MEDS: ATORVASTATIN 40 MG TAB PO SCH (20:24)
[2017-11-03] MEDS: LISINOPRIL 2.5 MG TAB PO SCH (20:25)
[2017-11-03 23:06] LABS: Glucose,Whole Blood 158 mg/dL (75-99)
[2017-11-04] MEDS: traMADol 50 MG TAB PO PRN ×3 (02:39→19:56)
[2017-11-04] MEDS: SIMETHICONE 40 MG/0.6 ML DROPS 2,000 MG/30 ML BOTTLE PO PRN (05:46)
[2017-11-04 06:07] LABS: Glucose,Whole Blood 147 mg/dL (75-99)
[2017-11-04] MEDS: INSULIN ASPART 100 UNIT/ML 1 ML 10 ML VIAL SQ SCH ×4 (06:09→23:47)
[2017-11-04] MEDS: IPRATROPIUM-ALBUTEROL 3 ML NEB INHALATION SCH ×4 (07:12→20:35)
[2017-11-04] MEDS: BESIFLOXACIN HCL LEFT EYE SCH ×3 (08:22→22:11)
[2017-11-04] MEDS: FLUTAMIDE PO SCH ×2 (10:51→22:11)
[2017-11-04 11:38] LABS: Glucose,Whole Blood 147 mg/dL (75-99)
[2017-11-04] MEDS: MAG HYDROX/AL HYDROX/SIMETH 30 ML CUP PO SCH ×4 (12:13→21:52)
--- NOTE | 2017-11-04 12:13 | P.PN ---
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 Prostate cancer, possibly metastatic. 10/31/2007 and I'm seeing this patient for a follow-up. 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 Note that this was identified at the time of intubation for respiratory failure and further investigation and biopsy yielded the diagnosis. The patient currently has a nonfenestrated tracheostomy tube. He is having minimal amount of rest or secretions and he is on and off requiring suctioning through his tracheostomy tube. CAT scan of the chest abdomen and pelvis was done and showed some atelectatic changes small effusion the lung bases bilaterally. Bone scan was done and there is also evidence of suspicious skeletal metastatic lesions which are essentially also blastic. There is focal intense activity in the lumbar spine and there is also intense tracer activity in the right anterolateral mid ribs compatible with chest wall involvement. The patient will be having a IR guided biopsy of the lumbar spine. She diagnoses knowing that he also has history of prostate cancer. He is weak. Is able to stand up along with the help of physical therapy. Oncology is on the case. Prognosis will largely depend whether the squamous cell carcinoma of the larynx is metastatic or the bone findings are essentially metastases from his prostate cancer. He still has a Kenny catheter in place. No fever or chills. He is able to communicate. He is on enteral feeding for nutritional support. He is having some liquidy bowel movement along with his enteral nutrition. He is alert and awake and communicating and following commands and answering questions appropriately. 10/31/2017, patient is being seen for a follow-up. No new complaints. Patient has a #8 Shiley nonfenestrated tracheostomy tube. Unable to speak through this device. He is comfortable. No significant history secretions. He is going to undergo a core biopsy of the lumbar spine lesion for staging purposes. It is thought that this may be possibly metastatic from a prostate cancer. Otherwise , the patient is tolerating his enteral feeding for nutritional support is currently on Augmentin suspension twice a day. He is on DuoNeb neb last treatment [id number]. No respiratory difficulties. No pain. He is weak however he was able to stand up with assistance and he took a few steps. White cell count is not elevated. Hemoglobin stable at 8.2. Normal renal function. On 11/01/2017, patient is completed the right rib biopsy for staging purposes. Otherwise she is resting comfortably in bed. No respiratory difficulties. Unable to speak. Awaiting further guidance from oncology regarding possibility of radiation therapy to his squamous cell carcinoma of the larynx. He still has a Shiley tracheostomy tube in place. He is breathing comfortably. He has a Kenny catheter in place. Unable to swallow and receiving enteral nutrition. He has a PEG tube in place. No nausea. No vomiting. No fever or chills. Gradually getting stronger. No other significant events overnight. Hemoglobin stable at 8.9. 11/02/2017, this patient is resting comfortably in bed in no new complaints for now. Tracheostomy tube is in place been no respiratory difficulties. His doing some limited amount of activity. No chest pain. Tolerating his enteral feeding with nutritional support. Awaiting the biopsy of the rib cage to decide on further treatment regarding discharge and outpatient care. On 11/03/2017 patient seen in follow-up on selective care unit. He remains stable, no acute complaints, no worsening shortness of breath, he is on 35% trach collar, denies any discomfort, denies any distress. Lung sounds are stable, patient is afebrile, heart rate at times a bit tachycardic, he is on oral Lopressor, for rate control. Cytology of the fine needle aspirate biopsy of the rib mass is still pending. Otherwise remains stable, no acute complaints. Lung Sounds are positive for a few rhonchi. Tinea current medical treatment, patient is tolerating tube feedings. On 11/04/2017 patient seen in follow-up. No acute distress, denies any difficulty breathing, denies any chest pain, denies any fever or chills. Remains on 35% trach collar, he is afebrile, vital signs are stable. Cardiology remains negative. Lung sounds are positive for only a few rhonchi, otherwise relatively clear. No wheezing, no rales. Biopsy of a right rib is still pending. Oncology is following, continue current medical treatment. No new labs today, no acute complaints, tolerating tube feedings. Objective - Vital Signs Vital signs: Vital Signs Temp 96.4 F L 11/04/17 09:56 Pulse 78 11/04/17 10:50 Resp 14 11/04/17 09:56 BP 123/61 11/04/17 09:56 Pulse Ox 95 11/04/17 09:56 Intake & Output 11/03/17 11/04/17 11/04/17 18:59 06:59 18:59 Intake Total 800 1200 Output Total 500 1000 Balance 300 200 Weight 95 kg 94.5 kg Intake: Tube Feeding 800 1200 Output: Urine 1000 Stool 500 Other: Voiding Method Indwelling Catheter Indwelling Catheter # Bowel Movements 1 ABP, PAP, CO, CI - Last Documented Arterial Blood Pressure 129/59 - Exam General: Well-developed, thin-appearing, nonacute distress Head exam was generally normal. There was no scleral icterus or corneal arcus. Mucous membranes were moist. HEENT: Normocephalic, Nontramatic, sclerae nonicteric, tracheostomy and placed, and the patient has a Shiley nonfenestrated tracheostomy tube in place. 1-2cm right moveable palpable cervical lymph node LUNGS: Equal and no increased effort noted, breath sounds equal and symmetrical diminished in lung bases bilaterally. Scattered rhonchi, no crackles, no wheezes. HEART: Tachy, Irregular, and no extrasystoles were noted during several minutes of auscultation. The first and second heart sounds were normal and physiologic splitting of the second heart sound was noted. There were no murmurs, rubs, clicks, or gallops. Abdomen: Nontender, nondistended, no direct tenderness hemoptysis or guarding and the patient is a PEG tube which is in a good location and exit sites clean Extremities: Examination of the extremities revealed easily palpable radial, femoral and pedal pulses. There was no cyanosis, clubbing or edema.a Neuro: Awake and alert and is no focal neurological deficit at this point in time. Examination of the skin revealed no evidence of significant rashes, suspicious appearing nevi or other concerning lesions. - Labs CBC & Chem 7: 11/03/17 07:05 11/03/17 07:05 Labs: Abnormal Lab Results - Last 24 Hours (Table) 11/03/17 11/03/17 11/03/17 Range/Units 07:05 07:05 12:06 POC Glucose (mg/dL) 162 H (75-99) mg/dL TIBC 214 L (228-460) ug/dL Ferritin 597.7 H (22.0-322.0) ng/mL PTH Intact 189.9 H (14.0-72.0) pg/mL 11/03/17 11/03/17 11/04/17 Range/Units 18:06 23:05 06:05 POC Glucose (mg/dL) 173 H 158 H 147 H (75-99) mg/dL TIBC (228-460) ug/dL Ferritin (22.0-322.0) ng/mL PTH Intact (14.0-72.0) pg/mL 11/04/17 Range/Units 11:33 POC Glucose (mg/dL) 147 H (75-99) mg/dL TIBC (228-460) ug/dL Ferritin (22.0-322.0) ng/mL PTH Intact (14.0-72.0) pg/mL Microbiology - Last 24 Hours (Table) 11/04/17 02:30 Stool Culture - Preliminary Stool Assessment and Plan Plan: Assessment: 1 squamous cell carcinoma of the larynx, 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 The patient has an obstructive mass in his upper airway requiring a tracheostomy tube insertion and the patient has a Shiley tracheostomy tube nonfenestrated #8. No respiratory distress and the patient's primary status is stable for now. 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 4 COPD, advanced and severe 5 acute ventilator-dependent respiratory failure secondary to above, recovered 6 bibasilar atelectatic changes small effusions 7 hypercalcemia, calcium level is at 11.7. Rule out secondary to skeletal metastases. 8 chronic microcystic anemia 9 atrial fibrillation, paroxysmal 10 acute urinary retention and the patient has a Kenny catheter in place 11 difficulty in swallowing and the patient has enteral feeding via PEG tube was inserted on 10/24/2018 12 debility and profound weakness and the patient is undergoing daily rehabilitation physical therapy. Plan Patient remains stable from pulmonary standpoint, continue current medical treatment, still awaiting results of the biopsy of the right rib. We'll continue to follow. I performed a history & physical examination of the patient and discussed their management with my nurse practitioner, Sera Berg. I reviewed the nurse practitioner's note and agree with the documented findings and plan of care. Lung sounds are positive for few scattered rhonchi. The findings and the impression was discussed with the patient. I attest to the documentation by the nurse practitioner. Time with Patient: Less than 30
[2017-11-04] MEDS: DICLOFENAC SODIUM GEL 100 GM TUBE TOPICAL SCH ×4 (12:15→21:53)
[2017-11-04] MEDS: DEXAMETHASONE SOD PHOSPHATE 4 MG/ML 1 ML VIAL IV SCH ×2 (12:16→21:50)
[2017-11-04] MEDS: PANTOPRAZOLE 40 MG/10 ML VIAL IVP SCH (12:18)
[2017-11-04] MEDS: LOPERAMIDE 2 MG CAP PEJ/J-Tube PRN ×2 (12:20→19:56)
[2017-11-04] MEDS: DILTIAZEM ORAL 30 MG TAB PO SCH ×3 (12:22→21:52)
[2017-11-04] MEDS: METOPROLOL TARTRATE 50 MG TAB PO SCH ×2 (12:22→21:52)
[2017-11-04] MEDS: AMOXIC-POT CLAV 600-42.9MG/5ML 75 ML BOTTLE PO SCH ×2 (12:22→21:47)
[2017-11-04] MEDS: MULTIVITAMINS, THERA 1 EACH TAB PO SCH (12:39)
--- NOTE | 2017-11-04 13:40 | P.PN ---
Subjective Progress Note Date: 11/04/17 Principal diagnosis: metastatic bone pain Patient seen today in follow-up. Bone biopsy results pending. Patient is in good spirits today he is getting up in the chair with the assistance of physical therapy team, he agrees that his pain is controlled, no complaints of nausea, he did have diarrhea. Objective - Vital Signs Vital signs: Vital Signs Temp 96.4 F L 11/04/17 09:56 Pulse 78 11/04/17 10:50 Resp 14 11/04/17 09:56 BP 123/61 11/04/17 09:56 Pulse Ox 95 11/04/17 09:56 Intake & Output 11/03/17 11/04/17 11/04/17 18:59 06:59 18:59 Intake Total 800 1200 Output Total 500 1000 Balance 300 200 Weight 95 kg 94.5 kg Intake: Tube Feeding 800 1200 Output: Urine 1000 Stool 500 Other: Voiding Method Indwelling Catheter Indwelling Catheter # Bowel Movements 1 ABP, PAP, CO, CI - Last Documented Arterial Blood Pressure 129/59 - Exam Alert and oriented 4, no acute distress, respirations unlabored, tracheostomy free of blood or secretions - Constitutional General appearance: Present: cooperative, no acute distress, obese - EENT Eyes: Present: anicteric sclerae - Labs CBC & Chem 7: 11/03/17 07:05 11/03/17 07:05 Labs: Abnormal Lab Results - Last 24 Hours (Table) 11/03/17 11/03/17 11/03/17 Range/Units 07:05 18:06 23:05 POC Glucose (mg/dL) 173 H 158 H (75-99) mg/dL PTH Intact 189.9 H (14.0-72.0) pg/mL 11/04/17 11/04/17 Range/Units 06:05 11:33 POC Glucose (mg/dL) 147 H 147 H (75-99) mg/dL PTH Intact (14.0-72.0) pg/mL Microbiology - Last 24 Hours (Table) 11/04/17 02:30 Stool Culture - Preliminary Stool Assessment and Plan (1) Squamous cell carcinoma of larynx Narrative/Plan: Newly diagnosed 10/23/2017. Patient is status post tracheostomy for obstruction. Patient has a PEG tube for feeding. Biopsy of a right rib pending. Need to determine metastasis primary for treatment indications, patient has 2 primary malignancies. Current Visit: Yes Status: Acute Priority: High Code(s): C32.9 - MALIGNANT NEOPLASM OF LARYNX, UNSPECIFIED SNOMED Code(s): 014686857 (2) Hypercalcemia of malignancy Narrative/Plan: Zoledronic acid administered x1. Continue to monitor calcium, gentle hydration. Current Visit: Yes Status: Acute Priority: High Code(s): E83.52 - HYPERCALCEMIA SNOMED Code(s): 63962011 (3) Acute neoplasm-related pain Narrative/Plan: Patient seems to be much happier with pain control today. Continue steroids, radiation and pain medication. Current Visit: Yes Status: Acute Priority: High Code(s): G89.3 - NEOPLASM RELATED PAIN (ACUTE) (CHRONIC) SNOMED Code(s): 089951286 (4) History of prostate cancer Current Visit: No Status: Chronic Priority: High Code(s): Z85.46 - PERSONAL HISTORY OF MALIGNANT NEOPLASM OF PROSTATE SNOMED Code(s): 846055287
[2017-11-04] MEDS: NEPAFENAC LEFT EYE SCH (14:42)
[2017-11-04] MEDS: Difluprednate [Durezol] 1 DROP LEFT EYE SCH ×2 (14:43→15:23)
[2017-11-04 17:53] LABS: Glucose,Whole Blood 171 mg/dL (75-99)
--- NOTE | 2017-11-04 19:39 | PN ---
PROGRESS NOTE DATE OF SERVICE: 11/04/2017 Age: 82 years old. White male, single. His date of 1935, room #661 bed 1. NEW DATA: His height 6 feet, weight 94.5 kg, BSA 2.17 m2, BMI 28.3 kg/m2. ALLERGIES: ACETAMINOPHEN causes rash and hives. CASODEX rash and hives. MELOXICAM, "MOBIC" unknown. SULFA antibiotic itching. MORPHINE nausea and vomiting. The patient is seen today, evaluated and he has significant abdominal gases and they did call me and the patient received a Gas-X, methacholine 40 mg through the PEG tube every 6 hour p.r.n. The patient also has been on multiple medications with the associated history of recurrence of atrial fibrillation and the patient currently on Cardizem. He was started on the drip, but now he is on the Cardizem orally 30 mg t.i.d. He is on dexamethasone sodium phosphate 4 mg IV q.12 hours added to added to his antibiotic. On the examination today, his vital signs indicating the temperature of 97.2 with blood pressure 129/56 with a mean pressure 80, his pulse rate 61 and 80s with respiratory rate was 16. His laboratory today indicating that he is a diabetic and he is monitored with POC glucose which was 171, but stable in general. Stool culture in progress and sputum culture was normal respiratory dieudonne and the blood culture was no growth. 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 The metastasis was found to be metastatic squamous cell carcinoma and that is from the underlying throat cancer. Patient seen today by the Oncology PA nurse practitioner and with the impression of squamous cell carcinoma of the larynx with the metastasis to the anterior chest wall. He had hyperglycemia secondary to the malignancy and acute neoplasm with the history of the prostatic cancer. The patient also seen by Dr. 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 He is currently not on ventilator. He had a basilar atelectasis, hypercalcemia, chronic macrocytic anemia and he had paroxysmal atrial fibrillation. He had a Kenny catheter in place for the urinary retention and inability to urinate without a catheter. Also, he has debility with profound weakness. He had rehabilitation. Also he had abnormal PTH with the parathyroid hormone 189.9 and he had diabetes with the control. His laboratory that was done, last CBC was done on November 03 with white count 6.4 and hemoglobin 9.3 and hematocrit 29.3 with the MCV 100.6. His chemistry indicating that sodium 145, potassium 4.2, chloride 113, CO2 was 28 and BUN is 4, creatinine is 0.67. His estimated glomerular filtration rate is more than 90 for non-. Blood sugar was in the morning of 11/03/2017 was also elevated. The calcium is 11.7 and his iron is 84. His total iron-binding capacity 214, iron saturation 39.25, serum ferritin 597.7 and the PTH intact 189.9 with the underlying immune diagnosis hyperparathyroidism primary indicated. PHYSICAL EXAMINATION: Patient conscious, alert, unable to speak with the tracheostomy and he had also tracheostomy collar on oxygen. He is able to understand and able to write on a notepad. His lungs today, he had rhonchi bilateral and the heart was irregular irregularities with intermittent atrial fibrillation. The abdomen is soft, positive bowel sounds. He had a PEG tube for treatment and the extremities, no edema and positive pulses. Neurologically, he is awake, alert. With the assessment indicating that the patient had metastasis of the right ribs associated with squamous cell carcinoma and also increase the hypercalcemia and beside that we find that his PTH was elevated with the underlying primary hyperparathyroidism. He was seen by the PA of the oncology, but we do not have any for further advancement of the planning from the oncology level to see what is the next step for the treatment. Meanwhile, with the appearance of the underlying hyperparathyroidism newer event and if this is also needs to be treated or not. The patient with multiple medical problems and he was also seen by the fisheries technician for the atrial fibrillation. Future plan after the decision of the oncologist for transfer to [facility] versus start the treatment for the squamous cell carcinoma of the larynx versus continuing the treatment for the prostate. Meanwhile, in regard of underlying primary hyperparathyroidism, we will be obtaining a consultation with life skills educator, Dr. Devika Monique for evaluation and possible treatment. His renal function is stable. MMODL / IJN: [id number] /
[2017-11-04] MEDS: ATORVASTATIN 40 MG TAB PO SCH (21:50)
[2017-11-04] MEDS: LISINOPRIL 2.5 MG TAB PO SCH (21:52)
[2017-11-04] MEDS ORDERED: HYDROGEN PEROXIDE BOTTLE TOPICAL ONE (22:37)
[2017-11-04 23:08] LABS: Glucose,Whole Blood 166 mg/dL (75-99)
[2017-11-05 05:54] LABS: Anion Gap 4 mmol/L; Blood Urea Nitrogen 33 mg/dL (9-20); Calcium 10.6 mg/dL (8.4-10.2); Carbon Dioxide 29 mmol/L (22-30); Chloride 110 mmol/L (98-107); Glucose 169 mg/dL (74-99); Potassium 4.4 mmol/L (3.5-5.1); Sodium 143 mmol/L (137-145)
[2017-11-05 05:59] LABS: Glucose,Whole Blood 192 mg/dL (75-99)
[2017-11-05] MEDS: INSULIN ASPART 100 UNIT/ML 1 ML 10 ML VIAL SQ SCH ×3 (06:01→18:20)
[2017-11-05] MEDS: traMADol 50 MG TAB PO PRN ×3 (06:04→22:38)
[2017-11-05] MEDS: DEXAMETHASONE SOD PHOSPHATE 4 MG/ML 1 ML VIAL IV SCH ×2 (08:18→21:23)
[2017-11-05] MEDS: PANTOPRAZOLE 40 MG/10 ML VIAL IVP SCH (08:18)
[2017-11-05] MEDS: DICLOFENAC SODIUM GEL 100 GM TUBE TOPICAL SCH ×4 (08:18→21:25)
[2017-11-05] MEDS: METOPROLOL TARTRATE 50 MG TAB PO SCH ×2 (08:19→21:24)
[2017-11-05] MEDS: SIMETHICONE 40 MG/0.6 ML DROPS 2,000 MG/30 ML BOTTLE PO PRN ×2 (08:19→16:40)
[2017-11-05] MEDS: Difluprednate [Durezol] 1 DROP LEFT EYE SCH ×2 (08:19→21:52)
[2017-11-05] MEDS: MAG HYDROX/AL HYDROX/SIMETH 30 ML CUP PO SCH ×4 (08:34→21:26)
[2017-11-05] MEDS: DILTIAZEM ORAL 30 MG TAB PO SCH ×3 (08:34→21:26)
[2017-11-05] MEDS: IPRATROPIUM-ALBUTEROL 3 ML NEB INHALATION SCH ×4 (09:21→19:56)
--- NOTE | 2017-11-05 10:12 | P.PN ---
Subjective Progress Note Date: 11/05/17 Principal diagnosis: metastatic bone pain Pt seen in f/u, he is managing secretions with suction, he is tolerating tube feeds, no abd pain, bloating, BMs are soft, denies pain in the ribs. Objective - Vital Signs Vital signs: Vital Signs Temp 97.4 F L 11/05/17 03:51 Pulse 78 11/05/17 09:33 Resp 18 11/05/17 03:53 BP 129/62 11/05/17 03:51 Pulse Ox 95 11/05/17 03:51 Intake & Output 11/04/17 11/05/17 11/05/17 18:59 06:59 18:59 Intake Total 860 840 Output Total 280 950 Balance 580 -110 Weight 80 kg Intake: IV 20 Invasive Line 7 20 Tube Feeding 840 840 Output: Urine 950 Stool 280 Other: Voiding Method Indwelling Catheter Indwelling Catheter # Voids 1 # Bowel Movements 1 ABP, PAP, CO, CI - Last Documented Arterial Blood Pressure 129/59 - Constitutional General appearance: Present: cooperative, no acute distress, obese - EENT EENT Comment(s): trach collar does not have copious secretions or blood, no audible stridor or wheeze Eyes: Present: anicteric sclerae - Respiratory Respiratory: bilateral: CTA - Cardiovascular Heart sounds: normal: S1, S2 - Peripheral edema leg Peripheral Edema: bilateral: Trace - Gastrointestinal General gastrointestinal: Present: normal bowel sounds, soft. Absent: absent bowel sounds, decreased bowel sounds, distended, hepatomegaly, hyperactive bowel sounds, organomegaly, rigid, scaphoid, splenomegaly, tenderness, umbilical hernia, ventral hernia - Integumentary Integumentary: Present: pale - Neurologic Neurologic: Present: CNII-XII intact - Musculoskeletal Musculoskeletal: Present: generalized weakness - Psychiatric Psychiatric: Present: A&O x's 3, appropriate affect, intact judgment & insight - Labs CBC & Chem 7: 11/03/17 07:05 11/05/17 05:29 Labs: Abnormal Lab Results - Last 24 Hours (Table) 11/04/17 11/04/17 11/04/17 Range/Units 11:33 17:51 23:05 Chloride (98-107) mmol/L BUN (9-20) mg/dL Creatinine (0.66-1.25) mg/dL Glucose (74-99) mg/dL POC Glucose (mg/dL) 147 H 171 H 166 H (75-99) mg/dL Calcium (8.4-10.2) mg/dL 11/05/17 11/05/17 Range/Units 05:29 05:56 Chloride 110 H (98-107) mmol/L BUN 33 H (9-20) mg/dL Creatinine 0.62 L (0.66-1.25) mg/dL Glucose 169 H (74-99) mg/dL POC Glucose (mg/dL) 192 H (75-99) mg/dL Calcium 10.6 H (8.4-10.2) mg/dL Microbiology - Last 24 Hours (Table) 11/04/17 02:30 Stool Culture - Preliminary Stool Assessment and Plan (1) Squamous cell carcinoma of larynx Narrative/Plan: Bone biopsy pathology returned, positive for squamous cell, consistent with metastatic disease from the larynx. Dr. Campa explained to the patient that all treatment is palliative in nature, the intent is to reduce the burden of disease , make the patient more comfortable and to prolong life for an undetermined amount of time. Recommendation is for palliative radiation to the neck. Patient is denying significant rib pain at this time so that can be deferred for now. Case will be discussed with radiation oncologist. Potential systemic treatment with chemotherapy and/or immunotherapy was discussed. Plan for systemic treatment would be developed after palliative radiation and rehabilitation of the patient. Patient did acknowledge the diagnosis and the plan of care. He denied having any other questions at this time. Current Visit: Yes Status: Acute Priority: High Code(s): C32.9 - MALIGNANT NEOPLASM OF LARYNX, UNSPECIFIED SNOMED Code(s): 899515336 (2) Hypercalcemia of malignancy Narrative/Plan: Patient received a dose of zoledronic acid on 11/03. Calcium today is 10.6, slowly improving. Current Visit: Yes Status: Acute Priority: High Code(s): E83.52 - HYPERCALCEMIA SNOMED Code(s): 58818228 (3) Acute neoplasm-related pain Narrative/Plan: Patient agrees pain control is adequate at this time. Continue current analgesics. Current Visit: Yes Status: Acute Priority: High Code(s): G89.3 - NEOPLASM RELATED PAIN (ACUTE) (CHRONIC) SNOMED Code(s): 933603953 (4) History of prostate cancer Narrative/Plan: Dr. Campa did express concerns for underlying recurrence of prostate cancer as the patient's PSA is increasing. It was mentioned to the patient that this will continue to be monitored and may require androgen deprivation or other therapy. Current Visit: No Status: Chronic Priority: High Code(s): Z85.46 - PERSONAL HISTORY OF MALIGNANT NEOPLASM OF PROSTATE SNOMED Code(s): 510333955 Plan: Doctor attests: I performed a history and physical examination of this patient with dictator. I agree with dictators note, documented as a scribe.
--- NOTE | 2017-11-05 11:03 | P.PN ---
Subjective Progress Note Date: 11/05/17 Principal diagnosis: Acute hypoxic respiratory failure secondary to COPD, left lower lobe pneumonia, vocal cord mass, stridor The patient is seen again today 11/05/2017 in follow-up on the selective care unit. He is currently resting comfortably in bed. He is awake and alert in no acute distress. He was seen and evaluated by Dr. 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 The plan is for palliative radiation treatments to the neck. He will need to keep the tracheostomy tube in place. No plans to remove it at this point. He continues to maintain good O2 saturations in the mid 90s on 35% trach collar. He has no pulmonary complaints. He will remain on DuoNeb inhalations. We'll discontinue the Augmentin. Creatinine 0.62. He remains nourished via PEG tube feedings. Objective - Vital Signs Vital signs: Vital Signs Temp 97.4 F L 11/05/17 03:51 Pulse 78 11/05/17 09:33 Resp 18 11/05/17 03:53 BP 129/62 11/05/17 03:51 Pulse Ox 95 11/05/17 03:51 Intake & Output 11/04/17 11/05/17 11/05/17 18:59 06:59 18:59 Intake Total 860 840 Output Total 280 950 Balance 580 -110 Weight 80 kg Intake: IV 20 Invasive Line 7 20 Tube Feeding 840 840 Output: Urine 950 Stool 280 Other: Voiding Method Indwelling Catheter Indwelling Catheter # Voids 1 # Bowel Movements 1 ABP, PAP, CO, CI - Last Documented Arterial Blood Pressure 129/59 - Exam Physical exam revealed an 82-year-old white male on trach collar, in no distress. Head exam was generally normal. There was no scleral icterus or corneal arcus. Mucous membranes were moist. Neck was supple and without jugular venous distension, thyromegaly, or carotid bruits. Carotids were easily palpable bilaterally. Tracheotomy tube secured in place Lungs sounds are diminished at the bases, no rhonchi and no wheezes. Cardiac exam revealed the PMI to be normally situated and sized. Irregular irregular rhythm, Normal S1 and S2, no S3 gallop. No murmur. Abdominal exam revealed soft nontender no megaly no rebound, positive bowel sounds. PEG tube exit site is clean and dry. Examination of the extremities revealed no clubbing, edema or cyanosis. Examination of the skin revealed no evidence of significant rashes, no erythema. Neurologically awake and alert and there is no focal neurological deficit. - Labs CBC & Chem 7: 11/03/17 07:05 11/05/17 05:29 Labs: Abnormal Lab Results - Last 24 Hours (Table) 11/04/17 11/04/17 11/04/17 Range/Units 11:33 17:51 23:05 Chloride (98-107) mmol/L BUN (9-20) mg/dL Creatinine (0.66-1.25) mg/dL Glucose (74-99) mg/dL POC Glucose (mg/dL) 147 H 171 H 166 H (75-99) mg/dL Calcium (8.4-10.2) mg/dL 11/05/17 11/05/17 Range/Units 05:29 05:56 Chloride 110 H (98-107) mmol/L BUN 33 H (9-20) mg/dL Creatinine 0.62 L (0.66-1.25) mg/dL Glucose 169 H (74-99) mg/dL POC Glucose (mg/dL) 192 H (75-99) mg/dL Calcium 10.6 H (8.4-10.2) mg/dL Microbiology - Last 24 Hours (Table) 11/04/17 02:30 Stool Culture - Preliminary Stool Assessment and Plan Assessment: Impression: 1 squamous cell carcinoma of the larynx, 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 The patient has an obstructive mass in his upper airway requiring a tracheostomy tube insertion and the patient has a Shiley tracheostomy tube nonfenestrated #8. No respiratory distress and the patient's primary status is stable for now. Tracheostomy tube is to remain in place. 2 prostate cancer 3 coronary artery disease previous bypass surgery 4 acute kidney injury, improving 5 hypercalcemia, improving 6 prostate cancer 7 atrial fibrillation, paroxysmal. 8 acute urinary retention and the patient has a Kenny catheter in place 9 hypertension 10 hypernatremia and free water deficit, recovered 11 failed swallow evaluation/barium swallow, PEG tube placed 10/24/2017 Recommendation: The patient was seen and evaluated by Dr. Woods. We will discontinue Augmentin. He is cleared for discharge from the pulmonary standpoint. Continue with DuoNeb inhalations. Continue trach care. I, the cosigning physician, performed a history & physical examination of the patient. Lungs sounds have few scattered rhonchi, crackles in the posterior bases more so on the left Maintaining good O2 saturations in the 90s on 35% trach collar. I discussed the assessment and plan of care with my nurse practitioner, Anabel Vyas. I attest to the above note as dictated by her.
[2017-11-05] MEDS: AMOXIC-POT CLAV 600-42.9MG/5ML 75 ML BOTTLE PO SCH ×2 (11:18→21:22)
[2017-11-05] MEDS: BESIFLOXACIN HCL LEFT EYE SCH ×3 (11:18→22:21)
[2017-11-05] MEDS: FLUTAMIDE PO SCH ×2 (11:18→21:53)
[2017-11-05 12:04] LABS: Glucose,Whole Blood 146 mg/dL (75-99)
[2017-11-05] MEDS: MULTIVITAMINS, THERA 1 EACH TAB PO SCH (12:35)
[2017-11-05] MEDS: NEPAFENAC LEFT EYE SCH (12:35)
[2017-11-05 18:08] LABS: Glucose,Whole Blood 174 mg/dL (75-99)
[2017-11-05] MEDS: CHOLESTYRAMINE (WITH SUGAR) 4 GM PACKET PO SCH (18:14)
--- NOTE | 2017-11-05 18:40 | PN ---
PROGRESS NOTE DATE OF SERVICE: 11/05/2017. ATTENDING PHYSICIAN: Dr. Lane. The patient is 82 years old, single. Date of 1935, room #661, bed 1. NEW DATA: He is 6 feet height, weight 80 kg and BSA 2.02 m2, BMI 23.9 kg/m2. ALLERGY: To ACETAMINOPHEN and also allergy to BICALUTAMIDE, MELOXICAM and more. The patient seen today, evaluated and the result of the biopsy of the right ribs, indicating squamous cell carcinoma from the metastasis from the laryngeal cancer. He has also elevated PSA from prostate with the 2nd cancer, but we have no knowledge if it is metastatic or not. Currently, the patient seen, evaluated. He is conscious, alert, oriented. He is stable general condition. We found his vital signs indicating that temperature 98.6 and pulse 65 and respiratory rate was 18. He is on tracheostomy and oxygen with a neck collar. His pulse rate 95, and he is in sinus rhythm. His blood pressure was fluctuating between 136/64 in the morning and in the evening it started to ascend up to 162/69 with a mean 100. On the laboratories was indicating that his diabetes mellitus is fairly well controlled. His sodium today 143, potassium 4.4 and chloride 110, carbon dioxide 29, anion gap 4. His BUN is 33 and creatinine is 0.62. His estimated glomerular filtration rate more than 94 non-. Today his calcium is 10.6, still abnormal. On the review, Dr. Woods's group has seen the patient and dictated by his nurse practitioner, Anabel Vyas for Dr. Woods, and his conclusion that their impression is squamous cell carcinoma of the larynx with metastasis, prostate cancer, coronary artery disease with history of previous bypass graft, history of acute kidney injury, but currently is normal, that is not changed in their note, and hypercalcemia which is the same, fluctuating, which has been also found that he had hyperparathyroidism and could be from the squamous cell carcinoma versus hyperparathyroidism. We will be doing a parathyroid hormone-related protein for clarifying that issue; meanwhile, consulting Nephrology for evaluation as well as treatment of hypercalcemia. He has paroxysmal atrial fibrillation. Currently, he is now in sinus rhythm and he is in the rate of 60- 80 on the telemetry. He had retention of the urine and he is on Kenny catheter and he has a history of spinal stenosis and could not move and continued on the catheter. With the large tumor in the larynx, he failed swallow study and he is on PEG tube feeding and he had sequelae with severe diarrhea and we will be looking for starting him on other treatment. However, so far, still diarrhea; liquid, watery and we will repeat the C. difficile again to be sure that is not acquired and meanwhile, we are going to check if we can add to his regimen to forming up his stool. The oncology group did see him off and oncology group nurse practitioner Keyla Ratliff did see him today and with her conclusion at this time that squamous cell carcinoma and hypercalcemia of malignancy, which also the PTH is elevated, we are unclear at this point, he had acute neoplasm and he had prostatic cancer. However, we have no decision from Dr. Campa, the oncologist/assistant editor, for what the next step and I did talk to the nurse shortly and she stated that they are trying to see [facility] and he can have palliative radiation therapy on the neck and we will be hopeful that we have a note from Dr. Campa all to clarify his plan of care for the patient with the underlying double cancer. So far, they told me that they are looking for the placement; however, the patient had a new finding that his PTH is elevated at 189.9, and we will ask Dr. Wynne may be able to help us for that issue as well as I did order protein correction, parathyroid hormone, protein related for evidence if it came from the cancer or came from the parathyroid and if he has any opinion to address these points. We did consult Dr. Devika Monique; however, she is out of town and she will not be back until next weekend and the patient probably will be discharged before then. For this reason, we will see what is opinion of Dr. Wynne or Dr. Echeverria in this matter. PHYSICAL EXAMINATION: Today, patient is conscious, alert. He has no specific complaints. His HEENT was negative. He is suctioned with the accumulation of secretions in the oropharynx. He had the tracheostomy tube and there is no for further action on the tracheostomy tube with the color and oxygen. No action from the ENT or the Pulmonary and Critical Care. The lungs were aerated bilaterally and no wheezes, no rhonchi today and he sometimes gets rhonchi and he has updraft inhalation. The heart is currently stable with sinus rhythm and no atrial fibrillation with the current treatment. The abdomen is soft. He had a PEG tube in place infusing the feeding. EXTREMITIES: No edema and positive pulses. The patient is awake, alert, oriented. I did discuss with him. His hearing is normal and he is able to hear me very clearly and we discussed the plan ofcare and I told him that about the underlying parathyroid elevation with the possibility from the tumor versus the gland, it depends on the assessment. The patient currently improving gradually; however, there is still continuing the medical problem with the further extended care and palliative radiation therapy with a 2 malignancies and with metastasis from the squamous cell carcinoma of the larynx as well as the presence of the new of hyperparathyroidism with unclear where it is from with the associated hypercalcemia and the currently normal renal function. We will be checking with Nephrology and see what his opinion on this matter. MMODL / IJN: [id number] /
[2017-11-05] MEDS: ATORVASTATIN 40 MG TAB PO SCH (21:22)
[2017-11-05] MEDS: LISINOPRIL 2.5 MG TAB PO SCH (21:23)
[2017-11-05 23:59] LABS: Glucose,Whole Blood 148 mg/dL (75-99)
[2017-11-06] MEDS: INSULIN ASPART 100 UNIT/ML 1 ML 10 ML VIAL SQ SCH ×5 (00:10→23:51)
[2017-11-06] MEDS: traMADol 50 MG TAB PO PRN ×2 (03:52→22:47)
[2017-11-06 06:13] LABS: Glucose,Whole Blood 203 mg/dL (75-99)
[2017-11-06] MEDS: SIMETHICONE 40 MG/0.6 ML DROPS 2,000 MG/30 ML BOTTLE PO PRN ×3 (06:39→20:05)
[2017-11-06 07:15] LABS: Ionized Calcium 6.1 mg/dL (4.5-5.3)
[2017-11-06 07:17] LABS: Anion Gap 4 mmol/L; Blood Urea Nitrogen 28 mg/dL (9-20); Carbon Dioxide 26 mmol/L (22-30); Chloride 110 mmol/L (98-107); Glucose 192 mg/dL (74-99); Potassium 4.7 mmol/L (3.5-5.1); Sodium 140 mmol/L (137-145)
[2017-11-06] MEDS: BESIFLOXACIN HCL LEFT EYE SCH ×3 (08:59→19:53)
[2017-11-06] MEDS: FLUTAMIDE PO SCH ×2 (09:00→19:53)
[2017-11-06] MEDS: NEPAFENAC LEFT EYE SCH (09:00)
[2017-11-06] MEDS: DEXAMETHASONE SOD PHOSPHATE 4 MG/ML 1 ML VIAL IV SCH ×2 (09:02→20:05)
[2017-11-06] MEDS: PANTOPRAZOLE 40 MG/10 ML VIAL IVP SCH (09:03)
[2017-11-06] MEDS: MULTIVITAMINS, THERA 1 EACH TAB PO SCH (09:03)
[2017-11-06] MEDS: Difluprednate [Durezol] 1 DROP LEFT EYE SCH ×3 (09:03→20:18)
[2017-11-06] MEDS: METOPROLOL TARTRATE 50 MG TAB PO SCH ×2 (09:03→20:04)
[2017-11-06] MEDS: ARTIFICIAL TEARS-HYPROMELLOSE DROPS 15 ML BTL BOTH EYES PRN (09:04)
[2017-11-06] MEDS: DICLOFENAC SODIUM GEL 100 GM TUBE TOPICAL SCH ×4 (09:04→20:06)
[2017-11-06] MEDS: CHOLESTYRAMINE (WITH SUGAR) 4 GM PACKET PO SCH ×2 (09:04→17:03)
[2017-11-06] MEDS: MAG HYDROX/AL HYDROX/SIMETH 30 ML CUP PO SCH ×6 (09:10→21:31)
[2017-11-06] MEDS: DILTIAZEM ORAL 30 MG TAB PO SCH ×3 (09:10→20:05)
[2017-11-06] MEDS: IPRATROPIUM-ALBUTEROL 3 ML NEB INHALATION SCH ×4 (11:12→20:34)
[2017-11-06 11:24] LABS: Glucose,Whole Blood 178 mg/dL (75-99)
[2017-11-06] MEDS: CINACALCET 30 MG TAB PO SCH (12:55)
--- NOTE | 2017-11-06 12:55 | P.PN ---
Subjective Progress Note Date: 11/06/17 Principal diagnosis: Acute hypoxic respiratory failure secondary to COPD, left lower lobe pneumonia, vocal cord mass, stridor The patient is seen again today 11/05/2017 in follow-up on the selective care unit. He is currently resting comfortably in bed. He is awake and alert in no acute distress. He was seen and evaluated by Dr. 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 The plan is for palliative radiation treatments to the neck. He will need to keep the tracheostomy tube in place. No plans to remove it at this point. He continues to maintain good O2 saturations in the mid 90s on 35% trach collar. He has no pulmonary complaints. He will remain on DuoNeb inhalations. We'll discontinue the Augmentin. Creatinine 0.62. He remains nourished via PEG tube feedings. Patient is seen again today 11/06/2017 in follow-up on the selective care unit. He remains awake and alert in no acute distress. He has no pulmonary complaints currently. Continues to maintain good O2 saturations in the 90s on 35% trach collar. He remains afebrile. Creatinine 0.59. Discharge planning is in place. Social work is attempting to find a an ECF that can accept the patient Objective - Vital Signs Vital signs: Vital Signs Temp 96.9 F L 11/06/17 08:00 Pulse 80 11/06/17 11:36 Resp 16 11/06/17 08:00 BP 134/60 11/06/17 08:00 Pulse Ox 96 11/06/17 08:00 Intake & Output 11/05/17 11/06/17 11/06/17 18:59 06:59 18:59 Intake Total 840 840 280 Output Total 140 1500 140 Balance 700 -660 140 Weight 86 kg Intake: Tube Feeding 840 840 280 Output: Urine 1500 Uretheral (Kenny) 350 Stool 140 140 Other: Voiding Method Indwelling Catheter Indwelling Catheter Indwelling Catheter # Bowel Movements 2 ABP, PAP, CO, CI - Last Documented Arterial Blood Pressure 129/59 - Exam Physical exam revealed an 82-year-old white male on trach collar, in no distress. Head exam was generally normal. There was no scleral icterus or corneal arcus. Mucous membranes were moist. Neck was supple and without jugular venous distension, thyromegaly, or carotid bruits. Carotids were easily palpable bilaterally. Tracheotomy tube secured in place Lungs sounds are diminished at the bases, no rhonchi and no wheezes. Cardiac exam revealed the PMI to be normally situated and sized. Irregular irregular rhythm, Normal S1 and S2, no S3 gallop. No murmur. Abdominal exam revealed soft nontender no megaly no rebound, positive bowel sounds. PEG tube exit site is clean and dry. Examination of the extremities revealed no clubbing, edema or cyanosis. Examination of the skin revealed no evidence of significant rashes, no erythema. Neurologically awake and alert and there is no focal neurological deficit. - Labs CBC & Chem 7: 11/03/17 07:05 11/06/17 06:15 Labs: Abnormal Lab Results - Last 24 Hours (Table) 11/05/17 11/05/17 11/06/17 Range/Units 18:06 23:57 06:11 Chloride (98-107) mmol/L BUN (9-20) mg/dL Creatinine (0.66-1.25) mg/dL Glucose (74-99) mg/dL POC Glucose (mg/dL) 174 H 148 H 203 H (75-99) mg/dL Ionized Calcium Meseret (4.5-5.3) mg/dL 11/06/17 11/06/17 Range/Units 06:15 11:23 Chloride 110 H (98-107) mmol/L BUN 28 H (9-20) mg/dL Creatinine 0.59 L (0.66-1.25) mg/dL Glucose 192 H (74-99) mg/dL POC Glucose (mg/dL) 178 H (75-99) mg/dL Ionized Calcium Meseret 6.1 H* (4.5-5.3) mg/dL Microbiology - Last 24 Hours (Table) 11/05/17 17:30 Stool Culture - Preliminary Stool Assessment and Plan Assessment: Impression: 1 squamous cell carcinoma of the larynx, 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 The patient has an obstructive mass in his upper airway requiring a tracheostomy tube insertion and the patient has a Shiley tracheostomy tube nonfenestrated #8. No respiratory distress and the patient's primary status is stable for now. Tracheostomy tube is to remain in place. 2 prostate cancer 3 coronary artery disease previous bypass surgery 4 acute kidney injury, improving 5 hypercalcemia, improving 6 prostate cancer 7 atrial fibrillation, paroxysmal. 8 acute urinary retention and the patient has a Kenny catheter in place 9 hypertension 10 hypernatremia and free water deficit, recovered 11 failed swallow evaluation/barium swallow, PEG tube placed 10/24/2017 Recommendation: The patient was seen and evaluated by Dr. Woods. Continue with DuoNeb inhalations. Continue trach care. Social work is involved trying to find an extended care facility that can accept the patient. I, the cosigning physician, performed a history & physical examination of the patient. Lungs sounds have few scattered rhonchi, crackles in the posterior bases more so on the left Maintaining good O2 saturations in the 90s on 35% trach collar. I discussed the assessment and plan of care with my nurse practitioner, Anabel Vyas. I attest to the above note as dictated by her.
[2017-11-06] MEDS: AMOXIC-POT CLAV 600-42.9MG/5ML 75 ML BOTTLE PO SCH (16:02)
[2017-11-06] MEDS: LOPERAMIDE 2 MG CAP PEJ/J-Tube PRN (16:11)
[2017-11-06 16:25] LABS: Glucose,Whole Blood 160 mg/dL (75-99)
--- NOTE | 2017-11-06 17:23 | PN ---
PROGRESS NOTE DATE OF SERVICE: 11/06/2017. ATTENDING PHYSICIAN: Dr. Lane The patient is seen today, evaluated. He is 82 years old white male, single. Patient is seen today and evaluated, discussed with Samantha, his nurse. Currently, the patient had complained that the physical therapy did put him for 3 hours in sitting in the bed and then they moved him to the chair and then he complained and they brought him back to the bed and I did discuss it with the nurse and to reach the physical therapy and to be treated simply more of gently with his multiple medical problems. Today, his vital sign is indicating that temperature 96.6 axillary, pulse rate 62 and respiratory rate 16, and his blood pressure 134/60 with a mean of 84, and his saturation 96%. He had trach collar as respiratory flow is 6-8 intermittently. The patient has a history of mass in the larynx, found to be squamous cell carcinoma and metastasis to the right upper rib of the chest wall and found biopsy it is squamous cell carcinoma. He also has history of prostate cancer with elevated PSA to 50 with the possibility of recurrence. He had a spinal stenosis, severe. He had macerations of the buttocks from his loose bowel and he had a Kenny catheter due to his urine retention as well as incontinent and is draining at this time, and also will increase his problem of the gluteal area and to avoid the decubitus. As the dictation of the several consulting and their PAs and apparently Dr. Woods cleared the patient to go to any close by fci for the possibility of palliative radiation on the laryngeal area. The oncology had the same perspective as they will do the treatment as outpatient. Otherwise the Cardiology cleared him with the currently sinus rhythm. The demand planner and the social service assistant has been contacting several fci for approval of the transfer. However, it is my understanding from Samantha, the RN, that they denied the admission in [facility] as well as the [facility] and they will be contacting the [facility] if they accept the patient. Supposedly the underlying chemotherapy, which she is not at this time advocated by the oncology and the cost for the chemo and for that purpose, I told the nurse to discuss it again with the demand planner that the patient will not be on chemo only post radiation and radiation therapy will not be started immediately, it will start at least after healing, which takes about 4-6 weeks for the tracheostomy. So far, we do not have any luck for the patient to be transferred. He had also inability to swallow due to the tumor and he had a PEG tube feeding and he had significant diarrhea and we are starting him on medication cholestyramine twice a day and hopefully it will work. He refused after a trial of fecal management with the tube placement. He refused it after they removed it out and he did not want to have it again. He has inability to ambulate with history of spinal stenosis, severe on the low back as well. His atrial fibrillation now is controlled with the current medication. On the examination today, vital signs were stable and his last chemistry indicating sodium 140, potassium 4.7, chloride 110, carbon dioxide 26 and anion gap of 4 and BUN of 28 and creatinine 0.59 with the estimated glomerular filtration rate for non- more than 90 with the blood sugar is 192, and he is on insulin to scale. The patient also had hypercalcemia and with the total calcium was normal at 10. Ionized calcium is 6.1 which indicating that his hypercalcemia and we found that as well that his hyperparathyroidism primary and associated with hypercalcemia, his PTH was 189.9. For that purposes, we consulted the immigration consultant, however, she is out of town and then we consult the Nephrology, Dr. Echeverria and she put him on CellCept 30 mg once a day. Meanwhile, we obtained the blood test for PTH related protein to see if it is current from the squamous cell carcinoma versus the parathyroid hormone. On examination today, patient is conscious, alert, oriented, and he is using the note pad that he can write with it and he can write his question and answers but he is hearing well and he is able to communicate. He was a little frustrated because of the rehabilitation and sitting on the chair. The neck was supple and he had the tracheal collar with the tracheostomy tube. His chest is clear to auscultation and percussion and he had in his hand suction for oropharynx for his salivary gland and the saliva, sometimes feeling of choking to him. His lungs are clear. The heart was in regular sinus rhythm with no evidence of irregularities and compensated. The abdomen is soft, obese, positive bowel sounds. He had the PEG tube in the upper abdomen. Extremities: He had a thrombotic stocking as well and is able to move his toes. No evidence of a stroke. ASSESSMENT: 1. He was admitted with acute hypoxic respiratory failure secondary to chronic obstructive pulmonary disease. 2. Left lower lobe pneumonia. 3. Vocal cord masses with stridor and found to be subsequently squamous cell carcinoma with the surgical tracheostomy placed with Dr. sTe seeing the patient, ENT. Also subsequently found the presence of high prostate level, 50, with a history in the past of carcinoma of the prostate, recurrent. 4. He has also metastasis to the ribs and biopsy indicating metastasis squamous cell carcinoma from the underlying laryngeal cancer. 5. Underlying acute kidney injury which is resolved and recovery for the kidney. He has history of atrial fibrillation, but currently it is sinus. 6. He has also history of coronary artery disease with a history of bypass graft in the past. 7. He has a history of hypertension and hypotension, and currently he is normotensive. 8. History of hypernatremia and free water deficit is recovered completely from that. 9. He has difficulty of swallowing with the underlying tumor mass in the oropharyngeal area and he has a PEG tube placed by Dr. Garcia. He is cleared from the Critical Care, Dr. Woods, with his DIRECTOR OF MARKET ANALYSIS-C, nurse practitioner Anabel Vyas. From the regard of the oncology patient seen yesterday by the oncology nurse practitioner, Alba Ratliff and discussion was the same from the Oncology attending that she stated that the case will be discussed with the radiation oncologist with potential systemic treatment with chemotherapy and immunotherapy was discussed. However, we do not have any clarification on that, when it will be. However, they recommended currently is palliative care and rehabilitation. We are requesting from Dr. Campa to clarify the issue of the treatment because the fci picked up the word chemotherapy and they did not want to accept the patient if he can have chemotherapy and we need clarification of the treatment exactly from what is the plan in steps and which is first and which is second as well as we when it will be started. We will be requesting that as well. The patient otherwise is stable general condition waiting for placement in a fci and the future plan for off radiation or according to the recommendation of the oncologist and we would like to have the oncologist's recommendation, not the PA recommendation. Thank you. MIO / JOSH: [id number] /
--- NOTE | 2017-11-06 19:59 | CONS ---
CONSULTATION REASON FOR CONSULTATION: Hypercalcemia. HISTORY OF PRESENT ILLNESS: The patient is an 82-year-old male who has been in the hospital for quite some time now. He has underlying squamous cell cancer of the larynx and prostatic cancer as well with evidence of bony metastasis. Patient has a tracheostomy. Currently stable from respiratory standpoint. Patient was noticed to have a serum calcium of 12.6 on initial admission on 10/18/2017. His PTH is elevated at 189.9 from labs on 11/03/2017. At that time calcium was 11.7. Therefore this is definitely significantly elevated for the hypercalcemia. Patient has been on IV fluids on and off. Currently he is not on any fluids. His serum creatinine is 0.59 and he has had good urine output. PAST MEDICAL HISTORY: 1. Squamous cell cancer. 2. Prostatic cancer. 3. Bony metastasis. 4. Atrial fibrillation. 5. Hyperlipidemia. 6. Hypertension. 7. Coronary artery disease with history of MO. 8. Osteoarthritis. 9. Anemia. 10.Gastroesophageal reflux disease. 11.Skin cancer. 12.Osteoarthritis. 13.Neuropathy. PAST SURGICAL HISTORY: 1. Appendectomy. 2. Coronary artery bypass surgery. 3. Cardiac catheterization. 4. Coronary stent placement. 5. Tonsillectomy. 6. Wrist surgery. 7. Right hand lipoma removal. 8. Sclerosing hemangioma excised from the chest. 9. Left cataract surgery. SOCIAL HISTORY: Patient is a former smoker. No history of drug abuse or alcohol abuse. MEDICATIONS PRIOR TO ADMISSION: 1. Lipitor. 2. Tenormin. 3. Colace. 4. Zetia. 5. Lasix. 6. Aspirin. 7. Zestril. 8. Zyrtec. 9. Ultram. 10.Uroxatral. ALLERGIES: Multiple. They include: 1. TYLENOL. 2. CASODEX. 3. MOBIC. 4. SULFA. 5. MORPHINE. Most of them cause rash and hives. Morphine caused nausea and vomiting. REVIEW OF SYSTEMS: As per HPI. Other systems negative. PHYSICAL EXAMINATION: Patient is currently comfortable, awake. He is not in any acute distress. Blood pressure this morning was 134/60, heart rate 80 per minute. He is afebrile. EXAMINATION OF THE HEART: S1, S2. EXAMINATION OF LUNGS: Bilateral breath sounds are heard. Patient has a tracheostomy. ABDOMEN: Soft, non-tender. Examination of lower extremities shows no significant edema. ENDOCRINOLOGY NURSE exam is grossly intact. LABS: Sodium 140, potassium 4.7, chloride 110, BUN 28, serum creatinine 0.59. Calcium today is 10.0, ionized calcium 6.1. ASSESSMENT: 1. 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 I will start the patient on Sensipar. We can do a nuclear scan to rule out any specifically highlighted parathyroid glands. Definitely at this time patient is not a candidate for surgery. We can easily control the hypercalcemia with Sensipar. Normally if it is hypercalcemia of malignancy, the intact PTH level is significantly low and there is elevated parathyroid hormone-related protein. 2. Squamous cell cancer of the larynx, currently with a tracheostomy. 3. History of prostatic cancer. 4. Underlying chronic obstructive pulmonary disease, currently stable. 5. Atrial fibrillation with controlled ventricular response. 6. Respiratory failure this admission, currently stable. Patient has a tracheostomy tube in place. 7. Urine retention, currently with indwelling Kenny catheter and good urine output. PLAN: Start Sensipar 30 mg daily. We can check a parathyroid hormone-related protein; however, I doubt this is hypercalcemia of malignancy, as the PTH would be low. We can also check a nuclear scan of the parathyroid glands; however, patient is not a candidate for surgery, and at this time the Sensipar should suffice. Thank you for this consultation. Will continue to follow the patient with you during his hospitalization. MMODL / IJN: [id number] /
[2017-11-06] MEDS: ATORVASTATIN 40 MG TAB PO SCH (20:04)
[2017-11-06] MEDS: LISINOPRIL 2.5 MG TAB PO SCH (20:04)
[2017-11-06 23:38] LABS: Glucose,Whole Blood 159 mg/dL (75-99)
[2017-11-07] MEDS: ONDANSETRON 4 MG/2 ML VIAL IVP PRN ×2 (02:36→09:15)
[2017-11-07 06:03] LABS: Glucose,Whole Blood 139 mg/dL (75-99)
[2017-11-07] MEDS: INSULIN ASPART 100 UNIT/ML 1 ML 10 ML VIAL SQ SCH ×3 (06:07→16:39)
[2017-11-07] MEDS: IPRATROPIUM-ALBUTEROL 3 ML NEB INHALATION SCH ×4 (09:04→20:27)
[2017-11-07] MEDS: PANTOPRAZOLE 40 MG/10 ML VIAL IVP SCH (09:15)
[2017-11-07] MEDS: traMADol 50 MG TAB PO PRN ×2 (09:15→20:35)
[2017-11-07 11:40] LABS: Glucose,Whole Blood 132 mg/dL (75-99)
[2017-11-07] MEDS: MAG HYDROX/AL HYDROX/SIMETH 30 ML CUP PO SCH ×4 (12:37→21:28)
[2017-11-07] MEDS ORDERED: HYDROmorphone 1 MG/ML 1 ML SYRINGE IVP STA (12:38)
[2017-11-07] MEDS: NEPAFENAC LEFT EYE SCH (13:11)
[2017-11-07] MEDS: BESIFLOXACIN HCL LEFT EYE SCH ×3 (13:11→20:37)
[2017-11-07] MEDS: DICLOFENAC SODIUM GEL 100 GM TUBE TOPICAL SCH ×3 (13:14→20:48)
[2017-11-07] MEDS: FLUTAMIDE PO SCH ×2 (13:15→20:37)
[2017-11-07] MEDS: METOPROLOL TARTRATE 50 MG TAB PO SCH ×2 (13:21→20:33)
[2017-11-07] MEDS: MULTIVITAMINS, THERA 1 EACH TAB PO SCH (13:21)
[2017-11-07] MEDS: Difluprednate [Durezol] 1 DROP LEFT EYE SCH ×2 (13:21→20:37)
[2017-11-07] MEDS: CHOLESTYRAMINE (WITH SUGAR) 4 GM PACKET PO SCH ×2 (13:21→17:08)
[2017-11-07] MEDS: DEXAMETHASONE SOD PHOSPHATE 4 MG/ML 1 ML VIAL IV SCH ×2 (13:22→20:33)
[2017-11-07] MEDS: CINACALCET 30 MG TAB PO SCH (13:28)
[2017-11-07] MEDS: DILTIAZEM ORAL 30 MG TAB PO SCH ×3 (13:31→20:35)
--- NOTE | 2017-11-07 16:18 | P.PN ---
Subjective Progress Note Date: 11/07/17 The patient does not appear to be in any acute distress. He is comfortable on trach mask. He is tolerating tube feeds well. He indicated that his bowels are regular. He denies any significant pain at this time. Objective - Vital Signs Vital signs: Vital Signs Temp 97.4 F L 11/07/17 04:00 Pulse 68 11/07/17 15:50 Resp 16 11/07/17 04:00 BP 159/67 11/07/17 04:00 Pulse Ox 94 L 11/07/17 04:00 Intake & Output 11/06/17 11/07/17 11/07/17 18:59 06:59 18:59 Intake Total 840 630 Output Total 420 1550 750 Balance 420 -920 -750 Weight 80.5 kg 80.5 kg Intake: Tube Feeding 840 630 Output: Urine 1550 750 Stool 420 0 Other: Voiding Method Indwelling Catheter Indwelling Catheter # Bowel Movements 2 2 ABP, PAP, CO, CI - Last Documented Arterial Blood Pressure 129/59 - Constitutional General appearance: Present: no acute distress - EENT EENT Comment(s): Tracheostomy in situ Eyes: Present: EOMI ENT: Present: hearing grossly normal, normal oropharynx - Respiratory Respiratory: bilateral: CTA - Cardiovascular Rhythm: regular Heart sounds: normal: S1, S2 - Gastrointestinal Gastrointestinal Comment(s): PEG tube in site General gastrointestinal: Present: normal bowel sounds, soft - Integumentary Integumentary: Present: normal - Neurologic Neurologic: Present: CNII-XII intact - Musculoskeletal Musculoskeletal: Present: generalized weakness, strength equal bilaterally - Psychiatric Psychiatric: Present: A&O x's 3 - Labs CBC & Chem 7: 11/03/17 07:05 11/06/17 06:15 Labs: Abnormal Lab Results - Last 24 Hours (Table) 11/06/17 11/06/17 11/07/17 Range/Units 16:15 23:36 06:02 POC Glucose (mg/dL) 160 H 159 H 139 H (75-99) mg/dL 11/07/17 Range/Units 11:37 POC Glucose (mg/dL) 132 H (75-99) mg/dL Microbiology - Last 24 Hours (Table) 11/04/17 02:30 Stool Culture - Final Stool Assessment and Plan (1) Squamous cell carcinoma of larynx Narrative/Plan: The patient has biopsy-proven stage IV disease. He has been advised that his cancer is not curable and the objective of treatment as prolonged resolution of life and palliation of symptoms. The first step in his treatment is to be palliative radiation to the primary site. The case was discussed with radiation oncology, as well as the primary service today. He is to start radiation on 11/10/17. At this time is not felt to require radiation to the right chest wall lesion, as he has no pain in that area. He will get 10 fractions. He was then be assessed in the office to see if his performance status is adequate enough for him to receive systemic chemotherapy. At this time placement continues to be an issue. Discharge planning is in progress Current Visit: Yes Status: Acute Priority: High Code(s): C32.9 - MALIGNANT NEOPLASM OF LARYNX, UNSPECIFIED SNOMED Code(s): 127472729 (2) History of prostate cancer Narrative/Plan: There has been an increase in his PSA from baseline, which is concerning for progression. This will need to be monitored with potential change of therapy if needed Current Visit: No Status: Chronic Priority: High Code(s): Z85.46 - PERSONAL HISTORY OF MALIGNANT NEOPLASM OF PROSTATE SNOMED Code(s): 183732804 Plan: Defer to the admitting service and other consultants for management of his multiple other medical problems
[2017-11-07 16:32] LABS: Glucose,Whole Blood 127 mg/dL (75-99)
[2017-11-07] MEDS: HYDROmorphone 2 MG TAB PO PRN (17:16)
--- NOTE | 2017-11-07 19:27 | PN ---
PROGRESS NOTE DATE OF SERVICE: 11/07/2017 ATTENDING PHYSICIAN: Dr. Lane. Age [age] years old, white male, single. His room #661, bed 1. His data he is 6 feet height, weight 80 kg, BSA 2.02 m2, BMI 24.1 kg/m2. HIS ALLERGY IS ACETAMINOPHEN and BICALUTAMIDE, MELOXICAM AND ALSO SULFA ANTIBIOTIC AND MORPHINE. The patient seen today evaluated and date of service is November 07. He is awake, alert. He is feeling comfortable. No shortness of breath and no chest pain. However, he was complaining of the pain that he had mainly in the right wrist and he stated that he had a ganglion cyst was removed in the past, but at this time the nurse practitioner for the oncology did see the patient and she felt that he needed further pain control and she started him on Duragesic patch and he felt happy with that as the pain is fairly controlled and she stated in her note that they will be starting the palliative radiation to the primary site, which is the larynx started on probably Friday and they did see him in the her radiation therapy. I did not see any note from Dr. Campa all yet to clarify how that will be accepted in the residential. Actually, at this time, there is the issue of discharge and patient was not accepted in any of the nursing homes, [facility] or any other facility and had it close by to get the radiation therapy and which prolonged the hospital stay. Decided that he will be having radiation in the chest wall lesion that could be not needed at this time except if the pain arises. Currently the issue for disposition has been very difficult. 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 With the anticipation of the patient with metastatic cancer of the right ribs. I did discuss it also with Dr. Campa, however, he did not discuss it with the radiation therapy physician and we do not really know what is the clear plan and patient will be continuing in the hospital as there is no disposition planning. Otherwise, as patient is seen today, he is feeling much better. His vital signs indicating that his pulse rate in the 60s. There is no evidence of atrial fibrillation. His vital signs in the morning, indicating temperature 97.4, and pulse rate 67, respiratory rate 16 and his blood pressure 159/67 with the mean pressure 97. However, when I did see him in the evening today, his blood pressure down to the 90s. There is no really clear explanation for that except the patient receiving multiple medication and the nursing assistant who takes care of him Zabrina, did held the lisinopril and I did discuss with her today that if his blood pressure continued to drop below the 90, definitely they need to talk to the Cardiology to address the point. Otherwise, we will be suffering from acute kidney injury again. On the laboratory, his blood sugar has been fairly well controlled and we do not have any evidence of abnormalities. His renal function on November 06 was more than 90. He had elevated ionized calcium and I find out that he has primary hyperparathyroidism and we consulted the Nephrology, Dr. Echeverria, and she started him with the elevated the parathyroid hormone to almost 189.9, and at this time, he was started on Sensipar 30 cinacalcet, which is Sensipar and cinacalcet which is Sensipar 30 mg once daily as he has not candidate for any surgical therapy or testing for the parathyroid with the laryngeal cancer. The patient has a previous history of prostate cancer with elevated PSA and as well as he had severe COPD and he is on inhalation therapy. He also on cortical steroids 4 mg IV q.12 hours and Decadron and we will see from the Oncology if they will continue that or not, and he had on his arm 2 g 4 times a day, but he felt that is not helping. He is also on Cardizem 30 mg t.i.d. and a fentanyl patch, Duragesic every 72 hours, 25 mcg per 72 hour. They put him for hydromorphone, Dilaudid and which we did discontinue that in the past but the Oncology put it back again and he is on lisinopril and Imodium for diarrhea and his diarrhea is still continued, minimal improvement, but we will see tomorrow what the results. He has developing gas and he was taking tramadol, but he felt that tramadol is not helping him. PHYSICAL EXAMINATION: Patient is conscious, alert, oriented, and he writes in the notes because he could not communicate. He has a tracheostomy tube. His CHEST: Clear to auscultation and percussion and the heart was compensated. He had history of atrial fib but currently in sinus. ABDOMEN: Obese, positive bowel sound and he had a Kenny catheter in place with the underlying problem with urine retention and also severe excoriation on the buttocks area. He has as well as currently stable general condition. Still monitoring his blood pressure as well. The multiple medical problems and plan for discharge is vague unclear with the no beds available in any facility so far and they did not tell me any future planning. I did not have a clear plan for radiation. However, my understanding from the nursing staff is with radiation therapy next week, Friday to Friday for 2 weeks and we do not know if the patient will be staying in the hospital or return back to any facility. We will continue following the patient until Dr. Lane returns. MMHANS / STEFANN: [id number] /
[2017-11-07] MEDS: LISINOPRIL 2.5 MG TAB PO SCH (20:33)
[2017-11-07] MEDS: ATORVASTATIN 40 MG TAB PO SCH (20:33)
[2017-11-07 20:49] LABS: Glucose,Whole Blood 170 mg/dL (75-99)
[2017-11-08 00:10] LABS: Glucose,Whole Blood 196 mg/dL (75-99)
[2017-11-08] MEDS: INSULIN ASPART 100 UNIT/ML 1 ML 10 ML VIAL SQ SCH ×4 (01:02→17:24)
[2017-11-08] MEDS: HYDROmorphone 2 MG TAB PO PRN ×3 (01:10→17:28)
[2017-11-08] MEDS: traMADol 50 MG TAB PO PRN ×3 (06:14→22:54)
[2017-11-08 06:18] LABS: Glucose,Whole Blood 198 mg/dL (75-99)
[2017-11-08] MEDS: MAG HYDROX/AL HYDROX/SIMETH 30 ML CUP PO SCH ×4 (08:52→23:32)
[2017-11-08] MEDS: FLUTAMIDE PO SCH ×2 (08:54→22:52)
[2017-11-08] MEDS: Difluprednate [Durezol] 1 DROP LEFT EYE SCH ×2 (08:56→22:52)
[2017-11-08] MEDS: BESIFLOXACIN HCL LEFT EYE SCH ×3 (08:56→22:53)
[2017-11-08] MEDS: NEPAFENAC LEFT EYE SCH (08:56)
[2017-11-08] MEDS: DICLOFENAC SODIUM GEL 100 GM TUBE TOPICAL SCH ×4 (08:56→22:54)
[2017-11-08] MEDS: METOPROLOL TARTRATE 50 MG TAB PO SCH ×2 (08:57→22:53)
[2017-11-08] MEDS: PANTOPRAZOLE 40 MG/10 ML VIAL IVP SCH (08:57)
[2017-11-08] MEDS: DEXAMETHASONE SOD PHOSPHATE 4 MG/ML 1 ML VIAL IV SCH ×2 (08:57→22:51)
[2017-11-08] MEDS: CHOLESTYRAMINE (WITH SUGAR) 4 GM PACKET PO SCH ×2 (08:57→17:25)
[2017-11-08] MEDS: CINACALCET 30 MG TAB PO SCH (08:57)
[2017-11-08] MEDS: IPRATROPIUM-ALBUTEROL 3 ML NEB INHALATION SCH ×4 (08:59→21:19)
[2017-11-08] MEDS: DILTIAZEM ORAL 30 MG TAB PO SCH ×3 (10:55→23:32)
[2017-11-08] MEDS: MULTIVITAMINS, THERA 1 EACH TAB PO SCH (10:55)
[2017-11-08 10:58] LABS: Glucose,Whole Blood 156 mg/dL (75-99)
--- NOTE | 2017-11-08 15:37 | PN ---
PROGRESS NOTE DATE OF SERVICE: 11/08/2017. DATA: Height 6 feet. Weight 92.5 kg. BSA 2.15 m2. BMI 27.7 kg/m2.. ALLERGIES: 1. ACETAMINOPHEN causing rash/hives. 2. CASODEX; rash/hives. 3. MOBIC or MELOXICAM; unknown. 4. SULFA; itching. 5. MORPHINE; nausea and vomiting. The patient is seen today evaluated on the fifth floor. He is still having all his IV support, PEG tube feeding and IV fluid as well. His vital signs are pulse rate 72 to 66; no recurrence so far of atrial fibrillation. His blood pressure is 103/64 and his mean arterial pressure is 77. His respiratory rate is 18, heart rate 61. I could not see the blood pressure for today; however, earlier this morning his temperature was 97.5 and his blood pressure 158/69. The subsequent blood pressure is 103/64. The reason for that drop is unclear to me. LABS: Blood sugar has been fairly well maintained. So far no further laboratory data today have been obtained. The last time was on 11/07. He had hypercalcemia. We have a possibility of 2 etiologies. 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 His last chemistry was on 11/06/2017 and we will be obtaining another one tomorrow. Critical Care Dr. Woods has been signed . Cardiology signed out. Dr. Campa, Hematology/Oncology had the patient transferred down to their oncology floor for further palliative radiation therapy from Friday to Friday on the radiation therapy to the laryngeal cancer. He has metastatic squamous cell laryngeal cancer. He had metastasis to the right anterior ribs but is not having any pain, and they will not address that at this time. In the meantime, he has prostate cancer recurrence or exacerbation with the increased PSA to 50. That will not be addressed at this time by Oncology, but I did discuss it on Friday with Dr. Campa personally. He said we are just going to do palliative therapy and then he can go to the facility any time. However, we have an issue of the home health care social worker and equipment planner not being able to find a placement for him in a care home because of the for treatment, the radiation issue as well as the transportation and accommodating the patient. The insurance has been also refused by [facility] and [facility] and we do not have the word on [facility] or [facility] on the [place], because also of the association of sending him back and forth for the radiation, and the residents' exposure to his radiation. At this time patient is seen and evaluated. He is in stable general condition. VITAL SIGNS: We have the repeat of the blood pressure at 1337. It was 103/64 with a mean 77, on the lower side. However, it has been fluctuating. On questioning the patient, he has no specific complaints and he does not communicate. He just writes on the note pad. HEENT: Negative. He has a tracheostomy with a collar of oxygen and he is 95% on room air with no added oxygen. CHEST: Clear to auscultation and percussion. He had suction for the saliva to prevent aspiration. HEART: Regular sinus rhythm. ABDOMEN: Soft. Positive bowel sounds. EXTREMITIES: No edema. He has the thrombotic stockings. At this time, no further treatment will be done. In regard to medication for blood pressure, we will be reviewing it. Apparently the patient is on dexamethasone by Oncology, Decadron 4 mg q.12 hours. He has the pain in the wrist with a ganglion. He was on a cream ointment to be applied. He is on Cardizem 30 mg t.i.d. and apparently that may cause the low blood pressure. He has atrial fibrillation, and that is why Cardiology maintained him on Cardizem before. He is also on lisinopril 2.5 mg; we will put parameters on that. He is on metoprolol tartrate 50 mg twice a day. We will be addressing this if the blood pressure is below 90, when the medication would need to be held to avoid acute kidney injury with hypotension. Patient was placed on a Duragesic patch by the oncology nurse practitioner. ASSESSMENT: The patient currently is stable. His hypotension could be related to his medication. With the associated history of atrial fibrillation, we will not change it, but we will put a parameter on that. I will be seeing the patient tomorrow, and on Friday Dr. Lane will return back to service and he will supposedly take care of the patient subsequently. MMODL / IJN: [id number] /
[2017-11-08 17:14] LABS: Glucose,Whole Blood 174 mg/dL (75-99)
[2017-11-08] MEDS: ATORVASTATIN 40 MG TAB PO SCH (22:51)
[2017-11-08] MEDS: ARTIFICIAL TEARS-HYPROMELLOSE DROPS 15 ML BTL BOTH EYES PRN (22:52)
[2017-11-08] MEDS: LISINOPRIL 2.5 MG TAB PO SCH (22:53)
[2017-11-08 23:51] LABS: Glucose,Whole Blood 145 mg/dL (75-99)
[2017-11-09] MEDS: INSULIN ASPART 100 UNIT/ML 1 ML 10 ML VIAL SQ SCH ×4 (00:07→17:29)
[2017-11-09] MEDS: HYDROmorphone 2 MG TAB PO PRN ×4 (02:35→21:58)
[2017-11-09 06:11] LABS: Glucose,Whole Blood 197 mg/dL (75-99)
[2017-11-09] MEDS: traMADol 50 MG TAB PO PRN (06:17)
[2017-11-09] MEDS: IPRATROPIUM-ALBUTEROL 3 ML NEB INHALATION SCH ×4 (07:48→20:50)
[2017-11-09] MEDS: Difluprednate [Durezol] 1 DROP LEFT EYE SCH ×2 (08:45→21:44)
[2017-11-09] MEDS: CINACALCET 30 MG TAB PO SCH (08:48)
[2017-11-09] MEDS: DEXAMETHASONE SOD PHOSPHATE 4 MG/ML 1 ML VIAL IV SCH ×2 (08:48→21:44)
[2017-11-09] MEDS: BESIFLOXACIN HCL LEFT EYE SCH ×3 (08:48→22:02)
[2017-11-09] MEDS: DICLOFENAC SODIUM GEL 100 GM TUBE TOPICAL SCH ×4 (08:50→21:45)
[2017-11-09] MEDS: DILTIAZEM ORAL 30 MG TAB PO SCH ×3 (08:50→21:44)
[2017-11-09] MEDS: FLUTAMIDE PO SCH ×3 (08:50→21:47)
[2017-11-09] MEDS: CHOLESTYRAMINE (WITH SUGAR) 4 GM PACKET PO SCH ×2 (08:51→17:28)
[2017-11-09] MEDS: METOPROLOL TARTRATE 50 MG TAB PO SCH ×2 (08:51→21:44)
[2017-11-09] MEDS: PANTOPRAZOLE 40 MG/10 ML VIAL IVP SCH (08:51)
[2017-11-09] MEDS: NEPAFENAC LEFT EYE SCH (08:52)
[2017-11-09] MEDS: MAG HYDROX/AL HYDROX/SIMETH 30 ML CUP PO SCH ×4 (09:03→22:02)
[2017-11-09 11:15] LABS: Glucose,Whole Blood 141 mg/dL (75-99)
[2017-11-09] MEDS: MULTIVITAMINS, THERA 1 EACH TAB PO SCH (12:06)
--- NOTE | 2017-11-09 15:08 | PN ---
PROGRESS NOTE ATTENDING PHYSICIAN: Dr. Lane DATE OF SERVICE: 11/09/2017. DATA: 82-year-old, single, date of is 1935 and room number is 570 bed 1 on the oncology floor. NEW DATA: Height is 6 feet, weight is 90 kg, BSA is 2.12 m2. BMI 26.9 kg/m2. Patient is seen today, evaluated and he is with a tracheostomy tube due to the laryngeal cancer, which was found to be squamous cell carcinoma. He had also hypercalcemia, but also found that he had hyperparathyroidism primary as well and the patient is started on Sensipar by Dr. Echeverria. The patient today is awake, alert, oriented, has no specific complaint. His pain is fairly well controlled and he is waiting for the palliative care radiation therapy on his laryngeal cancer. He had a tracheostomy with collar, but he is on room air oxygen. On his examination, his vital signs indicating that he has heart rate with 60-68. He had a episodes of atrial fibrillation as he was in the groundwater monitoring technician bed and has been seen by the Cardiology who adjusted his medication and as well as added the medicine currently, the Cardizem as well as the beta blockers. Today his axillary temperature 94.7, his heart rate is 56, respiratory rate 18, nonlabored. His blood pressure 121/62 with a mean 81. His new result was he is diabetic and he is on insulin and he had POC glucose which was fairly well controlled with POC 141 and 145 and occasionally up to 197. He had stool culture because of the diarrhea and that was negative. No evidence of Salmonella, Shigella, or Campylobacter or E coli. He had also negative C difficile. The patient yesterday he had lower blood pressure and we discussed with the nurse to hold medication if blood pressure drop to avoid another attack of acute kidney injury and with the hypotension. Currently his blood pressure is stable. He had good urine output and his I and O indicating that he had negative 1200 balance on 11/08, however, is currently positive balance on 11/09. Blood culture was done on 10/18 with no growth, final stool culture was no growth and sputum culture was rare normal respiratory dieudonne. On the examination today, the patient is conscious, alert. He is oriented. He is able to hear and write on the pad, but he had a tracheostomy with dysphagia secondary to the squamous cell carcinoma of the larynx. He had a PEG tube placement with his inability to eat and he has perfusion with the feeding and we had diarrhea which is reported to be improved with the current added medication Questran. No complaint at this time. On the examination is the chest was clear to auscultation and percussion. He has in his hand he used the suction for the salivation of the oropharyngeal area and he had a tracheostomy in place and he had a Kenny catheter in place, connected with closed system and he has history of underlying spinal stenosis, urinary incontinent and he had excoriation of the nonstageable decubitus on the perineal area and he has Kenny catheter for drainage and avoid further skin abnormalities. His heart now is regular sinus rhythm and no evidence of congestive heart failure, and the abdomen was soft and positive bowel sounds. He has a PEG tube in place and no symptoms at this time. The extremities, no edema. Positive pulses. He has athrombotic stocking and with the SCDs inflatable. He also has medication which he uses the Artificial Tears. The pain is currently controlled after the nurse practitioner of the Oncology had started him on the fentanyl and he is currently happy with that. We put parameter on the lisinopril and the metoprolol for heart rate as well as the medication that was given originally per the Cardiology for controlling his heart rate. Dr. Echeverria ordered nuclear medicine for parathyroid with SPECT scan and we do not have that. It will not be done until probably tomorrow and that is for the primary hyperparathyroidism with the possible adenoma hyperactivity with the hypercalcemia. We will continue monitoring the patient and continuing the current treatment and the probability of Dr. Lane will be back next week and he will be taking care of the patient subsequently as will be transferred to his service again. MMODL / IJN: [id number] /
[2017-11-09 17:09] LABS: Glucose,Whole Blood 146 mg/dL (75-99)
[2017-11-09] MEDS: LISINOPRIL 2.5 MG TAB PO SCH (21:44)
[2017-11-09] MEDS: ATORVASTATIN 40 MG TAB PO SCH (21:44)
[2017-11-10 00:34] LABS: Glucose,Whole Blood 147 mg/dL (75-99)
[2017-11-10] MEDS: INSULIN ASPART 100 UNIT/ML 1 ML 10 ML VIAL SQ SCH ×4 (02:10→18:10)
[2017-11-10] MEDS: traMADol 50 MG TAB PO PRN ×4 (02:14→20:17)
[2017-11-10 06:09] LABS: Glucose,Whole Blood 188 mg/dL (75-99)
[2017-11-10] MEDS: HYDROmorphone 2 MG TAB PO PRN ×2 (06:11→17:18)
[2017-11-10] MEDS: Difluprednate [Durezol] 1 DROP LEFT EYE SCH ×2 (08:02→20:27)
[2017-11-10] MEDS: BESIFLOXACIN HCL LEFT EYE SCH ×3 (08:02→20:27)
[2017-11-10] MEDS: NEPAFENAC LEFT EYE SCH (08:02)
[2017-11-10] MEDS: FLUTAMIDE PO SCH ×2 (08:03→20:27)
[2017-11-10] MEDS: PANTOPRAZOLE 40 MG/10 ML VIAL IVP SCH (08:14)
[2017-11-10] MEDS: METOPROLOL TARTRATE 50 MG TAB PO SCH ×2 (08:15→20:17)
[2017-11-10] MEDS: DILTIAZEM ORAL 30 MG TAB PO SCH ×3 (08:15→20:17)
[2017-11-10] MEDS: DEXAMETHASONE SOD PHOSPHATE 4 MG/ML 1 ML VIAL IV SCH ×2 (08:15→20:17)
[2017-11-10] MEDS: DICLOFENAC SODIUM GEL 100 GM TUBE TOPICAL SCH ×4 (08:15→20:17)
[2017-11-10] MEDS: CINACALCET 30 MG TAB PO SCH (08:16)
[2017-11-10] MEDS: MAG HYDROX/AL HYDROX/SIMETH 30 ML CUP PO SCH ×5 (08:19→22:17)
[2017-11-10] MEDS: IPRATROPIUM-ALBUTEROL 3 ML NEB INHALATION SCH ×4 (08:42→20:37)
[2017-11-10] MEDS: MULTIVITAMINS, THERA 1 EACH TAB PO SCH (11:05)
[2017-11-10] MEDS: CHOLESTYRAMINE (WITH SUGAR) 4 GM PACKET PO SCH ×2 (11:05→17:16)
[2017-11-10 12:05] LABS: Glucose,Whole Blood 147 mg/dL (75-99)
--- NOTE | 2017-11-10 15:20 | PN ---
PROGRESS NOTE DATE OF SERVICE: 11/10/2017 Patient currently has been feeling well, waiting for the radiation therapy and placement by the kit planner and by the social services coordinator. The patient has a plan by the oncology, Dr. Campa, who stated that he will be having palliative radiation therapy in [facility], Friday to Friday every day and subsequently they will be evaluating him for chemotherapy. The main duncan and obstruction is where to place the patient. care home has refused him for acceptance because of the involvement of back of forth to the hospital as well as the transportation and the cost. At this time, patient understands and he is in the hospital in 570, bed 1. He has no complaint today. He has no pain with the pain well controlled and he is aphonic with the tracheostomy tube secondary to the squamous cell carcinoma of the larynx with the metastasis to the right ribs. He will not have radiation to the right ribs because he has no pain according to the Oncology. Currently, on today, he did not request any further question or demand. Blood sugar has been fairly well-controlled with the current program. He has a final stool culture because of the diarrhea that has been now slightly slowed down and the culture was negative and so far of the stool test, that was done on November 05, 2017, as well as the other one done on 11/04/2017. On today's examination, he is conscious, alert, oriented x3. His vital signs indicating the pulse rate is 66 to 72. No evidence of atrial fibrillation. For that purpose, we will discontinue the welfare analyst pad that has been remotely monitoring the patient. Today on 11/10, this is the date of service, his temperature 97.9, and pulse rate 61, respiratory rate 16, blood pressure is stable 130/64 with mean 85. And on the examination, he is conscious, alert, and he is able to communicate with the pad only as he could not communicate speech-cage. His chest is clear to auscultation and percussion and the heart was regular sinus rhythm and the abdomen was soft. Positive bowel sounds and he had a PEG tube placement and his diarrhea is significantly improved with the current treatment. He had extremities, no edema and there is no signs of infection at this time and patient is stable and with the assessment, generally stable, underlying the range of cancer and under the treatment of palliative treatment with the Radiation Oncology and planning for the placement in a half-way or all other entity that can provide the transportation and radiation for the patient. Meanwhile, Dr. Lane will be back on service tomorrow on November 11. On today review, no further followup from off any of the specialists as currently the Radiation supposedly done today at 1 o'clock. I do not have any note indicating the future planning. Neither note from the discharge planning or the social services coordinator or the discharge nurse. Continue the care and will see what is the planning from the arrangement for discharge. MMODL / IJN: [id number] /
[2017-11-10 18:04] LABS: Glucose,Whole Blood 131 mg/dL (75-99)
--- NOTE | 2017-11-10 18:24 | P.PN ---
Subjective Progress Note Date: 11/10/17 Principal diagnosis: metastatic bone pain Pt seen in f/u, he has started radiation, continues to manage secretions with suction, tolerating tube feeds, no abd pain, bloating, nausea, BMs are soft, near watery. His wrist pain is better today. No fever, VALERY, cough, he is ambulating very short distances. Objective - Vital Signs Vital signs: Vital Signs Temp 97.9 F 11/10/17 14:19 Pulse 78 11/10/17 16:51 Resp 18 11/10/17 14:19 BP 132/101 11/10/17 14:19 Pulse Ox 97 11/10/17 14:19 Intake & Output 11/09/17 11/10/17 11/10/17 18:59 06:59 18:59 Intake Total 620 1150 490 Output Total 1600 600 Balance 620 -450 -110 Weight 90 kg 90 kg Intake: Oral 590 Tube Feeding 620 560 490 Output: Urine 1600 600 Uretheral (Kenny) 1600 600 Other: Voiding Method Indwelling Catheter Indwelling Catheter Indwelling Catheter # Bowel Movements 1 2 ABP, PAP, CO, CI - Last Documented Arterial Blood Pressure 129/59 - Constitutional General appearance: Present: cooperative, no acute distress, obese - EENT EENT Comment(s): trach collar is clean, no bloody of purulent secretions around trach Eyes: Present: EOMI - Respiratory Respiratory: bilateral: rales (scattered) - Cardiovascular Rhythm: regular Heart sounds: normal: S1, S2 Abnormal Heart Sounds: Absent: systolic murmur, diastolic murmur, rub, S3 Gallop , S4 Gallop, click, other - Peripheral edema leg Peripheral Edema: bilateral: Trace - Gastrointestinal General gastrointestinal: Present: normal bowel sounds, soft. Absent: absent bowel sounds, decreased bowel sounds, distended, hepatomegaly, hyperactive bowel sounds, organomegaly, rigid, scaphoid, splenomegaly, tenderness, umbilical hernia, ventral hernia - Integumentary Integumentary: Present: pale - Neurologic Neurologic: Present: CNII-XII intact - Musculoskeletal Musculoskeletal: Present: generalized weakness, strength equal bilaterally - Psychiatric Psychiatric: Present: A&O x's 3, appropriate affect, intact judgment & insight - Labs CBC & Chem 7: 11/03/17 07:05 11/06/17 06:15 Labs: Abnormal Lab Results - Last 24 Hours (Table) 11/10/17 11/10/17 11/10/17 Range/Units 00:32 06:08 11:57 POC Glucose (mg/dL) 147 H 188 H 147 H (75-99) mg/dL 11/10/17 Range/Units 18:03 POC Glucose (mg/dL) 131 H (75-99) mg/dL Microbiology - Last 24 Hours (Table) 11/05/17 17:30 Stool Culture - Final Stool 11/04/17 02:30 Stool Culture - Final Stool Assessment and Plan (1) Squamous cell carcinoma of larynx Narrative/Plan: Bone biopsy pathology returned, positive for squamous cell, consistent with metastatic disease from the larynx. Treatemtn is palliative in intent. Palliative radiation to the neck has started. Systemic treatment with chemotherapy and/or immunotherapy was discussed. Plan for systemic treatment would be developed after palliative radiation and rehabilitation of the patient. Current Visit: Yes Status: Acute Priority: High Code(s): C32.9 - MALIGNANT NEOPLASM OF LARYNX, UNSPECIFIED SNOMED Code(s): 468484142 (2) Hypercalcemia of malignancy Narrative/Plan: Patient received a dose of zoledronic acid on 11/03. Most recent Ca++ level was WNL Current Visit: Yes Status: Acute Priority: High Code(s): E83.52 - HYPERCALCEMIA SNOMED Code(s): 52404555 (3) Acute neoplasm-related pain Narrative/Plan: Pain meds have been adjusted. Pain in wrist is chronic but severe. Ongoing pain mgmt titration to tolerance Current Visit: Yes Status: Acute Priority: High Code(s): G89.3 - NEOPLASM RELATED PAIN (ACUTE) (CHRONIC) SNOMED Code(s): 528636658 (4) History of prostate cancer Narrative/Plan: PSA will continue to be monitored and may require androgen deprivation or other therapy. Current Visit: No Status: Chronic Priority: High Code(s): Z85.46 - PERSONAL HISTORY OF MALIGNANT NEOPLASM OF PROSTATE SNOMED Code(s): 679174099
[2017-11-10] MEDS: ARTIFICIAL TEARS-HYPROMELLOSE DROPS 15 ML BTL BOTH EYES PRN (20:17)
[2017-11-10] MEDS: LISINOPRIL 2.5 MG TAB PO SCH (20:17)
[2017-11-10] MEDS: ATORVASTATIN 40 MG TAB PO SCH (20:28)
[2017-11-10 23:51] LABS: Glucose,Whole Blood 148 mg/dL (75-99)
[2017-11-11] MEDS: HYDROmorphone 2 MG TAB PO PRN ×3 (00:03→16:37)
[2017-11-11] MEDS: INSULIN ASPART 100 UNIT/ML 1 ML 10 ML VIAL SQ SCH ×4 (00:06→17:31)
[2017-11-11] MEDS: traMADol 50 MG TAB PO PRN ×3 (04:17→21:57)
[2017-11-11 06:20] LABS: Glucose,Whole Blood 157 mg/dL (75-99)
[2017-11-11] MEDS: DEXAMETHASONE SOD PHOSPHATE 4 MG/ML 1 ML VIAL IV SCH ×2 (07:29→21:57)
[2017-11-11] MEDS: Difluprednate [Durezol] 1 DROP LEFT EYE SCH (07:29)
[2017-11-11] MEDS: DICLOFENAC SODIUM GEL 100 GM TUBE TOPICAL SCH ×4 (07:29→21:56)
[2017-11-11] MEDS: FLUTAMIDE PO SCH ×2 (07:30→21:54)
[2017-11-11] MEDS: PANTOPRAZOLE 40 MG/10 ML VIAL IVP SCH (07:32)
[2017-11-11] MEDS: DILTIAZEM ORAL 30 MG TAB PO SCH ×3 (07:33→21:56)
[2017-11-11] MEDS: METOPROLOL TARTRATE 50 MG TAB PO SCH ×2 (07:33→21:56)
[2017-11-11] MEDS: BESIFLOXACIN HCL LEFT EYE SCH (07:34)
[2017-11-11] MEDS: NEPAFENAC LEFT EYE SCH (07:34)
[2017-11-11] MEDS: CINACALCET 30 MG TAB PO SCH (07:35)
[2017-11-11] MEDS: IPRATROPIUM-ALBUTEROL 3 ML NEB INHALATION SCH ×4 (08:06→20:37)
[2017-11-11 09:15] LABS: Basophils % (A) 0 %; Eosinophils % (A) 0 %; HCT 36.5 % (39.0-53.0); HGB 11.8 gm/dL (13.0-17.5); Lymphocytes # (A) 0.6 k/uL (1.0-4.8); Lymphocytes % (A) 10 %; MCH 31.8 pg (25.0-35.0); MCHC 32.3 g/dL (31.0-37.0); MCV 98.5 fL (80.0-100.0); Macrocytosis Slight; Mean Platelet Volume 7.3; Monocytes # (A) 0.6 k/uL (0-1.0); Monocytes % (A) 10 %; Neutrophils # (A) 5.1 k/uL (1.3-7.7); Neutrophils % (A) 78 %; Platelet Count 219 k/uL (150-450); RBC 3.71 m/uL (4.30-5.90); RDW 15.6 % (11.5-15.5); WBC 6.4 k/uL (3.8-10.6)
[2017-11-11 09:22] LABS: ALT 23 U/L (21-72); AST 13 U/L (17-59); Albumin 3.3 g/dL (3.5-5.0); Alkaline Phosphatase 95 U/L (38-126); Anion Gap 9 mmol/L; Blood Urea Nitrogen 27 mg/dL (9-20); Calcium 9.5 mg/dL (8.4-10.2); Carbon Dioxide 22 mmol/L (22-30); Chloride 105 mmol/L (98-107); Glucose 108 mg/dL (74-99); Potassium 4.8 mmol/L (3.5-5.1); Sodium 136 mmol/L (137-145); Total Bilirubin 0.4 mg/dL (0.2-1.3)
[2017-11-11] MEDS: MAG HYDROX/AL HYDROX/SIMETH 30 ML CUP PO SCH ×4 (09:31→21:57)
[2017-11-11] MEDS: SIMETHICONE 40 MG/0.6 ML DROPS 2,000 MG/30 ML BOTTLE PO PRN ×2 (11:01→16:36)
[2017-11-11] MEDS: MULTIVITAMINS, THERA 1 EACH TAB PO SCH (11:03)
[2017-11-11] MEDS: CHOLESTYRAMINE (WITH SUGAR) 4 GM PACKET PO SCH ×2 (11:03→16:37)
[2017-11-11 11:24] LABS: Glucose,Whole Blood 184 mg/dL (75-99)
[2017-11-11 17:23] LABS: Glucose,Whole Blood 124 mg/dL (75-99)
--- NOTE | 2017-11-11 21:31 | PN ---
PROGRESS NOTE ATTENDING PHYSICIAN: Dr. Mi Lane. CHIEF COMPLAINT: Re-evaluation. HISTORY OF PRESENT ILLNESS: This is an 82-year-old gentleman who has been admitted to the hospital 24 days ago. He has undergone tracheostomy and a PEG tube. The patient has squamous cell carcinoma in the pharyngeal area. The patient did receive 1 radiation therapy and scheduled again for the same. He is feeling fairly well. There is a problem, an issue regarding placement and his social workers are working on that. I have recommended to them to try [facility], as the patient has been a . REVIEW OF SYSTEMS: NEURO: Denies any headaches, dizziness. PSYCH: No anxiety. CARDIAC: No chest pain, angina, palpitations. RESPIRATORY: No shortness of breath, some cough. GI: No nausea, vomiting, abdominal pain, diarrhea. The bowels are working well. : No symptoms of dysuria, hematuria. EXTREMITIES: No pain, edema. CONSTITUTIONAL: No fever, chills. PHYSICAL EXAMINATION: Pleasant gentleman, at present in no distress. Vital signs reveal temperature 98.2, pulse 59, respirations 20, blood pressure 129/74, pulse ox of 95% on room air. HEENT: Normocephalic. NECK: The patient has a tracheostomy. Oral cavity with generalized decreased air flow. CARDIAC: Distant heart sounds; S1, S2 with no gallop. Systolic murmur 2/6 left sternal border. ABDOMEN: Soft. Bowel sounds present. Extremities reveal no edema. No tenderness. Neurologically, awake, alert, oriented, well-coordinated movements, though has generalized weakness. LABORATORY ASSESSMENT: Electrolytes: CBC yesterday: Hemoglobin 8.8, white count normal. Sodium 136, BUN 27, creatinine 0.61. ASSESSMENT: 1. Laryngopharyngeal carcinoma. 2. Chronic respiratory failure. 3. Chronic obstructive pulmonary disease. 4. Anemia, chronic. 5. History of cancer of the prostate. 6. Debility. PLAN: Continue present medical regimen. Patient's condition discussed with the patient. Prognosis is guarded. The patient has been started on some radiation therapy. The social workers to work with the patient and the [facility] to see if he could be transferred to that facility for long-term care. The patient's general condition is discussed with the patient. Prognosis guarded. MMODL / IJN: [id number] /
[2017-11-11] MEDS: ATORVASTATIN 40 MG TAB PO SCH (21:56)
[2017-11-11] MEDS: LISINOPRIL 2.5 MG TAB PO SCH (21:56)
[2017-11-11] MEDS: ONDANSETRON 4 MG/2 ML VIAL IVP PRN (22:11)
[2017-11-11 23:48] LABS: Glucose,Whole Blood 103 mg/dL (75-99)
[2017-11-12] MEDS: INSULIN ASPART 100 UNIT/ML 1 ML 10 ML VIAL SQ SCH ×4 (00:13→17:46)
[2017-11-12] MEDS: HYDROmorphone 2 MG TAB PO PRN ×3 (00:30→22:05)
[2017-11-12] MEDS: SIMETHICONE 40 MG/0.6 ML DROPS 2,000 MG/30 ML BOTTLE PO PRN ×2 (02:27→10:03)
[2017-11-12] MEDS: IPRATROPIUM-ALBUTEROL 3 ML NEB INHALATION PRN (02:58)
[2017-11-12] MEDS ORDERED: FAMOTIDINE 20 MG/2 ML VIAL IV ONE (03:37)
[2017-11-12] MEDS ORDERED: MAG HYDROX/AL HYDROX/SIMETH 30 ML CUP PO ONE (03:38)
[2017-11-12 06:07] LABS: Glucose,Whole Blood 150 mg/dL (75-99)
[2017-11-12] MEDS: IPRATROPIUM-ALBUTEROL 3 ML NEB INHALATION SCH ×4 (07:47→20:47)
[2017-11-12] MEDS ORDERED: PANTOPRAZOLE 40 MG/10 ML VIAL IVP SCH (09:00)
[2017-11-12] MEDS: METOCLOPRAMIDE 5 MG/ML 2 ML VIAL IVP SCH ×3 (09:56→17:46)
[2017-11-12] MEDS: DICLOFENAC SODIUM GEL 100 GM TUBE TOPICAL SCH ×4 (10:02→22:05)
[2017-11-12] MEDS: METOPROLOL TARTRATE 50 MG TAB PO SCH (10:04)
[2017-11-12] MEDS: PANTOPRAZOLE 40 MG/10 ML VIAL IVP SCH ×2 (10:04→22:08)
[2017-11-12] MEDS: DILTIAZEM ORAL 30 MG TAB PO SCH ×3 (10:04→22:06)
[2017-11-12] MEDS: CHOLESTYRAMINE (WITH SUGAR) 4 GM PACKET PO SCH ×2 (10:05→17:43)
[2017-11-12] MEDS: FLUTAMIDE PO SCH ×2 (10:05→22:01)
[2017-11-12] MEDS: DEXAMETHASONE SOD PHOSPHATE 4 MG/ML 1 ML VIAL IV SCH (10:05)
[2017-11-12] MEDS: CINACALCET 30 MG TAB PO SCH (10:05)
[2017-11-12] MEDS: MAG HYDROX/AL HYDROX/SIMETH 30 ML CUP PO SCH ×4 (10:09→22:06)
[2017-11-12] MEDS: LOPERAMIDE 2 MG CAP PEJ/J-Tube PRN (10:09)
[2017-11-12 11:09] LABS: Glucose,Whole Blood 175 mg/dL (75-99)
[2017-11-12] MEDS: MULTIVITAMINS, THERA 1 EACH TAB PO SCH (12:49)
[2017-11-12] MEDS: traMADol 50 MG TAB PO PRN (14:43)
[2017-11-12 17:13] LABS: Glucose,Whole Blood 157 mg/dL (75-99)
[2017-11-12] MEDS: ONDANSETRON 4 MG/2 ML VIAL IVP PRN (20:57)
[2017-11-12] MEDS: LISINOPRIL 2.5 MG TAB PO SCH (22:06)
[2017-11-12] MEDS: ATORVASTATIN 40 MG TAB PO SCH (22:06)
--- NOTE | 2017-11-12 22:44 | PN ---
PROGRESS NOTE CHIEF COMPLAINT: Re-evaluation. 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 The patient is undergoing radiation therapy. Last night he had vomiting. The patient has a PEG tube. There is no residual. The patient is markedly nauseous otherwise. He does have a history of gastroesophageal reflux. The patient apparently has been on Decadron, started by Oncology. We will wean this off. REVIEW OF SYSTEMS: NEURO: Denies any headaches, dizziness. PSYCH: No anxiety. CARDIAC: Denies chest pain, angina, palpitations. RESPIRATORY: Denies shortness of breath, cough, hemoptysis. GI: Present complaint of nausea, vomiting. No abdominal pain. No diarrhea. Did have bowel movement. : No symptoms of dysuria or hematuria. EXTREMITIES: No pain. CONSTITUTIONAL: No fever or chills. PHYSICAL EXAMINATION: Pleasant gentleman, at present in no distress. Vital signs reveal temperature 98.1, pulse 73, respirations 16, blood pressure 128/64, pulse ox 94% on room air. HEENT: Normocephalic. NECK: Patient has a tracheostomy. CHEST EXAMINATION: Clear to auscultation with generalized decreased air flow. CARDIAC: Distant heart sounds, S1 and S2, with no gallop. Systolic murmur 2/6, left sternal border. Irregular rhythm. ABDOMEN: Soft. Bowel sounds present. Extremities reveal no edema. Generalized decreased muscle tone. Neurologically awake, alert, oriented with well-coordinated movements. LABORATORY ASSESSMENT: Blood sugar is mildly elevated, controlled with insulin coverage. ASSESSMENT: 1. Nausea, vomiting. Suspect gastritis and reflux esophagitis. 2. Pharyngeal/laryngeal malignancy. 3. History of cancer of the breast. 4. Acute renal failure, resolved. PLAN: Continue present medical regimen. Will place the patient on some Reglan to see if that will help his nausea and vomiting. Wean off Decadron. Patient's condition discussed with the patient. Prognosis remains guarded. MMODL / IJN: [id number] /
[2017-11-13] MEDS: METOPROLOL TARTRATE 50 MG TAB PO SCH ×3 (00:05→21:09)
[2017-11-13] MEDS: INSULIN ASPART 100 UNIT/ML 1 ML 10 ML VIAL SQ SCH ×4 (00:13→18:33)
[2017-11-13] MEDS: METOCLOPRAMIDE 5 MG/ML 2 ML VIAL IVP SCH ×4 (00:14→17:02)
[2017-11-13 00:27] LABS: Glucose,Whole Blood 160 mg/dL (75-99)
[2017-11-13] MEDS: traMADol 50 MG TAB PO PRN ×4 (01:40→22:08)
[2017-11-13] MEDS: HYDROmorphone 2 MG TAB PO PRN ×2 (04:16→17:02)
[2017-11-13 06:16] LABS: Glucose,Whole Blood 100 mg/dL (75-99)
[2017-11-13 07:14] LABS: Glucose,Whole Blood 200 mg/dL (75-99)
[2017-11-13] MEDS: IPRATROPIUM-ALBUTEROL 3 ML NEB INHALATION SCH ×4 (07:56→20:23)
[2017-11-13] MEDS: FLUTAMIDE PO SCH ×2 (09:01→21:12)
[2017-11-13] MEDS: CINACALCET 30 MG TAB PO SCH (09:19)
[2017-11-13] MEDS: DILTIAZEM ORAL 30 MG TAB PO SCH ×3 (09:19→22:35)
[2017-11-13] MEDS: DEXAMETHASONE SOD PHOSPHATE 4 MG/ML 1 ML VIAL IV SCH (09:19)
[2017-11-13] MEDS: DICLOFENAC SODIUM GEL 100 GM TUBE TOPICAL SCH ×4 (09:20→22:35)
[2017-11-13] MEDS: MAG HYDROX/AL HYDROX/SIMETH 30 ML CUP PO SCH ×4 (09:20→22:36)
[2017-11-13] MEDS: CHOLESTYRAMINE (WITH SUGAR) 4 GM PACKET PO SCH ×2 (09:20→17:03)
[2017-11-13] MEDS: PANTOPRAZOLE 40 MG/10 ML VIAL IVP SCH ×2 (09:20→21:14)
[2017-11-13 09:23] VITALS: BMI 26.3
[2017-11-13] MEDS: ONDANSETRON 4 MG/2 ML VIAL IVP PRN ×3 (09:30→22:13)
[2017-11-13] MEDS: SIMETHICONE 40 MG/0.6 ML DROPS 2,000 MG/30 ML BOTTLE PO PRN (09:31)
[2017-11-13] MEDS: MULTIVITAMINS, THERA 1 EACH TAB PO SCH (12:15)
[2017-11-13 13:11] LABS: Glucose,Whole Blood 173 mg/dL (75-99)
[2017-11-13 18:37] LABS: Glucose,Whole Blood 221 mg/dL (75-99)
[2017-11-13] MEDS: ATORVASTATIN 40 MG TAB PO SCH (21:09)
[2017-11-13] MEDS: LISINOPRIL 2.5 MG TAB PO SCH (21:09)
[2017-11-13] MEDS: INSULIN DETEMIR 100 UNIT/ML 10 ML VIAL SQ SCH (22:12)
--- NOTE | 2017-11-13 22:48 | PN ---
PROGRESS NOTE ATTENDING PHYSICIAN: Dr. Mi Lane. CHIEF COMPLAINT: Re-evaluation. HISTORY OF PRESENT ILLNESS: This is an 82-year-old gentleman was admitted to the hospital with shortness of breath and noted to have laryngeal and pharyngeal mass. The patient has had a tracheostomy. His breathing has been fairly stable. He had some nauseousness secondary to gastroesophageal reflux, which he has had problems with previously. The patient also has a PEG tube. His feedings have been decreased down. The patient has had no vomiting. Continues to have some nausea. No abdominal pain. No diarrhea. The patient has had no fever or chills. REVIEW OF SYSTEMS: NEURO: Denies any headaches, dizziness. PSYCH: No anxiety. CARDIAC: No chest pain, angina, palpitation. RESPIRATORY: Denies shortness of breath, cough. Does have cough. No hemoptysis. GI: No nausea, vomiting, abdominal pain, diarrhea. : No symptoms of dysuria, hematuria. EXTREMITIES: No pain. CONSTITUTIONAL: No fever, chills. PHYSICAL EXAMINATION: Pleasant gentleman at present in no distress. Vital signs reveal temperature 98.4, pulse 69, respirations 20, blood pressure 120/65. HEENT: Normocephalic. NECK: The patient has a tracheostomy. CHEST: Clear to auscultation with generalized decreased air flow. CARDIAC: Distant heart sounds. S1, S2 with no gallops. Systolic murmur 2/6 left sternal border. ABDOMEN: Soft. Bowel sounds present. Extremities reveal no edema. Neurologically, awake, alert, oriented, well-coordinated movements, generalized decreased muscle tone. LABORATORY ASSESSMENT: Blood sugars under fair control. ASSESSMENT: 1. Carcinoma of the larynx and pharynx, status post tracheostomy. 2. Chronic obstructive pulmonary disease. 3. Carcinoma of the prostate, metastatic. 4. Paroxysmal atrial fibrillation. 5. Chronic obstructive pulmonary disease. 6. History of hypertension. PLAN: Continue present medical regimen. Patient's condition discussed with the patient. Prognosis guarded. The patient noncommittal about his status, not willing to make any specific decisions about his expectations. Will continue present regimen. Will communicate with him more on Friday when I can more time with him. Meanwhile, continue present regimen. Prognosis remains guarded. MMODL / IJN: [id number] /
[2017-11-14 00:22] LABS: Glucose,Whole Blood 133 mg/dL (75-99)
[2017-11-14] MEDS: INSULIN ASPART 100 UNIT/ML 1 ML 10 ML VIAL SQ SCH ×5 (00:39→23:53)
[2017-11-14] MEDS: traMADol 50 MG TAB PO PRN ×2 (03:59→20:17)
[2017-11-14] MEDS: ONDANSETRON 4 MG/2 ML VIAL IVP PRN ×2 (03:59→17:05)
[2017-11-14] MEDS: METOCLOPRAMIDE 5 MG/ML 2 ML VIAL IVP SCH ×5 (05:29→23:55)
[2017-11-14] MEDS: IPRATROPIUM-ALBUTEROL 3 ML NEB INHALATION SCH ×4 (06:05→19:10)
[2017-11-14 06:54] LABS: Glucose,Whole Blood 161 mg/dL (75-99)
[2017-11-14 07:36] LABS: ALT 26 U/L (21-72); AST 14 U/L (17-59); Albumin 2.9 g/dL (3.5-5.0); Alkaline Phosphatase 83 U/L (38-126); Anion Gap 9 mmol/L; Blood Urea Nitrogen 44 mg/dL (9-20); Calcium 9.5 mg/dL (8.4-10.2); Carbon Dioxide 24 mmol/L (22-30); Chloride 105 mmol/L (98-107); Glucose 159 mg/dL (74-99); Sodium 138 mmol/L (137-145); Total Bilirubin 0.6 mg/dL (0.2-1.3); Total Protein 5.3 g/dL (6.3-8.2)
[2017-11-14] MEDS: HYDROmorphone 2 MG TAB PO PRN ×4 (07:39→23:56)
[2017-11-14 07:40] LABS: Basophils % (A) 0 %; Eosinophils % (A) 0 %; HCT 40.4 % (39.0-53.0); HGB 12.7 gm/dL (13.0-17.5); Lymphocytes # (A) 0.5 k/uL (1.0-4.8); Lymphocytes % (A) 4 %; MCH 31.6 pg (25.0-35.0); MCHC 31.4 g/dL (31.0-37.0); MCV 100.7 fL (80.0-100.0); Macrocytosis Slight; Mean Platelet Volume 7.7; Monocytes # (A) 0.9 k/uL (0-1.0); Monocytes % (A) 8 %; Neutrophils # (A) 9.8 k/uL (1.3-7.7); Neutrophils % (A) 87 %; Platelet Count 228 k/uL (150-450); RBC 4.01 m/uL (4.30-5.90); RDW 15.4 % (11.5-15.5); WBC 11.2 k/uL (3.8-10.6)
[2017-11-14] MEDS: MULTIVITAMINS, THERA 1 EACH TAB PO SCH (07:41)
[2017-11-14] MEDS: DEXAMETHASONE SOD PHOSPHATE 4 MG/ML 1 ML VIAL IV SCH (07:42)
[2017-11-14] MEDS: CINACALCET 30 MG TAB PO SCH (07:42)
[2017-11-14] MEDS: DILTIAZEM ORAL 30 MG TAB PO SCH ×3 (07:42→22:34)
[2017-11-14] MEDS: METOPROLOL TARTRATE 50 MG TAB PO SCH ×2 (07:43→20:16)
[2017-11-14] MEDS: FLUTAMIDE PO SCH ×2 (07:43→20:14)
[2017-11-14] MEDS: PANTOPRAZOLE 40 MG/10 ML VIAL IVP SCH ×2 (07:43→20:17)
[2017-11-14] MEDS: CHOLESTYRAMINE (WITH SUGAR) 4 GM PACKET PO SCH ×2 (07:43→18:04)
[2017-11-14] MEDS: DICLOFENAC SODIUM GEL 100 GM TUBE TOPICAL SCH ×4 (07:44→22:33)
[2017-11-14] MEDS: MAG HYDROX/AL HYDROX/SIMETH 30 ML CUP PO SCH ×4 (08:12→22:34)
[2017-11-14 11:02] LABS: Glucose,Whole Blood 133 mg/dL (75-99)
--- NOTE | 2017-11-14 13:14 | P.PN ---
Subjective Progress Note Date: 11/14/17 Principal diagnosis: Laryngeal Mass Patient seen in follow-up today. No acute changes. Objective - Vital Signs Vital signs: Vital Signs Temp 97.0 F L 11/14/17 05:00 Pulse 88 11/14/17 10:13 Resp 20 11/14/17 08:00 BP 139/83 11/14/17 05:00 Pulse Ox 97 11/14/17 05:00 Intake & Output 11/13/17 11/14/17 11/14/17 18:59 06:59 18:59 Intake Total 140 430 640 Output Total 500 900 Balance 140 -70 -260 Weight 88 kg 88.1 kg Intake: IV 10 20 saline flush 10 20 Tube Feeding 140 420 560 Other 60 Output: Urine 500 900 Stool 0 Other: Voiding Method Indwelling Catheter Indwelling Catheter Indwelling Catheter # Voids 1 # Bowel Movements 2 ABP, PAP, CO, CI - Last Documented Arterial Blood Pressure 129/59 - Exam General: Well-developed, thin-appearing HEENT: Normocephalic, Nontramatic, sclerae nonicteric, tracheostomy and placed 1-2cm right moveable palpable cervical lymph node LUNGS: Equal and no increased effort noted HEART: Tachy, Irregular Abdomen: Nontender, nondistended Extremities: No edema Neuro: Alert and oriented, Non Vocal secondary to Trach. - Labs CBC & Chem 7: 11/14/17 06:46 11/14/17 06:46 Labs: Abnormal Lab Results - Last 24 Hours (Table) 11/13/17 11/13/17 11/13/17 Range/Units 13:10 18:26 23:49 WBC (3.8-10.6) k/uL RBC (4.30-5.90) m/uL Hgb (13.0-17.5) gm/dL MCV (80.0-100.0) fL Neutrophils # (1.3-7.7) k/uL Lymphocytes # (1.0-4.8) k/uL BUN (9-20) mg/dL Glucose (74-99) mg/dL POC Glucose (mg/dL) 173 H 221 H 133 H (75-99) mg/dL AST (17-59) U/L Total Protein (6.3-8.2) g/dL Albumin (3.5-5.0) g/dL 11/14/17 11/14/17 11/14/17 Range/Units 06:46 06:46 06:53 WBC 11.2 H (3.8-10.6) k/uL RBC 4.01 L (4.30-5.90) m/uL Hgb 12.7 L (13.0-17.5) gm/dL MCV 100.7 H (80.0-100.0) fL Neutrophils # 9.8 H (1.3-7.7) k/uL Lymphocytes # 0.5 L (1.0-4.8) k/uL BUN 44 H (9-20) mg/dL Glucose 159 H (74-99) mg/dL POC Glucose (mg/dL) 161 H (75-99) mg/dL AST 14 L (17-59) U/L Total Protein 5.3 L (6.3-8.2) g/dL Albumin 2.9 L (3.5-5.0) g/dL 11/14/17 Range/Units 11:01 WBC (3.8-10.6) k/uL RBC (4.30-5.90) m/uL Hgb (13.0-17.5) gm/dL MCV (80.0-100.0) fL Neutrophils # (1.3-7.7) k/uL Lymphocytes # (1.0-4.8) k/uL BUN (9-20) mg/dL Glucose (74-99) mg/dL POC Glucose (mg/dL) 133 H (75-99) mg/dL AST (17-59) U/L Total Protein (6.3-8.2) g/dL Albumin (3.5-5.0) g/dL Assessment and Plan Plan: Assessment and Recommendations: 1. New Squamous Cell Carcinoma of Larynx: - Status Post Trachesotomy for obstructive mass - Staging CT scans and Bone Scan - Pending results of staging scans will send tissue for MSI, PDL-1, and P16 - Reviewed CT scans, Bone biopsy pathology returned, positive for squamous cell, consistent with metastatic disease from the larynx. Treatment is palliative in intent. - Palliative radiation to the neck has started. - Systemic treatment with chemotherapy and/or immunotherapy was discussed. - Plan for systemic treatment would be developed after palliative radiation and rehabilitation of the patient. 2. Hypercalcemia - Malignancy - Resolved, Status Post Zoledronic acid on 11/03/17 - IVF HYdration and Bone Scan - Likely metastatic Lesions to bone either prostate progression or Laryngeal diagnosis, PSA Re-check still Pending 3. History of Prostate Cancer - Follows with Urology - Receives LHRT per Urology - - Recheck PSA Level - CT scan revealed tumor of prostate, PSA increased 4. Macrocytic Anemia - Improved. - monitoring cbc DISPO PLan for ECF increase performancy status then follow-up iin office for systemic palliative treatment.
[2017-11-14 17:26] LABS: Glucose,Whole Blood 167 mg/dL (75-99)
[2017-11-14] MEDS: ATORVASTATIN 40 MG TAB PO SCH (20:16)
[2017-11-14] MEDS: INSULIN DETEMIR 100 UNIT/ML 10 ML VIAL SQ SCH (20:18)
[2017-11-14] MEDS: LOPERAMIDE 2 MG CAP PEJ/J-Tube PRN (20:21)
[2017-11-14] MEDS: LISINOPRIL 2.5 MG TAB PO SCH (21:13)
--- NOTE | 2017-11-14 23:13 | PN ---
PROGRESS NOTE ATTENDING PHYSICIAN: Dr. Mi Lane. CHIEF COMPLAINT: Re-evaluation. HISTORY OF PRESENT ILLNESS: This patient was admitted to the hospital with respiratory distress and both pharyngeal and laryngeal mass. The patient underwent tracheostomy. He has also started radiation; however, the patient does have evidence of metastatic disease. The patient also has history of CA of the prostate and COPD and atherosclerotic heart disease. He is basically fairly bed-bound, on feeding tube, alert. REVIEW OF SYSTEMS: NEURO: Denies any headaches, dizziness. PSYCH: No anxiety. CARDIAC: No chest pain, angina, palpitation. RESPIRATORY: Denies shortness of breath. Does have some cough. GI: Some nausea. No vomiting. No abdominal pain. No diarrhea. : No symptoms of dysuria, hematuria, urgency, frequency. EXTREMITIES: No pain. CONSTITUTIONAL: No fever, chills. PHYSICAL EXAMINATION: Pleasant gentleman, at present in no distress. Vital signs reveal temperature 97, pulse 76, respirations 20, blood pressure 139/83. HEENT: Normocephalic. NECK: The patient has had tracheostomy. CHEST: Clear to auscultation with generalized decreased air flow. Abdomen is protuberant, soft. Bowel sounds active. Extremities reveal no edema. The patient has significant muscle loss, especially in both calf muscles. Neurologically, awake, alert, oriented. Moves both upper extremities well. CONSTITUTIONAL: No fever, chills. Does complain of some increased pain in the shoulders and neck. LABORATORY ASSESSMENT: CBC with a white count OF 11.2, hemoglobin 12.7. Electrolytes normal. BUN 44, creatinine 0.73, glucose 164. ASSESSMENT: 1. Squamous cell carcinoma of the pharyngeal-laryngeal area. 2. History of cancer of the prostate. 3. Chronic obstructive pulmonary disease. 4. Coronary artery disease. 5. Hypertension. 6. Diabetes mellitus. PLAN: The patient at present is stable. Continue present medical regimen. Patient's condition discussed with the patient. Prognosis guarded. Increase fentanyl from 25-37 mcg per hour. Continue present medical regimen. Plan to sit down with the patient tomorrow, as he cannot communicate without writing. Will have further discussions about his health status and recommendation for palliative care. MMODL / IJN: [id number] /
[2017-11-14 23:50] LABS: Glucose,Whole Blood 112 mg/dL (75-99)
[2017-11-15] MEDS: ONDANSETRON 4 MG/2 ML VIAL IVP PRN (00:03)
[2017-11-15] MEDS: traMADol 50 MG TAB PO PRN ×3 (02:55→20:18)
[2017-11-15] MEDS: IPRATROPIUM-ALBUTEROL 3 ML NEB INHALATION PRN (03:13)
[2017-11-15] MEDS: METOCLOPRAMIDE 5 MG/ML 2 ML VIAL IVP SCH ×4 (04:37→22:36)
[2017-11-15] MEDS: INSULIN ASPART 100 UNIT/ML 1 ML 10 ML VIAL SQ SCH ×2 (06:06→11:29)
[2017-11-15 06:08] LABS: Glucose,Whole Blood 121 mg/dL (75-99)
[2017-11-15] MEDS: HYDROmorphone 2 MG TAB PO PRN ×3 (09:16→23:39)
[2017-11-15] MEDS: CHOLESTYRAMINE (WITH SUGAR) 4 GM PACKET PO SCH (09:16)
[2017-11-15] MEDS: METOPROLOL TARTRATE 50 MG TAB PO SCH ×2 (09:17→20:18)
[2017-11-15] MEDS: CINACALCET 30 MG TAB PO SCH (09:17)
[2017-11-15] MEDS: DILTIAZEM ORAL 30 MG TAB PO SCH (09:18)
[2017-11-15] MEDS: FLUTAMIDE PO SCH (09:18)
[2017-11-15] MEDS: PANTOPRAZOLE 40 MG/10 ML VIAL IVP SCH (09:18)
[2017-11-15] MEDS: DEXAMETHASONE SOD PHOSPHATE 4 MG/ML 1 ML VIAL IV SCH (09:18)
[2017-11-15] MEDS: MAG HYDROX/AL HYDROX/SIMETH 30 ML CUP PO SCH ×4 (09:28→21:38)
[2017-11-15] MEDS: IPRATROPIUM-ALBUTEROL 3 ML NEB INHALATION SCH ×4 (09:33→20:22)
[2017-11-15] MEDS: DICLOFENAC SODIUM GEL 100 GM TUBE TOPICAL SCH ×4 (10:38→19:34)
[2017-11-15 11:24] LABS: Glucose,Whole Blood 121 mg/dL (75-99)
[2017-11-15] MEDS: MULTIVITAMINS, THERA 1 EACH TAB PO SCH (13:00)
[2017-11-15] MEDS ORDERED: PANTOPRAZOLE SODIUM 40 MG GRANULE PKT PEG/G-TUBE SCH (17:30)
[2017-11-15] MEDS: PANTOPRAZOLE SODIUM 40 MG GRANULE PKT PEG/G-TUBE SCH (20:21)
[2017-11-15 22:47] VITALS: BP 110/64; TEMP 98.1
--- NOTE | 2017-11-15 23:05 | PN ---
PROGRESS NOTE ATTENDING PHYSICIAN: Dr. Mi Lane. CHIEF COMPLAINT: Re-evaluation. HISTORY OF PRESENT ILLNESS: An 83-year-old gentleman was admitted to the hospital on 10/18/2017. The patient had respiratory distress with stridor. The patient was seen by Pulmonary and on evaluation with intubation noted that the patient had a significant mass in the laryngeal and pharyngeal area. The patient subsequent to that underwent tracheostomy. He also had biopsies which did reveal malignancy. The patient has been followed by Oncology. The patient does have underlying history of carcinoma of the prostate. He has evidence suggestive of metastatic disease. The patient at present has been on some radiation. I did talk to the radiation oncologist, who feels this is more of a local palliative treatment, did not expect a good prognosis. The patient since hospitalization has primarily had a tracheostomy tube, a PEG tube and a Kenny catheter. He is not progressing well. He is losing his strength. The patient is fully 0alert and able to communicate by writing. He has rib pain and wrist pain and back pain for which he is on medications with help. His narcotics were increased with improved pain control today, though some increased lethargy. REVIEW OF SYSTEMS: NEURO: Denies any headaches, dizziness. PSYCH: Somewhat down. CARDIAC: Denies chest pain, angina, palpitation. RESPIRATORY: Denies shortness of breath. Does have upper tracheostomy. He has frequent suctioning. GI: Complains of some nausea, but improved with no vomiting. No abdominal pain. No diarrhea, constipation. : No symptoms of dysuria, hematuria. Has Kenny catheter. EXTREMITIES: No pain. Generalized weakness. CONSTITUTIONAL: No fever, chills. PHYSICAL EXAMINATION: Pleasant gentleman at present in no distress. Vital signs reveal temperature recorded earlier at 97.3, pulse 106, respirations 14, blood pressure 97/61. HEENT: Normocephalic. NECK: No JVD. The patient has a tracheostomy tube. The tracheostomy tube bulb has some purulent drainage into that. Chest is decreased generalized air flow. CARDIAC: Distant heart sounds, S1, S2 with no gallop. Systolic murmur 2/6 left sternal border. ABDOMEN: Soft. Bowel sounds present. Extremities reveal no edema. Decreased generalized muscle mass. LABORATORY ASSESSMENT: His Accu-Cheks of 121 this morning and before lunch it was 121, also. ASSESSMENT: 1. Metastatic disease from a malignancy of the laryngopharyngeal area. 2. Carcinoma of the prostate with metastatic disease. 3. Chronic obstructive pulmonary disease. 4. Tracheostomy tube, tracheostomy status. 5. Malnutrition status. 6. Anemia, chronic. 7. Coronary artery disease. 8. Paroxysmal atrial fibrillation. 9. Diabetes mellitus. PLAN: The patient's condition is discussed with the patient in detail over at least a 40- minute visit. The patient was explained his status, his prognosis and recommendation of palliative care. The patient after further discussion has agreed for hospice care. He is requesting no aggressive measures, including discontinuation of feedings. I did discuss this with his POA, his friend, Julio Cesar as well. The patient will be provided comfort care. Then over the next 48 hours when the social worker aide is available, will request them to figure out the patient's placement for possible placement into a rehab hospice facility. MIO / JOSH: [id number] /
[2017-11-16] MEDS: MAG HYDROX/AL HYDROX/SIMETH 30 ML CUP PO SCH ×5 (00:26→21:56)
[2017-11-16] MEDS: traMADol 50 MG TAB PO PRN (02:17)
[2017-11-16] MEDS: IPRATROPIUM-ALBUTEROL 3 ML NEB INHALATION PRN (04:10)
[2017-11-16] MEDS: METOCLOPRAMIDE 5 MG/ML 2 ML VIAL IVP SCH ×3 (05:04→17:19)
[2017-11-16] MEDS: HYDROmorphone 2 MG TAB PO PRN ×2 (05:18→20:13)
[2017-11-16] MEDS ORDERED: LORazepam 2 MG/ML INJ IV PRN (08:23)
[2017-11-16] MEDS ORDERED: ATROPINE OPHTH SOLN 1% 5ML BTL SUBLINGUAL PRN (08:23)
[2017-11-16] MEDS: IPRATROPIUM-ALBUTEROL 3 ML NEB INHALATION SCH ×4 (09:04→20:25)
[2017-11-16] MEDS: DEXAMETHASONE SOD PHOSPHATE 4 MG/ML 1 ML VIAL IV SCH (10:12)
[2017-11-16] MEDS: METOPROLOL TARTRATE 50 MG TAB PO SCH ×2 (10:12→21:26)
[2017-11-16] MEDS: PANTOPRAZOLE SODIUM 40 MG GRANULE PKT PEG/G-TUBE SCH ×2 (10:12→21:26)
[2017-11-16] MEDS: DICLOFENAC SODIUM GEL 100 GM TUBE TOPICAL SCH ×4 (10:13→21:56)
[2017-11-16] MEDS: MORPHINE CONC SOLN 10mg/0.5mL ORAL SYRG SL PRN ×3 (11:01→20:06)
--- NOTE | 2017-11-16 16:42 | PN ---
PROGRESS NOTE CHIEF COMPLAINT: Re-evaluation. HISTORY OF PRESENT ILLNESS: This is an 82-year-old gentleman who was admitted to the hospital with respiratory failure and noted to have malignancy in the pharynx and larynx. The patient has had a tracheostomy. The patient also has underlying history of carcinoma of the prostate. He has metastatic disease. The patient has anemia, COPD, diabetes mellitus, atrial fibrillation, coronary artery disease, and generalized debility and cachexia. He is on tube feedings. The patient's general condition is poor and prognosis is very poor. This was discussed with the patient yesterday and he has accepted and in agreement of comfort care only. The patient has particularly no family and he has signed POA to a friend with whom I did have a discussion yesterday. The social services assistant will be getting together with him and the patient and making arrangements for the patient to be placed at a hospice facility. Prognosis remains poor. REVIEW OF SYSTEMS: Neuro: Denies any headaches or dizziness. Psych: The patient's mood is down. CARDIAC: Denies chest pain. Respiratory: Denies shortness of breath. Does have cough. GI no nausea, vomiting, abdominal pain, diarrhea. : No symptoms of dysuria or hematuria. Extremities: Denies pain. Does have some neck and upper back pain. CONSTITUTIONAL: No fever or chills. PHYSICAL EXAMINATION: Pleasant gentleman, who does appear quite weak and down. Vital signs last night: Blood pressure was 110/64, pulse 97, respirations 18. HEENT: Normocephalic. Neck: Patient has a tracheostomy tube. CHEST: Clear to auscultation with generalized decreased air flow. ABDOMEN: Soft. Bowel sounds present. Feedings have been stopped. Extremities revealed no edema. NEUROLOGIC: Awake. The patient is arousable, lethargic. Moves both upper extremities adequately and is able to appropriately answer questions. LABORATORY ASSESSMENT: None new. ASSESSMENT: 1. As above carcinoma of the pharynx and larynx. 2. Tracheostomy status. 3. History of carcinoma of the prostate. 4. Anemia. 5. Chronic obstructive pulmonary disease. 6. Diabetes mellitus. 7. Debility. PLAN: Comfort care. Continue present medical regimen. Await social workers to make arrangements for the patient's potential transfer to a nursing facility or hospice facility tomorrow. MMODL / IJN: [id number] /
[2017-11-16] MEDS: ONDANSETRON 4 MG/2 ML VIAL IVP PRN (21:22)
[2017-11-17] MEDS: METOCLOPRAMIDE 5 MG/ML 2 ML VIAL IVP SCH ×3 (00:03→12:51)
[2017-11-17 00:58] VITALS: RESP 20
[2017-11-17] MEDS: MORPHINE CONC SOLN 10mg/0.5mL ORAL SYRG SL PRN ×3 (02:40→12:52)
[2017-11-17] MEDS: HYDROmorphone 2 MG TAB PO PRN (02:40)
[2017-11-17] MEDS: IPRATROPIUM-ALBUTEROL 3 ML NEB INHALATION SCH ×2 (07:30→11:44)
[2017-11-17] MEDS: METOPROLOL TARTRATE 50 MG TAB PO SCH (08:03)
[2017-11-17] MEDS: DEXAMETHASONE SOD PHOSPHATE 4 MG/ML 1 ML VIAL IV SCH (08:05)
[2017-11-17] MEDS: PANTOPRAZOLE SODIUM 40 MG GRANULE PKT PEG/G-TUBE SCH (08:06)
[2017-11-17] MEDS: MAG HYDROX/AL HYDROX/SIMETH 30 ML CUP PO SCH ×2 (08:11→12:56)
[2017-11-17] MEDS: DICLOFENAC SODIUM GEL 100 GM TUBE TOPICAL SCH ×2 (08:14→12:52)
--- NOTE | 2017-11-17 11:03 | P.PN ---
Subjective Progress Note Date: 11/17/17 Principal diagnosis: Laryngeal Mass Patient seen in follow-up today. He met with Hospice today and would like to go this route. He has not improved performance status, despite attempts to increase strength and control pain. Objective - Vital Signs Vital signs: Vital Signs Temp 98.1 F 11/15/17 21:00 Pulse 100 11/17/17 07:50 Resp 20 11/17/17 00:00 BP 110/64 11/15/17 21:00 Pulse Ox 96 11/15/17 13:00 Intake & Output 11/16/17 11/17/17 11/17/17 18:59 06:59 18:59 Intake Total 10 610 Output Total 0 Balance 10 610 Intake: IV 10 20 saline flush 10 20 Oral 590 Output: Stool 0 Other: Voiding Method Indwelling Catheter Indwelling Catheter # Bowel Movements 1 ABP, PAP, CO, CI - Last Documented Arterial Blood Pressure 129/59 - Exam General: Well-developed, thin-appearing HEENT: Normocephalic, Nontramatic, sclerae nonicteric, tracheostomy and placed 1-2cm right moveable palpable cervical lymph node LUNGS: Equal and no increased effort noted HEART: Tachy, Irregular Abdomen: Nontender, nondistended Extremities: No edema Neuro: Alert and oriented, Non Vocal secondary to Trach. - Labs CBC & Chem 7: 11/14/17 06:46 11/14/17 06:46 Assessment and Plan Plan: Assessment and Recommendations: 1. New Squamous Cell Carcinoma of Larynx: - Status Post Trachesotomy for obstructive mass - Staging CT scans and Bone Scan - Pending results of staging scans will send tissue for MSI, PDL-1, and P16 - Reviewed CT scans, Bone biopsy pathology returned, positive for squamous cell, consistent with metastatic disease from the larynx. Treatment is palliative in intent. - Palliative radiation to the neck has started. - Systemic treatment with chemotherapy and/or immunotherapy was discussed. - Plan was for systemic treatment after palliative radiation and rehabilitation of the patient. Although Mr. Christian has decided to pursue Hospice in the picture of his metastatic cancer. His performance status would need to be improved to consider systemic treatment and has not while hospitalized. Hospice is an appropriate option in his scenario. prognosis is gaurded 2. Hypercalcemia - Malignancy - Resolved, Status Post Zoledronic acid on 11/03/17 - IVF HYdration and Bone Scan - Likely metastatic Lesions to bone either prostate progression or Laryngeal diagnosis, PSA Re-check still Pending 3. History of Prostate Cancer - Follows with Urology - Receives LHRT per Urology - - Recheck PSA Level - CT scan revealed tumor of prostate, PSA increased 4. Macrocytic Anemia - Improved. - monitoring cbc DISPO PLan for hospice at [facility].
[2017-11-17 11:56] VITALS: PULSE 104
--- NOTE | 2017-11-18 14:40 | CDI ---
Last Revision, January 2017 Documentation Clarification Form Date: 11/18/17 From: Miya Jesus Opal Powell, [employer] Gear Custodian Hours-8:30 am & 5 pm Amandeep Admit Date: 10/18/2017 11:09:00 AM Patient Name: Bjorn Christian Visit Number: [id number] Discharge Date: 11/17/17 ATTENTION: The Clinical Documentation Specialists (CDI) and [facility] Coding Staff appreciate your assistance in clarifying documentation. Please respond to the clarification below the line at the bottom and electronically sign. The CDI & [facility] Coding staff will review the response and follow-up if needed. Please note: Queries are made part of the Legal Health Record. If you have any questions, please contact the author of this message via ITS. Harshal Lindquist MD Sepsis was documented in the ED note and then referred to again in prog notes 10/27 & 10/28. History/Risk Factors: Pneumonia, acute resp failure, acute renal failure, laryngeal ca, prostate ca, met bone ca WBC/Left Shift: 11.4/87 Lactic acid: 3.2 Blood cultures: negative Vitals signs on admission:T-98.2, P-143, R-28, O2 sat-87, BP-102/35 Antibiotics: IV Zithromax In your professional opinion, please clarify if these findings signify one of the following conditions: Sepsis ruled out SIRS, without underlying infectious process Sepsis due to Other, please specify Unable to determine MTDD
--- NOTE | 2017-12-07 11:28 | P.DS ---
Providers Date of admission: 10/18/17 11:09 Expected date of discharge: 11/17/17 Attending physician: Harshal Lane Consults: 10/19/17 08:53 Consult Physician Urgent Consulting Provider: Denise Woods Consult Reason/Comments: sob Do you want consulting provider notified?: Yes 10/19/17 13:18 Consult Physician Urgent Consulting Provider: Jude Tse Consult Reason/Comments: laryngeal mass Do you want consulting provider notified?: Yes, Notify in am 10/20/17 17:11 Consult Physician Routine Consulting Provider: Guanako Yang Consult Reason/Comments: urine retention Do you want consulting provider notified?: Yes 10/23/17 14:05 Consult Physician Routine Consulting Provider: Chirag Garcia Consult Reason/Comments: peg tube Do you want consulting provider notified?: Yes 10/23/17 15:36 Consult Physician Routine Consulting Provider: Jhonny Campa Consult Reason/Comments: laryngeal mass Do you want consulting provider notified?: Yes 10/23/17 15:39 Consult Physician Routine Consulting Provider: Kaden Pederson Consult Reason/Comments: laryngeal SCC Do you want consulting provider notified?: Yes 10/24/17 07:42 Consult Physician Routine Consulting Provider: Guanako Gonzalez Consult Reason/Comments: toenails Do you want consulting provider notified?: Yes 10/31/17 19:58 Consult Physician Routine Consulting Provider: Izaiah Sigala Consult Reason/Comments: afib rvr Do you want consulting provider notified?: Yes, Notify in am 11/05/17 09:44 Consult Physician Urgent Consulting Provider: Devika Monique Consult Reason/Comments: primary hyperparathyroidism Do you want consulting provider notified?: Yes 11/06/17 16:02 Consult Physician Routine Consulting Provider: [facility] Consult Reason/Comments: ej Do you want consulting provider notified?: Yes, Notify in am Primary care physician: Harshal Lane Hospital Course: This is a 82-year-old gentleman who was admitted to the hospital after being brought into the emergency room. The patient had complaint of shortness of breath. Patient does have underlying history of COPD and associated chronic respiratory failure on oxygen at home. The patient is also at home. The patient had been started on steroids 2 days prior to admission because of complains of shortness of breath. Checking anemia the day prior to admission he said he was feeling 100% better. The patient who presents with now worsening shortness of breath and generalized weakness. The patient's respirations did have a mild stridor. In the emergency room evaluation patient' s noted to have possible infiltrate of the left lower lobe along with the pleural fluid. Possibility of infective process not ruled out. Lactic acid borderline at 3.2. He is felt to have acute on chronic respiratory failure with possibility of pneumonia entertained. Started on antibiotics fluids and is subsequently admitted to the hospital. Patient's also noted to be somewhat dehydrated appearing debilitated and in very poor hygiene with fecal contamination on his feet. Also hand nails fairly dirty. Patient lives alone has no relatives. He has a friend of long duration in the neighborhood who has been helping. He told me that the bathroom and tolerated versus that he could not even enter as there was significant fecal contaminations. At the time of admission patient's noted to have an elevated BUN and a creatinine suggestive chronic renal failure. [place] to have an acute element due to dehydration. Patient also noted to have hypercalcemia. Following admission patient had been placed on a IV antibiotic Rocephin and Zithromax updrafts and oxygen steroids. Consulted to pulmonary. Due to the stridor patient was transferred to ICU for closer observation. The patient was continually requiring more oxygen and in view of this he was intubated. At the time of intubation was noted that he had a significant laryngeal mass. ENT was consulted and depression and is on the patient and subsequently took him in for a biopsy and tracheostomy. The patient's mass felt to be extending from the larynx to the hypopharynx. 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 The patient was seen by oncology. He did have further metastatic workup which didn't reveal that he had metastatic disease to the ribs and the right side. Patient also has underlying history of carcinoma of the prostate and was on medical therapy on the outpatient. The patient also had associated significant urinary retention requiring Kenny catheter. The patient's PSA was elevated at 50. It was thus decided to biopsy the right chest rib area to make sure the source of metastases was it from the larynx or was it from the prostate. The biopsy did suggest that this was from the laryngeal area as it was a squamous cell carcinoma. The patient was followed by oncology and radiation oncologist also saw the patient. They recommended palliative radiation therapy to the neck. Patient was in a fairly debilitated status due to inability to swallow and had a PEG tube. This was done by Dr. dan. The patient was tolerating PEG tube feedings well. I had seen the patient is without admission on the through the . House and occasion and on returning back on November 11 noted to the patient had certainly lost significant weight and was pretty much bedbound with significant debility and loss of muscle mass. The patient had in the interim also been followed by the fruit and vegetable packer. Respiratory status had improved following tracheostomy. Chest CAT scan had suggested atelectasis and left pleural fluid. Pneumonia was not felt to be a consideration. Patient at the time of admission was also in atrial fibrillation rapid ventricular rate for which she was treated anticoagulated and was followed by cardiology. Patient does have a history of coronary artery disease documented previously and the present CAT scans did show significant atherosclerosis of the thoracic and abdominal aorta. After the initial acute illness patient's remained in sinus rhythm with occasional A. fib. Patient for dysphagia had a PEG tube and enteral supplementation. For this carcinoma of the prostate no further treatment was given. Had associated urinary retention and a Kenny catheter is in place. Patient was followed by urology. Patient had acute on chronic renal failure with acute kidney injury related to the acute illness. The patient's also had hypercalcemia. Nephrology had seen the patient and felt that the patient's hypercalcemia was more likely to be secondary to primary hyperparathyroidism rather than the malignancy. However malignancy still could be a possibility. Patient also had hyper-natremia which was corrected with appropriate fluid changes Patient's acute illness was more suggestive of SIRS with no evidence of underlying infective process. Laryngeal malignancy with hypopharyngeal infiltration. Patient also had a biopsy of the left parotid gland which was negative for malignancy. Right chest rib mass was positive. Patient had anemia macrocytic but was felt to be secondary to chronic disease as well as acute illness did not require blood transfusion After my return and reevaluation of the present admission and further observation from November 11 through the , had a long discussion with the patient over the past 3 days prior to discharge and the longest one being on the . After discussion the patient did admit and agreed that his quality of life is very poor and understood that the prognosis was poor. I had discussed with the radiation oncologist and oncologist and ticket puller and their opinions. The patient did agree to comfort care and was transferred to a hospice plan. Patient had been receiving adequate pain medication. Also discussed status with his POA/friend Regarding patient's wishes. Patient was of clear mind and oriented and making this decision. Final diagnosis to include 1. Acute on chronic respiratory failure 2. 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 Carcinoma of the prostate 6. Urinary retention 7. Debility and malnutrition 8. PEG tube 9. Acute on chronic renal failure 10. Acute kidney injury 11. Dehydration 12. Hypernatremia 13. Hypercalcemia 14. Hyperparathyroidism 15. History of chronic obstructive lung disease 16. Atrial fibrillation rapid ventricular rate 17. Coronary artery disease stable 18. Thoracoabdominal aortic atherosclerosis 19. Dysphagia 20. Cachexia 21. Anemia of chronic disease 22. SIRS without underlying infectious process 23. Left lower lung atelectasis and pleural effusion 24. Tracheostomy procedures: 1. Tracheal intubation 2. Tracheostomy 3. PEG tube placement 4. Left parotid biopsy 5. Right chest wall mass biopsy 6. Radiotherapy neck Patient Condition at Discharge: Serious Plan - Discharge Summary Discharge Rx Participant: Yes New Discharge Prescriptions: New Dexamethasone 4 mg PO BID #90 tablet Pantoprazole Sodium [Protonix] 20 mg PO BID #90 tablet.dr Wells Action Multivitamins, Thera [Multivitamin (formulary)] 1 tab PO DAILY Docusate [Colace] 100 mg PO DAILY PRN PRN Reason: Constipation Omeprazole Magnesium [PriLOSEC OTC] 20 mg PO DAILY Aspirin EC [Ecotrin Low Dose] 162 mg PO DAILY Ezetimibe [Zetia] 10 mg PO HS Atorvastatin [Lipitor] 40 mg PO HS Atenolol [Tenormin] 50 mg PO DAILY Furosemide [Lasix] 40 mg PO DAILY Ipratropium-Albuterol Nebulize [Duoneb 0.5 mg-3 mg/3 ml Soln] 3 ml INHALATION RT-QID ampul.neb Lisinopril [Zestril] 10 mg PO DAILY #30 tab Cetirizine HCl [Zyrtec] 10 mg PO DAILY Flutamide 375 mg PO BID Alfuzosin HCl [Uroxatral ER] 10 mg PO DAILY traMADol HCL [Ultram] 50 - 100 mg PO Q6H PRN PRN Reason: Pain Besifloxacin HCl [Besivance] 1 drop LEFT EYE TID Bromfenac Sodium [Prolensa Ophth Soln] 1 drop LEFT EYE DAILY Difluprednate [Durezol] 1 drop LEFT EYE BID Discharge Medication List Aspirin EC [Ecotrin Low Dose] 162 mg PO DAILY 04/29/17 [History] Atenolol [Tenormin] 50 mg PO DAILY 04/29/17 [History] Atorvastatin [Lipitor] 40 mg PO HS 04/29/17 [History] Docusate [Colace] 100 mg PO DAILY PRN 04/29/17 [History] Ezetimibe [Zetia] 10 mg PO HS 04/29/17 [History] Furosemide [Lasix] 40 mg PO DAILY 04/29/17 [History] Multivitamins, Thera [Multivitamin (formulary)] 1 tab PO DAILY 04/29/17 [History ] Omeprazole Magnesium [PriLOSEC OTC] 20 mg PO DAILY 04/29/17 [History] Ipratropium-Albuterol Nebulize [Duoneb 0.5 mg-3 mg/3 ml Soln] 3 ml INHALATION RT -QID ampul.neb 05/09/17 [Rx] Lisinopril [Zestril] 10 mg PO DAILY #30 tab 05/26/17 [Rx] Alfuzosin HCl [Uroxatral ER] 10 mg PO DAILY 10/15/17 [History] Cetirizine HCl [Zyrtec] 10 mg PO DAILY 10/15/17 [History] Flutamide 375 mg PO BID 10/15/17 [History] traMADol HCL [Ultram] 50 - 100 mg PO Q6H PRN 10/15/17 [History] Besifloxacin HCl [Besivance] 1 drop LEFT EYE TID 10/23/17 [History] Bromfenac Sodium [Prolensa Ophth Soln] 1 drop LEFT EYE DAILY 10/23/17 [History] Difluprednate [Durezol] 1 drop LEFT EYE BID 10/23/17 [History] Dexamethasone 4 mg PO BID #90 tablet 11/03/17 [Rx] Pantoprazole Sodium [Protonix] 20 mg PO BID #90 tablet. 11/03/17 [Rx] Follow up Appointment(s)/Referral(s): Jhonny Campa MD [STAFF PHYSICIAN] - 11/24/17 2:00 pm (This appt is at the [facility] office location, behind [facility]) Harshal Lane MD [Primary Care Provider] - 1-2 days Patient Instructions/Handouts: A-fib (Atrial Fibrillation) (DC), Pneumonia (DC) Activity/Diet/Wound Care/Special Instructions: [facility] rehab on d/c. Discharge Disposition: DISCH TO [facility]
== END 2017-11-17 15:30 | disposition hospice, inpatient (51) | DRG 3 ==
LOC: EC 08:49 → 6SEL 11:09 → 6ICU 10-19 10:19 → 6SEL 10-25 06:41 → 5ONC 11-07 22:31
PROVIDERS: ADMIT Internal Medicine; ATTEND Internal Medicine
PROC: 5A1945Z Respiratory Ventilation, 24-96 Consecutive Hours (ICD-10-PCS; 2017-10-19)
PROC: 0BH18EZ Insertion of Endotracheal Airway into Trachea, Via Natural or Artificial Opening Endoscopic (ICD-10-PCS; 2017-10-19)
PROC: 5A09357 Assistance with Respiratory Ventilation, Less than 24 Consecutive Hours, Continuous Positive Airway Pressure (ICD-10-PCS; 2017-10-19)
PROC: 0D9670Z Drainage of Stomach with Drainage Device, Via Natural or Artificial Opening (ICD-10-PCS; 2017-10-19)
PROC: 02HV33Z Insertion of Infusion Device into Superior Vena Cava, Percutaneous Approach (ICD-10-PCS; 2017-10-19)
PROC: 03HY32Z Insertion of Monitoring Device into Upper Artery, Percutaneous Approach (ICD-10-PCS; 2017-10-19)
PROC: 4A133B1 Monitoring of Arterial Pressure, Peripheral, Percutaneous Approach (ICD-10-PCS; 2017-10-19)
PROC: 4A133J1 Monitoring of Arterial Pulse, Peripheral, Percutaneous Approach (ICD-10-PCS; 2017-10-19)
PROC: 3E0G76Z Introduction of Nutritional Substance into Upper GI, Via Natural or Artificial Opening (ICD-10-PCS; 2017-10-20)
PROC: 0CBS8ZX Excision of Larynx, Via Natural or Artificial Opening Endoscopic, Diagnostic (ICD-10-PCS; 2017-10-21)
PROC: 0B110F4 Bypass Trachea to Cutaneous with Tracheostomy Device, Open Approach (ICD-10-PCS; principal; 2017-10-21 07:30)
PROC: 0GTJ0ZZ Resection of Thyroid Gland Isthmus, Open Approach (ICD-10-PCS; 2017-10-21 07:30)
PROC: 0DH63UZ Insertion of Feeding Device into Stomach, Percutaneous Approach (ICD-10-PCS; 2017-10-24)
PROC: 0JB53ZX Excision of Left Neck Subcutaneous Tissue and Fascia, Percutaneous Approach, Diagnostic (ICD-10-PCS; 2017-10-24)
PROC: 0HBRXZZ Excision of Toe Nail, External Approach (ICD-10-PCS; 2017-10-29)
PROC: 0HBRXZZ Excision of Toe Nail, External Approach (ICD-10-PCS; 2017-10-29)
PROC: 0HBRXZZ Excision of Toe Nail, External Approach (ICD-10-PCS; 2017-10-29)
PROC: 0HBRXZZ Excision of Toe Nail, External Approach (ICD-10-PCS; 2017-10-29)
PROC: 0HBRXZZ Excision of Toe Nail, External Approach (ICD-10-PCS; 2017-10-29)
PROC: 0HBRXZZ Excision of Toe Nail, External Approach (ICD-10-PCS; 2017-10-29)
PROC: 0HBRXZZ Excision of Toe Nail, External Approach (ICD-10-PCS; 2017-10-29)
PROC: 0HBRXZZ Excision of Toe Nail, External Approach (ICD-10-PCS; 2017-10-29)
PROC: 0HBRXZZ Excision of Toe Nail, External Approach (ICD-10-PCS; 2017-10-29)
PROC: 0HBRXZZ Excision of Toe Nail, External Approach (ICD-10-PCS; 2017-10-29)
PROC: 0WB83ZX Excision of Chest Wall, Percutaneous Approach, Diagnostic (ICD-10-PCS; 2017-10-31)
PROC: D90B1ZZ Beam Radiation of Larynx using Photons 1 - 10 MeV (ICD-10-PCS; 2017-11-10)
DX: J96.21 Acute and chronic respiratory failure with hypoxia (principal); J18.9 Pneumonia, unspecified organism; R65.11 Systemic inflammatory response syndrome (SIRS) of non-infectious origin with acute organ dysfunction; J44.0 Chronic obstructive pulmonary disease with (acute) lower respiratory infection; J44.1 Chronic obstructive pulmonary disease with (acute) exacerbation; N17.9 Acute kidney failure, unspecified; C79.51 Secondary malignant neoplasm of bone; I50.42 Chronic combined systolic (congestive) and diastolic (congestive) heart failure; R64 Cachexia; E87.0 Hyperosmolality and hypernatremia; I13.0 Hypertensive heart and chronic kidney disease with heart failure and stage 1 through stage 4 chronic kidney disease, or unspecified chronic kidney disease; E44.1 Mild protein-calorie malnutrition; J98.11 Atelectasis; J90 Pleural effusion, not elsewhere classified; E46 Unspecified protein-calorie malnutrition; I95.9 Hypotension, unspecified; E11.22 Type 2 diabetes mellitus with diabetic chronic kidney disease; D69.6 Thrombocytopenia, unspecified; E11.65 Type 2 diabetes mellitus with hyperglycemia; R13.10 Dysphagia, unspecified; I48.0 Paroxysmal atrial fibrillation; E11.40 Type 2 diabetes mellitus with diabetic neuropathy, unspecified; Z51.5 Encounter for palliative care; Z66 Do not resuscitate; E86.0 Dehydration; I08.8 Other rheumatic multiple valve diseases; C61 Malignant neoplasm of prostate; D53.9 Nutritional anemia, unspecified; N18.3 Chronic kidney disease, stage 3 (moderate); D63.8 Anemia in other chronic diseases classified elsewhere; D50.0 Iron deficiency anemia secondary to blood loss (chronic); C10.9 Malignant neoplasm of oropharynx, unspecified; C32.9 Malignant neoplasm of larynx, unspecified; G89.3 Neoplasm related pain (acute) (chronic); B35.1 Tinea unguium; Z68.23 Body mass index [BMI] 23.0-23.9, adult; J38.5 Laryngeal spasm; E21.0 Primary hyperparathyroidism; E78.5 Hyperlipidemia, unspecified; I70.0 Atherosclerosis of aorta; I25.10 Atherosclerotic heart disease of native coronary artery without angina pectoris; F32.9 Major depressive disorder, single episode, unspecified; K29.70 Gastritis, unspecified, without bleeding; K21.9 Gastro-esophageal reflux disease without esophagitis; M17.0 Bilateral primary osteoarthritis of knee; M19.032 Primary osteoarthritis, left wrist; M19.031 Primary osteoarthritis, right wrist; I25.2 Old myocardial infarction; R33.9 Retention of urine, unspecified; M48.061 Spinal stenosis, lumbar region without neurogenic claudication; Z99.81 Dependence on supplemental oxygen; Z71.3 Dietary counseling and surveillance; Z79.82 Long term (current) use of aspirin; Z79.899 Other long term (current) drug therapy; Z87.11 Personal history of peptic ulcer disease; Z95.1 Presence of aortocoronary bypass graft; Z85.828 Personal history of other malignant neoplasm of skin; Z95.5 Presence of coronary angioplasty implant and graft; Z90.49 Acquired absence of other specified parts of digestive tract; Z87.891 Personal history of nicotine dependence; Z85.46 Personal history of malignant neoplasm of prostate; Z85.3 Personal history of malignant neoplasm of breast; Z74.01 Bed confinement status; Z98.42 Cataract extraction status, left eye; Z88.8 Allergy status to other drugs, medicaments and biological substances; Z88.6 Allergy status to analgesic agent; Z88.5 Allergy status to narcotic agent; Z88.2 Allergy status to sulfonamides; Z82.49 Family history of ischemic heart disease and other diseases of the circulatory system; Z83.3 Family history of diabetes mellitus
CPT/HCPCS: 10022; 20206; 31624; 36415; 36600; 43246; 51702; 51798; 70492; 71045; 71046; 71260; 74177; 74230; 76536; 76942; 77280; 77290; 77307; 77334; 77412; 77417; 78306; 80048; 80053; 80061; 81001; 82310; 82330; 82550; 82553; 82607; 82728; 82746; 82805; 83036; 83519; 83540; 83550; 83605; 83630; 83735; 83880; 83970; 84100; 84153; 84484; 84630; 85025; 85384; 85610; 85730; 87040; 87045; 87046; 87070; 87086; 87205; 87324; 88173; 88305; 88341; 88342; 93005; 94002; 94003; 94640; 94660; 94760; 96365; 96366; 96375; 96376; 99284; 99291